=== PATIENT | female | born 1950 | race Caucasian/White ===

== ENCOUNTER → 2017-09-10 14:27 | Outpatient (CLI) | payer MEDICARE, SELFPAY ==
[2017-09-10 14:45] LABS: Basophils # 0.1 K/mm3 (0-0.2); Basophils % 0.7 % (0.1-2.0); Eosinophils # 0.2 K/mm3 (0.0-0.4); Eosinophils % 2.5 % (0.1-12.0); Hematocrit 44.3 % (37.0-47.0); Hemoglobin 14.2 g/dL (12.2-16.2); Lymphocytes # 2.2 K/mm3 (0.7-4.5); Lymphocytes % 29.9 K/mm3 (10-50); Mean Corpuscular HGB Conc 32.1 g/dL (31.8-35.4); Mean Corpuscular Hemoglobin 29.6 pg (27.0-31.2); Mean Corpuscular Volume 92.1 fl (81-99); Mean Platelet Volume 7.9 fl (7.4-10.4); Monocytes # 0.5 K/mm3 (0.1-1.0); Monocytes % 6.1 % (1.7-9.3); Neutrophils # 4.5 K/mm3 (1.8-7.8); Neutrophils % 60.8 % (37.0-80.0); Platelet Count 254 K/mm3 (142-424); Red Blood Count 4.81 M/mm3 (4.20-5.40); White Blood Count 7.4 K/mm3 (4.8-10.8)
[2017-09-10 15:11] LABS: Anion Gap 10.5 mEq/L (5-15); Blood Urea Nitrogen 14 mg/dL (7-18); CKMB Relative Index 1.2 U/L (0-4.0); Carbon Dioxide 30 mmol/L (21.0-32.0); Chloride 107 mmol/L (98-107); Creatine Kinase 73 U/L (26-192); Creatine Kinase MB 0.9 ng/ml (0.0-3.6); Creatinine,Serum 0.91 mg/dL (0.55-1.02); Estimated Glomerular Filt Rate 61 ml/min (>60); GFR (African American) 74 ML/MIN (>60); Glucose 103 mg/dL (74-106); Potassium 4.5 mmoL/L (3.5-5.1); Sodium 143 mmol/L (136-145); Troponin I < 0.02 ng/ml (0.00-0.06)
[2017-09-10 19:35] LABS: Free T4 (Free Thyroxine) 1.08 ng/dl (0.76-1.46); Thyroid Stimulating Hormone 1.56 uIU/ml (0.358-3.740); Uric Acid 5.8 mg/dL (2.6-7.2)
[2017-09-12 19:04] LABS: Vitamin B12 1914 pg/mL (232-1245)
== END ==
PROVIDERS: PCP Psychiatry & Neurology Sleep Medicine; Visit Provider Physician Assistant
DX: R07.9 Chest pain, unspecified (principal); E03.9 Hypothyroidism, unspecified; E79.0 Hyperuricemia without signs of inflammatory arthritis and tophaceous disease; R53.83 Other fatigue
CPT/HCPCS: 36415; 80048; 82550; 82553; 82607; 84439; 84443; 84484; 84550; 85025; 93005

== ENCOUNTER → 2017-09-22 07:52 | Outpatient (CLI) | payer MEDICARE, SELFPAY ==
--- NOTE | 2017-09-22 09:17 | CA_ITS ---
PROCEDURE: 2-D M-mode and color Doppler study INDICATIONS FOR THE TEST: Chest pain X COPD Heart Murmur Tobacco Smoking Palpitations Fatigue Syncope Edema HypertensionXDiabetes Mellitus Rheumatic Fever SOB EUCEDA Obesity Hyperlipidemia Family History HD Additional History DIZZINESS TDS PATIENT INFORMATION HEIGHT: 60 WEIGHT:186 GENDER: Female B/P:164/86 2-D/M-MODE INTERPRETATION: 2-D MEASUREMENTS OBSERVED VALUES IN CMS Right Ventricular Dimension (RVDd) 1.2 Interventricular Septum (Thickness)(IVsd) 1.2 Left Ventricular Internal Dimensions(LVIDd) 6.0 Left Ventricular Posterior Wall (Thickness)(LVPWd) 1.0 Aortic Root 3.1 Aortic Cusp Separation 1.9 Left Atrial Dimensions (LAD) 3.1 2D 1. Left atrium is mildly enlarged, left ventricle is normal size, mild concentric left ventricular hypertrophy, visually estimated ejection fraction 55% with no obvious regional wall motion abnormality. 2. The right atrium and right ventricle are normal size and contractility. 3. The aortic valve is minimally thickened and fibrosed. 4. The mitral and tricuspid valve are grossly normal. 5. The pulmonic valve is poorly visualized. 6. No significant pericardial effusion noted. DOPPLER INTERROGATION: Doppler interrogation of the aortic, mitral and tricuspid valvular presence of mild aortic, mild mitral and tricuspid regurgitation, tricuspid and enteric velocity insufficient for calculation of the right ventricular systolic pressure, diastolic parameters are inconclusive. CONCLUSION: 1. Mildly enlarged left atrium, normal left ventricular size, mild concentric left ventricular hypertrophy, visually estimated ejection fraction 55% with no obvious regional wall motion abnormality. 2. Mild aortic, mild mitral and tricuspid regurgitation 3. No significant pericardial effusion noted.
== END ==
PROVIDERS: Family Provider Family Medicine; PCP Family Medicine; Visit Provider Family Medicine
DX: R07.9 Chest pain, unspecified (principal)
CPT/HCPCS: 93017; 93306

== ENCOUNTER → 2018-02-24 09:09 | Outpatient (CLI) | payer MEDICARE, SELFPAY ==
--- NOTE | 2018-02-24 09:12 | MM_ITS ---
MM Dig screening mamm BI w/CAD ORDERING PHYSICIAN : Navid Mae MD PATIENT AGE: 67 years GENDER: Female COMPARISON: March INDICATION: ITS.REASON: SCREENING no hormones no new complaints Family history. Maternal grandmother in her 90s with breast cancer TECHNIQUE: Standard CC and MLO images were obtained. R2 CAD reviewed. FINDINGS: Moderately dense breast bilaterally . Stable mild asymmetry with slightly more evident fibroglandular elements in the right breast superiorly than left. This is been seen previously on studies dating back to 2006 RIGHT BREAST:No significant new findings. Stable fibroglandular pattern and overall architecture with no dominant mass nor suspicious calcification. LEFT BREAST: Area of minor asymmetry towards the 12 o'clock position deep breast is been present on studies dating back to 2006. Dense calcification at the anterior aspect of this region of again noted these features can be followed in one year.. IMPRESSION: . Stable bilateral mammogram No significant interval change Follow-up in one year BI-RADS Category: 2 Benign Finding(s) RECOMMENDED FOLLOW-UP: 1YR 1 YEAR FOLLOW-UP (A letter has been sent to the patient regarding results of the study.)
--- NOTE | 2018-02-24 09:13 | XR_ITS ---
XR DEXA axial skeleton HISTORY: ITS.REASON: POSTMENOPAUSAL ORDERING PHYSICIAN: Navid Mae MD PATIENT AGE: 67 years COMPARISON: None FINDINGS: The BMD measured at the left femoral neck is 0.860 g/cm squared with a T score of -1.3. This is considered Osteopenic according to the World Health Organization criteria. Fracture risk is Moderate. Treatment is advised. L1 L4 density has these were -0.5. IMPRESSION: Osteopenia with moderate fracture risk. Treatment is suggested. Recommend follow-up exam January 2020
== END ==
PROVIDERS: PCP Family Medicine; Visit Provider Family Medicine
DX: Z12.31 Encounter for screening mammogram for malignant neoplasm of breast (principal); Z78.0 Asymptomatic menopausal state
CPT/HCPCS: 77067; 77080

== ENCOUNTER → 2018-05-22 09:23 | Outpatient (CLI) | payer MEDICARE, SELFPAY ==
[2018-05-22 10:22] LABS: Anion Gap 14.2 mEq/L (5-15); Blood Urea Nitrogen 15 mg/dL (7-18); Calcium 9.1 mg/dL (8.5-10.1); Carbon Dioxide 28 mmol/L (21.0-32.0); Chloride 105 mmol/L (98-107); Creatinine,Serum 0.93 mg/dL (0.55-1.02); Estimated Glomerular Filt Rate 60 ml/min (>60); GFR (African American) 72 ML/MIN (>60); Glucose 96 mg/dL (74-106); Potassium 4.2 mmoL/L (3.5-5.1); Sodium 143 mmol/L (136-145)
== END ==
PROVIDERS: Visit Provider Physician Assistant
DX: I10 Essential (primary) hypertension (principal)
CPT/HCPCS: 36415; 80048

== ENCOUNTER → 2018-10-28 09:37 | Outpatient (CLI) | payer MEDICARE, SELFPAY ==
--- NOTE | 2018-10-28 09:41 | XR_ITS ---
XR finger LT min 2V CLINICAL INDICATION: Follow-up fracture ITS.REASON: FX OF LT RING FINGER ORDERING PHYSICIAN: SUKHDEV Ventura PATIENT AGE: 68 years Comparison: 09/29/2018 FINDINGS: Minimally displaced chip fracture involves the dorsal and proximal aspect of the middle phalanx of the fourth finger. The fracture appears slightly more displaced compared to the previous exam with proximal distraction. There are osteoarthritic changes at the PIP and DIP joint. IMPRESSION: Mildly displaced chip fracture dorsal and proximal aspect middle phalanx fourth digit
== END ==
PROVIDERS: PCP Family Medicine; Visit Provider Physician Assistant
DX: S62.625D Displaced fracture of middle phalanx of left ring finger, subsequent encounter for fracture with routine healing (principal)
CPT/HCPCS: 73140

== ENCOUNTER → 2019-08-08 12:32 | Outpatient (CLI) | payer MEDICARE, SELFPAY | PROVIDERS: PCP Family Medicine; Visit Provider Family Medicine | DX: R55 Syncope and collapse (principal) | CPT/HCPCS: 93225; 93226 ==

== ENCOUNTER → 2019-08-11 10:19 | Outpatient (CLI) | payer MEDICARE, SELFPAY ==
--- NOTE | 2019-08-11 10:27 | CA_ITS ---
APPROVED REPORT Anaesthetic Technician: FILIBERTO Laterality: Bilateral Study Quality: Excellent Indications: SYNCOPE,DIZZINESS,HTN Doppler Spectral Velocity Analysis dICA (R) 56.00/20.90 cm/s dICA (L) 58.20/19.60 cm/s Anne Marie (R) 42.10/18.70 cm/s Anne Marie (L) 56.20/22.30 cm/s pICA (R) 61.70/14.70 cm/s pICA (L) 54.90/16.40 cm/s dCCA (R) 75.70/26.30 cm/s dCCA (L) 84.80/25.70 cm/s pCCA (R) 75.00/21.90 cm/s pCCA (L) 70.30/18.50 cm/s Vert (R) 36.30/6.60 cm/s Vert (L) 49.80/12.50 cm/s ICA/CCA 0.80 ICA/CCA 0.70 Findings The right carotid arterial system appeared to be normal without stenosis of the bulb or internal carotid artery. The left carotid arterial system appeared to be normal without stenosis of the bulb or internal carotid artery. Antegrade flow seen bilateral vertebral arteries. Conclusion No increased velocities to suggest hemodynamically significant stenosis in either internal carotid artery. Electronically signed by : Kilo Aranda MD 08/11/2019 16:52:47
== END ==
PROVIDERS: PCP Family Medicine; Visit Provider Family Medicine
DX: R55 Syncope and collapse (principal)
CPT/HCPCS: 93880

== ENCOUNTER → 2019-08-19 16:19 | Outpatient (CLI) | payer MEDICARE, SELFPAY ==
--- NOTE | 2019-08-19 16:27 | XR_ITS ---
PROCEDURE: XR RIBS RT MIN 3V W CXR1V CLINICAL INDICATION: PLEURODYNIA, RIGHT RIB PAIN The COMPARISON: CXR CHEST(2 VIEWS-NOT PORTABLE) from 04/23/2015 CT CHEST WO CON from 08/06/2019 FINDINGS: Frontal view of the chest shows no acute finding. There is some minimal atelectatic or fibrotic changes in the left mid lower lung zone and in the left lung base. The right lung is clear. No obvious rib fracture evident. No lytic or blastic change. IMPRESSION: No acute finding. If pain persists, consider follow-up study in 7-[address] with 3D reformats Dictated by: Kilo Aranda MD 08/19/2019 17:20 Electronically signed by Kilo Aranda MD in [place] 08/19/2019 17:20
== END ==
PROVIDERS: PCP Family Medicine; Visit Provider Family Medicine
DX: R07.81 Pleurodynia (principal)
CPT/HCPCS: 71101

== ENCOUNTER → 2019-12-01 10:04 | Outpatient (CLI) | payer MEDICARE, SELFPAY ==
--- NOTE | 2019-12-01 11:00 | MM_ITS ---
PROCEDURE: MM DIG SCREENING MAMM BI W/CAD Digital Breast Tomosynthesis Included CLINICAL INDICATION: SCREENING COMPARISON: DIGMAMMS MAMMOGRAM SCREEN-MILITARY LAWYER N/C from 03/22/2007 [facility] DIGITAL MAMM-SCREEN BILATERAL from 11/12/2011 [facility] MM Dig screening mamm BI w/CAD from 02/24/2018 TECHNIQUE: Standard CC and MLO images and 3D Tomosynthesis was obtained. R2 CAD reviewed. FINDINGS: There is average fibroglandular tissue. No malignant appearing mass or malignant-appearing microcalcification is evident. There is however questionable linear calcifications in the inferior aspect of the left breast. Recommend spot compression Mag view and straight mL view on the left. Right breast has an unremarkable appearance. IMPRESSION: BI-RAD Category: 0 Need Additional Imaging Evaluation FOLLOW-UP: IMM Immediate Follow-up Recommended (A letter has been sent to the patient regarding results of the study.) Dictated by: Kilo Aranad MD 12/02/2019 14:47 Electronically signed by Kilo Aranda MD in [place] 12/02/2019 14:47
== END ==
PROVIDERS: PCP Family Medicine; Visit Provider Family Medicine
DX: Z12.31 Encounter for screening mammogram for malignant neoplasm of breast (principal)
CPT/HCPCS: 77063; 77067

== ENCOUNTER → 2019-12-09 13:36 | Outpatient (CLI) | payer MEDICARE, SELFPAY ==
--- NOTE | 2019-12-09 13:48 | MM_ITS ---
PROCEDURE: MM DIG MAMM DX UNILAT LT CAD Digital Breast Tomosynthesis Included CLINICAL INDICATION: ABN MAMM OF L BREAST Follow-up possible microcalcifications COMPARISON: MM DIG SCREENING MAMM BI W/CAD from 12/01/2019 TECHNIQUE: Mag views and left mL view obtained FINDINGS: No abnormal calcifications evident in the inferior aspect of the left breast. Previously noted abnormality probably related to a summation artifact. IMPRESSION: BI-RAD Category: 2 Benign Finding(s) FOLLOW-UP: 1YR 1 Year Follow-up (A letter has been sent to the patient regarding results of the study.) Dictated by: Kilo Aranda MD 12/16/2019 17:11 Electronically signed by Kilo Aranda MD in [place] 12/16/2019 17:11
== END ==
PROVIDERS: PCP Family Medicine; Visit Provider Family Medicine
DX: R92.8 Other abnormal and inconclusive findings on diagnostic imaging of breast (principal)
CPT/HCPCS: 77061; 77065; G0279

== ENCOUNTER → 2020-04-21 13:04 | Outpatient (CLI) | payer MEDICARE, SELFPAY | PROVIDERS: Visit Provider Family Medicine | DX: N30.00 Acute cystitis without hematuria (principal) | CPT/HCPCS: 87086; 87088; 87186 ==

== ENCOUNTER → 2020-10-16 06:56 | Outpatient (CLI) | payer MEDICARE, SELFPAY ==
--- NOTE | 2020-10-16 07:07 | NM_ITS ---
APPROVED REPORT Exam: Nuclear Stress Test Indication: Chest pain, SOB, Palpitations, Syncope, HTN, High cholesterol, Family history Patient Location: Outpatient Stress Tech: Sonia Jonas [place] Tech:Linda Griffiths, ARRT, RT (R)(N) Ht: 5 ft 1 in Wt: 200 lbs Bra Size: D HR: 49 bpm BP: 140/83 mmHg BSA: 1.89 m2 BMI: 37.7 History: Chest pain, SOB, Palpitations, Syncope, HTN, High cholesterol, Family history Procedure: Patient received a 0.4 mg of intravenous Lexiscan, resting heart rate 49 bpm, resting blood pressure 140/83 mmHg, with Lexiscan maximum heart rate achived was 63 bpm which is Less than 85 % of the maximum predicted heart rate and blood pressure was 139/74 mmHg. With Lexiscan, patient denied any complaint of chest pain. Electrocardiogram Resting electrocardiogram showed sinus rhythm, nonspecific ST-T changes, with Lexiscan there is less than 1.[address] segment depression noted from the baseline EKG. The EKG portion of the Lexiscan is nondiagnostic. Cardiac Stress and Resting SPECT Images: Cardiac Stress and Resting SPECT images were obtained using technetium 99m Myoview 30.7 mCi stress and 10.61 mCi at rest. Gated SPECT for analysis of segmental wall motion and calculation of the ejection fraction also done. Prone images were also obtained. Cardiac stress and rest SPECT images show uniform myocardial activity without segmental perfusion abnormality, computer derived ejection fraction is 57% with no regional wall motion abnormality, right ventricle is normal size and contractility. Conclusion: 1. The EKG portion of the Lexiscan is nondiagnostic. 2. No scintigraphic evidence of reversible ischemia seen, computer derived ejection fraction 57% with no regional wall motion abnormality, right ventricle is normal size and contractility. 3. Normal Lexiscan Myoview study. Electronically signed by : Mateo Hare, 10/16/2020 19:24:57
--- NOTE | 2020-10-16 07:13 | CA_ITS ---
APPROVED REPORT EXAM: Comprehensive 2D, Doppler, and color-flow Echocardiogram Master At Arms: Eleni Villanueva CRT Ht: 5 ft 0 in Wt: 184lbs BSA: 1.80 BP: 130/70 mmHg Indications: Chest Pain, Shortness of Breath, Palpitations, CAD, Hyperlipidemia, Hypertension/HDD 2D Dimensions LVOT 1.79 cm (M/F) 1.5-2.5 LA Volume 37.10 mL LA Volume Index 20.60 mL/m2 (M/F) 16-34 M-Mode Dimensions RVDd 3.14 cm (0.9-2.6) LA Diam 2.93 cm (1.9-4.0) LVDd 3.90 cm (3.5-5.7) Ao Diam 3.58 cm (2.0-3.7) LVDs 2.95 cm (3.5-5.7) IVSd 1.70 cm (0.6-1.1) PWd 0.83 cm (0.6-1.1) EF (Teich) 49.00% FS 24.40% EDV (Teich) 65.90 mL TAPSE 1.92 (<1.7) ESV (Teich) 33.60 mL LV Diastology E Decel Time 187.00 (160-240 msec) E/A Ratio 1.03 MED E' 4.70 (< 7 cm/sec) MED A' 8.90 cm/s E'/MED E' Ratio 17.26 (>14) LAT E' 7.60 (<10 cm/sec) LAT A' 7.60 cm/s E/LAT E' Ratio 10.67 (>14) Aortic Valve AI PHT 524.00 ms AO Peak GR. 4.80 mmHg Mitral Valve MV A Velocity 79.00 (40-130 cm/s) E/A Ratio 1.03 MV Decel. Time 187.00 (160-240 ms) Pulmonary Valve PV Peak Velocity 80.00 (50-150 cm/s) Tricuspid Valve TR P. Velocity 244.00 cm/s RAP Estimate 10.00 mmHg RVSP 33.80 mmHg Left Ventricle Left atrium is mildly enlarged, left ventricle is normal size, mild concentric left ventricular hypertrophy, visually estimated ejection fraction 55% with no regional wall motion abnormality, grade 1 diastolic dysfunction seen without tissue Doppler evidence of raise left atrial pressure. Right Ventricle Right atrium and right ventricle are mildly enlarged with normal contractility. Aortic Valve Aortic valve is minimally thickened and fibrosed, there is no aortic stenosis, there is trace aortic insufficiency. Mitral Valve Mitral valve leaflets are minimally thickened, there is mild mitral regurgitation. Tricuspid Valve Tricuspid grossly normal, there is mild tricuspid regurgitation, calculated right ventricular systolic pressure 33 mmHg. Pulmonic Valve Pulmonic valve is poorly visualized. Great Vessels Aortic root is normal size. Inferior vena cava is mildly dilated without significant inspiratory collapse. Pericardium No significant pericardial effusion noted. Conclusion 1. Mild biatrial enlargement, normal left ventricular size, mild concentric left ventricular hypertrophy, visually estimated ejection fraction 55% with no regional wall motion abnormality, grade 1 diastolic dysfunction seen without tissue Doppler evidence of raise left atrial pressure. 2. Mildly enlarged right ventricle with normal contractility. 3. Trace aortic, mild mitral and tricuspid regurgitation, calculated right ventricular systolic pressure 32 mmHg. 4. No significant pericardial effusion noted, inferior vena cava is mildly dilated without significant inspiratory collapse. Electronically signed by : Mateo Hare, 10/16/2020 21:47:35
--- NOTE | 2020-10-16 08:30 | CA_ITS ---
APPROVED REPORT Exam: Pharmacologic Technologist: Sonia Jonas, Ht: 5 ft 0 in Wt: 184 lbs BSA: 1.80 m2 HR: 49 bpm BP: 140/83 mmHg Rhythm: SINUS MIRNA, LOW VOLTAGE QRS, PVC Medical History Medical History: HTN Medications: Levothyroxine,,,,, Aspirin,,,,, Pravastatin,,,,, Diazepam,,,,, Allopurinol,,,,, DOxepin,,,,, DiPHENHYDRAMINE,,,,, SpirOnALACTONE,,,,, CetIRazine,,,,, Metoprol,,,,, Sertaline,,,,, SucCINATE,,,,, Allergies: ACETAMINOPHEN, FEBUXOSTAT,HYDROCODONE,SULFA Cardiac Risk Factors: HTN Stress Test Details Test: LEXISCAN HR Resting HR: 50 bpm Max Heart Rate (APMHR): 149.790941 bpm Max HR Achieved: 69 bpm Target HR (85% APMHR): 126.823604 bpm % of APMHR: 46.31 Recovery HR: 56 bpm BP Resting BP: 140/83 mmHg Max BP: 140/83 mmHg Recovery BP: 135.0/79.0 mmHg ECG Resting ECG: SINUS MIRNA, LOW VOLTAGE QRS, PVC Medications Administered Aminophylline ( mg at ) Clinical Exercise duration: 04:01 min Highest Stage Achieved: Stress ECG Conclusion PT HAD MILD MALAISE. NO CP. RARE PVC. NO SIGNIFICANT CHANGES. UNREMARKABLE LEXISCAN STRESS. MYOVIEW IMAGES REPORTED SEPARATELY. Test Summary REST 04:53 . . 50 . 140/ 83 . . Stage 1 . . . . . . . Cardiolite injected Stage 1 01:00 . . 67 . . . . Stage 2 01:00 . . 64 . 139/ 74 . . Stage 3 01:00 . . 66 . . . . Stage 4 01:00 . . 61 . 136/ 80 . . Stage 4 01:01 . . 61 . 136/ 80 . Stop exercise at 04:01 RECOVERY 01:00 . . 56 . 125/ 76 . . RECOVERY 02:00 . . 55 . 125/ 76 . . RECOVERY 03:00 . . 54 . 135/ 79 . . RECOVERY 03:17 . . 56 . 135/ 79 . . Electronically signed by : Mateo Hrae, 10/16/2020 19:11:07
--- NOTE | 2020-10-16 08:42 | HMH.ITSHM ---
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 []SPIRONOLACTONE SERTRALINE PRAVASTATIN METOPROLOL LEVOTHYROXINE DOXEPIN DIAZEPAM CETIRIZINE ASA ALLOPURINOL
== END ==
PROVIDERS: PCP Family Medicine; Visit Provider Internal Medicine Cardiovascular Disease
DX: R06.00 Dyspnea, unspecified; R00.2 Palpitations
CPT/HCPCS: 78452; 93017; 93306; A9502; J2785

== ENCOUNTER → 2021-01-17 11:06 | Outpatient (CLI) | payer MEDICARE, SELFPAY | PROVIDERS: PCP Family Medicine; Visit Provider Family Medicine | DX: Z20.822 Contact with and (suspected) exposure to COVID-19 (principal); U07.1 COVID-19 | CPT/HCPCS: U0003 ==

== ENCOUNTER 2021-03-16 11:21 | Emergency (ER) | payer MEDICARE, SELFPAY ==
[2021-03-16 11:25] VITALS: BP 129/84; PULSE 78; RESP 20; O2SAT 97; BMI 34.9
[2021-03-16 11:40] VITALS: BP 129/84; PULSE 78; RESP 20; TEMP 36.7; O2SAT 97; BMI 35.1
--- NOTE | 2021-03-16 12:07 | HMH.EDUTC ---
[facility] Clinical Impression: Sore throat, COVID-19 virus test result unknown Disposition: Home, Self-Care Condition on Discharge: Good Instructions: Sore Throat, COVID-19: Testing and Tracing Additional Instructions: covid swab was sent to lab, call later today for results. self isolate until test results are known to be negative No sign of a bacterial infection. Likely viral. Viruses can take 7-14 days to run their course. Nasal saline and bulb syringe or nose Vale to remove nasal drainage to help with nasal congestion. Hard to eat, drink, sleep with nasal congestion so important to keep this cleaned out. Monitor temp. Tylenol or Motrin as needed for pain or fever Encourage fluids, water, Gatorade, Powerade, Pedialyte if infant/toddler/child Warm salt water gargles Warm fluids Sore throat lozenges Sleep elevated Humidifier/vaporizer Follow-up immediately for new or worsening symptoms or no noticeable improvement over the next 48-72 hours. Referrals: Navid Mae MD [Primary Care Provider] - Time of Disposition: 12:17 Medical Decision Making - Yosef Inquiry Pt receiving controlled substance: No Vital Signs: 03/16/21 11:25 03/16/21 11:40 Temperature 98.0 F Temperature Source Oral Pulse Rate [Left Radial] 78 78 Respiratory Rate 20 20 Blood Pressure [Right Arm] 129/84 129/84 Blood Pressure Mean [Right Arm] 99 99 Blood Pressure Source [Right Arm] Automatic Cuff Automatic Cuff Blood Pressure Position [Right Arm] Sitting Sitting 02 Sat by Pulse Oximetry 97 97 Oxygen Delivery Method Room Air Room Air - Lab Data Lab Results 03/16/21 11:56: Strep Scn Rapid Clinic Negative Orders (Tests/Meds): ORDERS Category Date Time Status Strep Screen Confirmation Stat Micro 03/16/21 11:56 Received [facility] - General Chief complaint: Urgent [facility] Stated complaint: sore throat Time Seen by Provider: 03/16/21 12:07 Mode of Arrival: Ambulatory Source of Information: Patient Limitations: No Limitations Description of Symptoms (Recalled from Triage Doc. by RN): PATIENT C/O SORE THROAT SINCE THIS MORNING HEENT Symptoms (Recalled from RN notes): No Resp Symptoms (Recalled from RN notes): No Skin Symptoms (Recalled from RN notes): No MS Symptoms (Recalled from RN notes): No Functional Status (Recalled from RN notes): WNL - History of Present Illness Provider Complaint: 70 yr old female presents for sore throat that started last pm. pt states no other symptoms - Related Data Home Medications Medication Instructions Recorded Confirmed aspirin 81 mg tablet,delayed 81 mg PO DAILY tab 10/15/17 11/02/20 release diphenhydramine HCl 25 mg capsule 25 mg PO TID PRN cap 10/15/17 11/02/20 levothyroxine 75 mcg tablet 75 mcg PO DAILY tab 10/15/17 11/02/20 allopurinol 100 mg tablet 300 mg PO DAILY tab 09/28/20 11/02/20 diazepam 5 mg tablet 5 mg PO TID tab 09/28/20 11/02/20 doxepin 10 mg capsule 10 mg PO DAILY cap 09/28/20 11/02/20 metoprolol succinate 25 mg 12.5 mg PO DAILY tab 09/28/20 11/02/20 tablet,extended release 24 hr pravastatin 20 mg tablet 20 mg PO .MWF tab 09/28/20 11/02/20 sertraline 50 mg tablet 50 mg PO DAILY tab 09/28/20 11/02/20 Previous Rx's Medication Instructions Recorded spironolactone 25 mg tablet See Rx Instructions .ROUTE 12/04/20 .COMPLEX #30 tab Allergies Allergy/AdvReac Type Severity Reaction Status Date / Time acetaminophen [From LORTAB] Allergy Intermediate I-ITCHING Verified 11/16/20 13:23 febuxostat [From ULORIC] Allergy Intermediate joints Verified 11/16/20 13:23 hydrocodone [From LORTAB] Allergy Intermediate I-ITCHING Verified 11/16/20 13:23 Sulfa (Sulfonamide Allergy Intermediate I-HIVES Verified 11/16/20 13:23 Antibiotics) [SULFA (SULFONAMIDE ANTIBIOTICS)] - Worker's Comp Is this a Worker's Comp case?: No [facility] History - Hepatitis A Screen Drug use history?: No High risk sexual behaviors?: No His
[2021-03-16 12:12] LABS: UTC Strep Screen (Rapid) Negative (Negative)
[2021-03-16 12:20] VITALS: BP 129/84; PULSE 78; RESP 20; TEMP 36.7; O2SAT 97
== END 2021-03-16 12:24 | disposition home or self-care (01) ==
PROVIDERS: Emergency Provider Nurse Practitioner Family; PCP Family Medicine
DX: U07.1 COVID-19 (principal); J02.9 Acute pharyngitis, unspecified; I25.10 Atherosclerotic heart disease of native coronary artery without angina pectoris; I10 Essential (primary) hypertension; E78.5 Hyperlipidemia, unspecified
CPT/HCPCS: G0463; 87880; 99203; C9803; U0003; U0005

== ENCOUNTER → 2021-03-18 14:08 | Outpatient (CLI) | payer MEDICARE, SELFPAY ==
--- NOTE | 2021-03-18 14:14 | XR_ITS ---
PROCEDURE: XR CHEST PORTABLE CLINICAL HISTORY: COVID TESTING COMPARISON: CR CXR CHEST(2 VIEWS-NOT PORTABLE) from 04/23/[address] CHEST WO CON from 08/06/2019 CR XR RIBS RT MIN 3V W CXR1V from 08/19/2019 FINDINGS: The cardiomediastinal silhouette and pulmonary vascularity are within normal limits. The lungs are clear without infiltrates, suspicious nodules, or pleural effusions. No acute bony abnormalities. IMPRESSION: No acute findings. Dictated by: Kilo Aranda MD 03/18/2021 14:44 Kilo Aranda MD in [place] 03/18/2021 14:44
[2021-03-18 14:55] LABS: Basophils # 0.1 K/mm3 (0-0.2); Basophils % 0.8 % (0.1-2.0); Eosinophils # 0.2 K/mm3 (0.0-0.4); Eosinophils % 2.5 % (0.1-12.0); Hematocrit 41.8 % (37.0-47.0); Hemoglobin 13.6 g/dL (12.2-16.2); Lymphocytes # 1.8 K/mm3 (0.7-4.5); Mean Corpuscular HGB Conc 32.5 g/dL (31.8-35.4); Mean Corpuscular Hemoglobin 30.7 pg (27.0-31.2); Mean Corpuscular Volume 94.7 fl (81-99); Mean Platelet Volume 8.8 fl (7.4-10.4); Monocytes # 0.6 K/mm3 (0.1-1.0); Monocytes % 6.1 % (1.7-9.3); Neutrophils # 6.4 K/mm3 (1.8-7.8); Neutrophils % 70.7 % (37.0-80.0); Platelet Count 252 K/mm3 (142-424); Red Blood Count 4.42 M/mm3 (4.20-5.40)
== END ==
PROVIDERS: PCP Family Medicine; Visit Provider Family Medicine
DX: Z20.822 Contact with and (suspected) exposure to COVID-19 (principal)
CPT/HCPCS: 36415; 71045; 85025

== ENCOUNTER 2021-03-18 20:54 | Emergency (ER) | payer MEDICARE, SELFPAY ==
--- NOTE | 2021-03-18 20:56 | ECG_ITS ---
APPROVED REPORT Exam: Resting ECG HR:93 bpm ECG Measurements Heart Rate 93 AXES VA 168 P 47 QRSd 82 QRS -35 QT 366 T 68 QTc 455 Conclusion Normal sinus rhythm Left axis deviation Poor r wave progression Abnormal ECG Electronically signed by : Jad Handley MD 03/20/2021 17:30:20
[2021-03-18 21:05] VITALS: BP 130/80; PULSE 85; RESP 21; TEMP 36.9; O2SAT 94; BMI 34.2
--- NOTE | 2021-03-18 21:21 | XR_ITS ---
PROCEDURE INFORMATION: Exam: XR Chest Exam date and time: 03/18/2021 9:21 PM Age: 70 years old Clinical indication: Cough; Additional info: Cough, chest pain TECHNIQUE: Imaging protocol: XR of the chest. Views: 2 views. COMPARISON: CR XR CHEST PORTABLE 03/18/2021 2:24 PM FINDINGS: Lungs: No focal airspace disease. Pleural spaces: Unremarkable. No pleural effusion. No pneumothorax. Heart/Mediastinum: Cardiomediastinal silhouette is within normal limits. Bones/joints: Unremarkable. Organs: Cholecystectomy clips in the right upper quadrant. IMPRESSION: No acute cardiopulmonary abnormality.
--- NOTE | 2021-03-18 21:27 | HMH.EDCP ---
ED Disposition Clinical Impression: Bronchitis Disposition: Home, Self-Care Condition on Discharge: Good Instructions: DI for Cough -- Adult Additional Instructions: fluids and see pcp for follow up and use meds Prescriptions: predniSONE [Prednisone 20mg Tab] 20 mg PO BID #10 tab Transmission Status: Pending to [id number] Benzonatate [Tessalon Perle 100mg Cap] 100 mg PO TID #30 cap Transmission Status: Pending to [id number] Referrals: Navid Mae MD [Primary Care Provider] - - Critical Care Critical Care Time: No Attestation: On 03/18/21, the high probability of a clinically significant, sudden or life threatening deterioration of the following system(s) required my full and direct attention, intervention and personal management. The time I documented below is in addition to time spent performing reported procedures but includes the following listed in this critical care notation. Medical Decision Making - Medical Records Medical records reviewed: Yes: I reviewed the patient's medical records. - Yosef Inquiry Pt receiving controlled substance: No Vital Signs: 03/18/21 21:05 Temperature 98.5 F Temperature Source Oral Pulse Rate [Right Radial] 85 Respiratory Rate 21 Blood Pressure [Right Arm] 130/80 Blood Pressure Mean [Right Arm] 96 Blood Pressure Source [Right Arm] Automatic Cuff Blood Pressure Position [Right Arm] Sitting 02 Sat by Pulse Oximetry 94 L Oxygen Delivery Method Room Air - Lab Data Lab results reviewed: Yes: I reviewed the patient's lab results. Lab Results 03/18/21 21:07: WBC 10.3, RBC 4.54, Hgb 13.8, Hct 43.8, MCV 96.4, MCH 30.4, MCHC 31.6 L, RDW 14.4, Plt Count 249, MPV 8.3, Neut % (Auto) 70.3, Lymph % (Auto) 20.6, [place] % (Auto) 5.9, Eos % (Auto) 2.4, Baso % (Auto) 0.8, Neut # (Auto) 7.3, Lymph # (Auto) 2.1, [place] # (Auto) 0.6, Eos # (Auto) 0.3, Baso # (Auto) 0.1, ESR 41 H 03/18/21 21:07: Sodium 143, Potassium 3.8, Chloride 106, Carbon Dioxide 30, Anion Gap 10.8, BUN 11, Creatinine 0.70, Estimated Creat Clear 65, Estimated GFR 82, Est GFR ( Amer) 100, Glucose 95, Calcium 9.0, Total Bilirubin 0.6, Direct Bilirubin 0.5 H, Conjugated Bilirubin 0.0, Indirect Bilirubin 0.1, Unconjugated Bilirubin 0.0, AST 25, ALT 14, Alkaline Phosphatase 76, Troponin I < 0.01, C-Reactive Protein 61.6 H, Total Protein 7.5, Albumin 4.2, Procalcitonin 0.068 03/18/21 21:07: Lactate 0.8 03/18/21 21:42: Chlamy pneumoniae PCR Not detected, Adenovirus (PCR) Not detected, B. pertussis DNA (PCR) Not detected, Coronavirus OC43 (PCR) Not detected, Coronavirus HKU1 (PCR) Not detected, Coronavirus 229E (PCR) Not detected, SARS-CoV-2 (PCR) Not detected, Coronavirus NL63 (PCR) Not detected, Human Metapneumovir PCR Not detected, Influenza A (H1) PCR Not detected, Influ A (H1N1/09) PCR Not detected, Influenza A (H3) PCR Not detected, Influenza Type A (PCR) Not detected, Influenza Type B (PCR) Not detected, M. pneumoniae (PCR) Not detected, Parainfluenza 1 (PCR) Not detected, Parainfluenza 2 (PCR) Not detected, Parainfluenza 3 (PCR) Not detected, Parainfluenza 4 (PCR) Not detected, RSV (PCR) Not detected, Entero/Rhino (PCR) Not detected Result diagrams: 03/18/21 21:07 03/18/21 21:07 Orders (Tests/Meds): ED MEDICATIONS Generic Name Dose Route Start Last Admin Trade Name Freq PRN Reason Stop Dose Admin Sodium Chloride 1,000 mls @ 999 mls/hr 03/18/21 21:30 03/18/21 21:31 Sod Chlor 0.9% 1000ml Bag IV 03/18/21 22:30 999 mls/hr .Q1H1M MICHAEL Administration Ceftriaxone Sodium 1 gm/ 50 mls @ 100 mls/hr 03/18/21 23:30 03/18/21 23:35 Sodium Chloride IV 04/01/21 23:29 100 mls/hr Q24H MICHAEL Administration Discontinued Medications Generic Name Dose Route Start Last Admin Trade Name Freq PRN Reason Stop Dose Admin Aspirin 324 mg 03/18/21 21:21 03/18/21 21:19 Aspirin 81mg Chewable Tablet PO 03/18/21 21:22 324 mg ONCE ONE Administration Ketorolac Tromethamin
[2021-03-18 21:33] LABS: Basophils # 0.1 K/mm3 (0-0.2); Basophils % 0.8 % (0.1-2.0); Eosinophils # 0.3 K/mm3 (0.0-0.4); Eosinophils % 2.4 % (0.1-12.0); Hematocrit 43.8 % (37.0-47.0); Hemoglobin 13.8 g/dL (12.2-16.2); Lymphocytes # 2.1 K/mm3 (0.7-4.5); Lymphocytes % 20.6 % (10-50); Mean Corpuscular HGB Conc 31.6 g/dL (31.8-35.4); Mean Corpuscular Hemoglobin 30.4 pg (27.0-31.2); Mean Corpuscular Volume 96.4 fl (81-99); Mean Platelet Volume 8.3 fl (7.4-10.4); Monocytes # 0.6 K/mm3 (0.1-1.0); Monocytes % 5.9 % (1.7-9.3); Neutrophils # 7.3 K/mm3 (1.8-7.8); Neutrophils % 70.3 % (37.0-80.0); Platelet Count 249 K/mm3 (142-424); Red Blood Count 4.54 M/mm3 (4.20-5.40); Red Cell Distribution Width 14.4 % (11.5-17.5); White Blood Count 10.3 K/mm3 (4.8-10.8)
[2021-03-18 21:37] LABS: Alanine Aminotransferase 14 U/L (12-78); Albumin Level 4.2 g/dl (3.5-5.0); Alkaline Phosphatase 76 U/L (38-126); Anion Gap 10.8 mEq/L (5-15); Aspartate Amino Transferase 25 U/L (14-36); Bilirubin,Direct 0.5 mg/dl (0.0-0.4); Bilirubin,Indirect 0.1 mg/dL (0.0-0.9); Bilirubin,Total 0.6 mg/dl (0.2-1.3); Blood Urea Nitrogen 11 mg/dl (7-17); Carbon Dioxide 30 mmol/L (22.0-30.0); Chloride 106 mmol/L (98-107); Creatinine Clearance Estimated 65 mL/min (50-200); Estimated Glomerular Filt Rate 82 ml/min (>60); GFR (African American) 100 ML/MIN (>60); Glucose 95 mg/dl (74-100); Potassium 3.8 mmoL/L (3.5-5.1); Sodium 143 mmol/L (136-145); Total Protein,Serum 7.5 g/dl (6.3-8.2)
[2021-03-18 21:42] LABS: C-Reactive Protein 61.6 mg/L (0-4)
[2021-03-18 21:44] LABS: Lactic Acid 0.8 mmol/L (0.7-2.1)
[2021-03-18 21:46] LABS: Adenovirus,PCR Not Detected (NotDetected); Bordetella Pertussis Not Detected (NotDetected); Chlamydophila Pneumoniae, PCR Not Detected (NotDetected); Coronavirus 19, PCR Not Detected (NotDetected); Coronavirus 229E Not Detected (NotDetected); Coronavirus NL63 Not Detected (NotDetected); Coronavirus OC43 Not Detected (NotDetected); Coronovirus HKU1,PCR Not Detected (NotDetected); Human Metapneumovirus Not Detected (NotDetected); Influenza A, PCR Not Detected (NotDetected); Influenza AH1, 2009 Not Detected (NotDetected); Influenza AH1, PCR Not Detected (NotDetected); Influenza AH3,PCR Not Detected (NotDetected); Influenza B, PCR Not Detected (NotDetected); Mycoplasma Pneumoniae, PCR Not Detected (NotDetected); Parainfluenza 1, PCR Not Detected (NotDetected); Parainfluenza 2, PCR Not Detected (NotDetected); Parainfluenza 3, PCR Not Detected (NotDetected); Parainfluenza 4, PCR Not Detected (NotDetected); Respiratory Syncytial Virus Not Detected (NotDetected); Rhinovirus/Enterovirus Not Detected (NotDetected)
[2021-03-18 21:53] LABS: Troponin I < 0.01 ng/ml (0.00-0.034)
[2021-03-18 21:54] LABS: Procalcitonin 0.068 ng/mL (0.0-2.0)
[2021-03-18 22:16] LABS: Erythrocyte Sedimentation Rate 41 mm/hr (0-30)
[2021-03-18 23:57] VITALS: BP 113/67; PULSE 73; RESP 16; TEMP 36.6; O2SAT 94
== END 2021-03-18 23:59 | disposition home or self-care (01) ==
PROVIDERS: Emergency Provider Emergency Medicine; PCP Family Medicine
DX: J20.9 Acute bronchitis, unspecified (principal); Z20.822 Contact with and (suspected) exposure to COVID-19; I10 Essential (primary) hypertension; E78.5 Hyperlipidemia, unspecified; I25.10 Atherosclerotic heart disease of native coronary artery without angina pectoris; Z79.899 Other long term (current) drug therapy
CPT/HCPCS: 36415; 71045; 71046; 80048; 80076; 83605; 84145; 84484; 85025; 85651; 86140; 87581; 87632; 87798; 93005; 96374; 96375; 99283; C9803; U0003; U0005

== ENCOUNTER 2021-04-07 15:43 | Emergency (ER) | payer MEDICARE, SELFPAY ==
[2021-04-07 15:43] VITALS: BP 136/94; PULSE 94; RESP 18; TEMP 36.9; O2SAT 94; BMI 36.3
--- NOTE | 2021-04-07 15:43 | ECG_ITS ---
APPROVED REPORT Exam: Resting ECG HR:91 bpm ECG Measurements Heart Rate 91 AXES MA 136 P 60 QRSd 90 QRS -32 QT 370 T 65 QTc 455 Conclusion Normal sinus rhythm Left axis deviation Late r wave progression, unchanged from prior Abnormal ECG Electronically signed by : Jad Handley MD 04/14/2021 08:33:18
[2021-04-07 15:50] VITALS: BMI 36.3
--- NOTE | 2021-04-07 15:51 | XR_ITS ---
PROCEDURE INFORMATION: Exam: XR Chest Exam date and time: 04/07/2021 3:51 PM Age: 70 years old Clinical indication: Shortness of breath; Additional info: Cough, SOA, cp r/t coughing TECHNIQUE: Imaging protocol: XR of the chest. Views: 2 views. COMPARISON: CR XR CHEST 2V 03/18/2021 9:24 PM FINDINGS: Lungs: Ill-defined left basilar opacity. Pleural spaces: Unremarkable. No pleural effusion. No pneumothorax. Heart/Mediastinum: Unremarkable. No cardiomegaly. Bones/joints: Unremarkable. IMPRESSION: Question small left basilar infiltrate
--- NOTE | 2021-04-07 15:51 | PC.NURSE ---
Notified RT of López
[2021-04-07 15:58] VITALS: PULSE 87
--- NOTE | 2021-04-07 16:00 | HMH.EDGENADL ---
ED Disposition Clinical Impression: Acute bronchitis with bronchospasm Disposition: Home, Self-Care Condition on Discharge: Fair Instructions: DI for Acute Bronchitis, How to Use a Nebulizer Additional Instructions: Zithromax as prescribed, begin tomorrow. Prednisone as prescribed, begin tomorrow. Fill prescription for nebulizer at [facility]. Use DuoNeb treatments 4 times a day as needed for wheezing. Follow-up with your primary care provider this week, call tomorrow to make appointment. Return emergency department if worsening wheezing/shortness of breath. Prescriptions: Nebulizer [Altera Nebulizer] 1 each MC QIDP PRN #1 each PRN Reason: Wheezing Prescription Printed Ipratropium/Albuterol Sulfate [Duoneb 3mL neb] 3 ml IH QIDP PRN #30 ml PRN Reason: Wheezing Transmission Status: [facility] predniSONE [Prednisone 20mg Tab] 20 mg PO BID #10 tab Transmission Status: [facility] Azithromycin [Zithromax 250mg tab] 250 mg PO DAILY #4 tab Transmission Status: [facility] Referrals: Provider,Referral, [Referring] - - Critical Care Critical Care Time: No Attestation: On 04/07/21, the high probability of a clinically significant, sudden or life threatening deterioration of the following system(s) required my full and direct attention, intervention and personal management. The time I documented below is in addition to time spent performing reported procedures but includes the following listed in this critical care notation. Medical Decision Making - Medical Records Medical records reviewed: Yes: I reviewed the patient's medical records. MR Comment: Reviewed urgent treatment center visit on 03/16/2021. Had a strep test that was negative. Covid test was negative. Reviewed emergency department visit from 03/18/2021. Diagnosed with bronchitis. Started on Tessalon and steroids. Antibiotic had already been called into the pharmacy at that point. Chest x-ray negative x2. - Yosef Inquiry Pt receiving controlled substance: No Vital Signs: 04/07/21 15:43 04/07/21 15:58 Temperature 98.4 F Temperature Source Oral Pulse Rate 87 Pulse Rate [Right Radial] 94 H Respiratory Rate 18 Blood Pressure [Right Arm] 136/94 H Blood Pressure Mean [Right Arm] 108 Blood Pressure Source [Right Arm] Automatic Cuff Blood Pressure Position [Right Arm] Sitting 02 Sat by Pulse Oximetry 94 L Oxygen Delivery Method Room Air - Lab Data Lab Results 04/07/21 16:00: WBC 8.3, RBC 4.55, Hgb 13.8, Hct 43.9, MCV 96.5, MCH 30.2, MCHC 31.3 L, RDW 15.0, Plt Count 240, MPV 8.6, Neut % (Auto) 62.5, Lymph % (Auto) 23.7, [place] % (Auto) 5.4, Eos % (Auto) 7.2, Baso % (Auto) 1.1, Neut # (Auto) 5.2, Lymph # (Auto) 2.0, [place] # (Auto) 0.5, Eos # (Auto) 0.6 H, Baso # (Auto) 0.1 04/07/21 16:00: Sodium 138, Potassium 4.1, Chloride 103, Carbon Dioxide 26, Anion Gap 13.1, BUN 10, Creatinine 0.70, Estimated Creat Clear 69, Estimated GFR 82, Est GFR ( Amer) 100, Glucose 86, Calcium 9.1, Total Bilirubin 0.4, AST 34, ALT 23, Alkaline Phosphatase 92, Troponin I < 0.01, Total Protein 7.2, Albumin 4.3, Globulin 2.9, Albumin/Globulin Ratio 1.5 04/07/21 16:00: Lactate 1.4 04/07/21 16:00: SARS-CoV-2 (PCR) Not detected, Influenza A Untype (PCR) Not detected, Influenza Type B (PCR) Not detected Result diagrams: 04/07/21 16:00 04/07/21 16:00 Orders (Tests/Meds): ED MEDICATIONS Discontinued Medications Generic Name Dose Route Start Last Admin Trade Name Freq PRN Reason Stop Dose Admin Albuterol/Ipratropium 3 ml 04/07/21 15:50 04/07/21 15:58 Ipratropium/Albuterol 3 Ml [facility] 04/07/21 15:51 3 ml ONCE ONE Administration Albuterol/Ipratropium 3 ml 04/07/21 16:37 Ipratropium/Albuterol 3 Ml Neb 04/07/21 16:38 ONCE ONE Albuterol/Ipratropium 3 ml 04/07/21 16:38 Ipratropium/Albuterol 3 Ml Neb IH 04/07/21 16:39 ONCE ONE Methyl
[2021-04-07 16:20] LABS: Coronavirus 19, PCR Not Detected (NotDetected); Influenza A, PCR Not Detected (NotDetected); Influenza B, PCR Not Detected (NotDetected)
[2021-04-07 16:24] LABS: Chloride 103 mmol/L (98-107); Potassium 4.1 mmoL/L (3.5-5.1); Sodium 138 mmol/L (136-145)
[2021-04-07 16:26] LABS: Blood Urea Nitrogen 10 mg/dl (7-17); Creatinine Clearance Estimated 69 mL/min (50-200); Estimated Glomerular Filt Rate 82 ml/min (>60); GFR (African American) 100 ML/MIN (>60)
[2021-04-07 16:27] LABS: Alanine Aminotransferase 23 U/L (12-78); Albumin Level 4.3 g/dl (3.5-5.0); Albumin/Globulin Ratio 1.5 (1.1-1.8); Alkaline Phosphatase 92 U/L (38-126); Anion Gap 13.1 mEq/L (5-15); Aspartate Amino Transferase 34 U/L (14-36); Bilirubin,Total 0.4 mg/dl (0.2-1.3); Calcium 9.1 mg/dl (8.4-10.2); Carbon Dioxide 26 mmol/L (22.0-30.0); Globulin 2.9 g/dL (1.3-3.2); Glucose 86 mg/dl (74-100); Total Protein,Serum 7.2 g/dl (6.3-8.2)
[2021-04-07 16:28] LABS: Basophils # 0.1 K/mm3 (0-0.2); Basophils % 1.1 % (0.1-2.0); Eosinophils # 0.6 K/mm3 (0.0-0.4); Eosinophils % 7.2 % (0.1-12.0); Hematocrit 43.9 % (37.0-47.0); Hemoglobin 13.8 g/dL (12.2-16.2); Lactic Acid 1.4 mmol/L (0.7-2.1); Lymphocytes % 23.7 % (10-50); Mean Corpuscular HGB Conc 31.3 g/dL (31.8-35.4); Mean Corpuscular Hemoglobin 30.2 pg (27.0-31.2); Mean Corpuscular Volume 96.5 fl (81-99); Mean Platelet Volume 8.6 fl (7.4-10.4); Monocytes # 0.5 K/mm3 (0.1-1.0); Monocytes % 5.4 % (1.7-9.3); Neutrophils # 5.2 K/mm3 (1.8-7.8); Neutrophils % 62.5 % (37.0-80.0); Platelet Count 240 K/mm3 (142-424); Red Blood Count 4.55 M/mm3 (4.20-5.40); White Blood Count 8.3 K/mm3 (4.8-10.8)
[2021-04-07 16:42] LABS: Troponin I < 0.01 ng/ml (0.00-0.034)
[2021-04-07 16:47] LABS: Adenovirus,PCR Not Detected (NotDetected); Bordetella Pertussis Not Detected (NotDetected); Chlamydophila Pneumoniae, PCR Not Detected (NotDetected); Coronavirus 19, PCR Not Detected (NotDetected); Coronavirus 229E Not Detected (NotDetected); Coronavirus NL63 Not Detected (NotDetected); Coronavirus OC43 Not Detected (NotDetected); Coronovirus HKU1,PCR Not Detected (NotDetected); Human Metapneumovirus Not Detected (NotDetected); Influenza A, PCR Not Detected (NotDetected); Influenza AH1, 2009 Not Detected (NotDetected); Influenza AH1, PCR Not Detected (NotDetected); Influenza AH3,PCR Not Detected (NotDetected); Influenza B, PCR Not Detected (NotDetected); Mycoplasma Pneumoniae, PCR Not Detected (NotDetected); Parainfluenza 1, PCR Not Detected (NotDetected); Parainfluenza 2, PCR Not Detected (NotDetected); Parainfluenza 3, PCR Not Detected (NotDetected); Parainfluenza 4, PCR Not Detected (NotDetected); Respiratory Syncytial Virus Not Detected (NotDetected); Rhinovirus/Enterovirus Not Detected (NotDetected)
[2021-04-07 18:21] VITALS: BP 106/68; PULSE 88; RESP 18; TEMP 36.8; O2SAT 94
== END 2021-04-07 18:23 | disposition home or self-care (01) ==
PROVIDERS: Emergency Provider Emergency Medicine; PCP Family Medicine
DX: J20.9 Acute bronchitis, unspecified (principal); Z20.822 Contact with and (suspected) exposure to COVID-19; E78.5 Hyperlipidemia, unspecified; I10 Essential (primary) hypertension; I25.10 Atherosclerotic heart disease of native coronary artery without angina pectoris; E03.9 Hypothyroidism, unspecified; Z88.2 Allergy status to sulfonamides
CPT/HCPCS: 71046; 80053; 83605; 84484; 85025; 87040; 87581; 87632; 87798; 93005; 96374; 99283; C9803; U0003; U0005

== ENCOUNTER 2021-04-25 19:31 | Emergency (ER) | payer MEDICARE, SELFPAY ==
[2021-04-25] VITALS (7 sets, daily range): BP systolic 122–145; BP diastolic 85–91; PULSE 81–89; RESP 16–24; TEMP 37.1; O2SAT 94–98; BMI 35.3
--- NOTE | 2021-04-25 20:00 | XR_ITS ---
PROCEDURE INFORMATION: Exam: XR Chest Exam date and time: 04/25/2021 8:00 PM Age: 71 years old Clinical indication: Cough and dyspnea; Patient HX: Persistent cough and SOA; Additional info: SOB TECHNIQUE: Imaging protocol: XR of the chest. Views: 2 views. COMPARISON: CR XR CHEST 2V 04/07/2021 3:58 PM FINDINGS: Lungs: Coarse interstitial lung markings likely chronic. Granulomatous change. No consolidation. Pleural spaces: Unremarkable. No pleural effusion. No pneumothorax. Heart/Mediastinum: Unremarkable. No cardiomegaly. Bones/joints: Unremarkable. IMPRESSION: No acute findings.
--- NOTE | 2021-04-25 20:00 | CT_ITS ---
PROCEDURE INFORMATION: Exam: CTA Chest With Contrast Exam date and time: 04/25/2021 8:00 PM Age: 71 years old Clinical indication: Cough and dyspnea; Patient HX: Persistent cough and SOA; Additional info: SOB TECHNIQUE: Imaging protocol: Computed tomographic angiography of the chest with contrast. 3D rendering (Not supervised by radiologist): MIP and/or 3D reconstructed images were created by the technologist. Radiation optimization: All CT scans at this facility use at least one of these dose optimization techniques: automated exposure control; mA and/or kV adjustment per patient size (includes targeted exams where dose is matched to clinical indication); or iterative reconstruction. Contrast material: ISOVUE 370; Contrast volume: 75 ml; Contrast route: INTRAVENOUS (IV); COMPARISON: CT CHEST WO CON 08/06/2019 4:18 PM FINDINGS: Pulmonary arteries: Normal. No pulmonary emboli. Aorta: Unremarkable. No aortic aneurysm. No aortic dissection. Lungs: Lungs reveal scattered areas of atelectasis less likely pneumonia. Pleural spaces: Unremarkable. No pneumothorax. No pleural effusion. Heart: Unremarkable. No cardiomegaly. No pericardial effusion. Lymph nodes: Unremarkable. No enlarged lymph nodes. Gallbladder and bile ducts: Cholecystectomy. Spleen: Splenomegaly 13.4 cm. Bones/joints: Unremarkable. No acute fracture. Soft tissues: Unremarkable. IMPRESSION: 1. No pulmonary embolism. 2. Scattered areas of atelectasis less likely pneumonia.
--- NOTE | 2021-04-25 20:03 | ECG_ITS ---
APPROVED REPORT Exam: Resting ECG HR:75 bpm ECG Measurements Heart Rate 75 AXES MS 168 P 41 QRSd 82 QRS -24 QT 398 T 54 QTc 444 Conclusion Normal sinus rhythm Late R wave progression, unchanged from prior Abnormal ECG Electronically signed by : Jad Handley MD 04/26/2021 12:11:24
[2021-04-25 20:17] LABS: Basophils # 0.1 K/mm3 (0-0.2); Basophils % 1.1 % (0.1-2.0); Eosinophils # 0.7 K/mm3 (0.0-0.4); Eosinophils % 11.3 % (0.1-12.0); Hematocrit 38.5 % (37.0-47.0); Hemoglobin 12.7 g/dL (12.2-16.2); Lymphocytes # 1.6 K/mm3 (0.7-4.5); Lymphocytes % 26.2 % (10-50); Mean Corpuscular Hemoglobin 30.9 pg (27.0-31.2); Mean Corpuscular Volume 93.6 fl (81-99); Mean Platelet Volume 8.4 fl (7.4-10.4); Monocytes # 0.4 K/mm3 (0.1-1.0); Monocytes % 5.7 % (1.7-9.3); Neutrophils # 3.4 K/mm3 (1.8-7.8); Neutrophils % 55.6 % (37.0-80.0); Platelet Count 212 K/mm3 (142-424); Red Blood Count 4.12 M/mm3 (4.20-5.40); Red Cell Distribution Width 14.8 % (11.5-17.5); White Blood Count 6.1 K/mm3 (4.8-10.8)
[2021-04-25 20:25] LABS: Alanine Aminotransferase 16 U/L (12-78); Albumin Level 3.8 g/dl (3.5-5.0); Albumin/Globulin Ratio 1.5 (1.1-1.8); Alkaline Phosphatase 66 U/L (38-126); Anion Gap 8.8 mEq/L (5-15); Aspartate Amino Transferase 30 U/L (14-36); Bilirubin,Total 0.2 mg/dl (0.2-1.3); Blood Urea Nitrogen 15 mg/dl (7-17); Calcium 8.9 mg/dl (8.4-10.2); Carbon Dioxide 30 mmol/L (22.0-30.0); Chloride 107 mmol/L (98-107); Creatinine Clearance Estimated 66 mL/min (50-200); Estimated Glomerular Filt Rate 62 ml/min (>60); GFR (African American) 74 ML/MIN (>60); Globulin 2.6 g/dL (1.3-3.2); Glucose 107 mg/dl (74-100); Lactic Acid 0.9 mmol/L (0.7-2.1); Potassium 3.8 mmoL/L (3.5-5.1); Sodium 142 mmol/L (136-145); Total Protein,Serum 6.4 g/dl (6.3-8.2)
--- NOTE | 2021-04-25 20:28 | HMH.EDSOB ---
ED Disposition Clinical Impression: Reactive airway disease Qualifiers: Asthma severity: moderate Asthma persistence: persistent Asthma complication type: uncomplicated Qualified Code(s): J45.40 - Moderate persistent asthma, uncomplicated Disposition: Home, Self-Care Condition on Discharge: Good Instructions: DI for Shortness of Breath Additional Instructions: call pcp for follow up Referrals: Navid Mae MD [Primary Care Provider] - Rosas Rojas MD [Physician] - - Critical Care Critical Care Time: No Attestation: On 04/25/21, the high probability of a clinically significant, sudden or life threatening deterioration of the following system(s) required my full and direct attention, intervention and personal management. The time I documented below is in addition to time spent performing reported procedures but includes the following listed in this critical care notation. Medical Decision Making - Medical Records Medical records reviewed: Yes: I reviewed the patient's medical records. - Yosef Inquiry Pt receiving controlled substance: No Vital Signs: 04/25/21 19:33 04/25/21 20:00 04/25/21 20:31 Temperature 98.7 F Temperature Source Oral Pulse Rate 81 82 Pulse Rate [Left] 83 Respiratory Rate 24 Blood Pressure 122/85 Blood Pressure [Right Arm] 145/85 H Blood Pressure Mean 97 Blood Pressure Mean [Right Arm] 105 02 Sat by Pulse Oximetry 95 94 L 96 Oxygen Delivery Method Room Air Room Air Room Air 04/25/21 20:47 04/25/21 20:49 04/25/21 21:01 Temperature Temperature Source Pulse Rate 88 88 85 Pulse Rate [Left] Respiratory Rate Blood Pressure 127/91 H Blood Pressure [Right Arm] Blood Pressure Mean 103 Blood Pressure Mean [Right Arm] 02 Sat by Pulse Oximetry 95 Oxygen Delivery Method Room Air - Lab Data Lab results reviewed: Yes: I reviewed the patient's lab results. Lab Results 04/25/21 20:00: WBC 6.1, RBC 4.12 L, Hgb 12.7, Hct 38.5, MCV 93.6, MCH 30.9, MCHC 33.0, RDW 14.8, Plt Count 212, MPV 8.4, Neut % (Auto) 55.6, Lymph % (Auto) 26.2, [place] % (Auto) 5.7, Eos % (Auto) 11.3, Baso % (Auto) 1.1, Neut # (Auto) 3.4, Lymph # (Auto) 1.6, [place] # (Auto) 0.4, Eos # (Auto) 0.7 H, Baso # (Auto) 0.1, ESR 21 04/25/21 20:00: Sodium 142, Potassium 3.8, Chloride 107, Carbon Dioxide 30, Anion Gap 8.8, BUN 15, Creatinine 0.90, Estimated Creat Clear 66, Estimated GFR 62, Est GFR ( Amer) 74, Glucose 107 H, Calcium 8.9, Total Bilirubin 0.2, AST 30, ALT 16, Alkaline Phosphatase 66, Troponin I < 0.01, C-Reactive Protein 16.0 H, NT-Pro-B Natriuret Pep 114, Total Protein 6.4, Albumin 3.8, Globulin 2.6, Albumin/Globulin Ratio 1.5, Procalcitonin 0.071, TSH 2.25, Thyroxine (T4) 10.0 04/25/21 20:00: Lactate 0.9 Result diagrams: 04/25/21 20:00 04/25/21 20:00 Orders (Tests/Meds): ED MEDICATIONS Generic Name Dose Route Start Last Admin Trade Name Freq PRN Reason Stop Dose Admin Sodium Chloride 1,000 mls @ 999 mls/hr 04/25/21 21:30 04/25/21 21:30 Sod Chlor 0.9% 1000ml Bag IV 04/25/21 22:30 999 mls/hr .Q1H1M MICHAEL Administration Discontinued Medications Generic Name Dose Route Start Last Admin Trade Name Freq PRN Reason Stop Dose Admin Iopamidol 75 ml 04/25/21 20:57 04/25/21 20:58 Iopamidol-370 (76%);100ml Bottle IV 04/25/21 20:58 75 ml ONCE ONE Administration Levalbuterol HCl 1.25 mg 04/25/21 20:33 04/25/21 20:47 Levalbuterol 1.25mg/3ml Neb IH 04/25/21 20:34 1.25 mg ONCE ONE Administration Methylprednisolone Sodium Succinate 125 mg 04/25/21 21:49 04/25/21 21:54 Methylprednisolone Sod Succ 125mg Vial IV 04/25/21 21:50 125 mg ONCE ONE Administration Sodium Chloride 10 ml 04/25/21 20:57 04/25/21 20:58 Sodium Chloride 0.9% 10ml Vial IV 04/25/21 20:58 10 ml ONCE ONE Administration ORDERS Category Date Time Status Rapid PCR Covid and Flu A/B Stat Lab 04/25/21 21:46 Received Troponin I Q3H Lab
[2021-04-25 20:39] LABS: NT Pro Brain Natriuretic Pep. 114 pg/mL (0-125)
[2021-04-25 20:44] LABS: Procalcitonin 0.071 ng/mL (0.0-2.0)
[2021-04-25 20:51] LABS: Erythrocyte Sedimentation Rate 21 mm/hr (0-30)
[2021-04-25 20:57] LABS: Troponin I < 0.01 ng/ml (0.00-0.034)
[2021-04-25 21:07] LABS: Thyroid Stimulating Hormone 2.25 uIU/mL (0.465-4.68)
[2021-04-25 21:50] LABS: Coronavirus 19, PCR Not Detected (NotDetected); Influenza A, PCR Not Detected (NotDetected); Influenza B, PCR Not Detected (NotDetected)
--- NOTE | 2021-04-25 22:06 | PC.NURSE ---
Dr. Sim s/w Dr. Cavanaugh
== END 2021-04-25 22:39 | disposition home or self-care (01) ==
PROVIDERS: Emergency Provider Emergency Medicine; PCP Family Medicine
DX: J45.40 Moderate persistent asthma, uncomplicated (principal); I25.10 Atherosclerotic heart disease of native coronary artery without angina pectoris; I10 Essential (primary) hypertension; E78.5 Hyperlipidemia, unspecified; E03.9 Hypothyroidism, unspecified; Z20.822 Contact with and (suspected) exposure to COVID-19
CPT/HCPCS: 71046; 71275; 80053; 83605; 83880; 84145; 84436; 84443; 84484; 85025; 85651; 86140; 87040; 93005; 96365; 96376; 99284; C9803; Q9967; U0003; U0005

== ENCOUNTER → 2021-05-01 09:35 | Outpatient (CLI) | payer MEDICARE, SELFPAY ==
[2021-05-01 10:25] VITALS: PULSE 62; PULSE 68
== END ==
PROVIDERS: PCP Family Medicine; Visit Provider Physician Assistant
DX: R06.2 Wheezing (principal)
CPT/HCPCS: 94060; 94640; 94726; 94729

== ENCOUNTER 2021-05-26 23:20 | Emergency (ER) | payer MEDICARE, SELFPAY ==
--- NOTE | 2021-05-26 | ECG_ITS ---
APPROVED REPORT Exam: Resting ECG HR:94 bpm ECG Measurements Heart Rate 94 AXES AR 164 P 53 QRSd 88 QRS -24 QT 360 T 71 QTc 450 Conclusion Normal sinus rhythm Anterior infarct, age undetermined Abnormal ECG Electronically signed by : Jad Handley MD 05/29/2021 13:28:39
[2021-05-26 23:20] VITALS: BP 137/69; PULSE 89; RESP 18; TEMP 36.7; O2SAT 98; BMI 35.2
[2021-05-26 23:30] VITALS: BP 137/69; PULSE 90; RESP 18; O2SAT 96
--- NOTE | 2021-05-26 23:37 | XR_ITS ---
PROCEDURE INFORMATION: Exam: XR Chest Exam date and time: 05/26/2021 11:37 PM Age: 71 years old Clinical indication: Sternal or substernal pain; Additional info: Chest pain TECHNIQUE: Imaging protocol: XR of the chest. Views: 2 views. COMPARISON: CR XR CHEST 2V 04/25/2021 8:33 PM FINDINGS: Lungs: Mild chronic interstitial coarsening, similar to prior. No overt pulmonary edema. No consolidation. Scattered calcified granulomas. Pleural spaces: No pleural effusion. No pneumothorax. Heart/Mediastinum: Normal heart size. Mild aortic atherosclerosis. Bones/joints: Unremarkable. IMPRESSION: No acute findings.
--- NOTE | 2021-05-26 23:38 | HMH.EDSOB ---
ED Disposition Clinical Impression: Reactive airway disease Qualifiers: Asthma severity: moderate Asthma persistence: persistent Asthma complication type: with acute exacerbation Qualified Code(s): J45.41 - Moderate persistent asthma with (acute) exacerbation Disposition: Home, Self-Care Condition on Discharge: Good Instructions: DI for Reactive Airway Disease-Adult Additional Instructions: see pcp for follow up Prescriptions: predniSONE [Prednisone 20mg Tab] 20 mg PO BID #10 tab Transmission Status: Pending to [facility] Referrals: Navid Mae MD [Primary Care Provider] - - Critical Care Critical Care Time: No Attestation: On 05/26/21, the high probability of a clinically significant, sudden or life threatening deterioration of the following system(s) required my full and direct attention, intervention and personal management. The time I documented below is in addition to time spent performing reported procedures but includes the following listed in this critical care notation. Medical Decision Making - Medical Records Medical records reviewed: Yes: I reviewed the patient's medical records. - Yosef Inquiry Pt receiving controlled substance: No Vital Signs: 05/26/21 23:20 05/26/21 23:30 05/27/21 00:01 Temperature 98.1 F Temperature Source Oral Pulse Rate 90 88 Pulse Rate [Apical] 89 Respiratory Rate 18 18 24 Blood Pressure 137/69 110/66 Blood Pressure [Right Arm] 137/69 Blood Pressure Mean [Right Arm] 91 Blood Pressure Source [Right Arm] Automatic Cuff Blood Pressure Position [Right Arm] Sitting 02 Sat by Pulse Oximetry 98 96 94 L Oxygen Delivery Method Room Air Room Air Room Air - Lab Data Lab results reviewed: Yes: I reviewed the patient's lab results. Lab Results 05/26/21 23:24: WBC 5.8, RBC 4.10 L, Hgb 12.8, Hct 39.7, MCV 96.7, MCH 31.1, MCHC 32.2, RDW 14.9, Plt Count 238, MPV 8.3, Neut % (Auto) 52.9, Lymph % (Auto) 29.1, [place] % (Auto) 5.6, Eos % (Auto) 10.7, Baso % (Auto) 1.8, Neut # (Auto) 3.0, Lymph # (Auto) 1.7, [place] # (Auto) 0.3, Eos # (Auto) 0.6 H, Baso # (Auto) 0.1 05/26/21 23:24: Sodium 139, Potassium 3.5, Chloride 103, Carbon Dioxide 30, Anion Gap 9.5, BUN 14, Creatinine 1.00, Estimated Creat Clear 66, Estimated GFR 55 L, Est GFR ( Amer) 66, Glucose 138 H, Calcium 8.9, Total Bilirubin 0.4, AST 42 H, ALT 26, Alkaline Phosphatase 76, Troponin I < 0.01, C-Reactive Protein 13.9 H, Total Protein 6.2 L, Albumin 3.7, Globulin 2.5, Albumin/Globulin Ratio 1.5 05/26/21 23:24: SARS-CoV-2 (PCR) Not detected, Influenza A Untype (PCR) Not detected, Influenza Type B (PCR) Not detected 05/26/21 23:24: ESR 20 05/26/21 23:24: Procalcitonin 0.081 05/27/21 00:00: NT-Pro-B Natriuret Pep 108 Result diagrams: 05/26/21 23:24 05/26/21 23:24 Orders (Tests/Meds): ED MEDICATIONS Generic Name Dose Route Start Last Admin Trade Name Freq PRN Reason Stop Dose Admin Sodium Chloride 1,000 mls @ 999 mls/hr 05/26/21 23:45 05/27/21 01:08 Sod Chlor 0.9% 1000ml Bag IV 05/27/21 00:45 999 mls/hr .Q1H1M MICHAEL Administration Discontinued Medications Generic Name Dose Route Start Last Admin Trade Name Freq PRN Reason Stop Dose Admin Aspirin 324 mg 05/26/21 23:50 05/27/21 00:23 Aspirin 81mg Chewable Tablet PO 05/26/21 23:51 324 mg ONCE ONE Administration Furosemide 40 mg 05/27/21 00:20 05/27/21 00:24 Furosemide 40mg/4ml Vial IV 05/27/21 00:21 40 mg ONCE ONE Administration Levalbuterol HCl 1.25 mg 05/27/21 02:17 Levalbuterol 1.25mg/3ml Neb IH 05/27/21 02:18 ONCE ONE Methylprednisolone Sodium Succinate 125 mg 05/27/21 01:30 05/27/21 01:41 Methylprednisolone Sod Succ 125mg Vial IV 05/27/21 01:31 125 mg ONCE ONE Administration ORDERS Category Date Time Status Troponin I Q3H Lab 05/27/21 02:45 Ordered Troponin I Q3H Lab 05/27/21 05:45 Ordered 12-lead EKG Request [ECG Request by /Js] Stat Y 05/26/21
[2021-05-26 23:43] LABS: Basophils # 0.1 K/mm3 (0-0.2); Basophils % 1.8 % (0.1-2.0); Coronavirus 19, PCR Not Detected (NotDetected); Eosinophils # 0.6 K/mm3 (0.0-0.4); Eosinophils % 10.7 % (0.1-12.0); Hematocrit 39.7 % (37.0-47.0); Hemoglobin 12.8 g/dL (12.2-16.2); Influenza A, PCR Not Detected (NotDetected); Influenza B, PCR Not Detected (NotDetected); Lymphocytes # 1.7 K/mm3 (0.7-4.5); Lymphocytes % 29.1 % (10-50); Mean Corpuscular HGB Conc 32.2 g/dL (31.8-35.4); Mean Corpuscular Hemoglobin 31.1 pg (27.0-31.2); Mean Corpuscular Volume 96.7 fl (81-99); Mean Platelet Volume 8.3 fl (7.4-10.4); Monocytes # 0.3 K/mm3 (0.1-1.0); Monocytes % 5.6 % (1.7-9.3); Neutrophils % 52.9 % (37.0-80.0); Platelet Count 238 K/mm3 (142-424); Red Cell Distribution Width 14.9 % (11.5-17.5); White Blood Count 5.8 K/mm3 (4.8-10.8)
[2021-05-26 23:48] LABS: Alanine Aminotransferase 26 U/L (12-78); Albumin Level 3.7 g/dl (3.5-5.0); Albumin/Globulin Ratio 1.5 (1.1-1.8); Alkaline Phosphatase 76 U/L (38-126); Aspartate Amino Transferase 42 U/L (14-36); Bilirubin,Total 0.4 mg/dl (0.2-1.3); Blood Urea Nitrogen 14 mg/dl (7-17); Calcium 8.9 mg/dl (8.4-10.2); Carbon Dioxide 30 mmol/L (22.0-30.0); Creatinine Clearance Estimated 66 mL/min (50-200); Estimated Glomerular Filt Rate 55 ml/min (>60); GFR (African American) 66 ML/MIN (>60); Globulin 2.5 g/dL (1.3-3.2); Glucose 138 mg/dl (74-100); Potassium 3.5 mmoL/L (3.5-5.1); Sodium 139 mmol/L (136-145); Total Protein,Serum 6.2 g/dl (6.3-8.2)
[2021-05-26 23:53] LABS: C-Reactive Protein 13.9 mg/L (0-4)
[2021-05-27 00:01] VITALS: BP 110/66; PULSE 88; RESP 24; O2SAT 94
[2021-05-27 00:02] LABS: Troponin I < 0.01 ng/ml (0.00-0.034)
[2021-05-27 00:06] LABS: Erythrocyte Sedimentation Rate 20 mm/hr (0-30)
[2021-05-27 00:07] LABS: Anion Gap 9.5 mEq/L (5-15); Chloride 103 mmol/L (98-107); Procalcitonin 0.081 ng/mL (0.0-2.0)
[2021-05-27 00:36] LABS: NT Pro Brain Natriuretic Pep. 108 pg/mL (0-125)
[2021-05-27 02:53] VITALS: BP 123/73; PULSE 87; RESP 20; TEMP 37.1; O2SAT 97
[2021-05-27 02:55] VITALS: PULSE 88
[2021-05-27 02:56] VITALS: PULSE 87
== END 2021-05-27 03:11 | disposition home or self-care (01) ==
PROVIDERS: Emergency Provider Emergency Medicine; PCP Family Medicine
DX: J45.41 Moderate persistent asthma with (acute) exacerbation (principal); R07.9 Chest pain, unspecified; Z20.822 Contact with and (suspected) exposure to COVID-19; I10 Essential (primary) hypertension; I25.10 Atherosclerotic heart disease of native coronary artery without angina pectoris; E78.5 Hyperlipidemia, unspecified; Z88.2 Allergy status to sulfonamides; Z88.5 Allergy status to narcotic agent; Z79.899 Other long term (current) drug therapy; R06.02 Shortness of breath
CPT/HCPCS: 71046; 80053; 83880; 84145; 84484; 85025; 85651; 86140; 93005; 96365; 96375; 99283; C9803; U0003; U0005

== ENCOUNTER → 2021-06-05 15:33 | Outpatient (CLI) | payer MEDICARE, SELFPAY ==
[2021-06-05 17:21] LABS: Basophils # 0.1 K/mm3 (0-0.2); Basophils % 0.8 % (0.1-2.0); Eosinophils # 0.1 K/mm3 (0.0-0.4); Eosinophils % 0.6 % (0.1-12.0); Hematocrit 44.8 % (37.0-47.0); Hemoglobin 14.4 g/dL (12.2-16.2); Lymphocytes # 3.5 K/mm3 (0.7-4.5); Lymphocytes % 35.5 % (10-50); Mean Corpuscular HGB Conc 32.1 g/dL (31.8-35.4); Mean Corpuscular Hemoglobin 30.9 pg (27.0-31.2); Mean Corpuscular Volume 96.3 fl (81-99); Mean Platelet Volume 8.6 fl (7.4-10.4); Monocytes # 0.7 K/mm3 (0.1-1.0); Monocytes % 6.9 % (1.7-9.3); Neutrophils # 5.6 K/mm3 (1.8-7.8); Neutrophils % 56.1 % (37.0-80.0); Platelet Count 313 K/mm3 (142-424); Red Blood Count 4.65 M/mm3 (4.20-5.40); Red Cell Distribution Width 15.3 % (11.5-17.5)
[2021-06-05 18:00] LABS: C-Reactive Protein 5.8 mg/L (0-4)
[2021-06-11 11:25] LABS: D001-IgE D pteronyssinus <0.10 kU/L (Class 0); D002-IgE D farinae <0.10 kU/L (Class 0); E001-IgE Cat Dander <0.10 kU/L (Class 0); E005-IgE Dog Dander <0.10 kU/L (Class 0); E072-IgE Mouse Urine <0.10 kU/L (Class 0); G002-IgE Bermuda Grass <0.10 kU/L (Class 0); G006-IgE Timothy Grass <0.10 kU/L (Class 0); I006-IgE Cockroach, German <0.10 kU/L (Class 0); Immunoglobulin E, Total 325 IU/mL (6-495); M001-IgE Penicillium chrysogen <0.10 kU/L (Class 0); M002-IgE Cladosporium herbarum <0.10 kU/L (Class 0); M003-IgE Aspergillus fumigatus <0.10 kU/L (Class 0); M006-IgE Alternaria alternata <0.10 kU/L (Class 0); T001-IgE Maple/Box Elder <0.10 kU/L (Class 0); T003-IgE Common Silver Birch <0.10 kU/L (Class 0); T006-IgE Cedar, Mountain <0.10 kU/L (Class 0); T007-IgE Oak, White <0.10 kU/L (Class 0); T008-IgE Elm, American <0.10 kU/L (Class 0); T010-IgE Walnut <0.10 kU/L (Class 0); T011-IgE Maple Leaf Sycamore <0.10 kU/L (Class 0); T014-IgE Cottonwood <0.10 kU/L (Class 0); T015-IgE Ash, White <0.10 kU/L (Class 0); T022-IgE Pecan, Hickory <0.10 kU/L (Class 0); T070-IgE White Mulberry <0.10 kU/L (Class 0); W001-IgE Ragweed, Short <0.10 kU/L (Class 0); W011-IgE Thistle, Russian <0.10 kU/L (Class 0); W014-IgE Pigweed, Common <0.10 kU/L (Class 0); W018-IgE Sheep Sorrel <0.10 kU/L (Class 0)
== END ==
PROVIDERS: Visit Provider Internal Medicine Pulmonary Disease
DX: R06.00 Dyspnea, unspecified (principal); J45.909 Unspecified asthma, uncomplicated
CPT/HCPCS: 82785; 85025; 86003; 86140

== ENCOUNTER → 2021-08-12 09:30 | Outpatient (CLI) | payer MEDICARE, SELFPAY ==
[2021-08-12 10:30] VITALS: PULSE 77; PULSE 80
== END ==
PROVIDERS: PCP Family Medicine; Visit Provider Internal Medicine Pulmonary Disease
DX: J45.909 Unspecified asthma, uncomplicated (principal)
CPT/HCPCS: 94060; 94640

== ENCOUNTER → 2021-08-16 09:20 | Outpatient (CLI) | payer MEDICARE, SELFPAY ==
--- NOTE | 2021-08-16 11:09 | XR_ITS ---
FINAL REPORT CLINICAL HISTORY: SOB COMPARISON: May 26, 2021 FINDINGS: Two views of the chest were obtained. The heart size and pulmonary vascularity are within normal limits. The mediastinum is normal. No acute pulmonary abnormality is identified. There is no pneumothorax. The bony thorax is intact. IMPRESSION: No active cardiopulmonary disease. Reviewed, Interpreted and Dictated by Cristobal Carrillo III, MD Transcribed by Michael Weston Authenticated by Cristobal Carrillo III, MD on 08/16/2021 12:45:58 PM [facility]
== END ==
PROVIDERS: PCP Family Medicine; Visit Provider Internal Medicine Pulmonary Disease
DX: R06.02 Shortness of breath (principal); Z20.822 Contact with and (suspected) exposure to COVID-19
CPT/HCPCS: 71046; C9803; U0003; U0005

== ENCOUNTER 2021-09-08 21:44 | Emergency (ER) | payer MEDICARE, SELFPAY ==
[2021-09-08 21:46] VITALS: BP 144/78; PULSE 88; RESP 17; TEMP 36.7; O2SAT 95; BMI 34.2
--- NOTE | 2021-09-08 21:54 | ECG_ITS ---
APPROVED REPORT Exam: Resting ECG HR:83 bpm ECG Measurements Heart Rate 83 AXES MO 157 P 53 QRSd 90 QRS -10 QT 367 T 48 QTc 407 Conclusion SINUS RHYTHM Borderline left axis deviation Old anteroseptal changes, unchanged since 2020 ABNORMAL ECG UNCONFIRMED REPORT Electronically signed by : Jad Handley MD 09/09/2021 15:58:42
--- NOTE | 2021-09-08 21:54 | XR_ITS ---
PROCEDURE INFORMATION: Exam: XR Chest Exam date and time: 09/08/2021 10:37 PM Age: 71 years old Clinical indication: Injury or trauma; Fall; Blunt trauma (contusions or hematomas); Additional info: Chest pain TECHNIQUE: Imaging protocol: XR of the chest. Views: 1 view. COMPARISON: CR XR CHEST 2V 08/16/2021 11:33 AM FINDINGS: Lungs: Unremarkable. No consolidation. Pleural spaces: Unremarkable. No pleural effusion. No pneumothorax. Heart/Mediastinum: Upper limits of normal heart size. Vasculature: Vascular calcifications and tortuous thoracic aorta. Bones/joints: Unremarkable. IMPRESSION: No acute intrathoracic organ injury.
--- NOTE | 2021-09-08 21:56 | XR_ITS ---
PROCEDURE INFORMATION: Exam: XR Right Shoulder Exam date and time: 09/08/2021 10:41 PM Age: 71 years old Clinical indication: Injury or trauma; Fall; Blunt trauma (contusions or hematomas); Shoulder; Right TECHNIQUE: Imaging protocol: XR Right shoulder. Views: 2 or more views. COMPARISON: CR XR CHEST PORTABLE 09/08/2021 10:37 PM FINDINGS: Bones/joints: No acute fracture or dislocation. Soft tissues: Normal. IMPRESSION: No acute fracture or dislocation.
--- NOTE | 2021-09-08 21:56 | XR_ITS ---
PROCEDURE INFORMATION: Exam: XR Right Hip Exam date and time: 09/08/2021 10:39 PM Age: 71 years old Clinical indication: Injury or trauma; Fall; Blunt trauma (contusions or hematomas); Right; Hip TECHNIQUE: Imaging protocol: XR Right hip. Views: 2 or 3 views hip with pelvis when performed. COMPARISON: CT ABDOMEN PELVIS W CON 08/06/2019 4:27 PM FINDINGS: Bones/joints: No acute fracture or dislocation. Soft tissues: Unremarkable. IMPRESSION: No acute fracture or dislocation.
[2021-09-08 22:01] VITALS: BP 105/74; PULSE 79; RESP 15; O2SAT 93
[2021-09-08 22:09] LABS: Basophils # 0.2 K/mm3 (0-0.2); Basophils % 3.3 % (0.1-2.0); Eosinophils # 0.4 K/mm3 (0.0-0.4); Eosinophils % 5.8 % (0.1-12.0); Hematocrit 43.1 % (37.0-47.0); Hemoglobin 13.9 g/dL (12.2-16.2); Lymphocytes # 2.6 K/mm3 (0.7-4.5); Lymphocytes % 34.9 % (10-50); Mean Corpuscular HGB Conc 32.2 g/dL (31.8-35.4); Mean Corpuscular Hemoglobin 30.2 pg (27.0-31.2); Mean Corpuscular Volume 93.7 fl (81-99); Mean Platelet Volume 8.1 fl (7.4-10.4); Monocytes # 0.5 K/mm3 (0.1-1.0); Monocytes % 7.2 % (1.7-9.3); Neutrophils # 3.6 K/mm3 (1.8-7.8); Neutrophils % 48.8 % (37.0-80.0); Platelet Count 243 K/mm3 (142-424); Red Cell Distribution Width 14.4 % (11.5-17.5); White Blood Count 7.4 K/mm3 (4.8-10.8)
[2021-09-08 22:18] LABS: Alanine Aminotransferase 27 U/L (12-78); Albumin Level 4.3 g/dl (3.5-5.0); Alkaline Phosphatase 72 U/L (38-126); Anion Gap 10.7 mEq/L (5-15); Aspartate Amino Transferase 33 U/L (14-36); Bilirubin,Direct 0.2 mg/dl (0.0-0.4); Bilirubin,Indirect 0.2 mg/dL (0.0-0.9); Bilirubin,Total 0.4 mg/dl (0.2-1.3); Bilirubin,Unconjugated 0.2 mg/dL (0.0-1.1); Blood Urea Nitrogen 16 mg/dl (7-17); Calcium 9.5 mg/dl (8.4-10.2); Carbon Dioxide 30 mmol/L (22.0-30.0); Chloride 104 mmol/L (98-107); Creatinine Clearance Estimated 82 mL/min (50-200); Estimated Glomerular Filt Rate 55 ml/min (>60); GFR (African American) 66 ML/MIN (>60); Glucose 75 mg/dl (74-100); Potassium 3.7 mmoL/L (3.5-5.1); Sodium 141 mmol/L (136-145); Total Protein,Serum 7.3 g/dl (6.3-8.2)
[2021-09-08 22:30] VITALS: BP 98/59; PULSE 79; RESP 13; O2SAT 95
[2021-09-08 22:33] LABS: Troponin I < 0.01 ng/ml (0.00-0.034)
[2021-09-08 22:35] LABS: T4 (Thyroxine) 11.3 ug/dl (5.53-11.0)
[2021-09-08 22:49] LABS: Thyroid Stimulating Hormone 5.04 uIU/mL (0.465-4.68)
[2021-09-08 23:00] VITALS: BP 111/67; PULSE 85; RESP 17; O2SAT 95
[2021-09-08 23:30] VITALS: BP 106/67; PULSE 81; RESP 17; O2SAT 94
[2021-09-09 00:21] VITALS: PULSE 81; PULSE 82
--- NOTE | 2021-09-09 00:22 | HMH.EDGENADL ---
ED Disposition Clinical Impression: Asthma exacerbation, URI (upper respiratory infection) Disposition: Home, Self-Care Condition on Discharge: Good Additional Instructions: Follow up with your PCP tomorrow as scheduled. Return to the ED for any new or worsening symptoms, or for further concerns. Referrals: Navid Mae MD [Primary Care Provider] - - Critical Care Critical Care Time: No Attestation: On 09/08/21, the high probability of a clinically significant, sudden or life threatening deterioration of the following system(s) required my full and direct attention, intervention and personal management. The time I documented below is in addition to time spent performing reported procedures but includes the following listed in this critical care notation. Medical Decision Making - Yosef Inquiry Pt receiving controlled substance: No Vital Signs: 09/08/21 21:46 09/08/21 22:01 09/08/21 22:30 Temperature 98.0 F Temperature Source Oral Pulse Rate 79 79 Pulse Rate [Right Brachial] 88 Respiratory Rate 17 15 13 Blood Pressure 105/74 L 98/59 L Blood Pressure [Right Arm] 144/78 H Blood Pressure Mean [Right Arm] 100 Blood Pressure Source Blood Pressure Source [Right Arm] Automatic Cuff Blood Pressure Position Blood Pressure Position [Right Arm] Sitting 02 Sat by Pulse Oximetry 95 93 L 95 Oxygen Delivery Method Room Air 09/08/21 23:00 09/08/21 23:30 09/09/21 00:21 Temperature Temperature Source Pulse Rate 85 81 81 Pulse Rate [Right Brachial] Respiratory Rate 17 17 Blood Pressure 111/67 106/67 L Blood Pressure [Right Arm] Blood Pressure Mean [Right Arm] Blood Pressure Source Blood Pressure Source [Right Arm] Blood Pressure Position Blood Pressure Position [Right Arm] 02 Sat by Pulse Oximetry 95 94 L Oxygen Delivery Method 09/09/21 00:31 Temperature 98.2 F Temperature Source Oral Pulse Rate 82 Pulse Rate [Right Brachial] Respiratory Rate 16 Blood Pressure 115/66 Blood Pressure [Right Arm] Blood Pressure Mean [Right Arm] Blood Pressure Source Automatic Cuff Blood Pressure Source [Right Arm] Blood Pressure Position Sitting Blood Pressure Position [Right Arm] 02 Sat by Pulse Oximetry Oxygen Delivery Method Room Air - Lab Data Lab Results 09/08/21 21:48: Sodium 141, Potassium 3.7, Chloride 104, Carbon Dioxide 30, Anion Gap 10.7, BUN 16, Creatinine 1.00, Estimated Creat Clear 82, Estimated GFR 55 L, Est GFR ( Amer) 66, Glucose 75, Calcium 9.5, Total Bilirubin 0.4, Direct Bilirubin 0.2, Conjugated Bilirubin 0.0, Indirect Bilirubin 0.2, Unconjugated Bilirubin 0.2, AST 33, ALT 27, Alkaline Phosphatase 72, Troponin I < 0.01, Total Protein 7.3, Albumin 4.3, TSH 5.04 H, Thyroxine (T4) 11.3 H 09/08/21 21:48: WBC 7.4, RBC 4.60, Hgb 13.9, Hct 43.1, MCV 93.7, MCH 30.2, MCHC 32.2, RDW 14.4, Plt Count 243, MPV 8.1, Neut % (Auto) 48.8, Lymph % (Auto) 34.9, [place] % (Auto) 7.2, Eos % (Auto) 5.8, Baso % (Auto) 3.3 H, Neut # (Auto) 3.6, Lymph # (Auto) 2.6, [place] # (Auto) 0.5, Eos # (Auto) 0.4, Baso # (Auto) 0.2 Result diagrams: 09/08/21 21:48 09/08/21 21:48 Orders (Tests/Meds): ED MEDICATIONS Discontinued Medications Generic Name Dose Route Start Last Admin Trade Name Johannq PRN Reason Stop Dose Admin Albuterol/Ipratropium 3 ml 09/08/21 23:42 09/09/21 00:21 Ipratropium/Albuterol 3 Ml Neb IH 09/08/21 23:43 3 ml ONCE ONE Administration Dexamethasone Sodium Phosphate 10 mg 09/08/21 23:42 09/09/21 00:02 Dexamethasone 4mg/Ml 5ml Mdv IV 09/08/21 23:43 10 mg ONCE ONE Administration Medical Decision Narrative: DDx includes but not limited to asthma exacerbation, pneumonia, ACS, hip fracture, shoulder fracture, muscular contusion or strain. On room air. Given duoneb x 1 and 10 mg IV decadron. Wheezing resolved here and patient remains on room air, states she feels like she is breathing better now, NAD, GCS 15. Imagi
[2021-09-09 00:31] VITALS: BP 115/66; PULSE 82; RESP 16; TEMP 36.8; O2SAT 95
== END 2021-09-09 00:35 | disposition home or self-care (01) ==
PROVIDERS: Emergency Provider Student in an Organized Health Care Education/Training Program; PCP Family Medicine
DX: J45.901 Unspecified asthma with (acute) exacerbation (principal); J06.9 Acute upper respiratory infection, unspecified; R07.9 Chest pain, unspecified; M25.511 Pain in right shoulder; M54.50 Low back pain, unspecified; I10 Essential (primary) hypertension; I25.10 Atherosclerotic heart disease of native coronary artery without angina pectoris; E78.5 Hyperlipidemia, unspecified; F32.A Depression, unspecified; M19.90 Unspecified osteoarthritis, unspecified site; E66.9 Obesity, unspecified; Z68.34 Body mass index [BMI] 34.0-34.9, adult; Z79.51 Long term (current) use of inhaled steroids; Z79.82 Long term (current) use of aspirin; Z79.899 Other long term (current) drug therapy; Z88.2 Allergy status to sulfonamides; Z88.5 Allergy status to narcotic agent; Z88.6 Allergy status to analgesic agent; Z88.8 Allergy status to other drugs, medicaments and biological substances; Z82.49 Family history of ischemic heart disease and other diseases of the circulatory system; Z82.5 Family history of asthma and other chronic lower respiratory diseases; Z80.9 Family history of malignant neoplasm, unspecified; W01.0XXA Fall on same level from slipping, tripping and stumbling without subsequent striking against object, initial encounter; Y93.9 Activity, unspecified; Y92.009 Unspecified place in unspecified non-institutional (private) residence as the place of occurrence of the external cause
CPT/HCPCS: 71045; 73030; 73502; 80048; 80076; 84436; 84443; 84484; 85025; 93005; 96374; 99285

== ENCOUNTER → 2021-10-08 15:19 | Outpatient (CLI) | payer MEDICARE, SELFPAY ==
[2021-10-08 16:25] LABS: Basophils # 0.1 K/mm3 (0-0.2); Basophils % 1.8 % (0.1-2.0); Eosinophils # 0.5 K/mm3 (0.0-0.4); Eosinophils % 6.2 % (0.1-12.0); Hematocrit 41.9 % (37.0-47.0); Hemoglobin 14.1 g/dL (12.2-16.2); Lymphocytes % 25.5 % (10-50); Mean Corpuscular HGB Conc 33.6 g/dL (31.8-35.4); Mean Corpuscular Volume 92.3 fl (81-99); Mean Platelet Volume 8.5 fl (7.4-10.4); Monocytes # 0.5 K/mm3 (0.1-1.0); Monocytes % 6.6 % (1.7-9.3); Neutrophils # 4.6 K/mm3 (1.8-7.8); Neutrophils % 59.9 % (37.0-80.0); Platelet Count 250 K/mm3 (142-424); Red Blood Count 4.54 M/mm3 (4.20-5.40); Red Cell Distribution Width 14.9 % (11.5-17.5); White Blood Count 7.7 K/mm3 (4.8-10.8)
[2021-10-16 16:13] LABS: Immunoglobulin E, Total 272 IU/mL (6-495)
[2021-10-16 18:15] LABS: D001-IgE D pteronyssinus <0.10 kU/L (Class 0); D002-IgE D farinae <0.10 kU/L (Class 0); E001-IgE Cat Dander <0.10 kU/L (Class 0); E005-IgE Dog Dander <0.10 kU/L (Class 0); E072-IgE Mouse Urine <0.10 kU/L (Class 0); G002-IgE Bermuda Grass <0.10 kU/L (Class 0); G006-IgE Timothy Grass <0.10 kU/L (Class 0); I006-IgE Cockroach, German <0.10 kU/L (Class 0); Immunoglobulin E, Total 241 IU/mL (6-495); M001-IgE Penicillium chrysogen <0.10 kU/L (Class 0); M002-IgE Cladosporium herbarum <0.10 kU/L (Class 0); M003-IgE Aspergillus fumigatus <0.10 kU/L (Class 0); M006-IgE Alternaria alternata <0.10 kU/L (Class 0); T001-IgE Maple/Box Elder <0.10 kU/L (Class 0); T003-IgE Common Silver Birch <0.10 kU/L (Class 0); T006-IgE Cedar, Mountain <0.10 kU/L (Class 0); T007-IgE Oak, White <0.10 kU/L (Class 0); T008-IgE Elm, American <0.10 kU/L (Class 0); T010-IgE Walnut <0.10 kU/L (Class 0); T011-IgE Maple Leaf Sycamore <0.10 kU/L (Class 0); T014-IgE Cottonwood <0.10 kU/L (Class 0); T015-IgE Ash, White <0.10 kU/L (Class 0); T022-IgE Pecan, Hickory <0.10 kU/L (Class 0); T070-IgE White Mulberry <0.10 kU/L (Class 0); W001-IgE Ragweed, Short <0.10 kU/L (Class 0); W011-IgE Thistle, Russian <0.10 kU/L (Class 0); W014-IgE Pigweed, Common <0.10 kU/L (Class 0); W018-IgE Sheep Sorrel <0.10 kU/L (Class 0)
== END ==
PROVIDERS: PCP Psychiatry & Neurology Sleep Medicine; Visit Provider Nurse Practitioner
DX: J30.2 Other seasonal allergic rhinitis (principal)
CPT/HCPCS: 36415; 82785; 85025; 86003

== ENCOUNTER → 2021-12-30 13:09 | Outpatient (CLI) | payer MEDICARE, SELFPAY ==
--- NOTE | 2021-12-30 13:18 | XR_ITS ---
FINAL REPORT CLINICAL HISTORY: COUGH; UNSPECIFIED COMPARISON: 09/08/2021 FINDINGS: Two views of the chest were obtained. The heart size and pulmonary vascularity are within normal limits. The mediastinum is normal. There is mild left lung base atelectasis or scarring. There is no pneumothorax. The bony thorax is intact. IMPRESSION: Mild left lung base atelectasis or scarring. Reviewed, Interpreted and Dictated by Cristobal Carrillo III, MD Transcribed by Hoa Houston Authenticated and [facility]
== END ==
PROVIDERS: PCP Family Medicine; Visit Provider Nurse Practitioner
DX: R50.9 Fever, unspecified (principal)
CPT/HCPCS: 71046

== ENCOUNTER → 2022-02-04 07:55 | Outpatient (CLI) | payer MEDICARE, SELFPAY ==
--- NOTE | 2022-02-04 07:57 | MM_ITS ---
PROCEDURE INFORMATION: Exam: MG Bilateral Screening 3D Mammography Exam date and time: 02/04/2022 8:20 AM Age: 71 years old Clinical indication: Screening mammogram. TECHNIQUE: Imaging protocol: Bilateral Screening tomosynthesis and 2D mammography including computer-aided detection (CAD) when performed. COMPARISON: 1. MG MM DIG MAMM DX UNILAT LT CAD 12/09/2019 1:58 PM 2. MG MM DIG SCREENING MAMM BI W/CAD 12/01/2019 10:59 AM 3. MG SCBI MM Dig screening mamm BI w/CAD 02/24/2018 9:21 AM 4. MG DMSB DIGITAL MAMM-SCREEN BILATERAL 11/12/2011 2:14 PM FINDINGS: MAMMOGRAPHY: Breast composition: There are scattered areas of fibroglandular density. Mass: None. Architectural distortion: No new or suspicious architectural distortion. Calcifications: No new or suspicious calcifications are present Asymmetric density: No new or suspicious asymmetric density is present Skin thickening: None. Axillary adenopathy: None. IMPRESSION: No mammographic evidence of malignancy. Recommend annual screening mammography unless otherwise clinically indicated. ASSESSMENT: BI-RADS category 1: Negative
== END ==
PROVIDERS: PCP Family Medicine; Visit Provider Family Medicine
DX: Z12.31 Encounter for screening mammogram for malignant neoplasm of breast (principal)
CPT/HCPCS: 77063; 77067

== ENCOUNTER 2022-03-28 07:28 | Day surgery (SDC) | payer MEDICARE, SELFPAY ==
[2022-03-25 16:42] VITALS: BMI 36.3
[2022-03-28 07:52] VITALS: BP 126/69; PULSE 58; RESP 20; TEMP 36.1; O2SAT 96
--- NOTE | 2022-03-28 08:08 | EXP.ANES.CKL ---
[facility] Medical History Abnormal computerized axial tomography of chest Allergic rhinitis, unspecified Dyspnea on exertion Family history of asthma History of skin cancer Mild persistent asthma Seasonal allergies Wheezing Surgical History H/O arthroscopy of knee History of cardiac cath History of total right knee replacement Family History Other Asthma Cancer Coronary artery disease Heart attack Stroke Social History Smoking Status: Never smoker second hand exposure: No alcohol intake: never substance use type: denies use current occupational status: disabled Travel in the last 8 weeks: None household members: spouse housing: house current occupational exposures/hazards: No caffeine: Yes [facility] Anesthesia Checklist Patient Identification Patient Identification: Arm Band and Family Structural Data Admitted From: Home Planned Operative Procedure/s: COLONSCOP Consent for Planned Operative Procedure(s) Verified: Yes Verified Documents: Surgical Consent and History and Physical NPO Status Verified Time NPO: 00:00 Additional verifications Patient : No Anesthesia Reactions: No Hx Blood Transfusions: No Cephalosporin Allergy: No Previous Colonoscopy: Yes Airway Assessment C-Spine Mobility Assessed: Yes TMJ Mobility Assessed: Yes Dentition: Partials Neurological Assessment Level of Consciousness: Awake, Alert, Appropriate and Follows Commands Hx Seizures: No Numbness or tingling in extremities: No Genitourinary Assessment 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
[2022-03-28 08:18] VITALS: O2SAT 97
--- NOTE | 2022-03-28 09:19 | P.PCN_ITS ---
Procedure: Date: 03/28/22 Patient Date of :: 1950 Procedure Performed:: Total colonoscopy to terminal ileum with numerous polypectomy Indications:: Patient is a 71-year-old female referred by Dr. Mae for screening colonoscopy. I had previously performed colonoscopy on her many years ago. She states that she believes that Dr. Luque had performed her last colonoscopy about 7 or 8 years ago and due to findings of polyps it was recommended she undergo follow-up colonoscopy in 5 years. She has a family history of colon cancer in her sister. In the preoperative area patient had concerns about a hemorrhoid . Performing Provider:: Cristobal Colunga MD Referring Provider:: Kali Mae MD Sedation:: MAC sedation Procedure:: Patient history was obtained and appropriate physical examination was performed. Patient's medications and allergies were reviewed. Informed consent was obtained after explaining the benefits, alternatives, and risks of the procedure including, but not limited to, bleeding, perforation, missed lesions, and adverse reaction to anesthesia medications. Patient was transported to endoscopy procedure room. Patient was connected to monitoring devices. Throughout the procedure the patient's blood pressure, pulse, and oxygen saturations were monitored continuously. Patient identification and planned procedure were verified by the staff. Patient was positioned in lateral decubitus position. Digital anorectal exam was performed. Variable stiffness Olympus colonoscope was inserted and advanced under direct visualization to the cecum. Adequacy of the colonic preparation was noted. The colonoscope was advanced a short distance into the terminal ileum. The colonoscope was then slowly withdrawn while carefully examining the color, texture, anatomy, and integrity of the mucosoa circumferentially. Within the rectum retroflexion was performed. Colonoscope was then withdrawn. IMPRESSION: There were multiple right-sided colon polyps. She had 4 polyps in the cecum of which 3 were removed with cold snare and 1 removed in a piecemeal fashion using forceps. There was a possible periappendiceal polyp which was removed in a piecemeal fashion using cold forceps. In the ascending colon there was a small polyp removed with cold snare. At the hepatic flexure there was a small polyp removed with biopsy forceps. In the ascending colon there was a moderate polyp removed with cold snare. There were findings of pandiverticulosis with heavy diverticular burden in the sigmoid colon. In the sigmoid colon there was a moderate adenomatous somewhat pedunculated polyp removed with cold snare. In the rectum there was a small to moderate adenomatous polyp removed with cold snare. Retroflexion revealed minimal internal hemorrhoids. Colonoscope was wi thdrawn Findings:: Polyps as noted above. Total of 10 polyps removed. Pandiverticulosis with heavy diverticular burden in the left colon Minor tiny inflamed external hemorrhoid Recommendations:: Likely repeat colonoscopy in 2 or 3 years pending pathology Complications:: None immediately apparent Estimated blood obtained (mL): 3
[2022-03-28 09:22] VITALS: BP 128/76; PULSE 62; RESP 18; TEMP 36.5; O2SAT 96
[2022-03-28 09:32] VITALS: BP 119/72; PULSE 59; RESP 18; O2SAT 95
[2022-03-28 09:42] VITALS: BP 138/81; PULSE 47; RESP 18; O2SAT 97
[2022-03-28 09:52] VITALS: BP 128/93; PULSE 47; RESP 18; O2SAT 98
== END 2022-03-28 10:01 | disposition home or self-care (01) ==
PROVIDERS: PCP Family Medicine; Visit Provider Surgery
PROC: 0DJD8ZZ Inspection of Lower Intestinal Tract, Via Natural or Artificial Opening Endoscopic (ICD-10-PCS; principal; 2022-03-28 08:30)
DX: Z12.11 Encounter for screening for malignant neoplasm of colon (principal); K63.5 Polyp of colon; Z79.899 Other long term (current) drug therapy
CPT/HCPCS: 45380; 45385; 88305; J2704

== ENCOUNTER → 2022-07-03 10:37 | Outpatient (CLI) | payer MEDICARE, SELFPAY ==
--- NOTE | 2022-07-03 10:53 | XR_ITS ---
FINAL REPORT CLINICAL HISTORY: FALL AT HOME, PAIN IN L RIBS COMPARISON: 12/30/2021 two-view chest FINDINGS: A PA view of the chest and oblique views of the left ribs were obtained. The cardiac and mediastinal silhouettes are within normal limits. The lungs are clear. There is no pneumothorax. Oblique views of the left ribs reveal left 6th distal rib fracture which is mildly displaced. No other fractures identified. IMPRESSION: Mildly displaced left 6th distal rib fracture. Reviewed, Interpreted and Dictated by Cristobal Carrillo III, MD Transcribed by Gail Ayers Authenticated and [facility]
== END ==
PROVIDERS: PCP Physician Assistant; Visit Provider Physician Assistant
DX: R07.81 Pleurodynia (principal)
CPT/HCPCS: 71101

== ENCOUNTER → 2022-07-31 11:01 | Outpatient (CLI) | payer MEDICARE, SELFPAY ==
--- NOTE | 2022-07-31 11:07 | XR_ITS ---
FINAL REPORT CLINICAL HISTORY: RIB PAIN COMPARISON: 07/03/2022 FINDINGS: LEFT RIBS A PA view of the chest and oblique views of the left ribs were obtained. The cardiac and mediastinal silhouettes are within normal limits. The lungs are clear. There is no pneumothorax. Oblique views of the left ribs reveal no displaced rib fracture. IMPRESSION: No acute left rib fracture and no pneumothorax. Reviewed, Interpreted and Dictated by Lanie Bolden MD Transcribed by Hoa Houston Authenticated and [facility]
== END ==
PROVIDERS: PCP Physician Assistant; Visit Provider Physician Assistant
DX: R07.81 Pleurodynia (principal)
CPT/HCPCS: 71101

== ENCOUNTER 2022-08-05 14:22 | Emergency (ER) | payer MEDICARE, SELFPAY ==
[2022-08-05 14:45] VITALS: BP 127/83; PULSE 86; RESP 20; TEMP 36.6; O2SAT 94; BMI 33.7
--- NOTE | 2022-08-05 14:52 | EXP.UTC ---
Discharge Plan Disposition Patient Disposition: Home, Self-Care Condition: Good Prescriptions Prescriptions: No Action sertraline 50 mg tablet 50 mg PO DAILY diazepam 5 mg tablet 5 mg PO TID doxepin 10 mg capsule 10 mg PO DAILY vitamin B complex [B Complex-Vitamin B12] Tablet 1 tab PO DAILY aspirin [Adult Low Dose Aspirin] 81 mg tablet,delayed release (DR/EC) 81 mg PO DAILY levothyroxine [Synthroid] 75 mcg tablet 75 mcg PO DAILY allopurinol 100 mg tablet 300 mg PO DAILY ipratropium-albuterol 0.5 mg-3 mg(2.5 mg base)/3 mL solution for nebulization 3 ml INHALATION Q6H PRN (Reason: shortness of breath or wheezing) Qty: 90 6RF albuterol sulfate 90 mcg/actuation HFA aerosol inhaler 2 inh INHALATION Q6H PRN (Reason: shortness of breath or wheezing) 90 Days Qty: 8.5 3RF pravastatin 20 mg tablet 20 mg PO DIRECTED Rx Instructions: Mon, Wed, Fri levocetirizine 5 mg tablet 5 mg PO DAILY Trelegy Ellipta 200-62.5-25 mcg blister with device 1 inh inhalation DAILY rosuvastatin [Crestor] 20 mg tablet 20 mg PO DAILY albuterol sulfate 90 MCG aero powdr breath act w/sensor 90 mcg inhalation QID PRN (Reason: asthma) Referrals Follow up/Referrals: Navid Mae MD [Primary Care Provider] - See instructions Activity Restrictions/Add. Instructions Additional Instructions/Restrictions: *Monitor Temp, Over the counter Motrin or Tylenol as directed/as needed Tylenol every 4 hours and Motrin every 6 hours (as long as your family doctor has told you that you can take it) for fever or pain. and straight to ER if unable to lower temp less than 101.0 after medication given *Sleep elevated *Humidifier/Vaporizer Follow up IMMEDIATELY for new or worsening symptoms or no Noticeable improvement over the next 48-72 hours. 911 for difficulty breathing or swallowing You were tested for today for COVID19 your test result should be back in the next 24-48 hours, you may Check your Results on the [facility] Clinical Impressions Clinical Impression: Exposure to COVID-19 virus Instructions Patient Instructions: DI for COVID-19 (Suspected or Confirmed ), Preventing the Spread of Coronavirus Discharge Instructions [place] ED [place] [facility] [facility] [place] General Stated complaint: Covid exposure, covid test Time Seen by Provider: 08/05/22 14:52 History of Present Illness Provider Complaint: Patient states that the brandi she is seeing just tested positive for COVID States that she isnt having any symptoms but due to close exposure she wanted to get tested Related Data Home Medications Medication Instructions Recorded Confirmed aspirin 81 mg tablet,delayed 81 mg PO DAILY thinner 10/15/17 07/14/22 release (Adult Low Dose Aspirin) levothyroxine 75 mcg tablet 75 mcg PO DAILY thyroid 10/15/17 07/14/22 (Synthroid) allopurinol 100 mg tablet 300 mg PO DAILY gout 09/28/20 07/14/22 diazepam 5 mg tablet 5 mg PO TID Anxiety 09/28/20 07/14/22 doxepin 10 mg capsule 10 mg PO DAILY Depression 09/28/20 07/14/22 sertraline 50 mg tablet 50 mg PO DAILY Depression 09/28/20 07/14/22 albuterol sulfate 90 mcg/actuation 90 mcg inhalation QID PRN asthma 05/26/21 07/14/22 breath activated powder inhaler,sensor vitamin B complex (B 1 tab PO DAILY Supplement 07/19/21 07/14/22 Complex-Vitamin B12 tablet) rosuvastatin 20 mg tablet (Crestor) 20 mg PO DAILY HLD 03/25/22 07/14/22 fluticasone fur. 200 mcg-umeclid 1 inh inhalation DAILY 07/14/22 07/14/22 62.5 mcg-vilant 25 mcg inhalat.powder (Trelegy Ellipta) levocetirizine 5 mg tablet 5 mg PO DAILY 07/14/22 07/14/22 pravastatin 20 mg tablet 20 mg PO DIRECTED 07/14/22 07/14/22 Previous Rx's Medication Instructions Recorded albuterol sulfate 90 mcg/actuation 2 inh inhalation Q6H PRN shortness 08/16/21 aerosol inhaler of breath or wheezing 90 days #8.5 grams ipratropium 0.5 mg-a
[2022-08-05 15:11] VITALS: BP 127/83; PULSE 86; RESP 20; TEMP 36.7; O2SAT 96
== END 2022-08-05 15:11 | disposition home or self-care (01) ==
PROVIDERS: Emergency Provider Nurse Practitioner; PCP Family Medicine
DX: I10 Essential (primary) hypertension (principal); I25.10 Atherosclerotic heart disease of native coronary artery without angina pectoris; J45.30 Mild persistent asthma, uncomplicated; Z20.822 Contact with and (suspected) exposure to COVID-19
CPT/HCPCS: 99212; C9803; G0463; U0003; U0005

== ENCOUNTER → 2023-01-12 10:18 | Outpatient (CLI) | payer MEDICARE, SELFPAY ==
[2023-01-12 10:50] LABS: Basophils % 0.3 % (0.1-2.0); Eosinophils # 0.2 K/mm3 (0.0-0.4); Eosinophils % 2.6 % (0.1-12.0); Hematocrit 42.9 % (37.0-47.0); Hemoglobin 13.6 g/dL (12.2-16.2); Lymphocytes # 1.7 K/mm3 (0.7-4.5); Lymphocytes % 28.5 % (10-50); Mean Corpuscular HGB Conc 31.7 g/dL (31.8-35.4); Mean Corpuscular Hemoglobin 30.2 pg (27.0-31.2); Mean Corpuscular Volume 95.4 fl (81-99); Mean Platelet Volume 8.5 fl (7.4-10.4); Monocytes # 0.4 K/mm3 (0.1-1.0); Monocytes % 6.6 % (1.7-9.3); Neutrophils # 3.7 K/mm3 (1.8-7.8); Neutrophils % 61.9 % (37.0-80.0); Platelet Count 247 K/mm3 (142-424); Red Cell Distribution Width 14.5 % (11.5-17.5)
[2023-01-12 11:46] LABS: Alanine Aminotransferase 23 U/L (12-78); Alkaline Phosphatase 79 U/L (38-126); Aspartate Amino Transferase 29 U/L (14-36); Bilirubin,Indirect 0.4 mg/dL (0.0-0.9); Bilirubin,Total 0.4 mg/dl (0.2-1.3); Bilirubin,Unconjugated 0.5 mg/dL (0.0-1.1); Blood Urea Nitrogen 15 mg/dl (7-17); Calcium 9.1 mg/dl (8.4-10.2); Carbon Dioxide 29 mmol/L (22.0-30.0); Chloride 108 mmol/L (98-107); Chol/HDL Ratio 3.1 (1-3.5); Cholesterol 170 mg/dl (140-200); Estimated Glomerular Filt Rate 70 ml/min (>60); GFR (African American) 85 ML/MIN (>60); Glucose 84 mg/dl (74-100); HDL Cholesterol 55 mg/dl (40-60); Magnesium 1.7 mg/dl (1.6-2.3); Sodium 143 mmol/L (136-145); Total Protein,Serum 6.8 g/dl (6.3-8.2); Triglycerides 141 mg/dl (30-150); VLDL Cholesterol 28 mg/dL (0-40)
[2023-01-12 11:57] LABS: Direct LDL Cholesterol 84.54 mg/dL (100-129)
[2023-01-12 12:04] LABS: Free T4 (Free Thyroxine) 0.69 ng/dl (0.78-2.19)
[2023-01-12 12:17] LABS: Thyroid Stimulating Hormone 8.66 uIU/mL (0.465-4.68)
== END ==
PROVIDERS: PCP Family Medicine; Visit Provider Nurse Practitioner
DX: I10 Essential (primary) hypertension (principal); R00.2 Palpitations; R06.00 Dyspnea, unspecified; I25.118 Atherosclerotic heart disease of native coronary artery with other forms of angina pectoris
CPT/HCPCS: 36415; 80048; 80061; 80076; 83735; 84439; 84443; 85025

== ENCOUNTER → 2023-02-04 10:28 | Outpatient (CLI) | payer MEDICARE, SELFPAY ==
--- NOTE | 2023-02-04 10:33 | CA_ITS ---
APPROVED REPORT EXAM: Comprehensive 2D, Doppler, and color-flow Echocardiogram Legal Analyst: Nanci Summers RT(R) Ht: 5 ft 5 in Wt: 162lbs BSA: 1.81 BP: 142/83 mmHg Indications: SOA, palpitations, HTN, ASCVD 2D Dimensions LVOT 1.93 cm (M/F) 1.5-2.5 LVEF (Pardo's) 50.80 % F: 54 - 74 LV Volume 75.80 mL F: 46 - 106 LV Volume Index 41.88 mL/m2 F: 29 - 61 LA Volume 15.40 mL LA Volume Index 8.51 mL/m2 (M/F) 16-34 M-Mode Dimensions RVDd 2.72 cm (0.9-2.6) LA Diam 2.65 cm (1.9-4.0) LVDd 4.43 cm (3.5-5.7) Ao Diam 2.73 cm (2.0-3.7) LVDs 3.29 cm (3.5-5.7) IVSd 1.04 cm (0.6-1.1) PWd 0.86 cm (0.6-1.1) EF (Teich) 50.80% FS 25.70% EDV (Teich) 89.10 mL ESV (Teich) 43.80 mL LV Diastology E Decel Time 210.00 (160-240 msec) E/A Ratio 0.7 MED E' 5.50 (< 7 cm/sec) E'/MED E' Ratio 11.22 (>14) LAT E' 8.10 (<10 cm/sec) E/LAT E' Ratio 7.62 (>14) Mitral Valve MV E Max Manuel. 62.00 (40-130 cm/s) MV A Velocity 83.00 (40-130 cm/s) E/A Ratio 0.74 MV Decel. Time 210.00 (160-240 ms) MV PHT 62.00 ms Left Ventricle The left ventricle is normal size. The left ventricular systolic function is normal. The left ventricular ejection fraction is within the normal range. There is increased LV wall thickness. There is normal LV segmental wall motion. The left ventricular diastolic function is normal. LVEF is 60% Right Ventricle The right ventricle is normal size. The right ventricular systolic function is normal. Atria The left atrium size is normal. The right atrium size is normal. There is no Doppler evidence of interatrial shunt. Aortic Valve The aortic valve is mildly thickened. There is no aortic valvular stenosis. Mild aortic regurgitation. Mitral Valve The mitral valve is normal in structure. No evidence of mitral valve stenosis. Trace mitral regurgitation. Tricuspid Valve The tricuspid valve leaflets are thin and pliable. Trace tricuspid regurgitation. There is insufficient TR jet to estimate RVSP. Pulmonic Valve The pulmonary valve is normal in structure. Trace pulmonic regurgitation. Great Vessels The aortic root is normal in size. The ascending aorta is normal in size. IVC is normal in size and collapses >50% with inspiration. Pericardium There is no pericardial effusion. Other Information Study Quality: Fair Conclusion Normal biventricular systolic function. Mild AI Electronically signed by : Jnen Correa, 02/09/2023 17:41:10
== END ==
PROVIDERS: PCP Family Medicine; Visit Provider Nurse Practitioner
DX: I10 Essential (primary) hypertension (principal); I25.118 Atherosclerotic heart disease of native coronary artery with other forms of angina pectoris; R00.2 Palpitations; R06.00 Dyspnea, unspecified
CPT/HCPCS: 93306

== ENCOUNTER → 2023-02-20 11:40 | Outpatient (CLI) | payer MEDICARE, SELFPAY ==
--- NOTE | 2023-02-20 11:41 | NM_ITS ---
APPROVED REPORT Exam: Nuclear Stress Test Indication: soa..palpitations..fatigue..high BP..High cholesterol Patient Location: Outpatient Stress Tech: Paula Hermosillo [place] Tech:HONORIO Reilly RT(R)(N) Ht: 5 ft 0 in Wt: 162 lbs Bra Size: 40c HR: 74 bpm BP: 121/82 mmHg BSA: 1.71 m2 Rhythm: NSR TID: 1.07 History: soa..palpitations..fatigue..high BP..High cholesterol Procedure: Patient received 0.4 mg of intravenous Lexiscan, resting heart rate 74 bpm, resting blood pressure 121/82 mmHg, with Lexiscan maximum heart rate achieved was 88 bpm which is 85 % of the maximum predicted heart rate and blood pressure was 137/79 mmHg. With Lexiscan, patient denied any complaint of chest pain. Cardiac Stress and Resting SPECT Images: Cardiac Stress and Resting SPECT images were obtained using technetium 99m Myoview 32.9 mCi stress and 10.71 mCi at rest. Resting and stress imaging in both supine and prone positions demonstrate no evidence of fixed or reversible perfusion defects. Gated imaging demonstrates normal global and regional LV systolic function. LVEF is calculated at 52%. Conclusion: No evidence of fixed or reversible perfusion defects. Gated imaging demonstrates normal global and regional LV systolic function. LVEF is calculated at 52%. Electronically signed by : Jenn Correa MD 02/28/2023 01:21:40
--- NOTE | 2023-02-20 15:05 | CA_ITS ---
APPROVED REPORT Exam: Pharmacologic Technologist: Paula Omer, Ht: 5 ft 5 in Wt: 162 lbs BSA: 1.81 m2 HR: 63 bpm BP: 121/82 mmHg Rhythm: NSR Medical History Medications: Levothyroxine,,,,, Aspirin,,,,, Pravastatin,,,,, Diazepam,,,,, Losartan,,,,, Allopurinol,,,,, HCTZ,,,,, Albuterol,,,,, DOxepin,,,,, Vitamin B Complex,,,,, Trelegy-Ellipta,,,,, Stress Test Details Test: LEXISCAN Reason for pharmacologic stress test: physical limitation. HR Resting HR: 74 bpm Max Heart Rate (APMHR): 147 bpm Max HR Achieved: 88 bpm Target HR (85% APMHR): 125 bpm % of APMHR: 60 Recovery HR: 76 bpm BP Resting BP: 121/82 mmHg Max BP: 137/79 mmHg Recovery BP: 126.0/76.0 mmHg ECG Resting ECG: NSR, PVC, low voltage QRS, cannot R/O old karol-septal NE Stress ECG: No significant ST changes Arrhythmia: None Clinical Exercise duration: 04:00 min Highest Stage Achieved: Exercise capacity: 1.0 METs Stress ECG Conclusion Symptoms: SOA, head discomfort, mild stomach discomfort. Arrhythmias/Ectopy: None. ST-T Changes: No significant ST changes. Conclusion: Unremarkable Lexiscan stress. Myoview images reported separately. Test Summary REST . . . . . . . Resting REST 04:37 . . 74 . 121/ 82 . . Stage 1 01:00 . . 80 . . . . Stage 2 01:00 . . 81 . 125/ 76 . . Stage 3 01:00 . . 79 . 124/ 76 . . Stage 4 01:00 . . 77 . 137/ 79 . Stop exercise at 04:00 RECOVERY 01:00 . . 82 . . . . RECOVERY 02:00 . . 70 . . . . RECOVERY 03:00 . . 75 . 120/ 78 . . RECOVERY 03:19 . . 76 . 126/ 76 . . Electronically signed by : Jenn Correa MD 02/28/2023 01:19:17
== END ==
PROVIDERS: PCP Family Medicine; Visit Provider Nurse Practitioner
DX: I10 Essential (primary) hypertension (principal); I25.10 Atherosclerotic heart disease of native coronary artery without angina pectoris; R00.2 Palpitations; R06.00 Dyspnea, unspecified; R07.89 Other chest pain
CPT/HCPCS: 78452; 93017; A9502; J2785

== ENCOUNTER → 2023-04-09 07:53 | Outpatient (CLI) | payer MEDICARE, SELFPAY ==
--- NOTE | 2023-04-09 07:55 | MM_ITS ---
PROCEDURE INFORMATION: Exam: MG Bilateral Screening 3D Mammography Exam date and time: 04/09/2023 7:51 AM Age: 72 years old Clinical indication: Screening examination TECHNIQUE: Imaging protocol: Bilateral Screening tomosynthesis and 2D mammography including computer-aided detection (CAD) when performed. COMPARISON: 1. MG MM DIG SCREENING MAMM BI W/CAD 02/04/2022 8:20 AM 2. MG MM DIG MAMM DX UNILAT LT CAD 12/09/2019 1:58 PM FINDINGS: MAMMOGRAPHY: Breast composition: There are scattered areas of fibroglandular density. Mass: None. Architectural distortion: None. Calcifications: No suspicious calcifications. Asymmetric density: None. Skin thickening: None. Axillary adenopathy: None. IMPRESSION: No mammographic evidence of malignancy. Annual screening is recommended unless otherwise clinically indicated. ASSESSMENT: BI-RADS Category 1: Negative
== END ==
PROVIDERS: PCP Family Medicine; Visit Provider Family Medicine
DX: Z12.31 Encounter for screening mammogram for malignant neoplasm of breast (principal)
CPT/HCPCS: 77063; 77067

== ENCOUNTER → 2023-04-13 15:09 | Outpatient (CLI) | payer MEDICARE, SELFPAY ==
--- NOTE | 2023-04-13 15:18 | XR_ITS ---
FINAL REPORT CLINICAL HISTORY: RT HIP PAIN FINDINGS: Right hip Three views were obtained. There is no acute fracture or dislocation. The joint spaces appear normal. No soft tissue abnormality is identified. IMPRESSION: No acute process. Reviewed, Interpreted and Dictated by eJred Mckeon MD Transcribed by Aliyah Chand Authenticated and [facility]
== END ==
PROVIDERS: PCP Family Medicine; Visit Provider Family Medicine
DX: M25.551 Pain in right hip (principal)
CPT/HCPCS: 73502

== ENCOUNTER → 2023-05-04 11:36 | Outpatient (CLI) | payer MEDICARE, SELFPAY ==
--- NOTE | 2023-05-04 11:46 | XR_ITS ---
FINAL REPORT CLINICAL HISTORY: RT SIDED SCIATICA FINDINGS: 5 views of the lumbar spine were obtained. There is no evidence of fracture or dislocation. The vertebral alignment is normal. There are mild and moderate degenerative changes. Vascular calcifications are noted. No paraspinous soft tissue abnormalities identified. IMPRESSION: No acute bony abnormality. Reviewed, Interpreted and Dictated by Cristobal Carrillo III, MD Transcribed by Angeles Minaya Authenticated and [facility]
== END ==
PROVIDERS: PCP Family Medicine; Visit Provider Family Medicine
DX: M54.31 Sciatica, right side (principal)
CPT/HCPCS: 72110

== ENCOUNTER → 2023-05-06 13:02 | Outpatient (CLI) | payer MEDICARE, SELFPAY | PROVIDERS: PCP Family Medicine; Visit Provider Internal Medicine Pulmonary Disease | DX: R06.09 Other forms of dyspnea | CPT/HCPCS: 94060; 94618 ==

== ENCOUNTER 2023-07-27 21:19 | Emergency (ER) | payer MEDICARE, SELFPAY ==
[2023-07-27 21:20] VITALS: BP 136/94; PULSE 86; RESP 18; TEMP 36.8; O2SAT 97; BMI 33.5
--- NOTE | 2023-07-27 21:28 | ECG_ITS ---
APPROVED REPORT Exam: Resting ECG HR:84 bpm ECG Measurements Heart Rate 84 AXES RI 166 P 50 QRSd 95 QRS 265 QT 379 T 23 QTc 420 Conclusion SINUS RHYTHM INDETERMINATE AXIS LOW QRS VOLTAGE IN PRECORDIAL LEADS [QRS DEFLECTION < 1.0 mV IN CHEST LEADS] ANTEROSEPTAL MYOCARDIAL INFARCTION , PROBABLY OLD [40+ ms Q WAVE IN V1-V4] ABNORMAL ECG UNCONFIRMED REPORT Electronically signed by : Jad Handley MD 07/28/2023 19:03:25
[2023-07-27 21:50] LABS: Basophils % 0.2 % (0.1-2.0); Eosinophils # 0.2 K/mm3 (0.0-0.4); Hematocrit 44.4 % (37.0-47.0); Hemoglobin 14.1 g/dL (12.2-16.2); Lymphocytes % 28.1 % (10-50); Mean Corpuscular HGB Conc 31.7 g/dL (31.8-35.4); Mean Corpuscular Hemoglobin 31.3 pg (27.0-31.2); Mean Corpuscular Volume 98.8 fl (81-99); Mean Platelet Volume 8.7 fl (7.4-10.4); Monocytes # 0.7 K/mm3 (0.1-1.0); Monocytes % 9.3 % (1.7-9.3); Neutrophils # 4.3 K/mm3 (1.8-7.8); Neutrophils % 59.4 % (37.0-80.0); Platelet Count 231 K/mm3 (142-424); Red Cell Distribution Width 14.3 % (11.5-17.5); White Blood Count 7.3 K/mm3 (4.8-10.8)
[2023-07-27 21:51] LABS: Chloride 110 mmol/L (98-107)
[2023-07-27 21:52] LABS: Potassium 3.8 mmoL/L (3.5-5.1); Sodium 139 mmol/L (136-145)
[2023-07-27 21:54] LABS: Alanine Aminotransferase 27 U/L (12-78); Aspartate Amino Transferase 36 U/L (14-36); Blood Urea Nitrogen 28 mg/dl (7-17); Coronavirus 19, PCR Not Detected (NotDetected); Creatinine Clearance Estimated 61 mL/min (50-200); Estimated Glomerular Filt Rate 54 ml/min (>60); GFR (African American) 66 ML/MIN (>60); Influenza A, PCR Not Detected (NotDetected); Influenza B, PCR Not Detected (NotDetected)
[2023-07-27 21:55] LABS: Albumin Level 4.1 g/dl (3.5-5.0); Albumin/Globulin Ratio 1.4 (1.1-1.8); Alkaline Phosphatase 87 U/L (38-126); Anion Gap 4.8 mEq/L (5-15); Bilirubin,Total 0.3 mg/dl (0.2-1.3); Calcium 8.5 mg/dl (8.4-10.2); Carbon Dioxide 28 mmol/L (22.0-30.0); Glucose 102 mg/dl (74-100); Total Protein,Serum 7.1 g/dl (6.3-8.2)
--- NOTE | 2023-07-27 21:59 | CT_ITS ---
PROCEDURE INFORMATION: Exam: CT Abdomen And Pelvis With Contrast Exam date and time: 07/27/2023 10:09 PM Age: 73 years old Clinical indication: Abdominal pain; Additional info: Diffuse abd pain TECHNIQUE: Imaging protocol: Computed tomography of the abdomen and pelvis with contrast. Radiation optimization: All CT scans at this facility use at least one of these dose optimization techniques: automated exposure control; mA and/or kV adjustment per patient size (includes targeted exams where dose is matched to clinical indication); or iterative reconstruction. Contrast material: ISOVUE; Contrast volume: 75 ml; Contrast route: IV; COMPARISON: CT ABDOMEN PELVIS W CON 08/06/2019 4:27 PM FINDINGS: Lungs: Calcified granulomata noted at each lung base. Pleural spaces: No pleural fluid. Heart: Heart size is normal. Diaphragm: Small sliding hiatal hernia. Liver: Homogeneous low attenuation throughout the liver is compatible with fatty infiltration. Gallbladder and bile ducts: Prior cholecystectomy. No biliary tree dilation or high-density retained stones appreciated. Pancreas: Normal. No ductal dilation. Spleen: Normal. No splenomegaly. Adrenal glands: Normal configuration. Kidneys and ureters: Multifocal bilateral renal cortical scar. No evidence of acute renal obstruction or inflammation. Stomach and bowel: Postprandial stomach. Normal caliber small bowel. Distal colonic diverticulosis without evidence of acute diverticulitis. Bowel enhances normally. No bowel wall pneumatosis. Appendix: Appendix is not visualized as a discrete structure but there is no inflammation at the cecal base. Intraperitoneal space: No free air. No significant fluid collection. Vasculature: Moderate aortoiliac calcific atherosclerosis without aneurysm. No portal venous gas. Lymph nodes: Calcified hilar lymph nodes. Urinary bladder: Unremarkable as visualized. Reproductive: Prior hysterectomy. No evidence of vaginal cuff or adnexal mass. Bones/joints: Mild spinal degenerative change noted with spinal stenosis at L4-L5 on the basis of prominent facet arthropathy and thickening of the ligamentum flavum. Bilateral sacroiliac osteoarthritis. No significant hip arthropathy. Soft tissues: No perineal/perianal abscess or inflammation. IMPRESSION: 1. No acute abnormality identified to explain patient's pain. In particular, there is no evidence of bowel or renal obstruction. There has been prior cholecystectomy. Appendix is not visualized but there is no inflammation at the base of the cecum. 2. Mild spinal canal stenosis at L4-L5. Correlate with any symptoms of neurogenic claudication.
[2023-07-27 22:00] VITALS: BP 112/77; PULSE 69; O2SAT 93
--- NOTE | 2023-07-27 22:03 | ED_ITS ---
Discharge Plan Disposition Patient Disposition: Still a Patient Prescriptions Prescriptions: No Action doxepin 10 mg capsule 10 mg PO DAILY vitamin B complex [B Complex-Vitamin B12] Tablet 1 tab PO DAILY losartan 25 mg tablet 25 mg PO DAILY pravastatin 20 mg tablet 20 mg PO DIRECTED Patient Comments: TAKE 1 TABLET BY MOUTH ON THURSDAY, THURSDAY AND THURSDAY Rx Instructions: 1 tab thu, thu & thu hydrochlorothiazide 12.5 mg tablet 12.5 mg PO DAILY Patient Comments: TAKE 1 TABLET BY MOUTH ONCE DAILY IN THE MORNING budesonide 0.5 mg/2 mL suspension for nebulization 0.5 mg inhalation Q12H Qty: 180 3RF formoterol fumarate [Perforomist] 20 mcg/2 mL solution for nebulization 2 ml inhalation BID 90 Days Qty: 180 3RF aspirin [Adult Low Dose Aspirin] 81 mg tablet,delayed release (DR/EC) 81 mg PO DAILY allopurinol 100 mg tablet 300 mg PO DAILY levothyroxine [Synthroid] 75 mcg tablet 75 mcg PO DAILY ipratropium-albuterol 0.5 mg-3 mg(2.5 mg base)/3 mL solution for nebulization 3 ml INHALATION Q6H PRN (Reason: shortness of breath or wheezing) Qty: 90 6RF meloxicam 15 mg tablet 15 mg PO DAILY sertraline 25 mg tablet 25 mg PO DAILY montelukast 10 mg tablet 10 mg PO DAILY Referrals Follow up/Referrals: Navid Mae MD [Primary Care Provider] - See instructions Clinical Impressions Clinical Impression: Abdominal pain, diffuse, Diarrhea, Paresthesia of right upper extremity, Cervical radiculopathy Instructions Patient Instructions: DI for Acute Abdominal Pain Discharge ED Provider: Anabell Larry General Adult HPI General Chief complaint: Abdominal Pain Stated complaint: abd pain, SOA, right arm numbness Time Seen by Provider: 07/27/23 21:48 Mode of Arrival: Ambulatory Source of Information: Patient and Spouse Limitations: No Limitations Description of Symptoms (Recalled from ER Triage Doc. by RN): Patient reports sharp epigastric pains 7/10 that have beem ongoing since yesterday morning. Patient states that she has had diarrhea since yesterday that she originally thought was food poisoning. Has had nausea without vomiting. Patient also reports right arm pain that radiates into her neck that started this evening. Patient has tried to take immodium and phenergan to relieve symptoms without relief at this time. History of Present Illness HPI narrative: Patient is a 73-year-old female here with multiple complaints today. States she was eating yesterday and all of a sudden while she was eating started feeling severely nauseated and had profuse diarrhea since that time with significant constant abdominal pain it has been nonlocalized. No recent antibiotic use bloo d in her stool etc. however she did have a low-grade temperature of 100.2. No respiratory symptoms. Additionally she states she has some right upper extremity tingling and burning going from her neck down to her hand which she is also concerned about. Related Data Home Medications Medication Instructions Recorded Confirmed aspirin 81 mg tablet,delayed 81 mg PO DAILY thinner 10/15/17 05/06/23 release (Adult Low Dose Aspirin) allopurinol 100 mg tablet 300 mg PO DAILY gout 09/28/20 05/06/23 doxepin 10 mg capsule 10 mg PO DAILY Depression 09/28/20 05/06/23 vitamin B complex (B 1 tab PO DAILY Supplement 07/19/21 05/06/23 Complex-Vitamin B12 tablet) hydrochlorothiazide 12.5 mg tablet 12.5 mg PO DAILY 02/17/23 05/06/23 levothyroxine 75 mcg tablet 75 mcg PO DAILY thyroid 02/17/23 05/06/23 (Synthroid) losartan 25 mg tablet 25 mg PO DAILY 02/17/23 05/06/23 pravastatin 20 mg tablet 20 mg PO DIRECTED 02/17/23 05/06/23 meloxicam 15 mg tablet 15 mg PO DAILY 03/10/23 05/06/23 montelukast 10 mg tablet 10 mg PO DAILY 03/10/23 05/06/23 sertraline 25 mg tablet 25 mg PO DAILY 03/10/23 05/06/23 Previous Rx's Medication Instructions Recorded ipratropium 0.5 mg-albuterol 3 mg 3 ml inhalation Q6H PRN shortness 08/16/21 (2.5 mg base)/3 mL nebulization of breath or wheezing #90 mL soln budesonide 0.5 mg/2 mL suspension 0.5 mg (2 mL) inhalation Q12H #180 05/06/23 for nebulization mL formoterol fumarate 20 mcg/2 mL 2 ml inhalation BID 90 days #180 mL 05/06/23 solution for nebulization (Perforomist) Allergies Allergy/AdvReac Type Severity Reaction Status Date / Time acetaminophen [From LORTAB] Allergy Intermediate I-ITCHING Verified 05/06/23 14:10 febuxostat [From ULORIC] Allergy Intermediate joints Verified 05/06/23 14:10 hydrocodone [From LORTAB] Allergy Intermediate I-ITCHING Verified 05/06/23 14:10 Sulfa (Sulfonamide Allergy Intermediate I-HIVES Verified 05/06/23 14:10 Antibiotics) [SULFA (SULFONAMIDE ANTIBIOTICS)] [facility] Disclaimer: The information contained in this section may have been updated after the patient was seen, as this information can be updated by other users. Medical History Abnormal computerized axial tomography of chest Allergic rhinitis, unspecified Asthma Dyspnea on exertion Family history of asthma History of skin cancer Mild persistent asthma Palpitations Seasonal allergies Wheezing Surgical History H/O arthroscopy of knee History of cardiac cath History of colonoscopy History of total right knee replacement Family History Other Asthma Cancer Coronary artery disease Heart attack Stroke Social History Smoking Status: Never smoker second hand exposure: No alcohol intake: never substance use type: denies use current occupational status: disabled Travel in the last 8 weeks: None household members: spouse housing: house current occupational exposures/hazards: No caffeine: Yes ROS Obtained: Yes All systems reviewed & no additional complaints except as documented Physical Exam General General appearance: alert Respiratory Respiratory exam: Present normal lung sounds bilaterally Cardiovascular Cardiovascular exam: Present regular rate Abdominal Exam Abdominal exam: Present soft and tenderness (Diffusely tender particular the right upper quadrant epigastric and left upper quadrant regions with some slight rebound and guarding no tenderness in the lower abdomen) Neurological Exam Neurological exam: Present alert, oriented X3, CN II-XII intact, normal gait and other (Right upper extremity there is normal median ulnar radial and axillary sensory and motor function specifically there is normal position sense temp erature sense and light touch); Absent motor sensory deficit Medical Decision Making Yosef Inquiry Pt receiving controlled substance: No Vital Signs: 07/27/23 21:20 07/27/23 22:00 Temperature 98.3 F Temperature Source Oral Pulse Rate 69 Pulse Rate [Left Radial] 86 Respiratory Rate 18 Blood Pressure 112/77 Blood Pressure [Right Arm] 136/94 H Blood Pressure Mean 88 Blood Pressure Mean [Right Arm] 108 Blood Pressure Source [Right Arm] Automatic Cuff Blood Pressure Position [Right Arm] Sitting 02 Sat by Pulse Oximetry 97 93 L Oxygen Delivery Method Room Air Room Air Lab Data Lab results reviewed: Yes I reviewed the patient's lab results. Lab Results 07/27/23 21:33: WBC 7.3, RBC 4.50, Hgb 14.1, Hct 44.4, MCV 98.8, MCH 31.3 H, MCHC 31.7 L, RDW 14.3, Plt Count 231, MPV 8.7, Neut % (Auto) 59.4, Lymph % (Auto) 28.1, [place] % (Auto) 9.3, Eos % (Auto) 3.0, Baso % (Auto) 0.2, Neut # (Auto) 4.3, Lymph # (Auto) 2.0, [place] # (Auto) 0.7, Eos # (Auto) 0.2, Baso # (Auto) 0.0, Sodium 139, Potassium 3.8, Chloride 110 H, Carbon Dioxide 28, Anion Gap 4.8 L, BUN 28 H, Creatinine 1.00, Estimated Creat Clear 61, Estimated GFR 54 L, Est GFR ( Amer) 66, Glucose 102 H, Calcium 8.5, Total Bilirubin 0.3, AST 36, ALT 27, Alkaline Phosphatase 87, Troponin I < 0.01, Total Protein 7.1, Albumin 4.1, Globulin 3.0, Albumin/Globulin Ratio 1.4, Lipase 110, SARS-CoV-2 (PCR) Not detected, Influenza A Untype (PCR) Not detected, Influenza Type B (PCR) Not detected 07/27/23 22:17: Lactate 0.9 07/27/23 21:33 07/27/23 21:33 Orders (Tests/Meds): ED MEDICATIONS Generic Name Dose Route Start Last Admin Trade Name Freq PRN Reason Stop Dose Admin Lactated Ringer's 1,000 mls @ 999 mls/hr 07/27/23 22:00 07/27/23 22:17 Lactated Ringer's 1000 Ml Bag IV 07/27/23 23:00 999 mls/hr .Q1H1M MICHAEL Administration Sodium Chloride 10 ml 07/27/23 22:12 07/27/23 22:12 Sodium Chloride 0.9% 10ml Syr (Rad Only) IV 08/26/23 22:11 10 ml NEEDED PRN Administration Maintain IV Site Discontinued Medications Generic Name Dose Route Start Last Admin Trade Name Issa PRN Reason Stop Dose Admin Iopamidol 75 ml 07/27/23 22:12 07/27/23 22:12 Iopamidol-370 (76%);100ml Bottle IV 07/27/23 22:13 75 ml ONCE ONE Administration Morphine Sulfate 2 mg 07/27/23 21:59 07/27/23 22:17 Morphine 4mg/Ml Syringe IV 07/27/23 22:00 2 mg ONCE ONE Administration Ondansetron HCl 4 mg 07/27/23 21:59 07/27/23 22:17 Ondansetron 4mg/2ml Vial IV 07/27/23 22:00 4 mg ONCE ONE Administration ORDERS Category Date Time Status CT abdomen pelvis w con Stat Cat Scan 07/27/23 21:59 Taken CBC w/Auto Diff [Complete Blood Count Auto Diff] Stat Lab 07/27/23 21:59 Ordered Complete Blood Count Auto Diff Stat Lab 07/27/23 21:33 Completed Comprehensive Metabolic Panel Stat Lab 07/27/23 21:33 Completed Lactic Acid Stat Lab 07/27/23 22:17 Completed Lipase Stat Lab 07/27/23 21:33 Completed Rapid PCR Covid and Flu A/B Stat Lab 07/27/23 21:33 Completed Troponin I Q3H Lab 07/28/23 00:45 Ordered Troponin I Q3H Lab 07/28/23 03:45 Ordered Troponin I Stat Lab 07/27/23 21:33 Completed ECG Data Tracing #1: I reviewed this ECG and interpreted as documented below: Ventricular rate of [address] elevations or depressions or acute ischemic changes noted there is an indeterminate axis there is low voltage QRS and Q waves in the anterior precordial leads concerning for possible old myocardial infarction Medical Decision Narrative: Patient is a 73-year-old female presented with multiple complaints which seem to be unrelated. Right upper extremity neurologic exam is normal from a vascular standpoint and a neurologic standpoint. However she describes paresthesias in the right upper extremity this is most likely in the distribution that she is describing cervical radiculopathy and is likely unrelated to her abdominal pain and nausea and diarrhea that she is describing. She is diffusely tender particular in the upper region of her abdomen will get a CT scan to further evaluate pathology which could include colitis which could be inflammatory infectious or ischemic, bowel obstruction, gastroenteritis, etc. Will get basic labs give IV fluids and symptomatic medications and reassess. CT scan pending at the time of transition of care at [address] Bárbara Gleason for final evaluation after CT read returns. Critical Care Critical Care Time Critical Care Time: No
[2023-07-27 22:12] LABS: Troponin I < 0.01 ng/ml (0.00-0.034)
[2023-07-27] MEDS: IOPAMIDOL-370 (76%);100ML BOTTLE 75 ML IV (22:12)
[2023-07-27] MEDS: SODIUM CHLORIDE 0.9% 10ML SYR (RAD ONLY) 10 ML IV (22:12)
[2023-07-27] MEDS: ONDANSETRON 4MG/2ML VIAL 4 MG IV (22:17)
[2023-07-27] MEDS: LACTATED RINGERS 1000ML 1,000 ML 999 ML IV (22:17)
[2023-07-27] MEDS: MORPHINE 4MG/ML SYRINGE 2 MG IV (22:17)
[2023-07-27 22:24] LABS: Lipase 110 U/L (23-300)
[2023-07-27 22:38] LABS: Lactic Acid 0.9 mmol/L (0.7-2.1)
[2023-07-27 23:10] VITALS: BP 135/83; PULSE 75; RESP 18; TEMP 37.1; O2SAT 97
== END 2023-07-27 23:11 | disposition home or self-care (01) ==
PROVIDERS: Emergency Provider Student in an Organized Health Care Education/Training Program; PCP Family Medicine
DX: R10.13 Epigastric pain (principal); R19.7 Diarrhea, unspecified; R20.2 Paresthesia of skin; M54.12 Radiculopathy, cervical region; M79.601 Pain in right arm; M54.2 Cervicalgia; J45.30 Mild persistent asthma, uncomplicated
CPT/HCPCS: 74177; 80053; 83605; 83690; 84484; 85025; 87636; 93005; 96361; 96374; 96375; 99285; J2405; Q9967

== ENCOUNTER 2023-11-10 09:20 | Outpatient (CLI) | payer MEDICARE, SELFPAY ==
[2023-11-10 09:56] LABS: Basophils # 0.1 K/mm3 (0-0.2); Basophils % 1.1 % (0.1-2.0); Eosinophils # 0.4 K/mm3 (0.0-0.4); Hematocrit 41.1 % (37.0-47.0); Hemoglobin 13.3 g/dL (12.2-16.2); Lymphocytes # 1.8 K/mm3 (0.7-4.5); Mean Corpuscular HGB Conc 32.4 g/dL (31.8-35.4); Mean Corpuscular Hemoglobin 31.2 pg (27.0-31.2); Mean Corpuscular Volume 96.3 fl (81-99); Mean Platelet Volume 8.6 fl (7.4-10.4); Monocytes # 0.5 K/mm3 (0.1-1.0); Neutrophils # 3.9 K/mm3 (1.8-7.8); Neutrophils % 58.9 % (37.0-80.0); Platelet Count 233 K/mm3 (142-424); Red Blood Count 4.27 M/mm3 (4.20-5.40); Red Cell Distribution Width 14.8 % (11.5-17.5); White Blood Count 6.6 K/mm3 (4.8-10.8)
[2023-11-10 10:56] LABS: Alanine Aminotransferase 24 U/L (12-78); Albumin Level 4.2 g/dl (3.5-5.0); Albumin/Globulin Ratio 1.6 (1.1-1.8); Alkaline Phosphatase 72 U/L (38-126); Aspartate Amino Transferase 34 U/L (14-36); Bilirubin,Total 0.6 mg/dl (0.2-1.3); Blood Urea Nitrogen 26 mg/dl (7-17); Calcium 9.7 mg/dl (8.4-10.2); Carbon Dioxide 29 mmol/L (22.0-30.0); Chloride 104 mmol/L (98-107); Estimated Glomerular Filt Rate 49 ml/min (>60); GFR (African American) 59 ML/MIN (>60); Globulin 2.6 g/dL (1.3-3.2); Glucose 95 mg/dl (74-100); Sodium 142 mmol/L (136-145); Total Protein,Serum 6.8 g/dl (6.3-8.2)
== END 2023-11-10 23:59 | disposition home or self-care (01) ==
PROVIDERS: PCP Family Medicine; Visit Provider Nurse Practitioner Obstetrics & Gynecology
DX: N39.3 Stress incontinence (female) (male) (principal)
CPT/HCPCS: 36415; 80053; 85025

== ENCOUNTER 2023-11-16 08:26 | Day surgery (SDC) | payer MEDICARE, SELFPAY ==
[2023-11-12 13:50] VITALS: BMI 34.2
[2023-11-16] VITALS (9 sets, daily range): BP systolic 111–154; BP diastolic 68–79; PULSE 70–99; RESP 14–18; TEMP 36.4–37.1; O2SAT 93–98
[2023-11-16] MEDS: LACTATED RINGERS 1000ML 1,000 ML 25 ML IV (08:57)
[2023-11-16] MEDS: CEFAZOLIN SODIUM 2 GM in 0.9 % SODIUM CHLORIDE 100 ML IV (10:18)
[2023-11-16] MEDS: LIDOCAINE 1% W/EPI 1:100,000 20ML VIAL 20 ML (10:35)
[2023-11-16] MEDS: ROPIVACAINE 0.5% 30ML VIAL 150 MG ×2 (10:35)
--- NOTE | 2023-11-16 10:41 | EXP.ANES.CKL ---
[facility] Disclaimer: The information contained in this section may have been updated after the patient was seen, as this information can be updated by other users. Medical History Gallbladder disease Skin cancer Asthma Palpitations History of skin cancer Abnormal computerized axial tomography of chest Allergic rhinitis, unspecified Seasonal allergies Family history of asthma Mild persistent asthma Wheezing Dyspnea on exertion Surgical History History of colonoscopy History of total right knee replacement H/O arthroscopy of knee History of cardiac cath Family History Other Asthma Cancer Coronary artery disease Heart attack Stroke Social History Smoking Status: Never smoker second hand exposure: No alcohol intake: never substance use type: denies use current occupational status: retired Travel in the last 8 weeks: None household members: spouse housing: house current occupational exposures/hazards: No caffeine: Yes [facility] Anesthesia Checklist Patient Identification Patient Identification: Verbal (Name & ) Structural Data Admitted From: Home Planned Operative Procedure/s: tvt,cysto Consent for Planned Operative Procedure(s) Verified: Yes NPO Status Verified Time NPO: 00:00 Additional verifications Anesthesia Reactions: No Hx Blood Transfusions: No Airway Assessment Mallampati Score:: Class II C-Spine Mobility Assessed: Yes TMJ Mobility Assessed: Yes Dentition: Dentures-good fit Neurological Assessment Level of Consciousness: Awake, Alert and Appropriate Anesthesia Plan Anesthesia Risk discussed: Yes Anesthesia Plan: Verified ASA Class: II Anesthesia Type: General
--- NOTE | 2023-11-16 11:10 | EXP.ANES.I ---
[facility] Anesthesia Record Part I Anesthesia Record I Intake, IV Amount: 1,000 Hydration: Adequate Estimated blood loss (mL): 100 Urine output (mL): 50 Blood Pressure: 118/69 SaO2: 96 Pulse Rate: 88 Airway Patency: Patent Respiratory Rate: 14 Temperature: 98.8 F Patient is:: Awake and Stable Stable to PACU at:: 11:05
--- NOTE | 2023-11-16 11:43 | P.OP_ITS ---
Date of procedure: 11/16/23 Pre-op Diagnosis:: Genuine stress urinary incontinence Post-op Diagnosis:: Genuine stress urinary incontinence Procedure performed:: Tension-free vaginal tape with cystoscopy Surgeon:: Manohar Gonzalez MD JACK MACHINE OPERATOR:: Thee Guido Anesthesia: LMA Estimated blood loss (mL): 100 Clinical Note:: She is a 73-year-old lady who complains of stress incontinence. She loses urine with laughing coughing sneezing. This was confirmed with urodynamic testing in my office. She has been using estrogen cream daily for the last couple of weeks. Operative findings:: She had a normal-appearing anterior vaginal wall. The bladder appeared normal. Both ureters were seen and appeared normal. Operative note:: She was taken to the operating room where LMA anesthesia was found be adequate. She was prepped and draped in normal sterile fashion in the lithotomy position. The bladder was drained. Weighted speculum was placed in the vagina and I injected 20 cc of 1% Xylocaine with epinephrine along the urethra and under the pubic rami bilaterally. I then injected 60 cc of 0.5% ropivacaine along the trocar paths in the space of Retzius with a spinal needle from above. I then grasped the vaginal mucosa with an Allis clamp just below the urethra and then again approximately 3 cm along. Made an incision with knife. I then grasped the edges of the vaginal mucosa using Metzenbaum scissors dissected out laterally to each pubic rami. I then inserted a catheter in the bladder with an obturator. I pulled it to its ipsilateral side and placed the left side of the tape. I went under the pubic rami, through the urogenital diaphragm and through the space of Retzius. I then passed the catheter out through the skin. Then inspected the bladder with a 70 degree cystoscope. There is no evidence of tape within the bladder. I then pulled the tape through to the midline. The bladder was then drained and once again the obturator was placed within the urethra and pulled to its ipsilateral side. I then placed the right side of the tape in the same fashion as the left side. Once again the bladder was inspected with a 70 degree cystoscope. There was no evidence of tape within the bladder. I then placed a packing forcep under the tape and removed his outer sheath. Once again I tested for incontinence by pushing on the bladder from above. There was no evidence of leakage. The tape was loose. I then cut the tape off at the level of the skin and pulled out the skin. The vaginal mucosa was then closed using interrupted 2-0 Vicryl suture in a mattress fashion. The suprapubic incisions were closed with Dermabond. Sterile dressings were applied. The bladder was then drained. She tolerated procedure well and was taken to the recovery room in excellent condition. All sponge, instrument and needle counts were correct. The estimated blood loss was 100 cc. Condition: stable Disposition: PACU Specimens:: None Complications:: None
--- NOTE | 2023-11-16 11:52 | SUR.PHASEII ---
Straight cath performed by myself and Aris Salinas RN in sterile fashion after pt went to urinate in bathroom. 0mL residual noted.
--- NOTE | 2023-11-16 12:00 | SUR.PHASEII ---
1145: Pt returned from bathroom. In and out cath performed. No residual urine noted.
--- NOTE | 2023-11-17 09:25 | P.PNANES_ITS ---
[facility] Anesthesia Record Part II Anesthesia Record Part II Discharge Time: 11:35 Destination: Surgical Day Care (OP Surgery) PACU nurse assessment reviewed?: Yes Patient Condition:: Good Anesthesia Complications:: None Swallowing reflex intact?: Yes Airway Patency: Patent Cyanosis?: No Blood Pressure: 116/68 SaO2: 96 Respiratory Rate: 18 Pulse Rate: 86 Temperature: 97.6 F Mental Status: Alert & Oriented Pain level:: 0 Nausea and/or vomitting:: None Intake, IV Amount: 0 Hydration: Adequate
[2023-11-17 09:26] VITALS: BP 116/68; PULSE 86; RESP 18; TEMP 36.4; O2SAT 96
== END 2023-11-16 12:07 | disposition home or self-care (01) ==
PROVIDERS: PCP Family Medicine; Visit Provider Nurse Practitioner Obstetrics & Gynecology
PROC: (CPT 57288; principal; 2023-11-16 10:15)
DX: N39.3 Stress incontinence (female) (male) (principal)
CPT/HCPCS: 57288; 96374; C1771; J0690; J1885; J2250; J2405; J3010; J7120

== ENCOUNTER 2024-02-26 06:20 | Day surgery (SDC) | payer MEDICARE, SELFPAY ==
[2024-02-24 11:52] VITALS: BMI 35.7
[2024-02-26 06:42] VITALS: BP 111/74; PULSE 92; RESP 18; TEMP 36.1; O2SAT 94
--- NOTE | 2024-02-26 06:50 | HMH.SCOPE ---
Procedure: Date: 02/26/24 Patient Date of :: 1950 Procedure Performed:: Total colonoscopy to terminal ileum with polypectomy using snare and biopsy. . Indications:: Patient presents for follow-up colonoscopy. She has a family history of colon cancer in her sister. I had performed colonoscopy on her many years ago in 2004. Dr. Luque did a colonoscopy on her in 2011 which was negative for any adenomatous polyps. Dr. Isbell performed colonoscopy in 2018 and she had 8 tubular adenomas. I performed colonoscopy on 03/28/2022. She had pandiverticulosis with heavy diverticular burden in the left colon. She had a total of 10 polyps removed. She had 8 tubular adenomas and 2 sessile serrated adenomas. There was some subtle polyp in the periappendiceal location and this was removed in a piecemeal fashion using cold biopsy and returned as sessile serrated adenoma. The other sessile serrated adenoma was at the hepatic flexure and removed with biopsy forceps as well. Given the family history in a first-degree relative with interval development of 10 precancerous polyps including 2 sessile serrated adenomas I recommended a follow-up colonoscopy in approximately 18 months after a colonoscopy on 03/28/2022. . Performing Provider:: Cristobal Colunga MD . Referring Provider:: Kali Mae MD . Sedation:: MAC sedation . Procedure:: Patient history was obtained and appropriate physical examination was performed. Patient's medications and allergies were reviewed. Informed consent was obtained after explaining the benefits, alternatives, and risks of the procedure including, but not limited to, bleeding, perforation, missed lesions, and adverse reaction to anesthesia medications. Patient was transported to endoscopy procedure room. Patient was connected to monitoring devices. Throughout the procedure the patient's blood pressure, pulse, and oxygen saturations were monitored continuously. Patient identification and planned procedure were verified by the staff. Patient was positioned in lateral decubitus position. Digital anorectal exam was performed. Variable stiffness Olympus colonoscope was inserted and advanced under direct visualization to the cecum. Adequacy of the colonic preparation was noted. The colonoscope was advanced a short distance into the terminal ileum. The colonoscope was then slowly withdrawn while carefully examining the color, texture, anatomy, and integrity of the mucosoa circumferentially. Within the rectum retroflexion was performed. Colonoscope was then withdrawn. Impression: Colonoscope was advanced to the cecum with some minor difficulty due to floppiness and redundancy of the sigmoid colon. There was some liquid opaque stool in the cecum and in the rectum corresponding to Redfield bowel preparation score of 2 at these locations. She had pandiverticulosis. There was significant diverticuli burden of the left colon. There was a small adenomatous appearing polyp in the periappendiceal location removed with cold snare with residual tissue removed with biopsy forceps. Within the rectum she had some prolapsing internal hemorrhoids. . Findings:: Pandiverticulosis Adenomatous appearing cecal polyp Internal hemorrhoids . Recommendations:: Given her propensity for development of polyps along with a family history with this polyp noted on this colonoscopy likely repeat colonoscopy 3 years . Complications:: None immediate Estimated blood obtained (mL): 1 Colonoscopy Component Colonoscopy Component Was a colonoscopy performed during today's procedure?: Yes Recommended follow up colonoscopy of at least 10 years?: No If no, follow up colonoscopy recommended in ___ years?: 3 Reason for not recommending >/= 10 yr follow-up interval?: Polyps, family history
[2024-02-26] MEDS: LACTATED RINGERS 1000ML 1,000 ML 100 ML IV (06:53)
--- NOTE | 2024-02-26 07:21 | EXP.ANES.CKL ---
[facility] Disclaimer: The information contained in this section may have been updated after the patient was seen, as this information can be updated by other users. Medical History Acquired hypothyroidism URI, acute Gallbladder disease Skin cancer Asthma Palpitations History of skin cancer Abnormal computerized axial tomography of chest Allergic rhinitis, unspecified Seasonal allergies Family history of asthma Mild persistent asthma Wheezing Dyspnea on exertion Surgical History History of stress incontinence procedure using tension free vaginal tape History of bladder suspension procedure History of colonoscopy History of total right knee replacement H/O arthroscopy of knee History of cardiac cath Family History Other Asthma Cancer Coronary artery disease Heart attack Stroke Social History (Updated 02/26/24 @ 06:52 by Olga Lacey RN) Smoking Status: Never smoker second hand exposure: No alcohol intake: never substance use type: denies use current occupational status: retired Travel in the last 8 weeks: None household members: spouse housing: house current occupational exposures/hazards: No caffeine: Yes [facility] Anesthesia Checklist Patient Identification Patient Identification: Arm Band Structural Data Admitted From: Home Planned Operative Procedure/s: colonoscopy Consent for Planned Operative Procedure(s) Verified: Yes Verified Documents: Surgical Consent and History and Physical NPO Status Verified Time NPO: 00:00 Additional verifications Anesthesia Reactions: No Hx Blood Transfusions: No Airway Assessment Mallampati Score:: Class II C-Spine Mobility Assessed: Yes TMJ Mobility Assessed: Yes Dentition: Edentulous Neurological Assessment Level of Consciousness: Awake, Alert and Appropriate Anesthesia Plan Anesthesia Risk discussed: Yes Anesthesia Plan: Verified ASA Class: III Anesthesia Type: MAC
[2024-02-26 07:31] VITALS: O2SAT 94
[2024-02-26 08:03] VITALS: BP 80/50; PULSE 62; RESP 16; O2SAT 92
[2024-02-26 08:13] VITALS: BP 109/60; PULSE 68; RESP 16; O2SAT 93
[2024-02-26 08:23] VITALS: BP 112/73; PULSE 67; RESP 16; O2SAT 95
[2024-02-26 08:32] VITALS: BP 116/69; PULSE 65; RESP 16; O2SAT 96
== END 2024-02-26 08:33 | disposition home or self-care (01) ==
PROVIDERS: PCP Family Medicine; Visit Provider Surgery
PROC: 0DJD8ZZ Inspection of Lower Intestinal Tract, Via Natural or Artificial Opening Endoscopic (ICD-10-PCS; CPT 45385; principal; 2024-02-26 07:30)
DX: Z86.010 Personal history of colon polyps (principal); Z80.0 Family history of malignant neoplasm of digestive organs; K57.30 Diverticulosis of large intestine without perforation or abscess without bleeding; D12.0 Benign neoplasm of cecum; K64.8 Other hemorrhoids
CPT/HCPCS: 45385; 88305; J7120

== ENCOUNTER 2024-03-03 15:53 | Emergency (ER) | payer MEDICARE, SELFPAY ==
[2024-03-03 16:15] VITALS: BP 139/74; PULSE 75; RESP 20; TEMP 36.6; O2SAT 98; BMI 35.7
--- NOTE | 2024-03-03 16:16 | ED_ITS ---
Discharge Plan Disposition Patient Disposition: Home, Self-Care Condition: Good Prescriptions Prescriptions: New triamcinolone acetonide 0.1 % cream 1 applic topical BID PRN (Reason: itching) Qty: 30 0RF diphenhydramine HCl 25 mg capsule 25 mg PO Q6HP PRN (Reason: Itching) Qty: 30 0RF methylprednisolone 4 mg Tablets,Dose Pack 4 mg PO DIRECTED 6 Days Qty: 21 0RF Rx Instructions: Take 1 pack as directed for 6 days No Action pravastatin 20 mg tablet 20 mg PO DIRECTED Patient Comments: TAKE 1 TABLET BY MOUTH ON THURSDAY, THURSDAY AND THURSDAY Rx Instructions: 1 tab thu, thu & thu hydrochlorothiazide 12.5 mg tablet 12.5 mg PO DAILY Patient Comments: TAKE 1 TABLET BY MOUTH ONCE DAILY IN THE MORNING losartan 25 mg tablet 25 mg PO DAILY Rx Instructions: 25mg in morning and 12.5 at bedtime Trelegy Ellipta 200-62.5-25 mcg blister with device 1 inh inhalation DAILY Patient Comments: INHALE 1 PUFF ONCE DAILY aspirin [Adult Low Dose Aspirin] 81 mg tablet,delayed release (DR/EC) 81 mg PO DAILY ipratropium-albuterol 0.5 mg-3 mg(2.5 mg base)/3 mL solution for nebulization 3 ml INHALATION Q6H PRN (Reason: shortness of breath or wheezing) Qty: 90 6RF meloxicam 15 mg tablet 15 mg PO DAILY montelukast 10 mg tablet 10 mg PO DAILY albuterol sulfate [Ventolin HFA] 90 mcg/actuation HFA aerosol inhaler 2 inh inhalation Q6H PRN (Reason: shortness of breath or wheezing) 90 Days Qty: 18 3RF cetirizine 10 mg tablet 10 mg PO DAILY Patient Comments: TAKE 1 TABLET BY MOUTH ONCE DAILY gabapentin 300 mg capsule 300 mg PO TID Patient Comments: TAKE 1 CAPSULE BY MOUTH THREE TIMES DAILY sertraline 50 mg tablet 25 mg PO DAILY Patient Comments: TAKE 1/2 (ONE-HALF) TABLET BY MOUTH ONCE DAILY estradiol [Vagifem] 10 mcg tablet 10 mcg vaginal .COMPLEX Qty: 8 11RF Rx Instructions: 10 mcg vaginally Biweekly; twice a week levothyroxine [Synthroid] 75 mcg tablet 75 mcg PO DAILY Qty: 90 0RF allopurinol 100 mg tablet 300 mg PO DAILY Qty: 90 0RF ondansetron 4 mg tablet,disintegrating 4 mg PO Q6H PRN (Reason: nausea and vomiting) 5 Days Qty: 20 0RF doxepin 10 mg capsule 10 mg PO DAILY Patient Comments: TAKE 1 CAPSULE BY MOUTH ONCE DAILY AT BEDTIME Referrals Follow up/Referrals: Navid Mae MD [Primary Care Provider] - See instructions Activity Restrictions/Add. Instructions Additional Instructions/Restrictions: Try to identify and avoid contact with the offending substance. Don't start the oral steroids until tomorrow. The diphenhydramine (benedryl) will make you drowsy, so don't drive or operate heavy machinery after taking it. Don't put the topical steroids (triamcinolone) on your face or your groin. Follow up with your regular doctor. GO TO THE ER FOR ANY WORSENING SYMPTOMS OR CONCERNS Clinical Impressions Clinical Impression: Contact dermatitis Instructions Patient Instructions: DI for Contact Dermatitis, Triamcinolone Topical, Diphenhydramine, Dexamethasone Injection Print Language Print Language: Maori Discharge ED Provider: Nikita Barlow [facility] General Stated complaint: rash Time Seen by Provider: 03/03/24 16:16 Related Data Home Medications ?Medication ?Instructions ?Recorded ?Confirmed aspirin 81 mg tablet,delayed 81 mg PO DAILY thinner 10/15/17 02/26/24 release (Adult Low Dose Aspirin) hydrochlorothiazide 12.5 mg tablet 12.5 mg PO DAILY 02/17/23 02/26/24 pravastatin 20 mg tablet 20 mg PO DIRECTED 02/17/23 02/26/24 meloxicam 15 mg tablet 15 mg PO DAILY 03/10/23 02/26/24 montelukast 10 mg tablet 10 mg PO DAILY 03/10/23 02/26/24 losartan 25 mg tablet 25 mg PO DAILY 08/05/23 02/26/24 cetirizine 10 mg tablet 10 mg PO DAILY 09/03/23 02/26/24 gabapentin 300 mg capsule 300 mg PO TID 09/03/23 02/26/24 sertraline 50 mg tablet 25 mg PO DAILY 09/03/23 02/26/24 doxepin 10 mg capsule 10 mg PO DAILY 11/16/23 02/26/24 fluticasone fur. 200 mcg-umeclid 1 inh inhalation DAILY 11/30/23 02/26/24 62.5 mcg-vilant 25 mcg inhalat.powder (Trelegy Ellipta) Previous Rx's ?Medication ?Instructions ?Recorded ipratropium 0.5 mg-albuterol 3 mg 3 ml inhalation Q6H PRN shortness 08/16/21 (2.5 mg base)/3 mL nebulization of breath or wheezing #90 mL soln ondansetron 4 mg disintegrating 4 mg PO Q6H PRN nausea and 07/27/23 tablet vomiting 5 days #20 tabs albuterol sulfate 90 mcg/actuation 2 inh inhalation Q6H PRN shortness 08/05/23 aerosol inhaler (Ventolin HFA) of breath or wheezing 90 days #18 grams levothyroxine 75 mcg tablet 75 mcg PO DAILY thyroid #90 tabs 12/10/23 (Synthroid) estradiol 10 mcg vaginal tablet 10 mcg vaginal .COMPLEX #8 tabs 12/28/23 (Vagifem) allopurinol 100 mg tablet 300 mg (3 x 100 mg) PO DAILY gout 12/30/23 #90 tabs diphenhydramine HCl 25 mg capsule 25 mg PO Q6HP PRN Itching #30 caps 03/03/24 methylprednisolone 4 mg tablets in 4 mg PO DIRECTED 6 days #21 tabs 03/03/24 a dose pack triamcinolone acetonide 0.1 % 1 applic topical BID PRN itching 03/03/24 topical cream #30 grams Allergies Allergy/AdvReac Type Severity Reaction Status Date / Time acetaminophen [From LORTAB] Allergy Intermediate I-ITCHING Verified 02/26/24 06:37 febuxostat [From ULORIC] Allergy Intermediate joints Verified 02/26/24 06:37 hydrocodone [From LORTAB] Allergy Intermediate I-ITCHING Verified 02/26/24 06:37 Sulfa (Sulfonamide Allergy Intermediate I-HIVES Verified 02/26/24 06:37 Antibiotics) [SULFA (SULFONAMIDE ANTIBIOTICS)] [facility] Disclaimer: The information contained in this section may have been updated after the patient was seen, as this information can be updated by other users. Medical History (Updated 03/03/24 @ 16:25 by Nikita Barlow APRN) Acquired hypothyroidism URI, acute Gallbladder disease Skin cancer Asthma Palpitations History of skin cancer Abnormal computerized axial tomography of chest Allergic rhinitis, unspecified Seasonal allergies Family history of asthma Mild persistent asthma Wheezing Dyspnea on exertion Surgical History History of stress incontinence procedure using tension free vaginal tape History of bladder suspension procedure History of colonoscopy History of total right knee replacement H/O arthroscopy of knee History of cardiac cath Family History Other Asthma Cancer Coronary artery disease Heart attack Stroke Social History (Updated 02/26/24 @ 06:52 by Olga Lacey, FAVIAN) Smoking Status: Never smoker second hand exposure: No alcohol intake: never substance use type: denies use current occupational status: retired Travel in the last 8 weeks: None household members: spouse housing: house current occupational exposures/hazards: No caffeine: Yes ROS Obtained: Yes All systems reviewed & no additional complaints except as documented Constitutional Constitutional: Denies chills and Denies fever(s) Eyes Eyes: Denies eye discharge ENT Ears, Nose, Mouth, and Throat: Denies dizziness, Denies otalgia and Denies sore throat Cardiovascular Cardiovascular: Denies chest pain Respiratory Respiratory: Denies shortness of breath, Denies chest congestion, Denies cough, Denies stridor and Denies wheezing Gastrointestinal Gastrointestingal: Denies nausea or vomiting Musculoskeletal Musculoskeletal: Reports system reviewed and no additional complaints, except as documented and Denies arthralgias Integumentary/Breasts Skin/Breast: Reports as per HPI and Reports rash Neurologic Neurologic: Denies dizziness and Denies paresthesias Allergic/Immunologic Allergic/Immunologic: Denies wheezing Physical Exam General General appearance: alert and in no apparent distress Head Head exam: atraumatic, normocephalic and normal inspection Eye Eye exam: Present normal appearance, PERRL and EOMI ENT ENT exam: Present normal exam, normal oropharynx, mucous membranes moist, TM's normal bilaterally and normal external ear exam Neck Neck exam: Present normal inspection, full ROM and trachea midline; Absent meningismus or lymphadenopathy Chest Chest inspection: Present normal inspection and symmetric chest wall rise; Absent tenderness Respiratory Respiratory exam: Present normal lung sounds bilaterally; Absent respiratory distress Cardiovascular Cardiovascular exam: Present regular rate and normal rhythm; Absent JVD Abdominal Exam Abdominal exam: Present soft and normal bowel sounds; Absent distention, tenderness or guarding Extremities Exam Extremities exam: Present normal inspection, full ROM and normal capillary refill; Absent calf tenderness Back Exam Back exam: Present normal inspection; Absent tenderness Neurological Exam Neurological exam: Present alert and oriented X3 Psychiatric Psychiatric exam: Present normal affect and normal mood Skin Skin exam: Present rash Lymphatic Lymphatic Findings: no adenopathy Medical Decision Making Medical Records Medical records reviewed: No I reviewed the patient's medical records. Screening: Per USPSTF and CDC recommendations, given the prevalence of disease in our region, it is our hospital?s policy to screen for HIV and viral Hepatitis for all patients aged 18 and over and those with ongoing risk factors. Yosef Inquiry Pt receiving controlled substance: No
[2024-03-03 16:23] LABS: Microscopic, Urine URINE MICROSCOPIC (MICROSCOPIC)
[2024-03-03 16:32] LABS: Appearance,Urine CLEAR (Clear); Bilirubin,Urine Negative (Negative); Blood, Urine Negative (Negative); Color,Urine YELLOW (Yellow); Glucose,Urine (UA) Negative (Negative); Ketones,Urine Negative (Negative); Leukocyte Esterase,Urine TRACE (Negative); Nitrate,Urine Negative (Negative); Protein,Urine Negative (Negative); Specific Gravity, Urine <= 1.005 (1.005-1.030); Urobilinogen,Urine 0.2 EU/dl (0.2)
[2024-03-03] MEDS: DEXAMETHASONE 4MG/ML 1ML VIAL 8 MG IM (16:38)
[2024-03-03 16:47] VITALS: BP 138/74; PULSE 75; RESP 20; TEMP 36.6
[2024-03-03 18:36] LABS: RBC,Urine Occasional #/hpf (0-3); WBC,Urine Occasional #/hpf (0-3)
[2024-03-03 18:37] LABS: Bacteria,Urine 4+ /lpf
== END 2024-03-03 16:51 | disposition home or self-care (01) ==
PROVIDERS: Emergency Provider Nurse Practitioner Family; PCP Family Medicine
DX: L25.9 Unspecified contact dermatitis, unspecified cause (principal)
CPT/HCPCS: 81001; 87086; 87088; 87186; 99213; G0381; J1100

== ENCOUNTER 2024-04-16 08:24 | Emergency (ER) | payer MEDICARE, SELFPAY ==
[2024-04-16] VITALS (12 sets, daily range): BP systolic 81–114; BP diastolic 53–71; PULSE 66–96; RESP 14–20; TEMP 36.6–36.8; O2SAT 90–100; BMI 33.7
--- NOTE | 2024-04-16 08:24 | ECG_ITS ---
APPROVED REPORT Exam: Resting ECG HR:93 bpm ECG Measurements Heart Rate 93 AXES MO 166 P 41 QRSd 96 QRS -36 QT 285 T 71 QTc 335 Conclusion SINUS RHYTHM LEFT AXIS DEVIATION [QRS AXIS < -30] LOW QRS VOLTAGE IN PRECORDIAL LEADS [QRS DEFLECTION < 1.0 mV IN CHEST LEADS] POSSIBLE ANTERIOR MYOCARDIAL INFARCTION , PROBABLY OLD [30 ms Q WAVE IN V3/V4, OR R < 0.2 mV IN V4] ABNORMAL ECG UNCONFIRMED REPORT Electronically signed by : JENNY CHIRINOS, 04/18/2024 06:58:13
--- NOTE | 2024-04-16 08:39 | CT_ITS ---
PROCEDURE INFORMATION: Exam: CT Abdomen And Pelvis With Contrast Exam date and time: 04/16/2024 9:47 AM Age: 73 years old Clinical indication: Abdominal pain; Flank; Left; Additional info: L flank pain TECHNIQUE: Imaging protocol: Computed tomography of the abdomen and pelvis with contrast. Radiation optimization: All CT scans at this facility use at least one of these dose optimization techniques: automated exposure control; mA and/or kV adjustment per patient size (includes targeted exams where dose is matched to clinical indication); or iterative reconstruction. Contrast material: ISOVUE; Contrast volume: 75 ml; Contrast route: IV; COMPARISON: CT ABDOMEN PELVIS W CON 07/27/2023 10:09 PM FINDINGS: Diaphragm: Small hiatal hernia. Liver: Normal. No mass. Gallbladder and biliary ducts: Previous cholecystectomy. Pancreas: Normal. No ductal dilation. Spleen: Normal. No splenomegaly. Adrenal glands: Normal. No mass. Kidneys and ureters: Cortical renal scarring bilaterally. No hydronephrosis. Stable simple cortical renal cysts bilaterally. Largest along the left inferior pole measures 2.4 cm. No additional follow-up necessary. Stomach and bowel: Unremarkable. No obstruction. No mucosal thickening. Appendix: No evidence of appendicitis. Intraperitoneal space: Unremarkable. No free air. No significant fluid collection. Vasculature: Moderate vascular atherosclerotic calcification. No abdominal aortic aneurysm. Lymph nodes: Unremarkable. No enlarged lymph nodes. Urinary bladder: Unremarkable as visualized. Reproductive: Unremarkable as visualized. Bones/joints: Mild compression T8 superior endplate, new since previous, although age uncertain. Soft tissues: Unremarkable. IMPRESSION: 1. Cortical renal scarring bilaterally. No hydronephrosis. 2. Small hiatal hernia. 3. Mild compression T8 superior endplate, new since previous, although age uncertain. Clinical correlation recommended.
--- NOTE | 2024-04-16 08:39 | XR_ITS ---
PROCEDURE INFORMATION: Exam: XR Left Knee Exam date and time: 04/16/2024 8:43 AM Age: 73 years old Clinical indication: Pain; Left; Prior surgery; Surgery date: 6+ months; Surgery type: Knee rep. ; Additional info: Knee pain TECHNIQUE: Imaging protocol: Radiologic exam of the left knee. Views: 3 views. COMPARISON: No relevant prior studies available. FINDINGS: Bones/joints: Total knee prosthesis. No acute fracture or evidence of hardware malfunction. Moderate suprapatellar joint effusion. Heterotopic bone within the joint space, best seen on lateral view. Comparison with previous necessary to assess for interval change. Soft tissues: Normal. IMPRESSION: 1. Moderate suprapatellar joint effusion. 2. Heterotopic bone within the joint space, best seen on lateral view. Comparison with previous necessary to assess for interval change.
[2024-04-16 08:48] LABS: Basophils # 0.1 K/mm3 (0-0.2); Basophils % 0.6 % (0.1-2.0); Eosinophils # 0.1 K/mm3 (0.0-0.4); Eosinophils % 0.8 % (0.1-12.0); Hematocrit 41.1 % (37.0-47.0); Lymphocytes # 1.2 K/mm3 (0.7-4.5); Lymphocytes % 9.1 % (10-50); Mean Corpuscular HGB Conc 34.1 g/dL (31.8-35.4); Mean Corpuscular Hemoglobin 31.2 pg (27.0-31.2); Mean Corpuscular Volume 91.3 fl (81-99); Mean Platelet Volume 8.5 fl (7.4-10.4); Microscopic, Urine URINE MICROSCOPIC (MICROSCOPIC); Monocytes # 0.7 K/mm3 (0.1-1.0); Monocytes % 4.9 % (1.7-9.3); Neutrophils # 11.4 K/mm3 (1.8-7.8); Neutrophils % 84.6 % (37.0-80.0); Platelet Count 237 K/mm3 (142-424); Red Cell Distribution Width 14.8 % (11.5-17.5); White Blood Count 13.5 K/mm3 (4.8-10.8)
[2024-04-16 08:49] LABS: Appearance,Urine CLEAR (Clear); Bilirubin,Urine Negative (Negative); Blood, Urine Negative (Negative); Color,Urine YELLOW (Yellow); Glucose,Urine (UA) Negative (Negative); Ketones,Urine Negative (Negative); Leukocyte Esterase,Urine Negative (Negative); Nitrate,Urine Negative (Negative); PH,Urine 6.5 (5.0-8.5); Protein,Urine Negative (Negative); Specific Gravity, Urine 1.015 (1.005-1.030); Urobilinogen,Urine 0.2 EU/dl (0.2)
[2024-04-16 08:50] LABS: Alanine Aminotransferase 29 U/L (12-78); Albumin Level 4.6 g/dl (3.5-5.0); Albumin/Globulin Ratio 1.4 (1.1-1.8); Alkaline Phosphatase 80 U/L (38-126); Anion Gap 14.3 mEq/L (5-15); Aspartate Amino Transferase 32 U/L (14-36); Blood Urea Nitrogen 21 mg/dl (7-17); Calcium 9.9 mg/dl (8.4-10.2); Carbon Dioxide 25 mmol/L (22.0-30.0); Chloride 103 mmol/L (98-107); Creatinine Clearance Estimated 56 mL/min (50-200); Estimated Glomerular Filt Rate 49 ml/min (>60); GFR (African American) 59 ML/MIN (>60); Globulin 3.2 g/dL (1.3-3.2); Glucose 113 mg/dl (74-100); Lipase 91 U/L (23-300); Potassium 4.3 mmoL/L (3.5-5.1); Sodium 138 mmol/L (136-145); Total Protein,Serum 7.8 g/dl (6.3-8.2)
[2024-04-16] MEDS: ONDANSETRON 4MG ODT 4 MG SL (08:52)
[2024-04-16] MEDS: ACETAMINOPHEN 500MG TAB 1000 MG PO (08:52)
[2024-04-16] MEDS: IBUPROFEN 400 MG TABLET PO (08:52)
--- NOTE | 2024-04-16 08:54 | PC.NURSE ---
xr at bedside
[2024-04-16 08:56] LABS: C-Reactive Protein 38.1 mg/L (0-4)
[2024-04-16 08:59] LABS: Bacteria,Urine Trace /lpf; Squamous Epithelial Cell,Urine Occasional #/hpf (0-5)
--- NOTE | 2024-04-16 09:15 | ED_ITS ---
Discharge Plan Disposition Patient Disposition: Home, Self-Care Prescriptions Prescriptions: No Action pravastatin 20 mg tablet 20 mg PO DIRECTED Patient Comments: TAKE 1 TABLET BY MOUTH ON THURSDAY, THURSDAY AND THURSDAY Rx Instructions: 1 tab thu, thu & thu hydrochlorothiazide 12.5 mg tablet 12.5 mg PO DAILY Patient Comments: TAKE 1 TABLET BY MOUTH ONCE DAILY IN THE MORNING losartan 25 mg tablet 25 mg PO DAILY Rx Instructions: 25mg in morning and 12.5 at bedtime Trelegy Ellipta 200-62.5-25 mcg blister with device 1 inh inhalation DAILY Patient Comments: INHALE 1 PUFF ONCE DAILY aspirin [Adult Low Dose Aspirin] 81 mg tablet,delayed release (DR/EC) 81 mg PO DAILY ipratropium-albuterol 0.5 mg-3 mg(2.5 mg base)/3 mL solution for nebulization 3 ml INHALATION Q6H PRN (Reason: shortness of breath or wheezing) Qty: 90 6RF meloxicam 15 mg tablet 15 mg PO DAILY montelukast 10 mg tablet 10 mg PO DAILY albuterol sulfate [Ventolin HFA] 90 mcg/actuation HFA aerosol inhaler 2 inh inhalation Q6H PRN (Reason: shortness of breath or wheezing) 90 Days Qty: 18 3RF cetirizine 10 mg tablet 10 mg PO DAILY Patient Comments: TAKE 1 TABLET BY MOUTH ONCE DAILY gabapentin 300 mg capsule 300 mg PO TID Patient Comments: TAKE 1 CAPSULE BY MOUTH THREE TIMES DAILY sertraline 50 mg tablet 25 mg PO DAILY Patient Comments: TAKE 1/2 (ONE-HALF) TABLET BY MOUTH ONCE DAILY estradiol [Vagifem] 10 mcg tablet 10 mcg vaginal .COMPLEX Qty: 8 11RF Rx Instructions: 10 mcg vaginally Biweekly; twice a week allopurinol 100 mg tablet 300 mg PO DAILY Qty: 90 0RF levothyroxine [Synthroid] 75 mcg tablet 75 mcg PO DAILY Qty: 90 0RF triamcinolone acetonide 0.1 % cream 1 applic topical BID PRN (Reason: itching) Qty: 30 0RF diphenhydramine HCl 25 mg capsule 25 mg PO Q6HP PRN (Reason: Itching) Qty: 30 0RF ondansetron 4 mg tablet,disintegrating 4 mg PO Q6H PRN (Reason: nausea and vomiting) 5 Days Qty: 20 0RF doxepin 10 mg capsule 10 mg PO DAILY Patient Comments: TAKE 1 CAPSULE BY MOUTH ONCE DAILY AT BEDTIME Referrals Follow up/Referrals: Navid Mae MD [Primary Care Provider] - See instructions Activity Restrictions/Add. Instructions Additional Instructions/Restrictions: Continue pain medication at home as prescribed. Follow-up with primary care doctor. Please return the emerged part with any new, concerning, worsening symptoms Clinical Impressions Clinical Impression: Dysuria Acute knee pain Qualifiers: Laterality: left Qualified Code(s): M25.562 - Pain in left knee Instructions Patient Instructions: DI for Urinary Tract Infection (UTI), DI for Urinary Tract Infection in Children Print Language Print Language: Slovenian Discharge ED Provider: David Lopez General Adult HPI General Chief complaint: Urogenital-Female Stated complaint: Chest Pain Time Seen by Provider: 04/16/24 08:28 Mode of Arrival: Wheelchair Source of Information: Patient Limitations: No Limitations Description of Symptoms (Recalled from ER Triage Doc. by RN): kidney and back pain,shortness of breath, body aches History of Present Illness HPI narrative: This is a 73-year-old female with a past medical history of hypothyroidism, recurrent UTIs, left knee replacement, CAD, hyperlipidemia, hypertension who presents with left knee pain and dysuria. States that she has had worsening left knee pain over the last several days as she has been moving houses. Has been lifting heavy boxes and overusing left knee. States that she has barely been able to put any weight on her left knee. Has been taking Tylenol and ibuprofen and a half dose of oxycodone with some improvement. Also reports dysuria and left flank pain. Denies fever. Denies any other symptoms. Related Data Home Medications ?Medication ?Instructions ?Recorded ?Confirmed aspirin 81 mg tablet,delayed 81 mg PO DAILY thinner 10/15/17 03/23/24 release (Adult Low Dose Aspirin) hydrochlorothiazide 12.5 mg tablet 12.5 mg PO DAILY 02/17/23 03/23/24 pravastatin 20 mg tablet 20 mg PO DIRECTED 02/17/23 03/23/24 meloxicam 15 mg tablet 15 mg PO DAILY 03/10/23 03/23/24 montelukast 10 mg tablet 10 mg PO DAILY 03/10/23 03/23/24 losartan 25 mg tablet 25 mg PO DAILY 08/05/23 03/23/24 cetirizine 10 mg tablet 10 mg PO DAILY 09/03/23 03/23/24 gabapentin 300 mg capsule 300 mg PO TID 09/03/23 03/23/24 sertraline 50 mg tablet 25 mg PO DAILY 09/03/23 03/23/24 doxepin 10 mg capsule 10 mg PO DAILY 11/16/23 03/23/24 fluticasone fur. 200 mcg-umeclid 1 inh inhalation DAILY 11/30/23 03/23/24 62.5 mcg-vilant 25 mcg inhalat.powder (Trelegy Ellipta) Previous Rx's ?Medication ?Instructions ?Recorded ipratropium 0.5 mg-albuterol 3 mg 3 ml inhalation Q6H PRN shortness 08/16/21 (2.5 mg base)/3 mL nebulization of breath or wheezing #90 mL soln ondansetron 4 mg disintegrating 4 mg PO Q6H PRN nausea and 07/27/23 tablet vomiting 5 days #20 tabs albuterol sulfate 90 mcg/actuation 2 inh inhalation Q6H PRN shortness 08/05/23 aerosol inhaler (Ventolin HFA) of breath or wheezing 90 days #18 grams estradiol 10 mcg vaginal tablet 10 mcg vaginal .COMPLEX #8 tabs 12/28/23 (Vagifem) allopurinol 100 mg tablet 300 mg (3 x 100 mg) PO DAILY gout 12/30/23 #90 tabs diphenhydramine HCl 25 mg capsule 25 mg PO Q6HP PRN Itching #30 caps 03/03/24 triamcinolone acetonide 0.1 % 1 applic topical BID PRN itching 03/03/24 topical cream #30 grams levothyroxine 75 mcg tablet 75 mcg PO DAILY thyroid #90 tabs 03/15/24 (Synthroid) Allergies Allergy/AdvReac Type Severity Reaction Status Date / Time febuxostat (From ULORIC) Allergy Intermediate joints Verified 03/23/24 08:22 hydrocodone (From LORTAB) Allergy Intermediate I-ITCHING Verified 03/23/24 08:22 Sulfa (Sulfonamide Allergy Intermediate I-HIVES Verified 03/23/24 08:22 Antibiotics) (SULFA (SULFONAMIDE ANTIBIOTICS)) [facility] Disclaimer: The information contained in this section may have been updated after the patient was seen, as this information can be updated by other users. Medical History (Updated 04/16/24 @ 13:59 by David Lopez MD) Skin cancer of nose Acquired hypothyroidism URI, acute Gallbladder disease Skin cancer Asthma Palpitations History of skin cancer Abnormal computerized axial tomography of chest Allergic rhinitis, unspecified Seasonal allergies Family history of asthma Mild persistent asthma Wheezing Dyspnea on exertion Surgical History History of stress incontinence procedure using tension free vaginal tape History of bladder suspension procedure History of colonoscopy History of total right knee replacement H/O arthroscopy of knee History of cardiac cath Family History Other Asthma Cancer Coronary artery disease Heart attack Stroke Social History Smoking Status: Never smoker second hand exposure: No alcohol intake: never substance use type: denies use current occupational status: retired Travel in the last 8 weeks: None household members: spouse housing: house current occupational exposures/hazards: No caffeine: Yes Other Medical History Have you received the Flu Vaccine for this season: Yes Have you received the Pneumonia Vaccine: Yes ROS Obtained: Yes All systems reviewed & no additional complaints except as documented Physical Exam General General appearance: alert and in no apparent distress Eye Eye exam: Present normal appearance, PERRL and EOMI Respiratory Respiratory exam: Present normal lung sounds bilaterally; Absent respiratory distress Cardiovascular Cardiovascular exam: Present regular rate and normal rhythm Abdominal Exam Abdominal exam: Present soft and distention; Absent tenderness, guarding or rebound Extremities Exam Extremities exam: Present normal inspection Expanded Lower Extremity Exam Left: Comment: Tenderness to left knee, active and passive range of motion slightly limited, can flex to 45 degrees and extend completely. Neurovascular intact distally. Back Exam Comment: Left flank/paraspinal tenderness Neurological Exam Neurological exam: Present alert and oriented X3 Skin Skin exam: Present warm and dry Medical Decision Making Medical Records Medical records reviewed: Yes I reviewed the patient's medical records. Screening: Per USPSTF and CDC recommendations, given the prevalence of disease in our region, it is our hospital?s policy to screen for HIV and viral Hepatitis for all patients aged 18 and over and those with ongoing risk factors. Yosef Inquiry Pt receiving controlled substance: No Vital Signs: 04/16/24 08:27 04/16/24 09:00 04/16/24 09:31 Temperature 98.2 F Temperature Source Oral Pulse Rate 75 96 H Pulse Rate [Right] 90 Respiratory Rate 20 19 19 Blood Pressure 99/63 L 98/59 L Blood Pressure [Right Arm] 114/71 Blood Pressure Mean 75 67 Blood Pressure Mean [Right Arm] 85 Blood Pressure Source Blood Pressure Position 02 Sat by Pulse Oximetry 95 100 92 L Oxygen Delivery Method Room Air Room Air Room Air 04/16/24 09:31 04/16/24 10:00 04/16/24 10:49 Temperature Temperature Source Pulse Rate 93 H 89 74 Pulse Rate [Right] Respiratory Rate 14 15 Blood Pressure 89/62 L 85/54 L 81/53 L Blood Pressure [Right Arm] Blood Pressure Mean 67 63 Blood Pressure Mean [Right Arm] Blood Pressure Source Blood Pressure Position 02 Sat by Pulse Oximetry 93 L 90 L 91 L Oxygen Delivery Method Room Air Room Air 04/16/24 11:30 04/16/24 12:00 04/16/24 12:20 Temperature Temperature Source Pulse Rate 72 75 66 Pulse Rate [Right] Respiratory Rate 16 18 18 Blood Pressure 105/61 L 87/62 L 93/67 L Blood Pressure [Right Arm] Blood Pressure Mean 68 69 72 Blood Pressure Mean [Right Arm] Blood Pressure Source Blood Pressure Position 02 Sat by Pulse Oximetry 98 98 95 Oxygen Delivery Method 04/16/24 12:30 04/16/24 13:00 04/16/24 13:15 Temperature Temperature Source Pulse Rate 70 70 66 Pulse Rate [Right] Respiratory Rate 18 18 15 Blood Pressure 94/66 L 89/56 L 89/56 L Blood Pressure [Right Arm] Blood Pressure Mean 74 67 Blood Pressure Mean [Right Arm] Blood Pressure Source Blood Pressure Position 02 Sat by Pulse Oximetry 94 L 94 L 91 L Oxygen Delivery Method Room Air 04/16/24 13:58 Temperature 97.9 F Temperature Source Oral Pulse Rate 70 Pulse Rate [Right] Respiratory Rate 18 Blood Pressure 100/63 L Blood Pressure [Right Arm] Blood Pressure Mean Blood Pressure Mean [Right Arm] Blood Pressure Source Automatic Cuff Blood Pressure Position Sitting 02 Sat by Pulse Oximetry Oxygen Delivery Method Room Air Lab Data Lab Results 04/16/24 08:30: WBC 13.5 H, RBC 4.50, Hgb 14.0, Hct 41.1, MCV 91.3, MCH 31.2, MCHC 34.1, RDW 14.8, Plt Count 237, MPV 8.5, Neut % (Auto) 84.6 H, Lymph % (Auto) 9.1 L, [place] % (Auto) 4.9, Eos % (Auto) 0.8, Baso % (Auto) 0.6, Neut # (Auto) 11.4 H, Lymph # (Auto) 1.2, [place] # (Auto) 0.7, Eos # (Auto) 0.1, Baso # (Auto) 0.1, Sodium 138, Potassium 4.3, Chloride 103, Carbon Dioxide 25, Anion Gap 14.3, BUN 21 H, Creatinine 1.10 H, Estimated Creat Clear 56, Estimated GFR 49 L, Est GFR ( Amer) 59, Glucose 113 H, Calcium 9.9, Total Bilirubin 1.0, AST 32, ALT 29, Alkaline Phosphatase 80, C-Reactive Protein 38.1 H, Total Protein 7.8, Albumin 4.6, Globulin 3.2, Albumin/Globulin Ratio 1.4, Lipase 91, Urine Color Yellow, Urine Appearance Clear, Urine pH 6.5, Ur Specific [place] 1.015, Urine Protein Negative, Urine Glucose (UA) Negative, Urine Ketones Negative, Urine Blood Negative, Urine Nitrate Negative, Urine Bilirubin Negative, Urine Urobilinogen 0.2, Ur Leukocyte Esterase Negative, Urine RBC None, Urine WBC None, Ur Squamous Epith Cells Occasional, Urine Bacteria Trace 04/16/24 08:30 04/16/24 08:30 Orders (Tests/Meds): ED MEDICATIONS Discontinued Medications Generic Name Dose Route Start Last Admin Trade Name Issa PRN Reason Stop Dose Admin Acetaminophen 1,000 mg 04/16/24 08:39 04/16/24 08:52 Acetaminophen 500mg Tab PO 04/16/24 08:40 1,000 mg ONCE ONE Administration Lactated Ringer's 1,000 mls @ 999 mls/hr 04/16/24 10:23 04/16/24 10:31 Lactated Ringer's 1000 Ml Bag IV 04/16/24 11:23 999 mls/hr .Q1H1M ONE Administration Ibuprofen 400 mg 04/16/24 08:39 04/16/24 08:52 Ibuprofen 400 Mg Tablet PO 04/16/24 08:40 400 mg ONCE ONE Administration Iopamidol 75 ml 04/16/24 09:56 04/16/24 09:57 Iopamidol-370 (76%);100ml Bottle IV 04/16/24 09:57 75 ml ONCE ONE Administration Ondansetron HCl 4 mg 04/16/24 08:39 04/16/24 08:52 Ondansetron 4mg Odt SL 04/16/24 08:40 4 mg ONCE ONE Administration Oxycodone HCl 2.5 mg 04/16/24 09:20 04/16/24 09:27 Oxycodone 5mg Immediate Release Tablet PO 04/16/24 09:21 2.5 mg ONCE ONE Administration Sodium Chloride 10 ml 04/16/24 09:56 04/16/24 09:57 Sodium Chloride 0.9% 10ml Syr (Rad Only) IV 04/16/24 09:57 10 ml ONCE ONE Administration ORDERS Category Date Time Status CT abdomen pelvis w con Stat Cat Scan 04/16/24 08:39 Taken Knee XR left 3 views [XR knee LT 3V] Stat Exams 04/16/24 08:39 Completed CBC w/Auto Diff [Complete Blood Count Auto Diff] Stat Lab 04/16/24 08:30 Completed CMP [Comprehensive Metabolic Panel] Stat Lab 04/16/24 08:30 Completed CRP [C-Reactive Protein] Stat Lab 04/16/24 08:30 Completed Lipase Stat Lab 04/16/24 08:30 Completed Urinalysis and Microscopic Stat Lab 04/16/24 08:30 Completed Urine Culture Stat Micro 04/16/24 08:30 Received ECG Data Tracing #1: I reviewed this ECG and interpreted as documented below: Normal sinus rhythm at a rate of 93, left axis deviation, QTc 335, no STEMI Medical Decision Narrative: In summary, this 73-year-old female with a past medical history of hypertension, hyperlipidemia, CAD, recurrent UTIs, and left knee replacement in 2017 presents to the emergency department today with left knee pain and dysuria. On initial evaluation patient is afebrile, normotensive, no acute distress. Differential diagnosis includes but is not limited to osteoarthritis flare, septic arthritis, fracture, overuse injury, UTI, pyelonephritis, musculoskeletal back pain. Based on these concerns, I ordered CBC, CMP, lipase, urinalysis, urine culture, x-ray of the left knee, EKG. ECG personally interpreted as noted above. Patient received Tylenol, ibuprofen, Zofran, and oxycodone for treatment. Labs personally reviewed demonstrate white blood cell count of 13.5, baseline renal function with a creatinine of 1.1, no significant electrolyte abnormalities, mildly elevated CRP at 38, no evidence of UTI. XR personally interpreted demonstrates no acute osseous pathology. CT imaging personally interpreted demonstrates no acute intra-abdominal pathology. Radiology report notes an age-indeterminate compression fracture of T8, however patient had no midline spinal tenderness. Tenderness was to the left flank off midline. Most likely etiology for her pain is a muscle strain and overuse injury of her left knee which was replaced back in 2017. She was an elderly woman with chronic osteoarthritis who has been moving boxes and heavy lifting over the last several days. Of note, during her stay, while lying down blood pressure remained with SBP to the 80s and 90s. Was given 1 L of lactated Ringer's. When ambulatory her blood pressure would improve and was ultimately 100/60. Patient stated that this was her baseline. Considered septic arthritis as the etiology of her symptoms, however she was afebrile with all the very mildly elevated CRP and a white blood cell count of 13.5 which could also be in the setting of inflammation from her osteoarthritis. She had moderate range of motion of the left knee and was ambulatory, all reassuring signs against an infectious etiology of her knee replacement which was also several years ago. She was ultimately discharged in stable condition with instructions to continue her pain regiment that was previously prescribed to her and follow-up with her PCP. Critical Care Critical Care Time Critical Care Time: No
[2024-04-16] MEDS: OXYCODONE 5MG IMMEDIATE RELEASE TABLET 2.5 MG PO (09:27)
--- NOTE | 2024-04-16 09:42 | PC.NURSE ---
Pt to CT @ this time
[2024-04-16] MEDS: IOPAMIDOL-370 (76%);100ML BOTTLE 75 ML IV (09:57)
[2024-04-16] MEDS: SODIUM CHLORIDE 0.9% 10ML SYR (RAD ONLY) 10 ML IV (09:57)
[2024-04-16] MEDS: LACTATED RINGERS 1000ML 1,000 ML 999 ML IV (10:31)
== END 2024-04-16 14:20 | disposition home or self-care (01) ==
PROVIDERS: Emergency Provider Student in an Organized Health Care Education/Training Program; PCP Family Medicine
DX: M25.562 Pain in left knee (principal); R30.0 Dysuria; M79.10 Myalgia, unspecified site; R06.02 Shortness of breath; M54.9 Dorsalgia, unspecified; R10.9 Unspecified abdominal pain
CPT/HCPCS: 73562; 74177; 80053; 81001; 83690; 85025; 86140; 87086; 93005; 96360; 99285; J7120; Q0162; Q9967

== ENCOUNTER 2024-09-08 11:30 | Outpatient (CLI) | payer MEDICARE, SELFPAY ==
--- NOTE | 2024-09-08 11:35 | XR_ITS ---
FINAL REPORT CLINICAL HISTORY: LEFT HIP PAIN fell 09-05-2024 FINDINGS: Four views of the left hip demonstrate no acute fracture or dislocation. There are mild degenerative changes. No soft tissue abnormality is seen. IMPRESSION: Degenerative changes. Should symptoms persist, recommend CT follow-up. Reviewed, Interpreted and Dictated by Navid Mar MD Transcribed by Aliyah Chand Authenticated and [facility]
--- OUTSIDE RECORDS SUMMARY | 2024-09-08 23:18 | XMS_ITS | Data Portability ---
Author Organization [place] [facility] [place] KARLOS Gomez [facility] Address [address] [place] [address] Assessment No assessment recorded. Plan of Treatment Reminders Order Date Submit Date Provider Last Modified By Organization Details Last Modified Time Details Appointments None recorded. Lab surgical pathology study 2023 024 [facility], [address] [place] [address], [phone], 10:23:38 Referral None recorded. Procedures None recorded. Surgeries None recorded. Imaging None recorded. Medication Orders None recorded. Patient TargetsNo targets recorded. Patient Instructions Encounter Date Encounter Id Patient Instructions Last Modified By Organization Details Last Modified Time 04/29/2017 [id number] Trigger Finger-LC [id number] Not available 12/05/2021 03:47:08 11/25/2023 [id number] After viewing th e location of the lesion, the size of the lesion, the pathology report, and the distance between the BCC and a scar from a previous surgery, Dr. Norwood decided that it was best to have ENT Plastics perform the closure. Patient understood the MOHS procedure and the closure. Linda will schedule as a MOHS with outside closure. [email or web address] Not available 11/25/2023 16:05:34 Reason for Referral None Reported. Results Created Date Observation Date Name Description Value Unit Range Abnormal Flag Note LastModifiedBy Organization Detail LastModifiedTime 10/30/19 24 10/30/2023 SURGI ARNALDO surgical SEE BELOW abnormal Depar tment of Patho logy Surgi arnaldo Patho logy Repor t NAME: GUSTABO WALTER PATH. :[id number] Copy to: Diagn osis: Right nasal sidew all: Basal cell carci noma, nodul ar type; incom plete ly excis ed. SOURC E OF SPECI MEN: SKIN BIOPS Y, RIGHT NASAL SIDEW ALL CLINI ARNALDO INFOR MATIO N: SPECI MEN COLLE CTION NOTES : R/O RECUR RENT BCC D48.5 NEOPL ASM OF UNCER TAIN BEHAV IOR OF SKIN Gross Descr iptio n: Recei oral in forma brenton label ed with the patie nt's name and desig nated righ t nasal sidew all is a shave biops y of skin (0.5 x 0.3 x 0.1 cm). The epide rmal surfa ce is hilton-w omaira. The angela n is inked blue. The speci men is bisec angie and entir amberly submi tted in one casse tte label ed A1. LP 10/30 09:18 PM Micro scopi c Descr iptio n: A micro scopi c exami natio n has been perfo rmed and the resul t(s) are as noted above . JACKY HOLGUIN M.D. Scarlett d Out Date: 11/01 10:23 Page 1 of 1 Not Available [facility] [address] [place] [address], [phone], 11/02/2023 10:23:38 Result Notes None recorded. Procedures Surgical History Date Name Laterality Status Provider Name and Address Organization Details Recorded Time 10/30/19 24 Biopsy Skin Lesion; Tangential completed JEREMIAH WARD PA-C [address] [place] [address], [phone], [facility] 10/30/2023 12:08:30 10/30/19 24 Destruction Premalignant Lesion(s) completed [facility] 10/30/2023 10:38:26 10/30/19 24 Destruction BN Lesions completed [facility] 10/30/2023 10:38:45 04/29/20 17 Injection Trigger Finger Ortho completed MALLORIE TRAMMELL MD [address] [place] [address], [phone], [facility] 04/29/2017 11:17:18 Imaging Results None recorded. Procedure Notes None recorded. Medical Equipment None Reported. Allergies Allergen ID Allergen Name Allergen Category Reaction Reaction Severity Criticality Documentation Date Start Date Code Code System Note Provider Name and Address Organization Details Recorded Time 772621 Substance with sulfonami de structure and antibacte rial mechanism of action (substanc e) medicatio n Not available Not available Not available 04/29/2017 05778 8003 SNOMED Olga Branham [facility] 7 10:54:20 756301 acetamino phen / hydrocodo ne medicatio n Not available Not available Not available 04/29/2017 16608 2 RxNorm Olga Branham [facility] 7 10:54:25 Medications Name Sig Start Date Stop Date Status Note LastModified by Organization Details LastModified Time ipratropium 0.5 mg-albutero l 3 mg (2.5 mg base)/3 mL nebulizatio n soln Inhale 3 mL 4 times a day by nebulizat ion route. active Not Available Not Available No t Available ranitidine 150 mg capsule Take 1 capsule twice a day by oral route. 10/29 completed Not Available Not Available Not Available sertraline active Not Available Not Av ailable Not Available meloxicam active Not Available Not Shanika ilable Not Available albuterol active Not Available Not Shanika ilable Not Available levothyroxi ne active Not Available Not Available Not Available amoxicillin 10/29 completed Not Available Not Available Not Available vitamin B complex active Not Available Not Available Not Available triamterene -hydrochlor othiazid active Not Available Not Available Not Available Aspir-81 active Not Available Not Avai lable Not Available montelukast active Not Available Not A vailable Not Available pravastatin active Not Available Not A vailable Not Available doxepin active Not Available Not Avail able Not Available allopurinol active Not Available Not A vailable Not Available metoprolol succinate 10/29 completed Not Available Not Available Not Available Zyrtec 10/29 completed Not Available Not Available Not Available Vitamin B12 active Not Available Not A vailable Not Available Xyzal active Not Available Not Availa ble Not Available Trelegy Ellipta active Not Available Not Available Not Available Vitals Date Recorded Body height Body mass index (BMI) Body weight Provider Name and Address Organization Details Last Updated DateTime 04/29/2017 152.4 cm 35.5 kg/m2 11549.81 g Olga Branham [facility] 04/29/2017 10:53:10 Social History Question Answer Notes LastModified by Organizat ion Details LastModified Time What Is Your Level Of Alcohol Consumption? None Information not available 04/29/2017 What Is Your Level Of Caffeine Consumption? Moderate Information not available 04/29/2017 Are You Currently Employed? No Information not available 04/29/2017 What Is Your Occupation? Retired Information not available 04/29/2017 Which Of Your Hands Is Dominant? Right Information n ot available 04/29/2017 Which Hand Is Involved? Left Information not available 04/29/2017 How Long Have You Had These Symptoms? 3 Months Information not available 04/29/2017 Marital Status Informatio n not available 04/29/2017 Do You Use Any Illicit Or Recreational Drugs? No Information not available 04/29/2017 Sex: Unknown Functional Status None recorded. Mental Status None recorded. Family History Relationship Description Onset Age of this Age Resolved Age Notes LastModified by Organization Details LastModified Time Father No current problems or disability Not available 04/29 10:57:31 Mother No current problems or disability Not available 04/29 10:57:31 Medical History Condition Response Allergies/Hayfever N Other N Anxiety/Depression N Gout Y Thyroid Disease N Kidney Stones Y Heart Conditions N Hernia N Migraines N COPD N Glaucoma N Pneumonia N Skin Problems N Immune System Disorder N Anesthesia Complications N Heart Attack ([place]) N Mental Illness N Neurological Problems N Diabetes N Rheumatic Fever N Bleeding Disorder N Seizures/Epilepsy N Arthritis Y Blood Clot N Tuberculosis N Genetic Disorder N AIDS/HIV N Cancer N Stroke N Asthma N Blood Thinners N Sleep Apnea N Alcohol Overuse/Alcohol Abuse N High Cholesterol Y Liver Disease N Included as Review of Systems N Hypertension Y Osteoporosis N Kidney Disease N Gynecological HistoryNo gynecological history recorded. Obstetrics History GPAL:G 0 P 0 0 0 0 Past Encounters Encounter ID Performer Location Encounter Start Date Encounter Closed Date Diagnosis/Indication Diagnosis SNOMED-CT Code Diagnosis ICD10 Code Diagnosis Note [id number] ORTHOPEDI CS [facility] [address] [place] [address] 04/29/2017 10:43:24 04/29/2017 14:04:22 Trigger finger 0699333369 45725 M65.30 Left long finger, injection. Also has a Dupuytren' s nodule. She may call to schedule release A1 wendy left long finger through a chevron-sh aped incision at which time we will excise the palmar nodule as well. Can be done under local anesthetic or local Mac [id number] JEREMIAH WARD PA-C [facility] [address] [place] [address] 10/30/2023 10:05:25 10/30/2023 11:05:27 History of malignant basal cell neoplasm of skin 586884165 Z85.828 RIGHT NASAL SIDEWALL - PT REPORTED BCC TREATED BY MOHS BY DR. BETANCOURT, WILL OBTAIN HISTORICAL RECORDS AND CONFIRM - SEE NOTE BELOWLIKEL Y RECURRENCE - BX TODAY THEN SEND TO DR. JOHNSON OR TYLER ONCE CONFIRMED Neoplasm o f uncertain behavior of skin 08172230 D48.5 RIGHT NASAL SIDEWALLR/ O RECURRENT BCCSHAVE BIOPSYCONS ENT AND PHOTO OBTAINEDSE E PROCEDURE NOTEWOUND CARE INSTRUCTIO NS PROVIDEDF/ U PER PATH Actinic keratosis 007 L57.0 CRYO X 6PT ADVISED WHAT TO EXPECT FROM FREEZINGRE COMMENDED SUN PROTECTIVE CLOTHING/H ATS AND OTC SPF 30+ EQUATE SPORT OR BLUE LIZARD SUNSCREEN DAILYF/U IF DO NOT RESOLVE Raised sania orrheic keratosis 9254338192 93038 L82.1 BENIGN APPEARANCE ; PT REASSURED Inflamed s eborrheic keratosis 883105492 L82.0 CRYO X 2PT ADVISED WHAT TO EXPECT FROM FREEZINGF/ U IF DO NOT RESOLVE Hemangioma 571893779 D18 .00 BENIGN APPEARANCE ; PT REASSURED Solar lentiginosis 96521 2006 L81.4 BENIGN APPEARANCE ; PT REASSUREDR ECOMMENDED SUN PROTECTIVE CLOTHING/H ATS AND OTC SPF 30+ EQUATE SPORT OR BLUE LIZARD SUNSCREEN DAILY [id number] MD TYLER ATWOOD [address] [address] 11/25/2023 13:08:07 11/26/2023 05:20:51 Basal cell carcinoma of nose 589716885 C44.311 Mohs surgery was discussed and jeremias d. Over a period of 20 minutes, we discussed the risks and benefits of Mohs surgery and reconstruc tion, including the practical issues associated with closures (e.g. addressing tissue redundanci es, the need to minimize the risk of ectropion of adjacent free margins, the possible need for further surgical or non-surgic al revision). The patient understand s that the repair is typically 3 times the size of the defect. The patient understand s the potential for scar, recurrence , permanent numbness, need for additional future surgeries. We also emphasized that alternativ e therapies exist, such as curettage, standard non-Mohs excision, topical therapy, and radiation therapy; however, we do not recommend these approaches for this specific cancer(s) due to a lower cure rate, possibly increased risk of scarring, and/or risk of additional tissue damage. [id number] [address] [address] 02/12/2024 07:34:18 02/18/2024 14:32:25 Health Concerns Section Related Observation LastModified by Organization Detai ls LastModified Time None Recorded Concern Status LastModified by Organization Details LastModified Time None Recorded Advance Directives Directive None Recorded Payers Encounter Date Sequence Insurance Name Policy Number Policy Payton Covered Member ID Payton Member ID Guarantor Name 04/29/2017 1 [employer] (MEDICARE REPLACEMENT/AD VANTAGE - PPO) Magui Joy [id number] Magui [place] Joy 10/30/2023 1 [place] [id number] Magui Garcian [id number] Magui Chela Joy 11/25/2023 1 [place] [id number] Magui Garcian [id number] Magui Calvoanan 02/12/2024 1 [place] [id number] Magui Joy [id number] Magui Joy Notes Date Note Type Note Provider Name and Address Organization Details Recorded Time 04/29/2017 text/html Hand SurgeryRepo rted bypatient.Hand Dominance:right Location:left Severity:pain level 8/10 Previous Surgery:none Work Related:no Working:retired from work Three-month history mass in the palm over the left long finger, also clicking catching left long finger with locking, painful. 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 MALLORIE TRAMMELL MD [address] [place] [address], [phone], [facility] 04/29/2017 11:18:24 10/30/2023 text/html NEW PATIENT HX OF ?BCC- RIGHT NASAL SIDEWALL S/P MOHS BY DR. BETANCOURT 2021 - PREVIOUSLY SEEING SACK CLEANER IN [place] 1) FSE- PT DESIRES TO HAVE SPOTS ON ENTIRE BODY EXAMINED TODAY. 2) PT C/O LESION ON MOHS SITE ON RIGHT NOSE X 1 YEAR (+)OCCASIONAL BLEEDING (-)ITCH/PAIN. SOME TOPICAL CREAM- UNCERTAIN NAME, NOT EFUDEX/IMIQUIMOD 3) PT C/O LESION ON RIGHT CHEEK X SEVERAL MONTHS (+)ROUGH (-)ITCH/BLEED/PAIN. NO TX PT IS TAKING ASAno issues with scarring or healing *COLBY PURDY'S GIRLFRIEND Denies any other new, changing, or bleeding lesions, or other rashes. Patient feels well today and in a good mood. No family history of melanoma. JEREMIAH WARD PA-C [address] [place] [address], [phone], [facility] 10/30/2023 12:12:52 11/25/2023 text/html Patient presents for a consult to treat a BCC on the Right Nasal Sidewall. LASHELL NORWOOD MD [address] [place] [address], [phone], [facility] 11/25/2023 18:03:47 OBGyn Episode No OBEpisode recorded.
--- OUTSIDE RECORDS SUMMARY | 2024-09-08 23:18 | XMS_ITS ---
Author Organization Unknown Medications Date Medication Dosage DosageUnit StartDate StopDate StopReason Active DoseQuantity DoseUnit Dispense DispenseUnit Refills NdcCode DrugCode PharmacyId IsPrescription MappedMedication Srcstatus 07/26 00:00 :00 Albuterol Sulfate HFA 108 (90 Base) MCG/ACT Aerosol Solution 03/29/2021 00:00:00 1 1 2 1850299 4 287 P Taking 07/04 00:00 :00 Albuterol Sulfate HFA 108 (90 Base) MCG/ACT Aerosol Solution 03/29/2021 00:00:00 1 1 2 8228780 4 287 P Taking 06/09 00:00 :00 Albuterol Sulfate HFA 108 (90 Base) MCG/ACT Aerosol Solution 03/29/2021 00:00:00 1 1 2 1018033 4 287 P Taking 06/09 00:00 :00 Aleve 220 MG Tablet 0 04983322 99 Stop 06/09 00:00 :00 Aleve 220 MG Tablet 1 77742331 99 Taking 07/26 00:00 :00 Allopurinol 300 MG Tablet 1 90 Tablet 1 92827848 101 Taking 07/04 00:00 :00 Allopurinol 300 MG Tablet 1 90 Tablet 1 05842474 101 Taking 06/21 00:00 :00 Allopurinol 300 MG Tablet 1 90 Tablet 1 30046153 101 Start 06/21 00:00 :00 Allopurinol 300 MG Tablet 0 90 Tablet 0 56430624 101 Stop 06/09 00:00 :00 Allopurinol 300 MG Tablet 1 90 Tablet 0 13022462 101 Taking 03/25 00:00 :00 Allopurinol 300 MG Tablet 1 90 Tablet 0 67664629 101 Start 03/25 00:00 :00 Allopurinol 300 MG Tablet 0 90 Tablet 0 37925620 101 Stop 12/29 00:00 :00 Allopurinol 300 MG Tablet 1 90 Tablet 0 57191192 101 Start 12/29 00:00 :00 Allopurinol 300 MG Tablet 0 30 Tablet 2 84348586 101 Stop 09/06 00:00 :00 Allopurinol 300 MG Tablet 1 30 Tablet 2 81011147 101 Start 09/06 00:00 :00 Allopurinol 300 MG Tablet 0 30 Tablet 1 14212371 101 Stop 07/26 00:00 :00 Aspirin Adult Low Dose 81 MG Tablet Delayed Release 1 30 01533236 310 Taking 07/04 00:00 :00 Aspirin Adult Low Dose 81 MG Tablet Delayed Release 1 30 00411635 310 Taking 06/09 00:00 :00 Aspirin Adult Low Dose 81 MG Tablet Delayed Release 1 30 89633953 310 Taking 07/26 00:00 :00 Ciprofloxac in HCl 500 MG Tablet 07/26/2024 00:00:00 1 20 5260835 2 801 P Start 07/26 00:00 :00 Diclofenac Sodium 75 MG Tablet Delayed Release 06/09/2024 00:00:00 1 60 2 2689941 5 106 P Taking 07/04 00:00 :00 Diclofenac Sodium 75 MG Tablet Delayed Release 06/09/2024 00:00:00 1 60 2 8953659 5 106 P Taking 06/09 00:00 :00 Diclofenac Sodium 75 MG Tablet Delayed Release 06/09/2024 00:00:00 1 60 2 0420877 5 106 P Start 07/28 00:00 :00 Doxepin HCl 10 MG Capsule 1 90 Capsule 0 60235455 401 Start 07/28 00:00 :00 Doxepin HCl 10 MG Capsule 0 90 Capsule 1 65803429 201 Stop 07/26 00:00 :00 Doxepin HCl 10 MG Capsule 1 90 Capsule 1 74607616 201 Taking 07/04 00:00 :00 Doxepin HCl 10 MG Capsule 1 90 Capsule 1 47285602 201 Taking 06/09 00:00 :00 Doxepin HCl 10 MG Capsule 1 90 Capsule 1 12875320 201 Taking 01/10 00:00 :00 Doxepin HCl 10 MG Capsule 1 90 Capsule 1 05867904 201 Start 01/10 00:00 :00 Doxepin HCl 10 MG Capsule 0 90 Capsule 1 32957787 201 Stop 07/26 00:00 :00 Estradiol 0.1 MG/GM Cream 1 Taking 07/04 00:00 :00 Estradiol 0.1 MG/GM Cream 1 Taking 06/09 00:00 :00 Estradiol 0.1 MG/GM Cream 1 Taking 07/26 00:00 :00 Gabapentin 300 MG Capsule 03/29/2024 00:00:00 1 90 Capsule 2 45159913 661 P Taking 07/04 00:00 :00 Gabapentin 300 MG Capsule 03/29/2024 00:00:00 1 90 Capsule 2 51014808 661 P Taking 06/09 00:00 :00 Gabapentin 300 MG Capsule 03/29/2024 00:00:00 1 90 Capsule 2 07402228 661 P Taking 03/29 00:00 :00 Gabapentin 300 MG Capsule 03/29/2024 00:00:00 1 90 Capsule 2 78486982 661 P Unknown Status 11/11 00:00 :00 Gabapentin 300 MG Capsule 11/13/2023 00:00:00 1 90 Capsule 2 35070856 661 P Unknown Status 07/26 00:00 :00 hydroCHLORO thiazide 12.5 MG Tablet 1 90 Tablet 1 04050219 011 Taking 07/04 00:00 :00 hydroCHLORO thiazide 12.5 MG Tablet 1 90 Tablet 1 15424532 011 Taking 06/20 00:00 :00 hydroCHLORO thiazide 12.5 MG Tablet 1 90 Tablet 1 08038326 011 Start 06/20 00:00 :00 hydroCHLORO thiazide 12.5 MG Tablet 0 90 Tablet 1 15523994 011 Stop 06/09 00:00 :00 hydroCHLORO thiazide 12.5 MG Tablet 1 90 Tablet 1 12340919 011 Taking 11/29 00:00 :00 hydroCHLORO thiazide 12.5 MG Tablet 1 90 Tablet 1 69184711 011 Start 11/29 00:00 :00 hydroCHLORO thiazide 12.5 MG Tablet 0 30 Tablet 2 14327180 011 Stop 09/06 00:00 :00 hydroCHLORO thiazide 12.5 MG Tablet 1 30 Tablet 2 75771900 011 Start 09/06 00:00 :00 hydroCHLORO thiazide 12.5 MG Tablet 0 30 Tablet 1 78406827 011 Stop 07/26 00:00 :00 Levothyroxi ne Sodium 75 MCG Tablet 1 30 Tablet 2 06055158 690 P Taking 07/04 00:00 :00 Levothyroxi ne Sodium 75 MCG Tablet 1 30 Tablet 2 30621286 690 P Taking 06/14 00:00 :00 Levothyroxi ne Sodium 75 MCG Tablet 1 30 Tablet 2 05231030 690 P Unknown Status 06/09 00:00 :00 Levothyroxi ne Sodium 75 MCG Tablet 1 30 Tablet 2 91459517 690 Taking 09/06 00:00 :00 Levothyroxi ne Sodium 75 MCG Tablet 1 30 Tablet 2 28002043 690 Start 07/26 00:00 :00 Losartan Potassium 25 MG Tablet 1 135 1 000 13687 322 Taking 07/04 00:00 :00 Losartan Potassium 25 MG Tablet 1 135 1 000 90173 322 Taking 06/09 00:00 :00 Losartan Potassium 25 MG Tablet 1 135 1 000 03862 322 Taking 05/02 00:00 :00 Losartan Potassium 25 MG Tablet 1 135 1 000 81939 322 Start 05/02 00:00 :00 Losartan Potassium 25 MG Tablet 0 135 1 000 22677 322 Stop 11/04 00:00 :00 Losartan Potassium 25 MG Tablet 1 135 1 000 60617 322 Start 11/04 00:00 :00 Losartan Potassium 25 MG Tablet 0 135 0 000 66386 322 Stop 07/04 00:00 :00 Macrobid 100 MG Capsule 07/04/2024 00:00:00 1 10 2428678 8 501 P Start 03/04 00:00 :00 Meloxicam 15 MG Tablet 1 90 Tablet 0 68 626689 105 Start 03/04 00:00 :00 Meloxicam 15 MG Tablet 0 90 Tablet 0 16 575310 701 Stop 12/06 00:00 :00 Meloxicam 15 MG Tablet 1 90 Tablet 0 16 018166 701 Start 12/06 00:00 :00 Meloxicam 15 MG Tablet 0 90 Tablet 0 16 612785 701 Stop 09/09 00:00 :00 Meloxicam 15 MG Tablet 1 90 Tablet 0 16 645447 701 P Unknown Status 08/08 00:00 :00 Montelukast Sodium 10 MG Tablet 1 90 Tablet 0 29 812822 019 Start 08/08 00:00 :00 Montelukast Sodium 10 MG Tablet 0 90 Tablet 1 692223 806 Stop 07/26 00:00 :00 Montelukast Sodium 10 MG Tablet 1 90 Tablet 1 339473 806 Taking 07/04 00:00 :00 Montelukast Sodium 10 MG Tablet 1 90 Tablet 1 799303 806 Taking 06/09 00:00 :00 Montelukast Sodium 10 MG Tablet 1 90 Tablet 1 00 938233 806 Taking 02/10 00:00 :00 Montelukast Sodium 10 MG Tablet 1 90 Tablet 1 026860 806 Start 02/10 00:00 :00 Montelukast Sodium 10 MG Tablet 0 90 Tablet 1 00 385629 806 Stop 07/26 00:00 :00 Pravastatin Sodium 20 MG Tablet 1 30 Tablet 0 358829 110 Taking 07/04 00:00 :00 Pravastatin Sodium 20 MG Tablet 1 30 Tablet 0 952077 110 Taking 06/09 00:00 :00 Pravastatin Sodium 20 MG Tablet 1 30 Tablet 0 911080 110 Taking 05/10 00:00 :00 Pravastatin Sodium 20 MG Tablet 1 30 Tablet 0 002185 110 Start 05/10 00:00 :00 Pravastatin Sodium 20 MG Tablet 0 30 Tablet 0 310419 110 Stop 03/04 00:00 :00 Pravastatin Sodium 20 MG Tablet 1 30 Tablet 0 223821 110 Start 03/04 00:00 :00 Pravastatin Sodium 20 MG Tablet 0 093364 20 110 Stop 07/26 00:00 :00 Sertraline HCl 50 MG Tablet 1 45 Tablet 1 004 96345 630 Taking 07/04 00:00 :00 Sertraline HCl 50 MG Tablet 1 45 Tablet 1 004 29279 630 Taking 06/09 00:00 :00 Sertraline HCl 50 MG Tablet 1 45 Tablet 1 004 79119 630 Taking 04/25 00:00 :00 Sertraline HCl 50 MG Tablet 1 45 Tablet 1 004 82863 630 Start 04/25 00:00 :00 Sertraline HCl 50 MG Tablet 0 90 1 6909904 1 630 Stop 09/06 00:00 :00 Synthroid 75 MCG Tablet 0 30 Tablet 1 0 0651666 211 Stop 07/26 00:00 :00 Trelegy Ellipta 200-62. 5-25 MCG/ACT Aerosol Powder Breath Activated 08/18/2023 00:00:00 1 0889324 9 310 P Taking 07/04 00:00 :00 Trelegy Ellipta 200-62. 5-25 MCG/ACT Aerosol Powder Breath Activated 08/18/2023 00:00:00 1 [id number] 9 310 P Taking 06/09 00:00 :00 Trelegy Ellipta 200-62. 5-25 MCG/ACT Aerosol Powder Breath Activated 08/18/2023 00:00:00 1 6865265 9 310 P Taking
== END 2024-09-08 23:59 | disposition home or self-care (01) ==
LOC: RAD 11:32
PROVIDERS: PCP Family Medicine; Visit Provider Family Medicine
DX: M25.552 Pain in left hip (principal)
CPT/HCPCS: 73502

== ENCOUNTER 2024-11-13 19:40 | Emergency (ER) | payer MEDICARE, SELFPAY ==
--- OUTSIDE RECORDS SUMMARY | 2024-10-17 10:45 | XMS_ITS ---
Author Organization [facility] Address [address] [facility] 36 [facility] [address] [place] [id number] Care Team Providers Care Back Roller Name Role Phone Anabell Mae Primary Care Provider [phone] Regan Britton Unavailable [phone] Allergies Allergen (clinical drug ingredient) Drug/Non Drug Allergy documented on EMR Reaction Allergy Type Onset Date Status acetaminophen / hydrocodone HYDROcodone-Acetam inophen itching Drug Allergy Active Substance with sulfonamide structure and antibacterial mechanism of action (substance) Sulfa Antibiotics swell up& itch Drug Allergy Active Results Component Value Reference Range Notes Urinalysis - Inhouse Reviewed date:10/18/2024 12:34:24 PM Interpretation: Performing Lab: Notes/Report: Color/Clarity yellow Leuk trace Nitrite neg Urobili 3.2 Protein neg pH 5.5 Blood neg Sp. Gr. 1.015 Ketone neg Bili neg Gluc neg P-Culture, Urine Reviewed date:10/19/2024 01:19:08 PM Interpretation:suggest contamination, needs recollected Performing Lab: Notes/Report: Test performed by [facility] [address] [place] [address] , [address], [place] [address] Derek King MD, Vacuum Bottle Assembler CLIA: [id number] Specimen Source Urine - Void Culture, Urine See Below Final Report : 10,000-15,000 CFU/ml Mixed Gram Positive Organisms Three or more organisms present likely representing contamination during collection by patient's urogenital, skin, and/or fecal lucille. Organism identification and sensitivity assessment are not recommended. Specimen recollection is recommended. REASON FOR VISIT back pain Medications Medication SIG (Take, Route, Frequency, Duration) Notes Start Date End Date Status Montelukast Sodium 10 MG 1 tablet Orally Once a day for 90 days Active Doxepin HCl 10 MG Take 1 capsule by mouth at bedtime for 90 Active Pravastatin Sodium 20 MG Take 1 tablet b y mouth once daily Orally Once a day for 90 days Active Allopurinol 300 MG 1 tab(s) orally once a day for 90 days Active hydroCHLOROthiazide 12.5 MG 1 tablet in the morning Orally Once a day for 90 days Active Albuterol Sulfate HFA 108 (9 0 Base) MCG/ACT 2 puff(s) inhaled qid prn for 30 day(s) 03/29/2021 Active Aspirin Adult Low Dose 81 MG 1 tab(s) or ally once a day for 30 day(s) Active Sertraline HCl 50 MG 1/2 tab(s) orally once a day for 90 days Active Levothyroxine Sodium 75 MCG 1 tab(s) Ora lly Once a day for 30 days Active Losartan Potassium 25 MG Take 1 tablet b y mouth twice daily 1 tab in the morning, 1/2 tab at night for 90 days Active diazePAM 5 MG 1 tablet as needed Orally Once a day Active Vital Signs Blood pressure systolic 126 mm Hg 10/18/19 25 Blood pressure diastolic 78 mm Hg 025 Heart Rate 92 /min 10/17/2024 Height 60 in 10/17/2024 Weight 179.8 lbs 10/17/2024 BMI 35.11 kg/m2 10/17/2024 Encounters Encounter Location Date Provider Diagnosis [facility] [address] [id number] 10/17/2024 Regan Scribner Pyuria R82.81 and Acute left-sided low back pain without sciatica M54.50 Assessments Encounter Date Diagnosis (ICD Code) Assessment Notes Treatment Notes Treatment Clinical Notes Section Notes 10/17/2024 Pyuria (ICD-10 - R82.81) 10/17/2024 Acute left-sided low back pain without sciatica (ICD-10 - M54.50) Home exercise program provided to patient heating pad to affected areas 2 to 3 times a day TENS unit OTC recommended Plan Of Treatment Treatment Notes Assessment Notes Acute left-sided low back pa in without sciatica Home exercise program provided to patien t heating pad to affected areas 2 to 3 times a day TENS unit OTC recommended Next Appt Details Follow Up: via phone to repo rt progress, Reason: Progress Notes * SAM VELASCOTEDOB:[birth year] (74 yo F)Acc No.[id number]:10/17/2024 Progress Notes Patient: HANY ESPINO Provider: Quiana Britton M.D. :1950 A ge:74 Y S ex:Female Date:10/17/2024 Address:[address] [place] [address] , [facility] [id number] Pcp:Anabell Mae Subjective: * Chief Complaints: * 1 . Back pain. * HPI: L ower back: 74 year old female presents with c/o Low Back Pain P t sts she is here today with lower back pain. Pt sts she was seen here once before for back pain, but sts it since gotten worse. * ROS: D ERMATOLOGY: no R renate. n o H robi. G ASTROENTEROLOGY: no N ausea. n o V omiting. n o D iarrhea.? U ROLOGY: no D ifficulty urinating. n o B lood in urine. * Medical History: H ypertension, Hyperthyroidism, Hyperlipidemia, Neg cardiolyte GXT 2008, Gout, Vitamin B 12 deficiency, COVID 19 Vaccine, Moderna, 11/2020, Sciatica, Flu vaccine 05/2024, RSV Vaccine 05/2024. * Surgical History: A rthroscopic knee surgery 2003, Hysterectomy abdominal , Partical Knee Replacement 2004, LT Total Knee Replacement 03/2006, Bilateral Cataract 12/2010, Colonoscopy 12/11/2011, Cholecystectomy- [facility] 03/30/2012, Morgagni Hernia , Heart Cath 2018, Transvaginal surgery. Dr. Gonzalez. October 2023, BCC of nose with excision and reconstruction, Dr. Montenegro [facility] 2023, Colonoscopy, Dr. Colunga. One polyp 2023. * Hospitalization/Major Diagno stic Procedure: L abyrinthitis Bilateral Ears- [facility] ER 08/06/2019. * Family History: F ather: 72 yrs, pancreatitis, asthma. M other: 86 yrs, stroke, cancer(Kidney), CHF. P aternal Grand Father: . P aternal Grand Mother: . M aternal Grand Father: . M ateramos Grand Mother: . Paloma jennings: leukemia, son, . 1 brother(s) , 3 sister(s) . 1 son(s) , 1 daughter(s) . . * Social History: C URRENT TOBACCO USE S moking Status: Patient does NOT smoke. C affeine: yes, frequency:daily. Exercise: no. Home smoke detector use: yes. Marital Status: . New since last visit: none. Occupation: yes. Past smoking status: no, Smoking status: Does not smoke. Occup. exposure: none. Recreational drug use: no. Alcohol: socially, Type: , Frequency: ,Years: , Determination:. Sexually active: yes. Travel ouside [place]: yes, some. * Medications: T aking diazePAM 5 MG Tablet 1 tablet as needed Orally Once a day , Taking Aspirin Adult Low Dose 81 MG Tablet Delayed Release 1 tab(s) orally once a day , Taking Albuterol Sulfate HFA 108 (90 Base) MCG/ACT Aerosol Solution 2 puff(s) inhaled qid prn , Taking Sertraline HCl 50 MG Tablet 1/2 tab(s) orally once a day , Taking Losartan Potassium 25 MG Tablet Take 1 tablet by mouth twice daily 1 tab in the morning, 1/2 tab at night , Taking Levothyroxine Sodium 75 MCG Tablet 1 tab(s) Orally Once a day , Taking hydroCHLOROthiazide 12.5 MG Tablet 1 tablet in the morning Orally Once a day , Taking Allopurinol 300 MG Tablet 1 tab(s) orally once a day , Taking Doxepin HCl 10 MG Capsule Take 1 capsule by mouth at bedtime , Taking Montelukast Sodium 10 MG Tablet 1 tablet Orally Once a day , Taking Pravastatin Sodium 20 MG Tablet Take 1 tablet by mouth once daily Orally Once a day , Medication List reviewed and reconciled with the patient * Allergies: S ulfa Antibiotics: swell up& itch, HYDROcodone-Acetaminophen: itching. Objective: * Vitals: W t: 179.8, Temp: 98.0, BP: 126/78, HR: 92, Nurse: yen, Ht: 60, BMI:35.11. * Examination: G eneral Examination: General Appearance: N AD. L ower back: Palpation: n o vertebral spine tenderness , left lower lumbar p araspinal spasms. Straight leg raising test: p ositive at 45 degrees on left.? Gait: s tands and moves slowly due to pain. ? Assessment: * Assessment: 1. P yuria - R82.81 (Primary) 2 . A cute left-sided low back pain without sciatica - M54.50 Plan: * Treatment: Value Reference Range C ulture, Urine See Below - * S pecimen Source Urine - Void - * Deidra Swenson 10/19/2024 01 :18:09 PM > Pt notified and will stop by for recollection ?LAB: Urinalysis - Inhouse (Collection Date & Time - 10/17/2024)* Value Reference Range C olor/Clarity yellow * L euk trace * N itrite neg * U robili 3.2 * P rotein neg * p H 5.5 * B lood neg * S p. Gr. 1.015 * K etone neg * B alejandro neg * G radha neg * Blossom Guallpa 10/17/2024 02:5 2:00 PM > Provider reviewed results while patient in office. 2.?Acute left-sided low back pain without sciatica? Notes: Home exercise program provided to patient heating pad to affected areas 2 to 3 times a day TENS unit OTC recommended?? * Procedure Codes: G 2211 Complex e/[place], [address] Urinalysis, no micro * Follow Up: v ia phone to report progress * Billing Information: * Visit Code: 28985 Office Visit, Est Pt., Level 3. * Procedure Codes: G2211 Complex e/[place]. [address] Urinalysis, no micro. * Electronic signature of Shirley Britton MD on 11/13/2024 at 08:10 PM EDT Sign off status: Pending * Provider: Quiana Britton M.D. Date: 0 10/17/2024 Generated for Nicole jordan/Marybel/Jagdeep on: 0 11/13/2024 08:10 PM EDT History and Physical Notes * HPI (History of Present Illness) Category Sub-Category Detail Notes Category Not es Lower back Low Back Pain Pt sts she is he re today with lower back pain. Pt sts she was seen here once before for back pain, but sts it since gotten worse Examination Category Sub-Category Detail Notes Category Not es General Examination General Appearance: NAD Lower back Straight leg raising test: positive at 45 degrees on left Gait: stands and moves slo wly due to pain Palpation: no vertebral spine t enderness , left lower lumbar paraspinal spasms
--- OUTSIDE RECORDS SUMMARY | 2024-10-21 07:00 | XMS_ITS ---
Author Organization [facility] Address [facility] [address] [place] [phone] Care Team Providers Care Head Turning Machine Operator Name Role Phone Anabell Mae Primary Care Provider Regan Britton [phone] Results Component Value Reference Range Notes Urinalysis - Inhouse Reviewed date:10/25/2024 04:36:58 PM Interpretation:Negative Performing Lab: Notes/Report: Negative Color/Clarity yellow/clear Leuk neg Nitrite neg Urobili 3.2 Protein neg pH 6.5 Blood neg Sp. Gr. 1.015 Ketone neg Bili neg Gluc neg REASON FOR VISIT urine sample Encounters Encounter Location Date Provider Diagnosis [facility] [address] [place] [phone] 10/21/2024 Regan Britton Pyuria R82.81 Assessments Encounter Date Diagnosis (ICD Code) Assessment Notes Treatment Notes Treatment Clinical Notes Section Notes 10/21/2024 Pyuria (ICD-10 - R82.81) Plan Of Treatment No Information Progress Notes * SAM VELASCOCASSYOB:[birth year] (74 yo F)Acc No.[id number]:10/21/2024 Patient: HANY ESPINO Provider: Quiana Britton M.D. :1950 A ge:74 Y S ex:Female Date:10/21/2024 Address: [address] [place] Pcp:Anabell Mae Subjective: * Chief Complaints: * [...] Information: * Visit Code: * Procedure Codes: 07719 Urinalysis, no micro. * Electronic signature of Shirley Britton MD on 11/13/2024 at 08:10 PM EDT Sign off status: Pending * Provider: Quiana Britton M.D. Date: 0 10/21/2024 Generated for Nicole jordan/Marybel/eTransmitting on: 0 11/13/2024 08:10 PM EDT
--- OUTSIDE RECORDS SUMMARY | 2024-11-09 11:30 | XMS_ITS ---
Author Organization [facility]-[place] Address 1210 [facility] [address] [place] [id number] Care Team Providers Care Procedural Nurse Name Role Phone Anabell Mae Primary Care Provider [phone] Regan Britton Unavailable [phone] Allergies Allergen (clinical drug ingredient) Drug/Non Drug Allergy documented on EMR Reaction Allergy Type Onset Date Status acetaminophen / hydrocodone HYDROcodone-Acetam inophen itching Drug Allergy Active Substance with sulfonamide structure and antibacterial mechanism of action (substance) Sulfa Antibiotics swell up& itch Drug Allergy Active Results Component Value Reference Range Notes P-Culture, Urine (Not yet re viewed by provider) Interpretation: Performing Lab: Notes/Report: Test performed by [employer] [facility] , [address], [place] [address] Derek King MD, Pcu Rn CLIA: [id number] Specimen Source Urine - Void Culture, Urine [...] 11/09/2024 Encounters Encounter Location Date Provider Diagnosis [facility] [address] [phone] 11/09/2024 Regan Britton Acute UTI N39.0 ; [...] Notes * KAREL VELASCOOB:[birth year] (74 yo F)Acc No.[id number]:11/09/2024 Progress Notes Patient: HANY ESPINO Provider: Quiana Britton M.D. :1950 A ge:74 Y S ex:Female Date:11/09/2024 Address:[address] [place] [address] , [place], [id number] Pcp:Anabell Mae Subjective: * Chief Complaints: * [...] 03/2006, Bilateral Cataract 12/2010, Colonoscopy 12/11/2011, Cholecystectomy- [facility] 03/30/2012, Morgagni Hernia , Heart Cath 2018, Transvaginal surgery. Dr. Gonzalez. October 2023, BCC of nose with excision and reconstruction, Dr. Montenegro [facility] 2023, Colonoscopy, Dr. Colunga. One polyp 2023. * Hospitalization/Major Diagno stic Procedure: L abyrinthitis Bilateral Ears- [facility] ER 08/06/2019. * Family History: F ather: 72 yrs, pancreatitis, asthma. M other: 86 yrs, stroke, cancer(Kidney), CHF. P aternal Grand Father: . P aternal Grand Mother: . M aternal Grand Father: . M aternal Grand Mother: . C hildren: leukemia, son, . 1 brother(s) , 3 [...] scherichia coli >100,000 CFU/ml Escherichia coli - ?LAB: Urinalysis - Inhouse (Collection Date & Time - 11/09/2024)* Value Reference Range C olor/Clarity yellow/cloudy * L euk 1+ * N itrite Pos * U robili 3.2 * P rotein Neg * p H 5.5 * B lood Neg * S p. Gr. 1.010 * K etone Neg * B alejandro Neg * G radha Neg * TimurBlueMarisa 11/09/2024 03:32: 43 PM EDT > Provider reviewed results while patient in office. 2.?Dysuria?LAB: P-Culture, Urine (Collection Date & Time - 11/09/2024 02:49 PM)* Value Reference Range C ulture, Urine See Below - * S pecimen Source Urine - Void - * S ensitivity Panel See Below - * E scherichia coli >100,000 CFU/ml Escherichia coli - 3.?Acute URI?LAB: CBC Fingerstick (in house) (Collection [...] 04:0 1:54 PM EDT > faxed to [facility] Heather Barrett 11/10/2024 08:36:56 AM EDT >Appt 11/14/24 @ 4:30 5.?Others? Decrease Pravastatin Sodium Tablet, 20 MG, Take 1 tablet by mouth once daily, Orally, 3 times a week (MWF).?? * Procedure Codes: G 2211 Complex e/[place], [address] CAPILLARY BLOOD DRAW, 11803 CBC WITH AUTO DIFF, 39966 Urinalysis, no micro * Follow Up: v ia phone to report test results * Billing Information: * Visit Code: 33412 Office Visit, Est Pt., Level 4. * Procedure Codes: G2211 Complex e/[place]. [address] CAPILLARY BLOOD DRAW. 76156 CBC WITH AUTO DIFF. 44463 Urinalysis, no micro. * Electronic signature of Shirley Britton MD on 11/13/2024 at 08:10 PM EDT Sign off status: Pending * Provider: Quiana Britton M.D. Date: 0 11/09/2024 Generated for Arlethi nikki/Luis Fernandog/eTransmitting on: 11/13/2024 08:10 PM EDT History and Physical Notes * HPI (History of Present Illness) Category Sub-Category Detail Notes Category Not es ENT/respiratory cough Pt complains gre enish yellow sputum production cough for about 4 days. Associated with nasal congestion and dizziness Fever body aches Urology burning sensation Pt complains burning wi urination since Thursday Examination Category Sub-Category Detail [...]
--- OUTSIDE RECORDS SUMMARY | 2024-11-13 20:10 | XMS_ITS | Encounter Summary ---
Author Organization Healthcare Address [address] [place] [address] Care Team Providers Care Design Drafter Name Role Phone Sina Mae MD Primary Care Provider [phone] Encounter Details Date Type Department Care Team (Late st Contact Info) Description 09/16/2022 Community [facility] [address] [place] [address] Jose Tovar MD [address] [place] [id number] Social History Tobacco Use Types Packs/Day Years Used Date Smoking Tobacco: Never Assessed Comments Unknown Sex and Gender Information Value Date Recorded Sex Assigned at Not on file Legal Sex Female 7:26 PM EDT Gender Identity Not on file Sexual Orientation Not on file documented as of this encounter Plan of Treatment Not on file documented as of this encounter Visit Diagnoses Not on filedocumented in this encounter Care Teams Design Drafter Relationship Specialty Start Date End Date Sina Mae MD [address] [place] [address] PCP - General 02/09/24 documented as of this encounter
--- OUTSIDE RECORDS SUMMARY | 2024-11-13 20:10 | XMS_ITS | Clinical Summary ---
Author Organization [facility] Address [address] [place] [address] Care Team Providers Care Escort Car Driver Name Role Phone Sina Mae MD Primary Care Provider [phone] Allergies Active Allergy Reactions Criticality Noted Date Comments Febuxostat Other - please docum ent in the comment field High 11/30/2023 Hydrocodone Itching High 11/30/2023 Sulfa Drugs Hives High 11/30/2023 Medications albuterol 108 (90 Base) MCG/ACT inhaler Inhale 1 puff if needed. Active Trelegy Ellipta 200-62.5-25 MCG/ACT aerosol powder 1 (one) time each day. 01/08/20 24 Active allopurinol (Zyloprim) 300 MG tablet Take 1 tablet (300 mg) by mouth Daily. Active aspirin 81 MG EC tablet Take 1 tablet (81 mg) by mouth Daily. Active cetirizine (ZyrTEC) 10 MG tablet Take 1 tablet (10 mg) by mouth every night. 09/03/19 24 Active diazePAM (Valium) 5 MG tablet Take 1 tablet (5 mg) by mouth 2 (two) times a day if needed. 02/17/20 23 Active cyclobenzaprine (Flexeril) 5 MG tablet Take 1-2 tablets (5-10 mg) by mouth every 8 (eight) hours if needed. 04/21/20 23 Active doxepin (SINEquan) 10 MG capsule Take 1 capsule (10 mg) by mouth every night. 11/16/19 24 Active estradiol (Estrace) 0.1 MG/GM vaginal cream 2 (two) times a day. night 09/03/19 24 Active Yuvafem 10 MCG tablet vaginal tablet if needed. Active formoterol (Perforomist) 20 MCG/2ML nebulizer solution 2 mL (20 mcg) if needed. 05/06/20 23 Active gabapentin (Neurontin) 300 MG capsule Take 1 capsule (300 mg) by mouth 3 (three) times a day. 09/03/19 24 Active hydroCHLOROthiazid e (HYDRODiuril) 12.5 MG tablet Take 1 tablet (12.5 mg) by mouth 1 (one) time each day in the morning. 02/18/20 23 Active ipratropium-albute rol (Duo-Neb) 0.5-2.5 mg/3 mL nebulizer solution if needed. Active levothyroxine (Synthroid, Levoxyl) 75 MCG tablet Take 1 tablet (75 mcg) by mouth 1 (one) time each day before breakfast. 02/18/20 23 Active losartan (Cozaar) 25 MG tablet Take 1 tablet (25 mg) by mouth. One in the am and 1/2 at pm 08/05/19 24 Active meloxicam (Mobic) 15 MG tablet Take 1 tablet (15 mg) by mouth Daily. 03/10/20 23 Active montelukast (Singulair) 10 MG tablet Take 1 tablet (10 mg) by mouth every night. 03/10/20 23 Active ondansetron ODT (Zofran-ODT) 4 MG disintegrating tablet Take 1 tablet (4 mg) by mouth every 8 (eight) hours if needed. 07/27/19 24 Active pravastatin (Pravachol) 20 MG tablet Take 1 tablet (20 mg) by mouth 3 times a week. 02/18/20 23 Active sertraline (Zoloft) 50 MG tablet Take 0.5 tablets (25 mg) by mouth every night. 09/03/19 24 Active promethazine (Phenergan) 25 MG suppository Insert 1 suppository (25 mg) into the rectum every 6 (six) hours if needed for nausea or vomiting. Active ondansetron ODT (Zofran-ODT) 4 MG disintegrating tablet Take 1 tablet (4 mg) by mouth every 8 (eight) hours if needed for nausea or vomiting. 20 tablet 02/15/20 24 Active acetaminophen-code ine (Tylenol w/ Codeine #3) 300-30 MG tablet Take 1 tablet by mouth every 6 (six) hours if needed for severe pain. 12 tablet 02/15/20 24 Active aritificial tears (Bion Tears) 0.1-0.3 % ophthalmic solution Administer 2 drops into the right eye 4 (four) times a day if needed for dry eyes. 15 mL 02/15/20 24 Active ocular lubricant ointment (GenTeal Tears Night-Time) ointment ophthalmic ointment Apply 1 drop to right eye if needed for dry eyes. 3.5 g 02/15/20 24 Active mupirocin (Bactroban) 2 % ointment Apply to incision as directed 1 g 03/14/20 Active Active Problems Problem Noted Date Diagnosed Date Obesity (BMI 35.0-39.9 without comorbidity) 01/31 Family History Medical History Relation Name Comments Anesthesia problems Neg Hx Malig Hyperthermia Neg Hx Social History Tobacco Use Types Packs/Day Years Used Date Smoking Tobacco: Never Smokeless Tobacco: Never Alcohol Use Standard Drinks/Week Comments Yes 0 (1 standard drink = 0.6 oz pur e alcohol) occasionally Comments No Sex and Gender Information Value Date Recorded Sex Assigned at Not on file Legal Sex Female 7:26 PM EDT Gender Identity Not on file Sexual Orientation Not on file Last Filed Vital Signs Vital Sign Reading Time Taken Comments Blood Pressure 118/67 02/15/2024 3:02 PM EDT Pulse 70 02/15/2024 3:02 PM EDT Temperature 36.4 C (97.6 F) 02/15/2024 2:41 PM EDT Respiratory Rate 19 02/15/2024 3:02 PM EDT Oxygen Saturation 91% 02/15/2024 3:02 PM EDT Inhaled Oxygen Concentration - - Weight 83.6 kg (184 lb 4.9 oz) 02/09/2024 8:53 A M EDT Height 152.4 cm (5') 02/09/2024 8:53 AM EDT Body Mass Index 35.99 02/09/2024 8:53 AM EDT Plan of Treatment Health Maintenance Due Date Last Done Comments Dental Oral Exam 1949 Dental Prophylaxis 1949 [facility]-Bone Density Scan 1949 [facility]-Depression Screening 1949 [facility]-Hepatitis C Screening 1949 [facility]-Medicare Annual Wellness (AWV) 1949 [facility]-/Child/Adol SDOH Screenings 1949 [facility]- SDOH Screenings 1967 [facility]-Adult SDOH Screenings 1967 [facility]-Zoster Vaccines (1 of 2) 1968 CT Colonography 1994 Colonoscopy 1994 FIT-DNA 1994 FIT 1994 FOBT 1994 Sigmoidoscopy 1994 [facility]-Colorectal Cancer Screening 1994 Dental X-Ray: Bitewings 04/07/1999 04/06/1998 Dental X-Ray: Full Mouth 04/07/2001 04/06/1998 [id number] Vaccine ( season) 2024 06/19/2021, 11/30/2020, 10/30/2020 [facility]-RSV Vaccine: 60+ Years or (1 - 1-dose 75+ series) 2024 [facility]-Influenza Vaccine (Season Ended) 2025 06/05/2021, 02/20/2020 [facility]-DTaP,Tdap,and Td Vaccines (2 - Td or Tdap) 02/18/2028 02/17/2018, 01/30/1999 [facility]-Pneumococcal Vaccine: 50+ Years Completed 04/13/2023, 06/05/2021, 02/20/2020, Additional history exists [facility]-Obesity Intervention Completed 024, 03/14/2024, 03/07/2024, Additional history exists HPV Vaccines Aged Out No longer eligi ble based on patient's age to complete this topic [facility]-HIB Vaccines Aged Out No longer e ligible based on patient's age to complete this topic [facility]-Hepatitis A Vaccines Aged Out No longer eligible based on patient's age to complete this topic [facility]-IPV Vaccines Aged Out No longer e ligible based on patient's age to complete this topic [facility]-Rotavirus Vaccines Aged Out No lo nger eligible based on patient's age to complete this topic Procedures Procedure Name Priority Date/Time Associated Diagnosis Comments INTRAORAL - COMPLETE SERIES OF RADIOGRAPHIC IMAGES Routine 04/06/1998 12:00 AM EST from Last 3 Months or Most Recently Relevant to Health Maintenance Insurance ANTHEM MEDICARE Advance Directives Documents on File Type Date Recorded 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
--- OUTSIDE RECORDS SUMMARY | 2024-11-13 20:10 | XMS_ITS | Patient Health Record ---
[facility] Address [address] [place] [id number] Care Team Providers Care Medical Esthetician Name Role Phone Anabell Mae Primary Care Provider Chela Cavanaugh Unavailable [phone] Regan Britton Unavailable [phone] Georgette Austin Unavailable [phone] Allergies Allergen (clinical drug ingredient) Drug/Non Drug [...] Interpretation: Performing Lab: Notes/Report: Test performed by [facility] [address] [place] [address] , [address], [place] [address] Derek King MD, Oracle Programmer Analyst CLIA: [id number] Specimen Source Urine - Void Culture, Urine [...] - 38 plat 235 100 - 400 P-Comprehensive Metabolic Pa venecia (CMP) Reviewed date:06/10/2024 01:35:27 PM Interpretation:Normal Performing Lab: Notes/Report: Test performed by [facility] [address] [place] [address] , [address], [place] [address] Derek King MD, Oracle Programmer Analyst CLIA: [id number] Sodium 142 135-145 mmol/L Potassium 4.2 3.5-5.3 mmol/L Chloride 104 97-108 mmol/L CO2 27 22-32 mmol/L Glucose 90 65-99 mg/dL BUN 22 8-23 mg/dL Creatinine 0.95 0.50-1.00 mg/dL Calcium 9.3 8.6-10.4 mg/dL eGFR by Creatinine 62 >59 mL/min/1.73m2 Protein 7.3 6.0-8.3 g/dL Albumin 4.7 3.5-5.3 g/dL Alkaline Phosphatase 86 35-121 IU/L ALT (SGPT) 17 <5-47 IU/L AST (SGOT) 20 <5-40 IU/L Bilirubin, Total 0.3 <0.2-1.2 mg/dL A/G Ratio 1.8 1.1-2.5 Antinuclear Antibodies (KELL) Screen Reviewed date:06/10/2024 01:35:27 PM Interpretation:Normal Performing Lab: Notes/Report: Test performed by [facility] [address] [place] [address] , [address], [place] [address] Derek King MD, Oracle Programmer Analyst CLIA: [id number] Antinuclear Antibodies (KELL) Screen Negative Negative This test is perform ed by Multiplex Bead Immunoassay methodology. CBC Venipuncture (in house) Reviewed date:06/10/2024 08:44:20 AM Interpretation: Performing Lab: Notes/Report: wbc 6.6 3.5 - 10 lymph 33.5% 15 - 50 mid 7.4% 2 - 15 gran 59.1% 35 - 80 rbc 4.31 3.5 - 5.5 hgb 13.3 11.5 - 16.5 hct 39.5 35 - 55 mcv 91.6 75 - 100 mch 31.0 25 - 35 mchc 33.8 31 - 38 platlet 272 100 - 400 Urinalysis - Inhouse Reviewed date:07/04/2024 01:18:37 PM Interpretation: Performing Lab: Notes/Report: Color/Clarity yellow clear Leuk trace Nitrite pos Urobili 3.2 Protein neg pH 6.5 Blood neg Sp. Gr. 1.010 Ketone neg Bili neg Gluc neg P-Culture, Urine Reviewed date:07/13/2024 12:45:35 PM Interpretation: Performing Lab: Notes/Report: Test performed by [facility] [address] [place] [address] , [address], [place] [address] Derek King MD, Oracle Programmer Analyst CLIA: [id number] Specimen Source Urine - Void Culture, Urine See Below See Microbiol ogy Report Klebsiella variicola >100,000 CFU/ml Klebsiella variicola Sensitivity Panel See Below ____ Organism K.variicola Antibiotic INTERP ____ Amikacin S Ampicillin R Aztreonam S Cefepime S Cefoxitin S Ceftazidime S Ceftriaxone S Cefuroxime S Ciprofloxacin S Ertapenem S Gentamicin S Imipenem S Levofloxacin S Meropenem S Nitrofurantoin S Piperacillin/Tazo S Tetracycline S Tobramycin S Trimeth/Sulfa S ___ S=SUSCEPTIBLE I=INTERMEDIATE R=RESISTANT Urinalysis - Inhouse Reviewed date:07/26/2024 12:08:06 PM Interpretation: Performing Lab: Notes/Report: Color/Clarity yellow Leuk 1+ Nitrite neg Urobili 3.2 Protein neg pH 6.0 Blood neg Sp. Gr. 1.015 Ketone neg Bili neg Gluc neg P-Culture, Urine Reviewed date:08/02/2024 08:19:21 AM Interpretation:sensitive Performing Lab: Notes/Report: Test performed by [facility], [address] , [address], [place] [address] Derek King MD, Oracle Programmer Analyst CLIA: [id number] Specimen Source Urine - Void Culture, Urine See Below See Microbiol ogy Report Klebsiella variicola 50,000-100,000 CFU/ ml Klebsiella variicola Sensitivity Panel See Below ____ Organism K.variicola Antibiotic INTERP ____ Amikacin S Ampicillin R Aztreonam S Cefepime S Cefoxitin S Ceftazidime S Ceftriaxone S Cefuroxime S Ciprofloxacin S Ertapenem S Gentamicin S Imipenem S Levofloxacin S Meropenem S Nitrofurantoin S Piperacillin/Tazo S Tetracycline S Tobramycin S Trimeth/Sulfa S ___ S=SUSCEPTIBLE I=INTERMEDIATE R=RESISTANT P-Comprehensive Metabolic Pa venecia (CMP) Reviewed date:10/10/2024 12:27:45 PM Interpretation:Normal Performing Lab: Notes/Report: Test performed by [facility], [address] , [address], [place] [address] Derek King MD, Oracle Programmer Analyst CLIA: [id number] Sodium 138 135-145 mmol/L Potassium 3.8 3.5-5.3 mmol/L Chloride 102 97-108 mmol/L CO2 24 22-32 mmol/L Glucose 80 65-99 mg/dL BUN 16 8-23 mg/dL Creatinine 0.91 0.50-1.00 mg/dL Calcium 9.7 8.6-10.4 mg/dL eGFR by Creatinine 66 >59 mL/min/1.73m2 Protein 6.6 6.0-8.3 g/dL Albumin 4.1 3.5-5.3 g/dL Alkaline Phosphatase 85 35-121 IU/L ALT (SGPT) 22 <5-47 IU/L AST (SGOT) 23 <5-40 IU/L Bilirubin, Total 0.4 <0.2-1.2 mg/dL A/G Ratio 1.6 1.1-2.5 Urinalysis - Inhouse Reviewed date:10/18/2024 12:34:24 PM Interpretation: Performing Lab: Notes/Report: Color/Clarity yellow Leuk trace Nitrite neg Urobili 3.2 Protein neg pH 5.5 Blood neg Sp. Gr. 1.015 Ketone neg Bili neg Gluc neg P-Culture, Urine Reviewed date:10/19/2024 01:19:08 PM Interpretation:suggest contamination, needs recollected Performing Lab: Notes/Report: Test performed by [facility] [address] [place], [place] [address] [place] , [address], [place] [address] Derek King MD, Oracle Programmer Analyst CLIA: [id number] Specimen Source Urine - Void Culture, Urine See Below Final Report : 10,000-15,000 CFU/ml Mixed Gram Positive Organisms Three or more organisms present likely representing contamination during collection by patient's urogenital, skin, and/or fecal lucille. Organism identification and sensitivity assessment are not recommended. Specimen recollection is recommended. Urinalysis - Inhouse Reviewed date:10/25/2024 04:36:58 PM Interpretation:Negative Performing Lab: Notes/Report: Negative Color/Clarity yellow/clear Leuk neg Nitrite neg Urobili 3.2 Protein neg pH 6.5 Blood neg Sp. Gr. 1.015 Ketone neg Bili neg Gluc neg P-Culture, Urine Reviewed date:09/12/2024 03:07:38 PM Interpretation:No Growth Performing Lab: Notes/Report: Test performed by [facility] [address] [place] [address] , [address], [place] [id number] Derek King MD, [employer] Programmer Analyst CLIA: [id number] Specimen Source Urine - Void Culture, Urine See Below Final Report : No growth X ray : Hip, left Reviewed date:09/22/2024 12:41:21 PM Interpretation:degenerative changes, if symptoms persist, consider CT Performing Lab: Notes/Report: degenerative changes, if symptoms persist, consider CT P-KELL Reviewed date:06/10/2024 12:56:59 PM Interpretation: Performing Lab: Notes/Report: P-TSH Reviewed date:06/10/2024 01:35:27 PM Interpretation:Normal Performing Lab: Notes/Report: Test performed by [facility] [address] , [facility], [place] [address] Derek King MD, [employer] Programmer Analyst CLIA: [id number] TSH 1.10 0.43-5.25 mU/L P-Rheumatoid Factor Reviewed date:06/10/2024 01:35:27 PM Interpretation:Normal Performing Lab: Notes/Report: [facility] [address] [facility], [place] [address] Derek King MD, Oracle Programmer Analyst CLIA: [id number] Rheumatoid Factor 10.0 <14.1 IU/mL P-Sed Rate (ESR) Reviewed date:06/10/2024 01:35:27 PM Interpretation:Normal Performing Lab: Notes/Report: Test performed by [facility] [address], [place] [address] Derek King MD, [employer] Programmer Analyst CLIA: [id number] Erythrocyte Sedimentation Rate (ESR), Automated 18 <31 mm/hr Urinalysis - Inhouse Reviewed date:09/13/2024 04:25:53 PM Interpretation: Performing Lab: Notes/Report: Color/Clarity yellow/clear Leuk Trace Nitrite Neg Urobili 3.2 Protein Neg pH 6.5 Blood Neg Sp. Gr. 1.015 Ketone Neg Bili Neg Gluc Neg colonoscopy Reviewed date:02/29/2024 07:58:53 AM Interpretation:DR COLUNGA Performing Lab: Notes/Report: DR COLUNGA Medications Medication SIG (Take, Route, Frequency, Duration) Notes Start Date End Date Status Losartan Potassium 25 MG Take 1 tablet b y mouth twice daily 1 tab in the morning, 1/2 tab at night for 90 days Active Doxepin HCl 10 MG 1 capsule at bedtime Orally Once a day for 90 days Active diazePAM 5 MG 1 tablet as needed Orally Once a day Active Aspirin Adult Low Dose 81 MG 1 tab(s) or ally once a day for 30 day(s) Active Cefuroxime Axetil 500 MG 1 tablet Orally every 12 hrs for 5 days 11/09/2024 Active Albuterol Sulfate HFA 108 (9 0 Base) MCG/ACT 2 puff(s) inhaled qid prn for 30 day(s) 03/29/2021 Active Sertraline HCl 50 MG 1/2 tab(s) orally once a day for 90 days Active Levothyroxine Sodium 75 MCG 1 tab(s) Ora lly Once a day for 30 days Active hydroCHLOROthiazide 12.5 MG 1 tablet in the morning Orally Once a day for 90 days Active Allopurinol 300 MG 1 tab(s) orally once a day for 90 days Active Montelukast Sodium 10 MG 1 tablet Orally Once a day for 90 days Active Pravastatin Sodium 20 MG Take 1 tablet b y mouth once daily Orally 3 times a week (MWF) Active Immunizations Vaccine Route Administration Date Status Comme nts COVID 19 Moderna Unknown 10/30/2020 Administered COVID 19 Moderna Unknown 11/30/2020 Administered COVID 19 Moderna Unknown 06/19/2021 Administered DT, 7 YEARS OR OLDER Unknown 01/30/1999 Administered Fluzone High Dose (65yr and older) IM Intramuscular 2014 Administered Fluzone High Dose (65yr and older) IM Intramuscular 05/02/2015 Administered Fluzone High Dose (65yr and older) IM Intramuscular 02/20/2020 Administered Fluzone High Dose (65yr and older) IM Intramuscular 06/05/2021 Administered Fluzone High Dose (65yr and older) IM Intramuscular 04/13/2023 Administered Fluzone Quad (6months&older) IM Intramuscular 04/29/2016 Administered H1N1 flu vaccine IM Intramuscular 03/27/2009 Administered MMR Unknown 01/30/1999 Administered PNEUMOVAX 23 VACCINE IM Intramuscular 06/05/2021 Administe red ppd ID Intradermal 09/19/2008 Administered ppd ID Intradermal 09/25/2009 Administered Prevnar (PCV13) IM Intramuscular 2014 Administered Prevnar (PCV13) IM Intramuscular 02/17/2018 Administered Prevnar (PCV13) IM Intramuscular 02/20/2020 Administered Prevnar (PCV20) IM Intramuscular 04/13/2023 Administered Shingrix Unknown 08/01/2024 Administered Tetanus Tdap-Adacel (over 7yrs) IM Intramuscular 02/17/2018 Administered tuberculin (ppd) ID Intradermal 09/07/2007 Administered xFlu shot-36 months and older IM Intramuscular 04/02/2005 Administered xFlu shot-36 months and older IM Intramuscular 04/04/2006 Administered xFlu shot-36 months and older IM Intramuscular 03/18/2007 Administered xFlu shot-36 months and older IM Intramuscular 04/20/2008 Administered xFlu shot-36 months and older IM Intramuscular 02/21/2009 Administered xFluzone (6mos and older)-trivalent IM Intramuscular 03/15/2010 Administered xFluzone (6mos and older)-trivalent IM Intramuscular 04/08/2011 Administered xFluzone (6mos and older)-trivalent IM Intramuscular 03/28/2013 Administered xFluzone Intradermal (18-64yrs)-trivalent ID Intradermal 03/04/2012 Administered Problems Problem Type SNOMED Code ICD Code Onset Dates Problem Status W/U Status Risk Notes Problem Hyperlipidemia (272.4) Active confirmed Problem 206925877 Hypothyroidism (acquired) (E03.9) Active confirmed Problem 525555370 Vitamin B12 deficiency (E53.8) Active confirmed Problem 93581297 Gout (M10.9) Active confirmed Problem 35830500 Essential hypertension (I10) Active confirmed Problem 57314065 Anxiety (F41.9) Active confirmed Problem 98175026 Hyperuricemia (E79.0) Active confirmed Problem 804424062 Depression with anxiety (F41.8) Active confirmed Problem 86678161 Restless legs (G25.81) Active confirmed Problem 723516761 Mixed hyperlipidemia (E78.2) Active confirmed Problem 15464981 Urge incontinenc e (N39.41) Active confirmed Problem 760123948 BMI 35.0-35.9,ad ult (Z68.35) Active confirmed Problem 74964613 Sciatica of righ t side (M54.31) Active confirmed Problem 596472543 Moderate persist ent asthma without complication (J45.40) Active confirmed Problem 954278968 Gastroesophageal reflux disease without esophagitis (K21.9) Active confirmed Problem 157305222 Acquired hypothyroidism (E03.9) Active confirmed Problem 727981399 Abnormal mammogr am of left breast (R92.8) Active confirmed Problem 350370064 Syncope, unspecified syncope type (R55) Active confirmed Problem 10496747 Right sided sciatica (M54.31) Active confirmed Problem 32218970 Reactive depress ion (situational) (F32.9) Active confirmed Problem 36853497456969077 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) Active confirmed Problem 542768790 Arthropathy of h and (M19.049) Active confirmed Problem 724628464 Moderate persist ent asthmatic bronchitis without complication (J45.40) Active confirmed Problem 617755647 Moderate persist ent asthma with exacerbation (J45.41) Active confirmed Problem 446926037 Seasonal allergi c rhinitis, unspecified trigger (J30.2) Active confirmed Problem 102087232 Basal cell carcinoma (BCC) of ala nasi (C44.311) Active confirmed Problem 53138725 Benign neoplasm of skin of right forearm (D23.61) Active confirmed Vital Signs Heart Rate 105 /min 11/09/2024 Blood pressure diastolic 68 mm Hg 11/09/2024 Height 60 in 11/09/2024 Blood pressure systolic 110 mm Hg 11/09/2024 Weight 179 lbs 11/09/2024 BMI 34.95 kg/m2 11/09/2024 Encounters Encounter Location Date Provider Diagnosis [facility] [address] [facility] [address] [place], [place] [id number] 06/09/2024 Anabell Mae Essential hypertensi on I10 ; Hypothyroidism (acquired) E03.9 ; Depression with anxiety F41.8 ; Basal cell carcinoma (BCC) of ala nasi C44.311 ; Moderate persistent asthmatic bronchitis without complication J45.40 and Arthropathy of hand M19.049 [facility] [address] [facility] [address] [place], [place] [id number] 07/04/2024 Georgette Austin UTI (lower urinary tract infection) N39.0 [facility] [address] [facility] [address] [place], [place] [id number] 07/26/2024 Chela Cavanaugh UTI (lower urinary tract infection) N39.0 [facility] [address] [facility] [address] [place], [place] [id number] 09/08/2024 Regan Petersburg Left hip pain M25.55 2 ; Pyuria R82.81 and Acute left-sided low back pain without sciatica M54.50 [facility] [address] [place], [place] [id number] 10/06/2024 Anabell Mae Essential hypertensi on I10 ; Acquired hypothyroidism E03.9 ; Moderate persistent asthma without complication J45.40 ; Restless legs G25.81 ; Mixed hyperlipidemia E78.2 and BMI 35.0-35.9,adult Z68.35 [facility] [address] [place], [place] [id number] 10/17/2024 Regan Petersburg Pyuria R82.81 and Ac katty left-sided low back pain without sciatica M54.50 [facility] [address] [place], [place] [id number] 10/21/2024 Regan Petersburg Pyuria R82.81 [facility] [address] [place], [place] [id number] 11/09/2024 Regan Petersburg Acute UTI N39.0 ; Dysuria R30.0 ; Acute URI J06.9 and Breast cancer screening by mammogram Z12.31 [facility] [address] [place], [place] [id number] 03/29/2024 Regan Petersburg Right sided sciatica M54.31 [facility] [address] [place] [id number] 06/14/2024 Anabell Mae [facility] [address] [place] [id number] 09/12/2024 Regan Petersburg [facility] [address] [place] [id number] 09/13/2024 Regan Petersburg [facility] [address] [place] [id number] 09/22/2024 Regan Petersburg [facility] [address] [place] [id number] 10/25/2024 Regan Petersburg [facility] [address] [place] [id number] 11/02/2024 Anabell Mae [facility] [address] [facility] [address] [place] [id number] 11/07/2024 Anabell Epifanio Tu Assessments Encounter Date Diagnosis (ICD Code) Assessment Notes Treatment Notes Treatment Clinical Notes Section Notes 03/29/2024 Right sided sciatica (ICD-10 - M54.31) 06/09/2024 Hypothyroidism (acquired) (ICD-10 - E03.9) 06/09/2024 Essential hypertension (ICD-10 - I10) 07/04/2024 UTI (lower urinary tract infection) (ICD-10 - N39.0) good water intake 07/26/2024 UTI (lower urinary tract infection) (ICD-10 - N39.0) Previous culture was sensitive to Macrobid but she remains symptomatic. Plan to repeat culture and treat with Cipro. If no improvement in 1 week if, plan to proceed with CT scan 09/08/2024 Left hip pain (ICD-10 - M25.552) 09/08/2024 Pyuria (ICD-10 - R82.81) 10/06/2024 Essential hypertension (ICD-10 - I10) 10/06/2024 Acquired hypothyroidism (ICD-10 - E03.9) 10/17/2024 Pyuria (ICD-10 - R82.81) 10/17/2024 Acute left-sided low back pain without sciatica (ICD-10 - M54.50) Home exercise program provided to patient heating pad to affected areas 2 to 3 times a day TENS unit OTC recommended 10/21/2024 Pyuria (ICD-10 - R82.81) 11/09/2024 Dysuria (ICD-10 - R30.0) 11/09/2024 Acute UTI (ICD-10 - N39.0) 11/09/2024 Acute URI (ICD-10 - J06.9) 10/06/2024 Moderate persistent asthma without complication (ICD-10 - J45.40) 09/08/2024 Acute left-sided low back pain without sciatica (ICD-10 - M54.50) 06/09/2024 Depression with anxiety (ICD-10 - F41.8) 10/06/2024 Restless legs (ICD-10 - G25.81) INSTRUCTED TO TAKE HER SERTRALINE IN AM, NOT PM 06/09/2024 Basal cell carcinoma (BCC) of ala nasi (ICD-10 - C44.311) 11/09/2024 Breast cancer screening by mammogram (ICD-10 - Z12.31) 06/09/2024 Moderate persistent asthmatic bronchitis without complication (ICD-10 - J45.40) 10/06/2024 Mixed hyperlipidemia (ICD-10 - E78.2) 06/09/2024 Arthropathy of hand (ICD-10 - M19.049) 10/06/2024 BMI 35.0-35.9,adult (ICD-10 - Z68.35) Plan Of Treatment Pending Test Test Name Order Date Mammogram 11/09/2024 P-Culture, Urine 11/09/2024 Insurance Providers Payer Name Payer Address Payer Phone Subscriber Number Group Number Insured Name Patient Relationship to Insured Coverage Start Date Coverage End Date [employer] (MEDICAR E) [address] [address] [place] [address] [phone] [id number] HANY VELASCO Self - patient is the insured Medications Administered Medication Instructions Date of Administration Dosage Notes B-12 11/22/2011 1 mL B-12 12/15/2011 1 mL B-12 06/21/2012 Depo- Medrol 40 mg/ml 08/03/2015 1 mL Depo- Medrol 40 mg/ml 08/19/2019 1.5 mL Dexamethasone 08/28/2010 1 mL Dexamethasone 07/30/2012 1 mL Dexamethasone 08/02/2012 Dexamethasone 06/09/2014 1 mL Dexamethasone 11/04/2021 1 mL Dexamethasone 12/30/2021 1 mL Dexamethasone 07/29/2022 1 mL Dexamethasone 02/27/2023 1 mL Dexamethasone 03/16/2023 1 mL Medical (General) History Medical History History ICD Code Hypertension Hyperthyroidism Hyperlipidemia Neg cardiolyte GXT 2009 Gout Vitamin B 12 deficiency COVID 19 Vaccine, Moderna, 11/2020 Sciatica Flu vaccine 05/2024 RSV Vaccine 05/2024 Surgical History Surgery Date(Month/Year) Arthroscopic knee surgery 2003 Hysterectomy abdominal Partical Knee Replacement 2004 LT Total Knee Replacement 03/2006 Bilateral Cataract 12/2010 Colonoscopy 12/11/2011 Cholecystectomy- [facility] 03/30/2012 [place] Hernia Heart Cath [address] Gonzalez. 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 Montenegro [facility] 2023 Colonoscopy, Dr. Colunga. One polyp 2023 Hospitalization History Reason Date(Month/Year) Labyrinthitis Bilateral Ears- [facility] ER 11/2019
[2024-11-13 20:11] VITALS: BP 124/82; PULSE 88; RESP 16; TEMP 36.9; O2SAT 99; BMI 33.7
--- OUTSIDE RECORDS SUMMARY | 2024-11-13 20:11 | XMS_ITS | Data Portability ---
Author Organization [place] [facility] [place] KARLOS [place] [facility] Address [address] [facility] [address] [place] [address] Assessment No assessment recorded. Plan of Treatment Reminders Order Date Submit Date Provider Last Modified By Organization Details Last Modified Time Details Appointments None recorded. Lab surgical pathology study 2023 024 [facility], [address] [place] [address], [phone], 10:23:38 Referral None recorded. Procedures None recorded. Surgeries None recorded. Imaging None recorded. Medication Orders None recorded. Patient TargetsNo targets recorded. Patient Instructions Encounter Date Encounter Id Patient Instructions Last Modified By Organization Details Last Modified Time 04/29/2017 [id number] Trigger Finger-LC [id number] [id number] Not available 12/05/2021 03:47:08 11/25/2023 [id number] After viewing th e location of the [...] Repor t NAME: GUSTABO WALTER PATH. :SC-2 [id number] Copy to: Diagn osis: Right nasal sidew [...] Not Available [facility] [address] [place] [address], [phone], 11/02/2023 10:23:38 Result Notes None recorded. Procedures Surgical History Date Name Laterality Status Provider Name and Address Organization Details Recorded Time 10/30/19 24 Biopsy Skin Lesion; Tangential completed JEREMIAH WARD PA-C [address] [place] [address], [phone], [facility] 10/30/2023 12:08:30 10/30/19 24 Destruction Premalignant Lesion(s) completed [facility] 10/30/2023 10:38:26 10/30/19 24 Destruction BN Lesions completed [facility] 10/30/2023 10:38:45 04/29/20 17 Injection Trigger Finger Ortho completed MALLORIE TRAMMELL MD [address] [place] [address], [phone], [facility] 04/29/2017 11:17:18 Imaging Results None recorded. Procedure Notes None recorded. Medical Equipment None Reported. Allergies Allergen ID Allergen Name Allergen Category Reaction Reaction Severity Criticality Documentation Date Start Date Code Code System Note Provider Name and Address Organization Details Recorded Time 806296 Substance with sulfonami de structure and antibacte rial mechanism of action (substanc e) medicatio n Not available Not available Not available 04/29/2017 43037 8003 SNOMED Olga Branham [facility] 7 10:54:20 231574 acetamino phen / hydrocodo ne medicatio n Not available Not available Not available 04/29/2017 70756 2 RxNorm Olga Branham [facility] 7 10:54:25 Medications Name Sig Start [...] Updated DateTime 04/29/2017 152.4 cm 35.5 kg/m2 22920.81 g Olga Branham [facility] 04/29/2017 10:53:10 Social History Question Answer Notes LastModified by Organization D etails LastModified Time What Is Your Level Of Caffeine Consumption? Moderate Information not available 04/29/2017 Which Of Your Hands Is Dominant? Right Information not available 04/29/2017 Which Hand Is Involved? Left Information not available 04/29/2017 How Long Have You Had These Symptoms? 3 Months Information not available 04/29/2017 Marital Status Informatio n not available 04/29/2017 Sex: Unknown Functional Status Question Answer Note LastModified by Organizat ion Details LastModified Time Do you use any illicit or recreational drugs? No Information not available 04/29/2017 What is your level of alcohol consumption? None Information not available 04/29/2017 Are you currently employed? No Information not available 04/29/2017 What is your occupation? retired Information not available 04/29/2017 Mental Status None recorded. Family History Relationship Description Onset Age of this Age Resolved Age Notes LastModified by Organization Details LastModified Time Father No current problems or disability Not available 04/29 10:57:31 Mother No current problems or disability Not available 04/29 10:57:31 Medical History Condition Response Allergies/Hayfever N Anxiety/Depression N Gout Y Other N Thyroid Disease N Kidney Stones Y Heart Conditions N Hernia N Migraines N COPD N Glaucoma N Pneumonia N Skin Problems N Immune System Disorder N Anesthesia Complications N Heart Attack ([place]) N Mental Illness N Neurological Problems N Diabetes N Rheumatic Fever N Bleeding Disorder N Arthritis Y Seizures/Epilepsy N Blood Clot N Tuberculosis N Genetic Disorder N AIDS/HIV N Cancer N Stroke N Asthma N Blood Thinners N Alcohol Overuse/Alcohol Abuse N Sleep Apnea N High Cholesterol Y Liver Disease N Included as Review of Systems N Hypertension Y Osteoporosis N Kidney Disease N Gynecological HistoryNo gynecological history recorded. Obstetrics History GPAL:G 0 P 0 0 0 0 Past Encounters Encounter ID Performer Location Encounter Start Date Encounter Closed Date Diagnosis/Indication Diagnosis SNOMED-CT Code Diagnosis ICD10 Code Diagnosis Note [id number] MALLORIE TRAMMELL MD [facility] [address] [place] [address] 04/29/2017 10:43:24 04/29/2017 14:04:22 Trigger finger [id number] 40069 M65.30 Left long finger, injection. Also has a Dupuytren' s nodule. She may call to schedule release A1 wendy left long finger through a chevron-sh aped incision at which time we will excise the palmar nodule as well. Can be done under local anesthetic or local Mac [id number] JEREMIAH WARD PA-C [facility] [address] [place] [address] 10/30/2023 10:05:25 10/30/2023 11:05:27 History of malignant basal cell neoplasm of skin 118103716 Z85.828 RIGHT NASAL SIDEWALL - PT REPORTED BCC TREATED BY MOHS BY DR. BETANCOURT, WILL OBTAIN HISTORICAL RECORDS AND CONFIRM - SEE NOTE BELOWLIKEL Y RECURRENCE - BX TODAY THEN SEND TO DR. JOHNSON OR [facility]YLER ONCE CONFIRMED Neoplasm o f uncertain behavior of skin 56038967 D48.5 RIGHT NASAL SIDEWALLR/ O RECURRENT BCCSHAVE BIOPSYCONS ENT AND PHOTO OBTAINEDSE E PROCEDURE NOTEWOUND CARE INSTRUCTIO NS PROVIDEDF/ U PER PATH Actinic keratosis 491872 007 L57.0 CRYO X 6PT ADVISED WHAT TO EXPECT FROM FREEZINGRE COMMENDED SUN PROTECTIVE CLOTHING/H ATS AND OTC SPF 30+ EQUATE SPORT OR BLUE LIZARD SUNSCREEN DAILYF/U IF DO NOT RESOLVE Raised sania orrheic keratosis [id number] 12644 L82.1 BENIGN APPEARANCE ; PT REASSURED Inflamed s eborrheic keratosis 874741381 L82.0 CRYO X 2PT ADVISED WHAT TO EXPECT FROM FREEZINGF/ U IF DO NOT RESOLVE Hemangioma 132160470 D18 .00 BENIGN APPEARANCE ; PT REASSURED Solar lentiginosis 01004 2006 L81.4 BENIGN APPEARANCE ; PT REASSUREDR ECOMMENDED SUN PROTECTIVE CLOTHING/H ATS AND OTC SPF 30+ EQUATE SPORT OR BLUE LIZARD SUNSCREEN DAILY [id number] LASHELL A MARZOLF, MD [facility] [address] [place] [address] 11/25/2023 13:08:07 11/26/2023 05:20:51 Basal cell carcinoma of nose 730075474 C44.311 Mohs surgery was discussed and jeremias [...] scarring, and/or risk of additional tissue damage. [id number] LASHELL NORWOOD MD [facility] [address] [place] [address] 02/12/2024 07:34:18 02/18/2024 14:32:25 Health Concerns Section Related Observation LastModified by Organization Detai ls LastModified Time None Recorded Concern Status LastModified by Organization Details LastModified Time None Recorded Advance Directives Directive None Recorded Payers Insurance Date Sequence Insurance Name Policy Number Policy Payton Covered Member ID Payton Member ID Guarantor Name 07/21/2017 2 [employer] PLAN (PPO) [id number] Juan J Joy [id number] Magui Joy 10/30/2023 1 [employer] (MEDICARE REPLACEMENT/AD VANTAGE - HMO) [id number] Magui Joy [id number] Magui Calvoanan 02/22/2024 1 [place]MEDICARE REPLACEMENT HMO) [id number] Magui Joy [id number] Magui Calvoanan 10/30/2023 1 [employer] (MEDICARE REPLACEMENT/AD VANTAGE - PPO) Magui York Rufino [id number] Magui Chela Rufino Notes Date Note Type Note Provider Name and Address Organization Details Recorded Time 04/29/2017 text/html Hand SurgeryRepo rted bypatient.Hand Dominance:right Location:left Severity:pain level 8/10 Previous Surgery:none Work Related:no Working:retired from work Three-month history mass in the palm over the left long finger, also clicking catching left long finger with locking, painful. 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 MALLORIE TRAMMELL MD [address] [place] [address], [phone], [facility] 04/29/2017 11:18:24 10/30/2023 text/html NEW PATIENT HX OF ?BCC- RIGHT NASAL SIDEWALL S/P MOHS BY DR. 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 JEREMIAH WARD PA-C [address] [place] [address], [phone], [facility] 10/30/2023 12:12:52 11/25/2023 text/html Patient presents for a consult to treat a BCC on the Right Nasal Sidewall. LASHELL NORWOOD MD [address] [place] [address], [phone], [facility] 11/25/2023 18:03:47 OBGyn Episode No OBEpisode recorded.
--- NOTE | 2024-11-13 20:24 | XR_ITS ---
PROCEDURE INFORMATION: Exam: XR Chest Exam date and time: 11/13/2024 8:25 PM Age: 74 years old Clinical indication: Cough and shortness of breath; Additional info: Productive cough, SOA TECHNIQUE: Imaging protocol: Radiologic exam of the chest. Views: 2 views. Total images: 2 COMPARISON: CR XR RIBS LT MIN 3V W CXR1V 07/31/2022 11:18 AM FINDINGS: Lungs: Fine linear scarring in the lingula. No consolidation. No pulmonary vascular congestion or edema. Pleural spaces: Unremarkable. No pleural effusion. No pneumothorax. Heart/Mediastinum: Unremarkable. No cardiomegaly. No mediastinal widening or hilar enlargement. Vasculature: Atherosclerotic and mildly tortuous thoracic aorta. Bones/joints: Osteopenia. Mild degenerative changes of the thoracic spine. Remote mild anterior wedging of a midthoracic vertebral body, unchanged from December 2021. IMPRESSION: 1. No radiographically acute cardiopulmonary process. 2. Chronic findings.
[2024-11-13 20:31] VITALS: BP 107/60; PULSE 81; O2SAT 93
--- NOTE | 2024-11-13 20:31 | HMH.EDGENADL ---
Discharge Plan Disposition Patient Disposition: Home, Self-Care Prescriptions Prescriptions: New prednisone 20 mg tablet 40 mg PO DAILY 5 Days Qty: 10 0RF No Action pravastatin 20 mg tablet 20 mg PO DIRECTED Patient Comments: TAKE 1 TABLET BY MOUTH ON THURSDAY, THURSDAY AND THURSDAY Rx Instructions: 1 tab thu, thu & thu hydrochlorothiazide 12.5 mg tablet 12.5 mg PO DAILY Patient Comments: TAKE 1 TABLET BY MOUTH ONCE DAILY IN THE MORNING losartan 25 mg tablet 25 mg PO DAILY Rx Instructions: 25mg in morning and 12.5 at bedtime aspirin [Adult Low Dose Aspirin] 81 mg tablet,delayed release (DR/EC) 81 mg PO DAILY ipratropium-albuterol 0.5 mg-3 mg(2.5 mg base)/3 mL solution for nebulization 3 ml INHALATION Q6H PRN (Reason: shortness of breath or wheezing) Qty: 90 6RF montelukast 10 mg tablet 10 mg PO DAILY albuterol sulfate [Ventolin HFA] 90 mcg/actuation HFA aerosol inhaler 2 inh inhalation Q6H PRN (Reason: shortness of breath or wheezing) 90 Days Qty: 18 3RF sertraline 50 mg tablet 25 mg PO DAILY Patient Comments: TAKE 1/2 (ONE-HALF) TABLET BY MOUTH ONCE DAILY allopurinol 100 mg tablet 300 mg PO DAILY Qty: 90 0RF levothyroxine [Synthroid] 75 mcg tablet 75 mcg PO DAILY Qty: 90 0RF diphenhydramine HCl 25 mg capsule 25 mg PO Q6HP PRN (Reason: Itching) Qty: 30 0RF ondansetron 4 mg tablet,disintegrating 4 mg PO Q6H PRN (Reason: nausea and vomiting) 5 Days Qty: 20 0RF doxepin 10 mg capsule 10 mg PO DAILY Patient Comments: TAKE 1 CAPSULE BY MOUTH ONCE DAILY AT BEDTIME Referrals Follow up/Referrals: Regan Britton MD [Primary Care Provider, Medical] - See instructions Activity Restrictions/Add. Instructions Additional Instructions/Restrictions: Call your family doctor to establish care for this visit to the emergency department and schedule follow-up within 48 hours to ensure improvement. If you have any worsening of your condition or any other concerning signs or symptoms, return to the emergency department or your primary care doctor for further evaluation. Prednisone each morning for the next 5 days. Clinical Impressions Clinical Impression: Bronchitis Print Language Print Language: Amharic Discharge ED Provider: Fidel Barnes General Adult [facility] General Chief complaint: Upper Respiratory Infection Stated complaint: cough,chest congestion,Heart Rate up Time Seen by Provider: 11/13/24 19:45 Mode of Arrival: Ambulatory Source of Information: Patient and Significant Other Description of Symptoms (Recalled from ER Triage Doc. by RN): Pt presents to ED for cough/congestion X 5 days. Pt states she has a UTI and [place] put her on Cefuroxime on (11/10). Pt states she's feeling worse now than she was. Pt is A&O*4 and rates pain 11/08. History of Present Illness HPI narrative: Please note that above description of symptoms, in this electronic medical record under categorization of recalled from ER triage doctor by RN are reflective of an initial nursing assessment, however, is not reflective of my full history and physical exam that was personally taken and clarified. Consequentially, this preceding description of symptoms, which may include the patient's categorized chief complaint in the EMR, do not reflect my personal clinical impression, and the ultimate description of history of present illness and patient stated complaints should be deferred to this section of the note. Unless stated otherwise or congruent with this section of the note, additional signs, symptoms, or incongruence should be interpreted as inaccurate with my clinical impression. Related Data Home Medications ?Medication ?Instructions ?Recorded ?Confirmed aspirin 81 mg tablet,delayed 81 mg PO DAILY thinner 10/15/17 09/27/24 release (Adult Low Dose Aspirin) hydrochlorothiazide 12.5 mg tablet 12.5 mg PO DAILY 02/17/23 09/27/24 pravastatin 20 mg tablet 20 mg PO DIRECTED 02/17/23 09/27/24 montelukast 10 mg tablet 10 mg PO DAILY 03/10/23 09/27/24 losartan 25 mg tablet 25 mg PO DAILY 08/05/23 09/27/24 sertraline 50 mg tablet 25 mg PO DAILY 09/03/23 09/27/24 doxepin 10 mg capsule 10 mg PO DAILY 11/16/23 09/27/24 Previous Rx's ?Medication ?Instructions ?Recorded ipratropium 0.5 mg-albuterol 3 mg 3 ml inhalation Q6H PRN shortness 08/16/21 (2.5 mg base)/3 mL nebulization of breath or wheezing #90 mL soln ondansetron 4 mg disintegrating 4 mg PO Q6H PRN nausea and 07/27/23 tablet vomiting 5 days #20 tabs albuterol sulfate 90 mcg/actuation 2 inh inhalation Q6H PRN shortness 08/05/23 aerosol inhaler (Ventolin HFA) of breath or wheezing 90 days #18 grams allopurinol 100 mg tablet 300 mg (3 x 100 mg) PO DAILY gout 12/30/23 #90 tabs diphenhydramine HCl 25 mg capsule 25 mg PO Q6HP PRN Itching #30 caps 03/03/24 levothyroxine 75 mcg tablet 75 mcg PO DAILY thyroid #90 tabs 03/15/24 (Synthroid) prednisone 20 mg tablet 40 mg (2 x 20 mg) PO DAILY 5 days 11/13/24 #10 tabs Allergies Allergy/AdvReac Type Severity Reaction Status Date / Time febuxostat (From ULORIC) Allergy Intermediate joints Verified 09/27/24 08:50 hydrocodone (From LORTAB) Allergy Intermediate I-ITCHING Verified 09/27/24 08:50 Sulfa (Sulfonamide Allergy Intermediate I-HIVES Verified 09/27/24 08:50 Antibiotics) (SULFA (SULFONAMIDE ANTIBIOTICS)) [facility] Disclaimer: The information contained in this section may have been updated after the patient was seen, as this information can be updated by other users. Medical History Skin cancer of nose Acquired hypothyroidism URI, acute Gallbladder disease Skin cancer Asthma Palpitations History of skin cancer Abnormal computerized axial tomography of chest Allergic rhinitis, unspecified Seasonal allergies Family history of asthma Mild persistent asthma Wheezing Dyspnea on exertion Surgical History History of stress incontinence procedure using tension free vaginal tape History of bladder suspension procedure History of colonoscopy History of total right knee replacement H/O arthroscopy of knee History of cardiac cath Family History Other Asthma Cancer Coronary artery disease Heart attack Stroke Social History Smoking Status: Unknown if ever smoked second hand exposure: No alcohol intake: never substance use type: denies use current occupational status: retired Travel in the last 8 weeks?: None household members: spouse housing: house current occupational exposures/hazards: No caffeine: Yes Have you lived/traveled outside US in past 30 days?: No Contact w/someone who lives/traveled outside US past 30 days?: No Exposure to someone with infectious disease in past 14 days?: No Do you have a fever (greater than 100.4 F or 38 C)?: No Have you tested positive for COVID-19?: No Exposed to someone with COVID-19 in past 14 days?: No Do you have a sore throat?: No Do you have a cough?: No Do you have any weakness?: No Do you have any diarrhea?: No Are you experiencing any unusual bleeding?: No Do you have any muscle aches/pain?: No Do you have any abdominal pain?: No Are you experiencing loss of taste or smell?: No Other Medical History Have you received the Flu Vaccine for this season: Yes Have you received the Pneumonia Vaccine: Yes ROS Obtained: Yes All systems reviewed & no additional complaints except as documented Physical Exam General General appearance: alert Head Head exam: atraumatic and normocephalic Eye Eye exam: Present normal appearance, PERRL and EOMI Neck Neck exam: Present normal inspection, full ROM and trachea midline Respiratory Respiratory exam: Absent respiratory distress, wheezes, stridor, accessory muscle use or prolonged expiratory phase Cardiovascular Cardiovascular exam: Present other (Pulses equal symmetric in upper and lower extremities) Abdominal Exam Abdominal exam: Present soft; Absent distention, tenderness or pulsatile mass Extremities Exam Extremities exam: Absent edema Neurological Exam Neurological exam: Present alert, oriented X3 and CN II-XII intact; Absent motor sensory deficit Skin Skin exam: Present warm and dry; Absent diaphoresis or erythema Medical Decision Making Medical Records Medical records reviewed: Yes I reviewed the patient's medical records. Screening: Per USPSTF and CDC recommendations, given the prevalence of disease in our region, it is our hospital?s policy to screen for HIV and viral Hepatitis for all patients aged 18 and over and those with ongoing risk factors. Yosef Inquiry Pt receiving controlled substance: No Yosef was queried for this patient: No Vital Signs: 11/13/24 20:11 11/13/24 20:31 Temperature 98.4 F Temperature Source Oral Pulse Rate 81 Pulse Rate [Left] 88 Respiratory Rate 16 Blood Pressure 107/60 L Blood Pressure [Right Arm] 124/82 Blood Pressure Mean [Right Arm] 96 02 Sat by Pulse Oximetry 99 93 L Oxygen Delivery Method Room Air Orders (Tests/Meds): ED MEDICATIONS Discontinued Medications Generic Name Dose Route Start Last Admin Trade Name Issa PRN Reason Stop Dose Admin Dexamethasone 10 mg 11/13/24 20:24 11/13/24 21:13 Dexamethasone 4mg Tablet PO 11/13/24 20:25 10 mg ONCE ONE Administration ORDERS Category Date Time Status CXR 2 view (NOT portable) [XR chest 2V] Stat Exams 11/13/24 20:24 Taken Medical Decision Narrative: 74-year-old female history of asthma presenting with shortness of breath and cough. Been having cough for about a week. Went to her family doctor 3 days prior to this, started on cefuroxime for UTI and bronchial pneumonia. Continuing to cough. No fevers or chills, but exertionally short of breath secondary to persistent cough. Not able to sleep, etc. Came in for further evaluation. Denies chest pain, but is having flank pains and muscle aches secondary to all the coughing. History was obtained via conversation with patient and . On arrival, patient hemodynamically stable, alert, oriented x4, appropriate, GCS 15, moving all extremities spontaneously, pupils equal and reactive to light. Full physical exam performed and significant for well-appearing female no acute distress. Lungs are clear anterior and posterior bilaterally. She is coughing every 5 to 10 seconds. Producing minimal amounts of sputum. Cardiac exam with no murmurs gallops or rubs. No lower extremity edema. Pulses equal and symmetric. Speaking in full sentences and no prolonged expiratory phase. Differential includes asthma exacerbation, bronchitis, pneumonia, among others. Patient placed on continuous cardiac monitoring and continuous pulse ox with initial blood pressure 124/82, heart rate 88, saturation 99% on room air. Patient was given Decadron for symptomatic management and correction of underlying abnormalities. Workup independently interpreted and significant for Bronchial inflammation, no evidence of overt consolidation. Given patient presentation, workup, history, this most likely represents acute bronchitis. Because patient at baseline without signs or symptoms of clinical decompensation, deemed appropriate for discharge. Results were relayed to patient who voiced understanding and were agreeable to outpatient management and follow up. I discussed my clinical impression with patient and answered all questions. At this time, the evidence for any other entities in the differential is insufficient to warrant any further testing or ED observation. This was explained as well. Advisory was given that persistent or worsening symptoms require further evaluation. I confirmed the understanding of this discussion. Pharmacy Informatics Specialist disclaimer Much of this encounter note is an electronic blood bank custodian spoken language to printed text. Electronic blood bank custodian of the spoken language may permit errors. Although I have reviewed the note, some errors may still exist. Critical Care Critical Care Time Critical Care Time: No
[2024-11-13 21:00] VITALS: BP 104/77; PULSE 76; O2SAT 96
[2024-11-13] MEDS: DEXAMETHASONE 4MG TABLET 10 MG PO (21:13)
[2024-11-13 21:25] VITALS: BP 104/77; PULSE 84; RESP 16; TEMP 36.8; O2SAT 97
[2024-11-13 21:30] VITALS: BP 109/70; PULSE 77; O2SAT 96
== END 2024-11-13 21:46 | disposition home or self-care (01) ==
PROVIDERS: Emergency Provider Emergency Medicine; PCP Family Medicine
DX: J20.9 Acute bronchitis, unspecified (principal)
CPT/HCPCS: 71046; 99283; J8540

== ENCOUNTER 2024-11-14 16:12 | Outpatient (CLI) | payer MEDICARE, SELFPAY ==
--- OUTSIDE RECORDS SUMMARY | 2024-10-17 10:45 | XMS_ITS ---
Author Organization [facility] Address 1210 [facility] 36 [facility] [address] [place] [phone] Care Team Providers Care Naval Gunfire Liaison Officer Name Role Phone Anabell Mae Primary Care Provider Regan Britton Unavailable [phone] Allergies Allergen (clinical drug ingredient) Drug/Non Drug [...] recollected Performing Lab: Notes/Report: Test performed by [facility] [address] [place] [address] , [address], [place] [address] Derek King MD, Assistant Teacher CLIA: [id number] Specimen Source Urine - Void Culture, Urine [...] Encounter Location Date Provider Diagnosis [facility] [address] [id number] 10/17/2024 Regan Cameron Pyuria R82.81 and Acute left-sided low back [...] Notes * SAM VELASCOTEDOB:[birth year] (74 yo F)Acc No.[id number]:10/17/2024 Progress Notes Patient: HANY ESPINO Provider: Quiana Britton M.D. :1950 A ge:74 Y S ex:Female Date:10/17/2024 Address:[address] [place] [address] , [facility] [id number] Pcp:Anabell Mae Subjective: * Chief Complaints: * [...] 03/2006, Bilateral Cataract 12/2010, Colonoscopy 12/11/2011, Cholecystectomy- [facility] 03/30/2012, Morgagni Hernia , Heart Cath 2018, Transvaginal surgery. Dr. Gonzalez. October 2023, BCC of nose with excision and reconstruction, Dr. Montenegro [facility] 2023, Colonoscopy, Dr. Colunga. One polyp 2023. * Hospitalization/Major Diagno stic Procedure: L abyrinthitis Bilateral Ears- [facility] ER 08/06/2019. * Family History: F ather: [...] G 2211 Complex e/[place], [address] Urinalysis, no micro * Follow Up: v ia phone to report progress * Billing Information: * Visit Code: 24939 Office Visit, Est Pt., Level 3. * Procedure Codes: G2211 Complex e/[place]. [address] Urinalysis, no micro. * Electronic signature of Shirley Britton MD on 11/14/2024 at 04:15 PM EDT Sign off status: Pending * Provider: Quiana Britton M.D. Date: 0 10/17/2024 Generated for Nicole jordan/Marybel/Jagdeep on: 0 11/14/2024 04:15 PM EDT History and Physical Notes * [...]
--- OUTSIDE RECORDS SUMMARY | 2024-10-21 07:00 | XMS_ITS ---
Author Organization [facility] Address [facility] [address] [place] [phone] Care Team Providers Care Rock Climbing Team Member Name Role Phone Anabell Mae Primary Care Provider [phone] Regan Britton [phone] Results Component Value Reference Range Notes Urinalysis - Inhouse Reviewed date:10/25/2024 04:36:58 PM Interpretation:Negative Performing Lab: Notes/Report: Negative Color/Clarity yellow/clear Leuk neg Nitrite neg Urobili 3.2 Protein neg pH 6.5 Blood neg Sp. Gr. 1.015 Ketone neg Bili neg Gluc neg REASON FOR VISIT urine sample Encounters Encounter Location Date Provider Diagnosis [facility] [address] [place] [phone] 10/21/2024 Regan Britton Pyuria R82.81 Assessments Encounter Date Diagnosis (ICD Code) Assessment Notes Treatment Notes Treatment Clinical Notes Section Notes 10/21/2024 Pyuria (ICD-10 - R82.81) Plan Of Treatment No Information Progress Notes * SAM VELASCOCASSYOB:[birth year] (74 yo F)Acc No.[id number]:10/21/2024 Patient: HANY ESPINO Provider: Quiana Britton M.D. :1950 A ge:74 Y S ex:Female Date:10/21/2024 Address: [address] [place] Pcp:Anabell Mae Subjective: * Chief Complaints: * 1 . Urine sample. * Medical History: Objective: * Vitals: Assessment: * Assessment: 1. P yuria - R82.81 (Primary) Plan: * Treatment: * Labs: * L ab: Urinalysis - Inhouse (Collection Date & Time - 10/21/2024) N egative Value Reference Range C olor/Clarity yellow/clear * L euk neg * N itrite neg * U robili 3.2 * P rotein neg * p H 6.5 * B lood neg * S p. Gr. 1.015 * K etone neg * B alejandro neg * G radha neg * Blossom Guallpa 10/21/2024 11:2 4:53 AM >Marisa Ding 10/25/2024 04:36:34 PM > Pt informed * Procedure Codes: 8 1002 Urinalysis, no micro * Billing Information: * Visit Code: * Procedure Codes: 39966 Urinalysis, no micro. * Electronic signature of Shirely Britton MD on 11/14/2024 at 04:16 PM EDT Sign off status: Pending * Provider: Quiana Britton M.D. Date: 0 10/21/2024 Generated for Nicole jordan/Marybel/eTransmitting on: 0 11/14/2024 04:16 PM EDT
--- OUTSIDE RECORDS SUMMARY | 2024-11-09 11:30 | XMS_ITS ---
Author Organization [facility] Address 1210 [facility] [address] [place] [phone] Care Team Providers Care Telecom Coordinator Name Role Phone Anabell Mae Primary Care Provider [phone] Regan Britton Unavailable [phone] Allergies Allergen (clinical drug ingredient) Drug/Non Drug Allergy documented on EMR Reaction Allergy Type Onset Date Status acetaminophen / hydrocodone HYDROcodone-Acetam inophen itching Drug Allergy Active Substance with sulfonamide structure and antibacterial mechanism of action (substance) Sulfa Antibiotics swell up& itch Drug Allergy Active Results Component Value Reference Range Notes P-Culture, Urine (Not yet re viewed by provider) Interpretation:sensitive Performing Lab: Notes/Report: Test performed by [employer] [facility] [place] , [address], [place] [address] Derek King MD, Resource Development Manager CLIA: [id number] Specimen Source Urine - Void Culture, Urine See Below See Microbiol ogy Report Escherichia coli >100,000 CFU/ml Escherichia coli Sensitivity Panel See Below ____ Organism E. coli Antibiotic INTERP ____ Amikacin S Ampicillin S Aztreonam S Cefepime S Cefoxitin S Ceftazidime S Ceftriaxone S Cefuroxime S Ciprofloxacin S Ertapenem S Gentamicin S Imipenem S Levofloxacin S Meropenem S Nitrofurantoin S Piperacillin/Tazo S Tetracycline S Tobramycin S Trimeth/Sulfa S ___ S=SUSCEPTIBLE I=INTERMEDIATE R=RESISTANT Urinalysis - Inhouse Reviewed date:11/10/2024 11:15:53 AM Interpretation: Performing Lab: Notes/Report: Color/Clarity yellow/cloudy Leuk 1+ Nitrite Pos Urobili 3.2 Protein Neg pH 5.5 Blood Neg Sp. Gr. 1.010 Ketone Neg Bili Neg Gluc Neg CBC Fingerstick (in house) Reviewed date:11/10/2024 11:15:43 AM Interpretation: Performing Lab: Notes/Report: wbc 8.3 3.5 - 10 lym 30.2% 15 - 50 mid 8.4% 2 - 15 gran 61.4% 35 - 80 rbc 4.31 3.5 - 5.5 hgb 13.2 11.5 - 16.5 hct 40.3 35 - 55 mcv 93.4 75 - 100 mch 30.7 25 - 35 mchc 32.8 31 - 38 plat 235 100 - 400 REASON FOR VISIT coughing and congestion poss kidney infection Medications Medication SIG (Take, Route, Frequency, Duration) Notes Start Date End Date Status Cefuroxime Axetil 500 MG 1 tablet Orally every 12 hrs for 5 days 11/09/2024 Active Sertraline HCl 50 MG 1/2 tab(s) orally once a day for 90 days Active Levothyroxine Sodium 75 MCG 1 tab(s) Ora lly Once a day for 30 days Active hydroCHLOROthiazide 12.5 MG 1 tablet in the morning Orally Once a day for 90 days Active Allopurinol 300 MG 1 tab(s) orally once a day for 90 days Active Doxepin HCl 10 MG 1 capsule at bedtime Orally Once a day for 90 days Active diazePAM 5 MG 1 tablet as needed Orally Once a day Active Aspirin Adult Low Dose 81 MG 1 tab(s) or ally once a day for 30 day(s) Active Albuterol Sulfate HFA 108 (9 0 Base) MCG/ACT 2 puff(s) inhaled qid prn for 30 day(s) 03/29/2021 Active Pravastatin Sodium 20 MG Take 1 tablet b y mouth once daily Orally 3 times a week (MWF) Active Losartan Potassium 25 MG Take 1 tablet b y mouth twice daily 1 tab in the morning, 1/2 tab at night for 90 days Active Montelukast Sodium 10 MG 1 tablet Orally Once a day for 90 days Active Vital Signs Blood pressure systolic 110 mm Hg 11/10/19 25 Blood pressure diastolic 68 mm Hg 025 Heart Rate 105 /min 11/09/2024 Height 60 in 11/09/2024 Weight 179 lbs 11/09/2024 BMI 34.95 kg/m2 11/09/2024 Encounters Encounter Location Date Provider Diagnosis [facility] [facility] [address] [phone] 11/09/2024 Regan Britton Acute UTI N39.0 ; Dysuria R30.0 ; Acute URI J06.9 and Breast cancer screening by mammogram Z12.31 Assessments Encounter Date Diagnosis (ICD Code) Assessment Notes Treatment Notes Treatment Clinical Notes Section Notes 11/09/2024 Acute UTI (ICD-10 - N39.0) 11/09/2024 Dysuria (ICD-10 - R30.0) 11/09/2024 Acute URI (ICD-10 - J06.9) 11/09/2024 Breast cancer screening by mammogram (ICD-10 - Z12.31) Plan Of Treatment Medication Medication Name Sig Start Date Stop Date Notes Cefuroxime Axetil 500 MG 1 tablet Orally every 12 hrs for 5 days 11/09/2024 Pravastatin Sodium 20 MG Take 1 tablet b y mouth once daily Orally 3 times a week (MWF) Pending Test Test Name Order Date Mammogram 11/09/2024 P-Culture, Urine 11/09/2024 Next Appt Details Follow Up: via phone to repo rt test results, Reason: Progress Notes * KAREL VELASCOOB:[birth year] (74 yo F)Acc No.[id number]:11/09/2024 Progress Notes Patient: HANY ESPINO Provider: Quiana Britton M.D. :1950 A ge:74 Y S ex:Female Date:11/09/2024 Address:[address] [place] [address] , [id number] Pcp:Anabell Mae Subjective: * Chief Complaints: * 1 . Coughing and congestion poss kidney infection. * HPI: E NT/respiratory: 74 year old female presents with c/o cough P t complains greenish yellow sputum production cough for about 4 days. Associated with nasal congestion and dizziness. Denies : Fever. D enies : body aches. U rology: c/o burning sensation P t complains burning with urination since Thursday. * ROS: C ARDIOLOGY: no D izziness. n o C hest pain. D ERMATOLOGY: no R renate. n o H robi. G ASTROENTEROLOGY: no N ausea. n o V omiting. * Medical History: H ypertension, Hyperthyroidism, Hyperlipidemia, Neg cardiolyte GXT 2008, Gout, Vitamin B 12 deficiency, COVID 19 Vaccine, Moderna, 11/2020, Sciatica, Flu vaccine 05/2024, RSV Vaccine 05/2024. * Surgical History: A rthroscopic knee surgery 2003, Hysterectomy abdominal , Partical Knee Replacement 2004, LT Total Knee Replacement 03/2006, Bilateral Cataract 12/2010, Colonoscopy 12/11/2011, Cholecyst[facility]- [facility] 03/30/2012, Morgagni Hernia , Heart Cath 2018, Transvaginal surgery. Dr. Gonzalez. October 2023, BCC of nose with excision and reconstruction, Dr. Montenegro [facility] 2023, Colonoscopy, Dr. Colunga. One polyp 2023. * Hospitalization/Major Diagno stic Procedure: L abyrinthitis Bilateral Ears- [facility] ER 08/06/2019. * Family History: F ather: 72 yrs, pancreatitis, asthma. M other: 86 yrs, stroke, cancer(Kidney), CHF. P aternal Grand Father: . P aternal Grand Mother: . M aternal Grand Father: . M aternal Grand Mother: . Paloma jennings: leukemia, son, [...] tab(s) orally once a day , Taking Levothyroxine Sodium 75 MCG Tablet 1 tab(s) Orally Once a day , Taking hydroCHLOROthiazide 12.5 MG Tablet 1 tablet in the morning Orally Once a day , Taking Allopurinol 300 MG Tablet 1 tab(s) orally once a day , Taking Montelukast Sodium 10 MG Tablet 1 tablet Orally Once a day , Taking Pravastatin Sodium 20 MG Tablet Take 1 tablet by mouth once daily Orally Once a day , Taking Losartan Potassium 25 MG Tablet Take 1 tablet by mouth twice daily 1 tab in the morning, 1/2 tab at night , Taking Doxepin HCl 10 MG Capsule 1 capsule at bedtime Orally Once a day , Medication List reviewed and reconciled with the patient * Allergies: S ulfa Antibiotics: swell up& itch, HYDROcodone-Acetaminophen: itching. Objective: * Vitals: W t: 179, Temp: 98.0, BP: 110/68, HR: 105, Nurse: michelle, Ht: 60, BMI:34.95. * Examination: E NT/Respiratory: General Appearance: N AD. Eyes: P ERRLA, sclera clear. Ears: a uditory canals normal bilaterally, TM's WNL. Oral cavity : e rythema without exudate on pharynx. Neck : n o cervical lymphadenopathy. Heart : R RR, normal S1 S2. Lungs: c lear to auscultation bilaterally. G eneral Examination: Peripheral pulses: n ormal (2+) bilaterally. Back: n o CVA tenderness. Extremities: n o leg edema. Assessment: * Assessment: 1. A cute UTI - N39.0 (Primary) 2 . D ysuria - R30.0 3 .?Acute URI - J06.9 4 . B reast cancer screening by mammogram - Z12.31 ? Plan: * Treatment: Value Reference Range C ulture, Urine See Below - * S pecimen Source Urine - Void - * S ensitivity Panel See Below - * E scherichia coli >100,000 CFU/ml Escherichia coli - * Maegan Wang 11/14/2024 10:0 5:46 AM EDT >pt started on cefuroxime ?LAB: Urinalysis - Inhouse (Collection Date & Time - 11/09/2024)* Value Reference Range C olor/Clarity yellow/cloudy * L euk 1+ * N itrite Pos * U robili 3.2 * P rotein Neg * p H 5.5 * B lood Neg * S p. Gr. 1.010 * K etone Neg * B alejandro Neg * G radha Neg * Marisa Ding 11/09/2024 03:32: 43 PM EDT > Provider reviewed results while patient in office. 2.?Dysuria?LAB: P-Culture, Urine (Collection Date & Time - 11/09/2024 02:49 PM)? sensitive* Value Reference Range C ulture, Urine See Below - * S pecimen Source Urine - Void - * S ensitivity Panel See Below - * E scherichia coli >100,000 CFU/ml Escherichia coli - * Maegan Wang 11/14/2024 10:0 5:46 AM EDT >pt started on cefuroxime 3.?Acute URI?LAB: CBC Fingerstick (in house) (Collection Date & Time - 11/09/2024)* Value Reference Range w bc 8.3 3.5 - 10 * l ym 30.2% 15 - 50 * m id 8.4% 2 - 15 * g ran 61.4% 35 - 80 * r bc 4.31 3.5 - 5.5 * h gb 13.2 11.5 - 16.5 * h ct 40.3 35 - 55 * m cv 93.4 75 - 100 * m ch 30.7 25 - 35 * m chc 32.8 31 - 38 * p lat 235 100 - 400 * Marisa Ding 11/09/2024 03:34: 11 PM EDT > Provider reviewed results while patient in office. 4.?Breast cancer screening by mammogram?Imaging: Mammogram* Leena Guido 11/09/2024 04:0 1:54 PM EDT > faxed to [facility] Heather Barrett 11/10/2024 08:36:56 AM EDT >Appt 11/14/24 @ 4:30 5.?Others? Decrease Pravastatin Sodium Tablet, 20 MG, Take 1 tablet by mouth once daily, Orally, 3 times a week (MWF).?? * Procedure Codes: G 2211 Complex e/[place], [address] CAPILLARY BLOOD DRAW, 71554 CBC WITH AUTO DIFF, 23035 Urinalysis, no micro * Follow Up: v ia phone to report test results * Billing Information: * Visit Code: 63602 Office Visit, Est Pt., Level 4. * Procedure Codes: G2211 Complex e/[place]. [address] CAPILLARY BLOOD DRAW. 52004 CBC WITH AUTO DIFF. 82677 Urinalysis, no micro. * Electronic signature of Shirley Britton MD on 11/14/2024 at 04:15 PM EDT Sign off status: Pending * Provider: Quiana Britton M.D. Date: 11/09/2024 Generated for Nicole jordan/Luis Fernandog/eTransmitting on: 11/14/2024 04:15 PM EDT History and Physical Notes * HPI (History of Present Illness) Category Sub-Category Detail Notes Category Not es ENT/respiratory cough Pt complains gre enish yellow sputum production cough for about 4 days. Associated with nasal congestion and dizziness Fever body aches Urology burning sensation Pt complains burning wi th urination since Thursday Examination Category Sub-Category Detail Notes Category Not es ENT/Respiratory Oral cavity : erythema without exudate on pharynx Ears: auditory canals norm al bilaterally, TM's WNL Neck : no cervical lymphade nopathy Heart : RRR, normal S1 S2 Lungs: clear to auscultatio n bilaterally General Appearance: NAD Eyes: PERRLA, sclera clear General Examination Extremities: no leg edema Peripheral pulses: normal (2+) bilatera lly Back: no CVA tenderness
--- OUTSIDE RECORDS SUMMARY | 2024-11-14 16:16 | XMS_ITS | Patient Health Record ---
[facility] Address [address] [place] [id number] Care Team Providers Care Centerless Grinder Tender Name Role Phone Anabell Mae Primary Care Provider [phone] Chela Cavanaugh Unavailable [phone] Regan Britton Unavailable [phone] Georgette Austin Unavailable [phone] Allergies Allergen (clinical drug ingredient) Drug/Non Drug [...] Interpretation:sensitive Performing Lab: Notes/Report: Test performed by [facility], Actions [address] [place] [address] , [address], [place] [address] Derek King MD, Shot Peening Operator CLIA: [id number] Specimen Source Urine - Void Culture, Urine [...] - 38 plat 235 100 - 400 Urinalysis - Inhouse Reviewed date:10/18/2024 12:34:24 PM Interpretation: Performing Lab: Notes/Report: Color/Clarity yellow Leuk trace Nitrite neg Urobili 3.2 Protein neg pH 5.5 Blood neg Sp. Gr. 1.015 Ketone neg Bili neg Gluc neg P-Culture, Urine Reviewed date:10/19/2024 01:19:08 PM Interpretation:suggest contamination, needs recollected Performing Lab: Notes/Report: Test performed by [facility], [address] [place] [address] , [address], [place] [address] Derek King MD, Shot Peening Operator CLIA: [id number] Specimen Source Urine - Void Culture, Urine [...] 1.015 Ketone neg Bili neg Gluc neg Urinalysis - Inhouse Reviewed date:09/13/2024 04:25:53 PM Interpretation: Performing Lab: Notes/Report: Color/Clarity yellow/clear Leuk Trace Nitrite Neg Urobili 3.2 Protein Neg pH 6.5 Blood Neg Sp. Gr. 1.015 Ketone Neg Bili Neg Gluc Neg P-Culture, Urine Reviewed date:09/12/2024 03:07:38 PM Interpretation:No Growth Performing Lab: Notes/Report: Test performed by [facility] [address] [place] [address] , [address], [place] [address] Derek King MD, Shot Peening Operator CLIA: [id number] Specimen Source Urine - Void Culture, Urine See Below Final Report : No growth X ray : Hip, left Reviewed date:09/22/2024 12:41:21 PM Interpretation:degenerative changes, if symptoms persist, consider CT Performing Lab: Notes/Report: degenerative changes, if symptoms persist, consider CT colonoscopy Reviewed date:02/29/2024 07:58:53 AM Interpretation:DR COLUNGA Performing Lab: Notes/Report: DR COLUNGA CBC Venipuncture (in house) Reviewed date:06/10/2024 08:44:20 [...] - 38 platlet 272 100 - 400 Antinuclear Antibodies (KELL) Screen Reviewed date:06/10/2024 01:35:27 PM Interpretation:Normal Performing Lab: Notes/Report: Test performed by [facility] [address] , [address], [place] [address] Derek King MD, Shot Peening Operator CLIA: [id number] Antinuclear Antibodies (KELL) Screen Negative Negative This test is perform ed by Multiplex Bead Immunoassay methodology. P-Comprehensive Metabolic Pa venecia (CMP) Reviewed date:06/10/2024 01:35:27 PM Interpretation:Normal Performing Lab: Notes/Report: Test performed by [facility] [address] , [address], [place] [address] Derek King MD, Shot Peening Operator CLIA: [id number] Sodium 142 135-145 mmol/L Potassium 4.2 3.5-5.3 [...] 0.3 <0.2-1.2 mg/dL A/G Ratio 1.8 1.1-2.5 P-Sed Rate (ESR) Reviewed date:06/10/2024 01:35:27 PM Interpretation:Normal Performing Lab: Notes/Report: Test performed by [facility] [address] , [address], [place] [address] Derek King MD, Shot Peening Operator CLIA: [id number] Erythrocyte Sedimentation Rate (ESR), Automated 18 <31 mm/hr P-Rheumatoid Factor Reviewed date:06/10/2024 01:35:27 PM Interpretation:Normal Performing Lab: Notes/Report: Test performed by [facility] [address] [place] [address] , [address], [place] [address] Derek King MD, Shot Peening Operator CLIA: [id number] Rheumatoid Factor 10.0 <14.1 IU/mL P-TSH Reviewed date:06/10/2024 01:35:27 PM Interpretation:Normal Performing Lab: Notes/Report: Test performed by [facility] [address] [place] [address] , [address], [place] [address] Derek King MD, Shot Peening Operator CLIA: [id number] TSH 1.10 0.43-5.25 mU/L P-KELL Reviewed date:06/10/2024 12:56:59 PM Interpretation: Performing Lab: Notes/Report: Urinalysis - Inhouse Reviewed date:07/04/2024 01:18:37 PM Interpretation: Performing Lab: Notes/Report: Color/Clarity yellow clear Leuk trace Nitrite pos Urobili 3.2 Protein neg pH 6.5 Blood neg Sp. Gr. 1.010 Ketone neg Bili neg Gluc neg P-Culture, Urine Reviewed date:07/13/2024 12:45:35 PM Interpretation: Performing Lab: Notes/Report: Test performed by [facility] [address] [place] [address] , [address], [place] [address] Derek King MD, Shot Peening Operator CLIA: [id number] Specimen Source Urine - Void Culture, Urine [...] Interpretation:sensitive Performing Lab: Notes/Report: Test performed by [facility], [address] , [place] [address] Derek King MD, Shot Peening Operator CLIA: [id number] Specimen Source Urine - Void Culture, Urine [...] Interpretation:Normal Performing Lab: Notes/Report: Test performed by [facility], [address] , [address], [place] [address] Derek King MD, Shot Peening Operator CLIA: [id number] Sodium 138 135-145 mmol/L Potassium 3.8 3.5-5.3 [...] 0.4 <0.2-1.2 mg/dL A/G Ratio 1.6 1.1-2.5 Medications Medication SIG (Take, Route, Frequency, Duration) [...] Vaccine Route Administration Date Status Comme nts xFluzone Intradermal (18-64yrs)-trivalent ID Intradermal 03/04/2012 Administered xFluzone (6mos and older)-trivalent IM Intramuscular 03/15/2010 Administered xFluzone (6mos and older)-trivalent IM Intramuscular 04/08/2011 Administered xFluzone (6mos and older)-trivalent IM Intramuscular 03/28/2013 Administered xFlu shot-36 months and older IM Intramuscular 04/02/2005 Administered xFlu shot-36 months and older IM Intramuscular 04/04/2006 Administered xFlu shot-36 months and older IM Intramuscular 03/18/2007 Administered xFlu shot-36 months and older IM Intramuscular 04/20/2008 Administered xFlu shot-36 months and older IM Intramuscular 02/21/2009 Administered tuberculin (ppd) ID Intradermal 09/07/2007 Administered Tetanus Tdap-Adacel (over 7yrs) IM Intramuscular 02/17/2018 Administered Shingrix Unknown 08/01/2024 Administered Prevnar (PCV20) IM Intramuscular 04/13/2023 Administered Prevnar (PCV13) IM Intramuscular 2014 Administered Prevnar (PCV13) IM Intramuscular 02/17/2018 Administered Prevnar (PCV13) IM Intramuscular 02/20/2020 Administered ppd ID Intradermal 09/19/2008 Administered ppd ID Intradermal 09/25/2009 Administered PNEUMOVAX 23 VACCINE IM Intramuscular 06/05/2021 Administe red MMR Unknown 01/30/1999 Administered H1N1 flu vaccine IM Intramuscular 03/27/2009 Administered Fluzone Quad (6months&older) IM Intramuscular 04/29/2016 Administered Fluzone High Dose (65yr and older) IM Intramuscular 2014 Administered Fluzone High Dose (65yr and older) IM Intramuscular 05/02/2015 Administered Fluzone High Dose (65yr and older) IM Intramuscular 02/20/2020 Administered Fluzone High Dose (65yr and older) IM Intramuscular 06/05/2021 Administered Fluzone High Dose (65yr and older) IM Intramuscular 04/13/2023 Administered DT, 7 YEARS OR OLDER Unknown 01/30/1999 Administered COVID 19 Moderna Unknown 10/30/2020 Administered COVID 19 Moderna Unknown 11/30/2020 Administered COVID 19 Moderna Unknown 06/19/2021 Administered Problems Problem Type SNOMED Code ICD Code Onset Dates Problem Status W/U Status Risk Notes Problem Hyperlipidemia (272.4) Active confirmed Problem 627497492 Hypothyroidism (acquired) (E03.9) Active confirmed Problem 819559219 Vitamin B12 deficiency (E53.8) Active confirmed Problem 83592898 Gout (M10.9) Active confirmed Problem 49031631 Essential hypertension (I10) Active confirmed Problem 33501290 Anxiety (F41.9) Active confirmed Problem 78002222 Hyperuricemia (E79.0) Active confirmed Problem 276483919 Depression with anxiety (F41.8) Active confirmed Problem 94280630 Restless legs (G25.81) Active confirmed Problem 023307758 Mixed hyperlipidemia (E78.2) Active confirmed Problem 83084931 Urge incontinenc e (N39.41) Active confirmed Problem 712749635 BMI 35.0-35.9,ad ult (Z68.35) Active confirmed Problem 44317750 Sciatica of righ t side (M54.31) Active confirmed Problem 857063762 Moderate persist ent asthma without complication (J45.40) Active confirmed Problem 418305508 Gastroesophageal reflux disease without esophagitis (K21.9) Active confirmed Problem 390470504 Acquired hypothyroidism (E03.9) Active confirmed Problem 271951156 Abnormal mammogr am of left breast (R92.8) Active confirmed Problem 999137966 Syncope, unspecified syncope type (R55) Active confirmed Problem 82505917 Right sided sciatica (M54.31) Active confirmed Problem 48698411 Reactive depress ion (situational) (F32.9) Active confirmed Problem 55975423085481243 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) Active confirmed Problem 813178503 Arthropathy of h and (M19.049) Active confirmed Problem 551361932 Moderate persist ent asthmatic bronchitis without complication (J45.40) Active confirmed Problem 872452451 Moderate persist ent asthma with exacerbation (J45.41) Active confirmed Problem 912065716 Seasonal allergi c rhinitis, unspecified trigger (J30.2) Active confirmed Problem 918755985 Basal cell carcinoma (BCC) of ala nasi (C44.311) Active confirmed Problem 07911987 Benign neoplasm of skin of right forearm (D23.61) Active confirmed Vital Signs Heart Rate 105 /min 11/09/2024 Blood pressure diastolic 68 mm Hg 11/09/2024 Height 60 in 11/09/2024 Blood pressure systolic 110 mm Hg 11/09/2024 Weight 179 lbs 11/09/2024 BMI 34.95 kg/m2 11/09/2024 Encounters Encounter Location Date Provider Diagnosis [facility] [address] [facility] [address] [place], [place] [id number] 06/09/2024 Anabell Mae Essential hypertensi on I10 ; Hypothyroidism (acquired) E03.9 ; Depression with anxiety F41.8 ; Basal cell carcinoma (BCC) of ala nasi C44.311 ; Moderate persistent asthmatic bronchitis without complication J45.40 and Arthropathy of hand M19.049 [facility] [address] [facility] [address] [place], [place] [id number] 07/04/2024 Georgette Austin UTI (lower urinary tract infection) N39.0 [facility] [address] [facility] [address] [place], [place] [id number] 07/26/2024 Chela Cavanaugh UTI (lower urinary tract infection) N39.0 [facility] [address] [place], [place] [id number] 09/08/2024 Regan Penfield Left hip pain M25.55 2 ; Pyuria R82.81 and Acute left-sided low back pain without sciatica M54.50 [facility] [address] [place], [place] [id number] 10/06/2024 Anabell Mae Essential hypertensi on I10 ; Acquired hypothyroidism E03.9 ; Moderate persistent asthma without complication J45.40 ; Restless legs G25.81 ; Mixed hyperlipidemia E78.2 and BMI 35.0-35.9,adult Z68.35 [facility] [address] [place], [place] [id number] 10/17/2024 Regan Penfield Pyuria R82.81 and Ac katty left-sided low back pain without sciatica M54.50 [facility] [address] [place], [place] [id number] 10/21/2024 Regan Penfield Pyuria R82.81 [facility] [address] [place], [place] [id number] 11/09/2024 Regan Penfield Acute UTI N39.0 ; Dysuria R30.0 ; Acute URI J06.9 and Breast cancer screening by mammogram Z12.31 [facility] [address] [place], [place] [id number] 03/29/2024 Regan Penfield Right sided sciatica M54.31 [facility] [address] [place], [place] [id number] 06/14/2024 Anabell Mae [facility] [address] [place] [id number] 09/12/2024 Regan Penfield [facility] [address] [place], [place] [id number] 09/13/2024 Regan Penfield [facility] [address] [place] [id number] 09/22/2024 Regan Penfield [facility] [address] [place] [id number] 10/25/2024 Regan Penfield [facility] [address] [place] [id number] 11/02/2024 Anabell Mae [facility] [address] [facility] [address] [place] [id number] 11/07/2024 Anabell Mae Assessments Encounter Date Diagnosis (ICD Code) Assessment [...] 06/09/2024 Depression with anxiety (ICD-10 - F41.8) 06/09/2024 Basal cell carcinoma (BCC) of ala nasi (ICD-10 - C44.311) 10/06/2024 Restless legs (ICD-10 - G25.81) INSTRUCTED TO TAKE HER SERTRALINE IN AM, NOT PM 11/09/2024 Breast cancer screening by mammogram (ICD-10 - Z12.31) 10/06/2024 Mixed hyperlipidemia (ICD-10 - E78.2) 06/09/2024 Moderate persistent asthmatic bronchitis without complication (ICD-10 - J45.40) 06/09/2024 Arthropathy of hand (ICD-10 - M19.049) 10/06/2024 BMI 35.0-35.9,adult (ICD-10 - Z68.35) Plan Of Treatment Pending Test Test Name Order Date Mammogram 11/09/2024 P-Culture, Urine 11/09/2024 Insurance Providers Payer Name Payer Address Payer Phone Subscriber Number Group Number Insured Name Patient Relationship to Insured Coverage Start Date Coverage End Date [employer] (MEDICAR E) [address] [address] [place] [address] [id number] HANY VELASCO Self - patient is the [...] Surgical History Surgery Date(Month/Year) Arthroscopic knee surgery 2004 Hysterectomy abdominal Partical Knee Replacement 2004 LT Total Knee Replacement 03/2006 Bilateral Cataract 12/2010 Colonoscopy 12/11/2011 Cholecystectomy- [facility] 03/30/2012 Morgagni Hernia Heart Cath [address] Gonzalez. 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 Montenegro [facility] 2023 Colonoscopy, Dr. Colunga. One polyp 2023 Hospitalization History Reason Date(Month/Year) Labyrinthitis Bilateral Ears- [facility] ER 11/2019
--- OUTSIDE RECORDS SUMMARY | 2024-11-14 16:16 | XMS_ITS | Encounter Summary ---
Author Organization [facility] Address [address] [place] [address] Care Team Providers Care Crew Boss Name Role Phone Sina Mae MD Primary Care Provider [phone] Encounter Details Date Type Department Care Team (Late st Contact Info) Description 09/16/2022 [facility] [address] [place] [address] Jose Tovar MD [address] [place] [id number] Social History Tobacco Use Types Packs/Day [...] on filedocumented in this encounter Care Teams Crew Boss Relationship Specialty Start Date End Date Sina Mae MD [address] [place] [address] PCP - General 02/09/24 documented as of this encounter
--- OUTSIDE RECORDS SUMMARY | 2024-11-14 16:16 | XMS_ITS | Clinical Summary ---
Author Organization [facility] Address [address] [place] [address] Care Team Providers Care Digital Ad Trafficker Name Role Phone Sina Mae MD Primary Care Provider [phone] Allergies Active Allergy Reactions Criticality Noted [...] 04/06/1998 Dental X-Ray: Full Mouth 04/07/2001 04/06/1998 [id number] Vaccine ( season) 2024 06/19/2021, 11/30/2020, 10/30/2020 [...] Documents on File Type Date Recorded Patient Building Admin Expl anation Advance Directives and Living Will 01/13/2024 Care Teams Digital Ad Trafficker Relationship Specialty Start Date End Date Sina Mae MD [address] [place] [address] PCP - General 02/09/24
--- NOTE | 2024-11-14 16:19 | MM_ITS ---
PROCEDURE INFORMATION: Exam: MG Bilateral Screening 3D Mammography Exam date and time: 11/14/2024 4:25 PM Age: 74 years old Clinical indication: Screening examination TECHNIQUE: Imaging protocol: Bilateral Screening tomosynthesis and 2D mammography including computer-aided detection (CAD) when performed. COMPARISON: 1. MG MM DIG SCREENING MAMM BI W/CAD 04/09/2023 7:51 AM 2. MG MM DIG SCREENING MAMM BI W/CAD 02/04/2022 8:20 AM FINDINGS: MAMMOGRAPHY: Breast composition: There are scattered areas of fibroglandular density. Mass: None. Architectural distortion: None. Calcifications: No suspicious calcifications. Asymmetric density: None. Skin thickening: None. Axillary adenopathy: None. IMPRESSION: No mammographic evidence of malignancy. Annual screening is recommended unless otherwise clinically indicated. ASSESSMENT: BI-RADS Category 1: Negative.
== END 2024-11-14 23:59 | disposition home or self-care (01) ==
LOC: RAD 16:13
PROVIDERS: PCP Family Medicine; Visit Provider Family Medicine
DX: Z12.31 Encounter for screening mammogram for malignant neoplasm of breast (principal); R92.323 Mammographic fibroglandular density, bilateral breasts
CPT/HCPCS: 77063; 77067

== ENCOUNTER 2024-11-30 03:29 | Emergency (ER) | payer MEDICARE, SELFPAY ==
--- OUTSIDE RECORDS SUMMARY | 2024-10-21 07:00 | XMS_ITS ---
Author Organization [facility] Address [facility] [facility] [address] [place] [phone] Care Team Providers Care Public Health Officer Name Role Phone Anabell Mae Primary Care Provider Regan Britton [phone] Results Component Value Reference Range Notes Urinalysis - Inhouse Reviewed date:10/25/2024 04:36:58 PM Interpretation:Negative Performing Lab: Notes/Report: Negative Color/Clarity yellow/clear Leuk neg Nitrite neg Urobili 3.2 Protein neg pH 6.5 Blood neg Sp. Gr. 1.015 Ketone neg Bili neg Gluc neg REASON FOR VISIT urine sample Encounters Encounter Location Date Provider Diagnosis [facility] [address] [place] [phone] 10/21/2024 Regan Britton Pyuria R82.81 Assessments Encounter Date Diagnosis (ICD Code) Assessment Notes Treatment Notes Treatment Clinical Notes Section Notes 10/21/2024 Pyuria (ICD-10 - R82.81) Plan Of Treatment No Information Progress Notes * SAM VELASCOCASSYOB:[birth year] (74 yo F)Acc No.[id number]:10/21/2024 Patient: HANY ESPINO Provider: Quiana Britton M.D. :1950 A ge:74 Y S ex:Female Date:10/21/2024 Address: [address] [id number] Pcp:Anabell Mae Subjective: * Chief Complaints: * [...] Codes: 8 1002 Urinalysis, no micro * Images: Billing Information: * Visit Code: * Procedure Codes: 69983 Urinalysis, no micro. * Electronic signature of Shirley Britton MD on 11/30/2024 at 03:43 AM EDT Sign off status: Pending * Provider: Quiana Britton M.D. Date: 0 10/21/2024 Generated for Nicole jordan/Marybel/eTransmitting on: 0 11/30/2024 03:43 AM EDT
--- OUTSIDE RECORDS SUMMARY | 2024-11-09 11:30 | XMS_ITS ---
Author Organization [facility] [address] [place] [phone] Care Team Providers Care Oracle Database Analyst Name Role Phone Anabell Mae Primary Care Provider [phone] Regan Britton Unavailable [phone] Allergies Allergen (clinical drug ingredient) Drug/Non Drug Allergy documented on EMR Reaction Allergy Type Onset Date Status acetaminophen / hydrocodone HYDROcodone-Acetam inophen itching Drug Allergy Active Substance with sulfonamide structure and antibacterial mechanism of action (substance) Sulfa Antibiotics swell up& itch Drug Allergy Active Results Component Value Reference Range Notes Urinalysis - Inhouse Reviewed date:11/10/2024 11:15:53 AM [...] - 38 plat 235 100 - 400 P-Culture, Urine Reviewed date:11/14/2024 05:59:00 PM Interpretation:sensitive Performing Lab: Notes/Report: Test performed by [employer] [facility] , [address], [place] [address] Derek King MD, Retail Warehouse Supervisor MARI: [id number] Specimen Source Urine - Void Culture, Urine [...] S Trimeth/Sulfa S ___ S=SUSCEPTIBLE I=INTERMEDIATE R=RESISTANT Mammogram Reviewed date:11/21/2024 04:26:35 PM Interpretation:Negative, F/U Annually Performing Lab: Notes/Report: Negative, F/U Annually REASON FOR VISIT coughing and congestion poss kidney infection Medications Medication SIG (Take, Route, Frequency, Duration) Notes Start Date End Date Status Cefuroxime Axetil 500 MG 1 tablet Orally every 12 hrs; Duration: 5 days 11/09/2024 Active Sertraline HCl 50 MG 1/2 tab(s) orally once a day; Duration: 90 days Active Levothyroxine Sodium 75 MCG 1 tab(s) Ora lly Once a day; Duration: 30 days Active hydroCHLOROthiazide 12.5 MG 1 tablet in the morning Orally Once a day; Duration: 90 days Active Allopurinol 300 MG 1 tab(s) orally once a day; Duration: 90 days Active Doxepin HCl 10 MG 1 capsule at bedtime Orally Once a day; Duration: 90 days Active diazePAM 5 MG 1 tablet as needed Orally Once a day Active Aspirin Adult Low Dose 81 MG 1 tab(s) or ally once a day; Duration: 30 day(s) Active Albuterol Sulfate HFA 108 (9 0 Base) MCG/ACT 2 puff(s) inhaled qid prn; Duration: 30 day(s) 03/29/2021 Active Pravastatin Sodium 20 MG Take 1 tablet b y mouth once daily Orally 3 times a week (MWF) Active Losartan Potassium 25 MG Take 1 tablet b y mouth twice daily 1 tab in the morning, 1/2 tab at night; Duration: 90 days Active Montelukast Sodium 10 MG 1 tablet Orally Once a day; Duration: 90 days Active Vital Signs Weight 179 lbs 11/09/2024 Blood pressure systolic 110 mm Hg 11/10/19 25 Blood pressure diastolic 68 mm Hg 025 Heart Rate 105 /min 11/09/2024 Height 60 in 11/09/2024 BMI 34.95 kg/m2 11/09/2024 Encounters Encounter Location Date [facility] [address] [phone] 11/09/2024 Regan Britton Acute UTI N39.0 ; [...] 500 MG 1 tablet Orally every 12 hrs; Duration: 5 days 11/09/2024 Pravastatin Sodium 20 MG Take 1 tablet b y mouth once daily Orally 3 times a week (MWF) Next Appt Details Follow Up: via phone to repo rt test results, Reason: Progress Notes * SAM VELASCOTEDOB:[birth year] (74 yo F)Acc No.[id number]:11/09/2024 Progress Notes Patient: HANY ESPINO Provider: Quiana Britton M.D. :1950 A ge:74 Y S ex:Female Date:11/09/2024 Address:[address] [place] [address] , [place], [id number] Pcp:Anabell Mae Subjective: * Chief Complaints: * [...] 03/2006, Bilateral Cataract 12/2010, Colonoscopy 12/11/2011, Cholecystectomy- [facility] 03/30/2012, Morgagni Hernia , Heart Cath 2018, Transvaginal surgery. Dr. Gonzalez. October 2023, BCC of nose with excision and reconstruction, Dr. Montenegro [facility] 2023, Colonoscopy, Dr. Colunga. One polyp 2023. * Hospitalization/Major Diagno stic Procedure: L abyrinthitis Bilateral Ears- [facility] ER 08/06/2019. * Family History: F [...] Examination: E NT/Respiratory: General Appearance: N AD. E yes: P ERRLA, sclera clear. E ars: a uditory canals normal bilaterally, TM's WNL. O ral cavity : e rythema without exudate on pharynx. N mundo : n o cervical lymphadenopathy. H eart : R RR, normal S1 S2. L ungs: c lear to auscultation bilaterally. G eneral Examination: Peripheral pulses: n ormal (2+) bilaterally. B ack:?no CVA tenderness. E xtremities: n o leg edema. Assessment: * Assessment: [...] 5:46 AM EDT >pt started on cefuroxime Marisa 11/14/2024 05:55:53 PM EDT > Pt informed ?LAB: Urinalysis - Inhouse (Collection Date & [...] 10:0 5:46 AM EDT >pt started on cefuroximeMarisa Ding 11/14/2024 05:55:53 PM EDT > Pt informed 3.?Acute URI?LAB: CBC Fingerstick (in house) (Collection [...] in office. 4.?Breast cancer screening by mammogram?Imaging: Mammogram (Performed Date - 11/14/2024)?Negative, F/U Annually* Leena Guido 11/09/2024 04:0 1:54 PM EDT > faxed to [facility] Heather Barrett 11/10/2024 08:36:56 AM EDT >Appt 11/14/24 @ 4:30Marisa Ding 11/21/2024 04:26:29 PM EDT >Pt informed 5.?Others? Decrease Pravastatin Sodium Tablet, 20 MG, Take 1 tablet by mouth once daily, Orally, 3 times a week (MWF).?? * Procedure Codes: G 2211 Complex e/[place], [address] CAPILLARY BLOOD DRAW, 46483 CBC WITH AUTO DIFF, 42855 Urinalysis, no micro, 1036F TOBACCO NON-USER, G8752 MOST RECENT SYSTOLIC BP < 140MM HG, G8754 MOST RECENT DIASTOLIC BP < 90MM HG, G8783 BP SCR PRFRM RCMDD DEFIND SCR INTVL * Follow Up: v ia phone to report test results * Images: Billing Information: * Visit Code: 22763 Office Visit, Est Pt., Level 4. * Procedure Codes: G2211 Complex e/[place]. [address] CAPILLARY BLOOD DRAW. 03363 CBC WITH AUTO DIFF. 25820 Urinalysis, no micro. 1036F TOBACCO NON-USER. G8752 MOST RECENT SYSTOLIC BP < 140MM HG. G8754 MOST RECENT DIASTOLIC BP < 90MM HG. G8783 BP SCR PRFRM RCMDD DEFIND SCR INTVL. * Electronic signature of Shirley Britton MD on 11/30/2024 at 03:42 AM EDT Sign off status: Pending * Provider: Quiana Britton M.D. Date: 0 11/09/2024 Generated for Nicole jordan/Marybel/eTransmitting on: 0 11/30/2024 03:42 AM EDT History and Physical Notes * HPI [...]
--- OUTSIDE RECORDS SUMMARY | 2024-11-28 10:00 | XMS_ITS ---
[facility] [facility] [address] [place] [id number] Care Team Providers Care Generator Assembler Name Role Phone Anabell Mae Primary Care Provider Regan Britton Unavailable [phone] Allergies Allergen (clinical drug ingredient) Drug/Non Drug [...] 11/28/2024 Encounters Encounter Location Date Provider Diagnosis [facility] [address] [place], [place] [id number] 11/28/2024 Regan Britton Viral bronchitis J20 .8 [...] Notes * KAREL VELASCOOB:[birth year] (74 yo F)Acc No.[id number]:11/28/2024 Progress Notes Patient: Quiana HANY MADDEN Provider: Quiana Britton M.D. :1950 A ge:74 Y S ex:Female Date:11/28/2024 Address:[address] [place] [address] , [place], [id number] Pcp:Anabell Mae Subjective: * Chief Complaints: * [...] 03/2006, Bilateral Cataract 12/2010, Colonoscopy 12/11/2011, Cholecystectomy- [facility] 03/30/2012, Morgagni Hernia , Heart Cath 2018, Transvaginal surgery. Dr. Gonzalez. October 2023, BCC of nose with excision and reconstruction, Dr. Montenegro [facility] 2023, Colonoscopy, Dr. Colunga. One polyp 2023. * Hospitalization/Major Diagno stic Procedure: L abyrinthitis Bilateral Ears- [facility] ER 08/06/2019. * Family History: F ather: [...] 99, O2 Sat: 97% on RA, Nurse: michelel, Ht: 60, BMI:34.95. * Examination: E NT/Respiratory: [...] p lat 167 100 - 400 * Marisa Ding 11/28/2024 02:23: 05 PM EDT > Provider reviewed results while patient in office. * Procedure Codes: G 2211 Complex e/m visit add on * Follow Up: v ia phone to report progress * Images: Billing Information: * Visit Code: 52893 Office Visit, Est Pt., Level 3. * Procedure Codes: G2211 Complex e/m visit add on. * Electronic signature of Shirley Britton MD on 11/30/2024 at 03:42 AM EDT Sign off status: Pending * Provider: Quiana Britton M.D. Date: 11/28/2024 Generated for Nicole jordan/Marybel/eTransmitting on: 11/30/2024 03:42 AM EDT History and Physical [...]
--- NOTE | 2024-11-30 03:30 | ECG_ITS ---
APPROVED REPORT Exam: Resting ECG HR:78 bpm ECG Measurements Heart Rate 78 AXES FL 174 P 53 QRSd 87 QRS -3 QT 359 T 27 QTc 392 Conclusion SINUS RHYTHM WITH OCCASIONAL SUPRAVENTRICULAR PREMATURE COMPLEXES LOW QRS VOLTAGE IN PRECORDIAL LEADS [QRS DEFLECTION < 1.0 mV IN CHEST LEADS] BORDERLINE ECG No STEMI Electronically signed by : DEJUAN ADRIAN, 11/30/2024 06:53:22
[2024-11-30 03:33] VITALS: BP 143/90; PULSE 77; RESP 14; TEMP 36.7; O2SAT 97; BMI 34.9
--- NOTE | 2024-11-30 03:35 | XR_ITS ---
PROCEDURE INFORMATION: Exam: XR Chest Exam date and time: 11/30/2024 3:37 AM Age: 74 years old Clinical indication: Cough and shortness of breath; Additional info: SOA cough TECHNIQUE: Imaging protocol: Radiologic exam of the chest. Views: 2 views. COMPARISON: CR XR CHEST 2V 11/13/2024 8:25 PM FINDINGS: Lungs: Unremarkable. No consolidation. Pleural spaces: Unremarkable. No pleural effusion. No pneumothorax. Heart/Mediastinum: Unremarkable. No cardiomegaly. Bones/joints: Unremarkable. IMPRESSION: No acute findings.
--- OUTSIDE RECORDS SUMMARY | 2024-11-30 03:43 | XMS_ITS | Clinical Summary ---
Author Organization [facility] Address [address] [place] [address] Care Team Providers Care Director Industrial Nursing Name Role Phone Sina aMe MD Primary Care Provider [phone] Allergies Active Allergy Reactions Criticality Noted [...] to incision as directed 1 g 03/14/20 24 Active Active Problems Problem Noted Date Diagnosed [...] Health Maintenance Due Date Last Done Comments [facility]-Bone Density Scan 1950 [facility]-Depression Screening 1950 [facility]-Hepatitis C Screening 1950 [facility]-Medicare Annual Wellness (AWV) 1950 [facility]-/Child/Adol SDOH Screenings 1950 [facility]- SDOH Screenings 1967 [facility]-Adult SDOH Screenings 1967 [facility]-Zoster Vaccines (1 of 2) 1968 CT Colonography 1994 Colonoscopy 1994 FIT-DNA 1994 FIT 1994 FOBT 1994 Sigmoidoscopy 1994 [facility]-Colorectal Cancer Screening 1994 [id number] Vaccine ( season) 2024 06/19/2021, 11/30/2020, 10/30/2020 [...] on patient's age to complete this topic Insurance Advance Directives Documents on File Type Date Recorded Patient Diagnostic Technician Expl anation Advance Directives and Living Will 01/13/2024 Care Teams Director Industrial Nursing Relationship Specialty Start Date End Date Sina Mae MD [address] [place] [address] [place] [address] PCP - General 02/09/24
--- OUTSIDE RECORDS SUMMARY | 2024-11-30 03:43 | XMS_ITS | Encounter Summary ---
Author Organization [facility] Address [address] [place] [address] Care Team Providers Care Assembler Name Role Phone Sina Mae MD Primary Care Provider [phone] Encounter Details Date Type Department Care Team (Late st Contact Info) Description 09/16/2022 [facility] [address] [place] [address] Jose Tovar MD [address] [place] [address] Social History Tobacco Use Types Packs/Day [...] on filedocumented in this encounter Care Teams Assembler Relationship Specialty Start Date End Date Sina Mae MD [address] [place] [address] PCP - General 02/09/24 documented as of this encounter
--- OUTSIDE RECORDS SUMMARY | 2024-11-30 03:43 | XMS_ITS | Patient Health Record ---
Author Organization [facility] Address [facility] [address] [place] [phone] Care Team Providers Care Merchandise Team Manager Name Role Phone Anabell Mae Primary Care Provider Chela Cavanaugh Unavailable [phone] Regan Britton Unavailable [phone] Georgette Austin Unavailable [phone] Allergies Allergen (clinical drug ingredient) Drug/Non Drug [...] Interpretation:sensitive Performing Lab: Notes/Report: Test performed by [facility], [facility] [address] [place] [address] , [address], [place] [address] Derek King MD, [employer] MARI: [id number] Specimen Source Urine - Void Culture, Urine [...] Annually Performing Lab: Notes/Report: Negative, F/U Annually CBC Fingerstick (in house) Reviewed date:11/28/2024 05:12:33 [...] - 38 plat 167 100 - 400 Urinalysis - Inhouse Reviewed date:10/25/2024 04:36:58 PM Interpretation:Negative Performing Lab: Notes/Report: Negative Color/Clarity yellow/clear Leuk neg Nitrite neg Urobili 3.2 Protein neg pH 6.5 Blood neg Sp. Gr. 1.015 Ketone neg Bili neg Gluc neg Antinuclear Antibodies (KELL) Screen Reviewed date:06/10/2024 01:35:27 PM Interpretation:Normal Performing Lab: Notes/Report: Test performed by [facility] [address] [place] [address] , [address], [place] [address] Derek King MD, Rural [employer] CLIA: [id number] Antinuclear Antibodies (KELL) Screen Negative Negative This [...] - 38 platlet 272 100 - 400 P-Comprehensive Metabolic Pa [place] (CMP) Reviewed date:06/10/2024 01:35:27 PM Interpretation:Normal Performing Lab: Notes/Report: Test performed by [facility] [address] [place] [address] , [address], [place] [address] Derek King MD, [employer] CLIA: [id number] Sodium 142 135-145 mmol/L Potassium 4.2 3.5-5.3 [...] Interpretation:Normal Performing Lab: Notes/Report: Test performed by [facility] [address] , [address], [place] [address] Derek King MD, Rural [employer] CLIA: [id number] Erythrocyte Sedimentation Rate (ESR), Automated 18 <31 mm/hr P-Rheumatoid Factor Reviewed date:06/10/2024 01:35:27 PM Interpretation:Normal Performing Lab: Notes/Report: Test performed by [facility] , [address], [place] [address] Derek King MD, [employer] CLIA: [id number] Rheumatoid Factor 10.0 <14.1 IU/mL P-TSH Reviewed date:06/10/2024 01:35:27 PM Interpretation:Normal Performing Lab: Notes/Report: Test performed by [facility] [address] , [address], [place] [address] Derek King MD, [employer] CLIA: [id number] TSH 1.10 0.43-5.25 mU/L P-KELL Reviewed date:06/10/2024 12:56:59 PM Interpretation: Performing Lab: Notes/Report: Urinalysis - Inhouse Reviewed date:07/04/2024 01:18:37 PM Interpretation: Performing Lab: Notes/Report: Color/Clarity yellow clear Leuk trace Nitrite pos Urobili 3.2 Protein neg pH 6.5 Blood neg Sp. Gr. 1.010 Ketone neg Bili neg Gluc neg P-Culture, Urine Reviewed date:07/13/2024 12:45:35 PM Interpretation: Performing Lab: Notes/Report: Test performed by [facility] [address] , [address], [place] [id number] Derek King MD, [employer] CLIA: [id number] Specimen Source Urine - Void Culture, Urine [...] Interpretation:sensitive Performing Lab: Notes/Report: Test performed by [facility], [address] , [address], [place] [address] Derek King MD, [employer] CLIA: [id number] Specimen Source Urine - Void Culture, Urine [...] S=SUSCEPTIBLE I=INTERMEDIATE R=RESISTANT Urinalysis - Inhouse Reviewed date:09/13/2024 04:25:53 PM Interpretation: Performing Lab: Notes/Report: Color/Clarity yellow/clear Leuk Trace Nitrite Neg Urobili 3.2 Protein Neg pH 6.5 Blood Neg Sp. Gr. 1.015 Ketone Neg Bili Neg Gluc Neg P-Culture, Urine Reviewed date:09/12/2024 03:07:38 PM Interpretation:No Growth Performing Lab: Notes/Report: Test performed by [facility] [address] [place] [address] , [address], [place] [address] Derek King MD, [employer] CLIA: [id number] Specimen Source Urine - Void Culture, Urine See Below Final Report : No growth X ray : Hip, left Reviewed date:09/22/2024 12:41:21 PM Interpretation:degenerative changes, if symptoms persist, consider CT Performing Lab: Notes/Report: degenerative changes, if symptoms persist, consider CT P-Comprehensive Metabolic Pa [place] (CMP) Reviewed date:10/10/2024 12:27:45 PM Interpretation:Normal Performing Lab: Notes/Report: Test performed by [facility] [address] [place] [address] , [address], [place] [address] Derek King MD, [employer] CLIA: [id number] Sodium 138 135-145 mmol/L Potassium 3.8 3.5-5.3 [...] recollected Performing Lab: Notes/Report: Test performed by [facility] [address] [place] [address] , [address], [place] [address] Derek King MD, [employer] CLIA: [id number] Specimen Source Urine - Void Culture, Urine See Below Final Report : 10,000-15,000 CFU/ml Mixed Gram Positive Organisms Three or more organisms present likely representing contamination during collection by patient's urogenital, skin, and/or fecal lucille. Organism identification and sensitivity assessment are not recommended. Specimen recollection is recommended. colonoscopy Reviewed date:02/29/2024 07:58:53 AM Interpretation:DR COLUNGA Performing Lab: Notes/Report: DR COLUNGA Medications Medication SIG (Take, Route, Frequency, Duration) Notes Start Date End Date Status Pravastatin Sodium 20 MG Take 1 tablet [...] once a day; Duration: 90 days Active Aspirin Adult Low Dose 81 MG 1 tab(s) or ally once a day; Duration: 30 day(s) Active Zithromax Z-Alfie 250 MG as directed Orall y daily; Duration: 5 days 11/22/2024 Active diazePAM 5 MG 1 tablet as needed Orally Once a day Active dexAMETHasone 4 MG 1 tablet Orally twic e a day; Duration: 5 days 11/28/2024 Active hydroCHLOROthiazide 12.5 MG 1 tablet in the morning Orally Once a day; Duration: 90 days Active Albuterol Sulfate HFA 108 (9 0 Base) MCG/ACT 2 puff(s) inhaled qid prn; Duration: 30 day(s) 03/29/2021 Active Losartan Potassium 25 MG Take 1 tablet b y mouth twice daily 1 tab in the morning, 1/2 tab at night; Duration: 90 days Active Montelukast Sodium 10 MG 1 tablet Orally Once a day; Duration: 90 days Active Allopurinol 300 MG 1 tab(s) orally once a day; Duration: 90 days Active Immunizations Vaccine Route Administration Date Status [...] Status W/U Status Risk Notes Problem Hyperlipidemia (14078050) Hyperlipidemia (272.4) Active confirmed Problem Hypothyroidism (82371318) Hypothyroidism (acquired) (E03.9) Active confirmed Problem Vitamin B12 deficiency (974133820) Vitamin B12 deficiency (E53.8) Active confirmed Problem Gout (81226669) Gout (M10.9) Active confirmed Problem Essential hypertension (74403019) Essential hypertension (I10) Active confirmed Problem Anxiety (39494688) Anxiety (F41.9) Active confi rmed Problem Hyperuricemia (03931922) Hyperuricemia (E79.0) Active confirmed Problem Mixed anxiety and depressive disorder (438291942) Depression with anxiety (F41.8) Active confirmed Problem Restless legs (37231184) Restless legs (G25.81) Active confirmed Problem Mixed hyperlipidemia (354797928) Mixed hyperlipidemia (E78.2) Active confirmed Problem Urge incontinence of urine (37917994) Urge incontinence (N39.41) Active confirmed Problem Obese class II (673373525708950) BMI 35.0-35.9,adult (Z68.35) Active confirmed Problem Sciatica (64804981) Sciatica of right side (M54.31) Active confirmed Problem Uncomplicated moderate persistent asthma (872455204) Moderate persistent asthma without complication (J45.40) Active confirmed Problem Gastroesophageal reflux disease without esophagitis (123035366) Gastroesophageal reflux disease without esophagitis (K21.9) Active confirmed Problem Acquired hypothyroidism (641712205) Acquired hypothyroidism (E03.9) Active confirmed Problem Mammography abnormal (073402424) Abnormal mammogram of left breast (R92.8) Active confirmed Problem Syncope and collapse (989395250) Syncope, unspecified syncope type (R55) Active confirmed Problem Sciatica (36338059) Right sided sciatica (M54.31) Active confirmed Problem Reactive depression (situational) (88776238) Reactive depression (situational) (F32.9) Active confirmed Problem Osteoarthritis of knee (872900650) 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) Active confirmed Problem Localized, primary osteoarthritis of the hand (958715708) 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) Active confirmed Problem Uncomplicated moderate persistent asthma (643321462) Moderate persistent asthmatic bronchitis without complication (J45.40) Active confirmed Problem Exacerbation of moderate persistent asthma (disorder) (460101202) Moderate persistent asthma with exacerbation (J45.41) Active confirmed Problem Seasonal allergic rhinitis (872822856) Seasonal allergic rhinitis, unspecified trigger (J30.2) Active confirmed Problem Basal cell carcinoma of ala nasi (disorder) (929576701) Basal cell carcinoma (BCC) of ala nasi (C44.311) Active confirmed Problem Benign neoplasm of skin of right forearm (D23.61) Active confirmed Vital Signs Heart Rate 99 /min 11/28/2024 Blood pressure diastolic 70 mm Hg 11/28/2024 Height 60 in 11/28/2024 Blood pressure systolic 110 mm Hg 11/28/2024 Weight 179 lbs 11/28/2024 BMI 34.95 kg/m2 11/28/2024 Encounters Encounter Location Date Provider Diagnosis [facility] [facility] [facility] [address] [place], [place] [id number] 06/09/2024 Anabell Mae Essential hypertensi on I10 ; Hypothyroidism (acquired) E03.9 ; Depression with anxiety F41.8 ; Basal cell carcinoma (BCC) of ala nasi C44.311 ; Moderate persistent asthmatic bronchitis without complication J45.40 and Arthropathy of hand M19.049 [facility] [facility] [facility] [address] [place], [place] [id number] 07/04/2024 Georgette Austin UTI (lower urinary tract infection) N39.0 [facility] [address] [facility] [address] [place], [place] [id number] 07/26/2024 R Geoff Cavanaugh UTI (lower urinary tract infection) N39.0 [facility] [address] [facility] [address] [place], [place] [id number] 09/08/2024 Regan Olmitz Left hip pain M25.55 2 ; Pyuria R82.81 and Acute left-sided low back pain without sciatica M54.50 [facility] [address] [facility] [address] [place], [place] [id number] 10/06/2024 Anabell Mae Essential hypertensi on I10 ; Acquired hypothyroidism E03.9 ; Moderate persistent asthma without complication J45.40 ; Restless legs G25.81 ; Mixed hyperlipidemia E78.2 and BMI 35.0-35.9,adult Z68.35 [facility] [address] [facility] [address] [place], [place] [id number] 10/17/2024 Regan Olmitz Pyuria R82.81 and Ac ramona left-sided low back pain without sciatica M54.50 [facility] [address] [place], [place] [id number] 10/21/2024 Regan Olmitz Pyuria R82.81 [facility] [address] [place], [place] [id number] 11/09/2024 Regan Olmitz Acute UTI N39.0 ; Dysuria R30.0 ; Acute URI J06.9 and Breast cancer screening by mammogram Z12.31 [facility] [address] [place], [place] [id number] 11/28/2024 Regan Olmitz Viral bronchitis J20 .8 [facility] [address] [place] [id number] 03/29/2024 Regan Olmitz Right sided sciatica M54.31 [facility] [address] [place] [id number] 06/14/2024 Anabell Mae [facility] [address] [place] [id number] 09/12/2024 Regan Olmitz [facility] [address] [place] [id number] 09/13/2024 Regan Olmitz [facility] [address] [place], [place] [id number] 09/22/2024 Regan Olmitz [facility] [address] [place] [id number] 10/25/2024 Regan Olmitz [facility] [address] [place] [id number] 11/02/2024 Anabell Mae [facility] [address] [place] [id number] 11/07/2024 Anabell Mae [facility] [address] [place] [id number] 11/21/2024 Anabell Mae [facility] [address] [place], [place] [id number] 11/22/2024 Regan Olmitz Assessments Encounter Date Diagnosis (ICD Code) Assessment Notes Treatment Notes Treatment Clinical Notes Section Notes 11/28/2024 Viral bronchitis (ICD-10 - J20.8) 11/09/2024 Dysuria (ICD-10 - R30.0) 11/09/2024 Acute UTI (ICD-10 - N39.0) 10/21/2024 Pyuria (ICD-10 - R82.81) 10/17/2024 Pyuria (ICD-10 - R82.81) 10/17/2024 Acute left-sided low back pain without sciatica (ICD-10 - M54.50) Home exercise program provided to patient heating pad to affected areas 2 to 3 times a day TENS unit OTC recommended 10/06/2024 Essential hypertension (ICD-10 - I10) 10/06/2024 Acquired hypothyroidism (ICD-10 - E03.9) 07/04/2024 UTI (lower urinary tract infection) (ICD-10 - N39.0) good water intake 09/08/2024 Left hip pain (ICD-10 - M25.552) 09/08/2024 Pyuria (ICD-10 - R82.81) 07/26/2024 UTI (lower urinary tract infection) (ICD-10 - N39.0) Previous culture was sensitive to Macrobid but she remains symptomatic. Plan to repeat culture and treat with Cipro. If no improvement in 1 week if, plan to proceed with CT scan 06/09/2024 Hypothyroidism (acquired) (ICD-10 - E03.9) 06/09/2024 Essential hypertension (ICD-10 - I10) 03/29/2024 Right sided sciatica (ICD-10 - M54.31) 06/09/2024 Depression with anxiety (ICD-10 - F41.8) 09/08/2024 Acute left-sided low back pain without sciatica (ICD-10 - M54.50) 10/06/2024 Moderate persistent asthma without complication (ICD-10 - J45.40) 11/09/2024 Acute URI (ICD-10 - J06.9) 11/09/2024 Breast cancer screening by mammogram (ICD-10 - Z12.31) 10/06/2024 Restless legs (ICD-10 - G25.81) INSTRUCTED TO TAKE HER SERTRALINE IN AM, NOT PM 06/09/2024 Basal cell carcinoma (BCC) of ala nasi (ICD-10 - C44.311) 06/09/2024 Moderate persistent asthmatic bronchitis without complication (ICD-10 - J45.40) 10/06/2024 Mixed hyperlipidemia (ICD-10 - E78.2) 10/06/2024 BMI 35.0-35.9,adult (ICD-10 - Z68.35) 06/09/2024 Arthropathy of hand (ICD-10 - M19.049) Plan Of Treatment No Information Insurance Providers Payer Name Payer Address Payer Phone Subscriber Number Group Number Insured Name Patient Relationship to Insured Coverage Start Date Coverage End Date [employer] (MEDICAR E) [address] [address] [place] [address] [phone] [id number] HANY VELASCO Self - patient is the [...] 03/2006 Bilateral Cataract 12/2010 Colonoscopy 12/11/2011 Cholecystectomy- [facility] 03/30/2012 Morgagni Hernia Heart Cath [address] Gonzalez. 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 Montenegro [facility] 2023 Colonoscopy, Dr. Colunga. One polyp 2023 Hospitalization History Reason Date(Month/Year) Labyrinthitis Bilateral Ears- [facility] ER 11/2019
[2024-11-30 03:45] LABS: Hematocrit 37.3 % (37.0-47.0); Hemoglobin 12.6 g/dL (12.2-16.2); Immature Granulocytes % 0.5 %; Mean Corpuscular HGB Conc 33.8 g/dL (31.8-35.4); Mean Corpuscular Hemoglobin 30.7 pg (27.0-31.2); Mean Corpuscular Volume 90.8 fl (81-99); Nucleated Red Blood Cells % 0 %; Platelet Count 243 K/mm3 (142-424); Red Blood Count 4.11 M/mm3 (4.20-5.40); Red Cell Distribution Width-SD 43.9 fL; White Blood Count 9.7 K/mm3 (4.8-10.8)
[2024-11-30 03:46] LABS: Lactate Venous 2.0 mmol/L (0.4-2.0); VBG HCO3 24.5 mmol/L (23-30); VBG PCO2 40.3 mmol/L (35-51); VBG PH 7.40 mmol/L (7.31-7.41); VBG PO2 100.6 mmol/L (28-40)
[2024-11-30 03:47] LABS: Albumin Level 4.5 g/dl (3.5-5.0); Chloride 100 mmol/L (98-107); Potassium 4.2 mmoL/L (3.5-5.1); Sodium 139 mmol/L (136-145)
[2024-11-30 03:50] LABS: Alanine Aminotransferase 27 U/L (12-78); Albumin/Globulin Ratio 1.4 (1.1-1.8); Alkaline Phosphatase 71 U/L (38-126); Anion Gap 16.2 mEq/L (5-15); Aspartate Amino Transferase 34 U/L (14-36); Bilirubin,Total 0.3 mg/dl (0.2-1.3); Blood Urea Nitrogen 25 mg/dl (7-17); Carbon Dioxide 27 mmol/L (22.0-30.0); Creatinine Clearance Estimated 62 mL/min (50-200); Creatinine,Serum 1.00 mg/dl (0.52-1.04); Estimated Glomerular Filt Rate 54 ml/min (>60); GFR (African American) 65 ML/MIN (>60); Globulin 3.3 g/dL (1.3-3.2); Total Protein,Serum 7.8 g/dl (6.3-8.2)
[2024-11-30 03:51] LABS: Calcium 9.2 mg/dl (8.4-10.2); Glucose 125 mg/dl (74-100)
[2024-11-30 03:53] VITALS: PULSE 54; RESP 20; O2SAT 95
[2024-11-30 03:55] LABS: Adenovirus,PCR Not Detected (NotDetected); Chlamydophila Pneumoniae, PCR Not Detected (NotDetected); Coronavirus 19, PCR Not Detected (NotDetected); Coronovirus HKU1,PCR Not Detected (NotDetected); Influenza A, PCR Not Detected (NotDetected); Influenza AH1, 2009 Not Detected (NotDetected); Influenza AH1, PCR Not Detected (NotDetected); Influenza AH3,PCR Not Detected (NotDetected); Influenza B, PCR Not Detected (NotDetected); Mycoplasma Pneumoniae, PCR Not Detected (NotDetected); Parainfluenza 1, PCR Not Detected (NotDetected); Parainfluenza 2, PCR Not Detected (NotDetected); Parainfluenza 3, PCR Not Detected (NotDetected); Parainfluenza 4, PCR Not Detected (NotDetected)
[2024-11-30] MEDS: IPRATROPIUM/ALBUTEROL 3 ML NEB IH (03:55)
[2024-11-30 03:59] LABS: INR 0.97 (0.9-1.1); Prothrombin Time 10.8 seconds (10.1-12.5)
[2024-11-30 04:05] LABS: Troponin I < 0.01 ng/ml (0.00-0.034)
[2024-11-30 04:08] LABS: D-Dimer 0.72 ug/mL (0.0-0.5)
--- NOTE | 2024-11-30 04:11 | [facility].EDCP ---
Discharge Plan Disposition Patient Disposition: Home, Self-Care Condition: Good Prescriptions Prescriptions: No Action pravastatin 20 mg tablet 20 mg PO DIRECTED Patient Comments: TAKE 1 TABLET BY MOUTH ON THURSDAY, THURSDAY AND THURSDAY Rx Instructions: 1 tab thu, thu & thu hydrochlorothiazide 12.5 mg tablet 12.5 mg PO DAILY Patient Comments: TAKE 1 TABLET BY MOUTH ONCE DAILY IN THE MORNING losartan 25 mg tablet 25 mg PO DAILY Rx Instructions: 25mg in morning and 12.5 at bedtime aspirin [Adult Low Dose Aspirin] 81 mg tablet,delayed release (DR/EC) 81 mg PO DAILY ipratropium-albuterol 0.5 mg-3 mg(2.5 mg base)/3 mL solution for nebulization 3 ml INHALATION Q6H PRN (Reason: shortness of breath or wheezing) Qty: 90 6RF montelukast 10 mg tablet 10 mg PO DAILY albuterol sulfate [Ventolin HFA] 90 mcg/actuation HFA aerosol inhaler 2 inh inhalation Q6H PRN (Reason: shortness of breath or wheezing) 90 Days Qty: 18 3RF sertraline 50 mg tablet 25 mg PO DAILY Patient Comments: TAKE 1/2 (ONE-HALF) TABLET BY MOUTH ONCE DAILY allopurinol 100 mg tablet 300 mg PO DAILY Qty: 90 0RF levothyroxine [Synthroid] 75 mcg tablet 75 mcg PO DAILY Qty: 90 0RF diphenhydramine HCl 25 mg capsule 25 mg PO Q6HP PRN (Reason: Itching) Qty: 30 0RF ondansetron 4 mg tablet,disintegrating 4 mg PO Q6H PRN (Reason: nausea and vomiting) 5 Days Qty: 20 0RF doxepin 10 mg capsule 10 mg PO DAILY Patient Comments: TAKE 1 CAPSULE BY MOUTH ONCE DAILY AT BEDTIME prednisone 20 mg tablet 40 mg PO DAILY 5 Days Qty: 10 0RF Referrals Follow up/Referrals: Provider,Referral, [Primary Care Provider, Medical] - See instructions Rosas Rojas MD [Physician, Pulmonology] - See instructions Referral Note: History of asthma, persistent postviral cough Activity Restrictions/Add. Instructions Additional Instructions/Restrictions: You were evaluated in the ER and are believed to be appropriate for discharge at this time. Continue using your home medications as previously prescribed. You can take 2 puffs of your albuterol up to 4 times daily if needed for wheezing. Take Tylenol and ibuprofen if needed for musculoskeletal pain caused by coughing. Do not exceed the recommended dose on the bottle. Drink water and eat a small snack each time you take these medications to avoid side effects. Call the pulmonology office and make an appointment for close outpatient follow-up for further evaluation. Also call your primary care doctor and make an appointment for reevaluation in 2 to 3 days. Return to the ER with any new, worsening, or otherwise concerning symptoms. Clinical Impressions Clinical Impression: Cough, Costochondritis Print Language Print Language: Ethiopian Discharge ED Provider: Bárbara Gleason General Chief Complaint: Shortness of Breath/Dyspnea Stated Complaint: chest pain Time Seen by Provider: 11/30/24 03:34 Mode of Arrival: Family Vehicle Source of Information: Patient Description of Symptoms (Recalled from ER Triage Doc. by RN): SOA Pt presents to the ED with c/o worsening SOA X 1 week accompanied by a cough. Pt reports that her chest became tight this morning from coughing . History of Present Illness HPI narrative: 74-year-old female who reports a history of asthma only using her rescue inhaler as well as seasonal allergies on Singulair and Xyzal, hypothyroid, hypertension, hyperlipidemia presents to the ER with shortness of breath and cough for the last week but in the last 24 hours it was even worse. Patient reports a few weeks ago she was diagnosed with bronchitis and has had chronic cough since that time. It is minimally productive, when she does cough something up it is white/yellow/green. She states in the last 24 hours she has had more chest tightness and discomfort with coughing than she had been having previously. She believes it is due to coughing but is not sure. She has not had fevers or chills, temperature at home she reports was 98.1. She states she has been intermittently taking her asthma rescue inhaler without significant relief of symptoms. She states she will sometimes cough so hard that she gets lightheaded. She has not been having syncope. No vomiting or diarrhea, no cardiac history, no other complaints or concerns. Related Data Home Medications ?Medication ?Instructions ?Recorded ?Confirmed aspirin 81 mg tablet,delayed 81 mg PO DAILY thinner 10/15/17 09/27/24 release (Adult Low Dose Aspirin) hydrochlorothiazide 12.5 mg tablet 12.5 mg PO DAILY 02/17/23 09/27/24 pravastatin 20 mg tablet 20 mg PO DIRECTED 02/17/23 09/27/24 montelukast 10 mg tablet 10 mg PO DAILY 03/10/23 09/27/24 losartan 25 mg tablet 25 mg PO DAILY 08/05/23 09/27/24 sertraline 50 mg tablet 25 mg PO DAILY 09/03/23 09/27/24 doxepin 10 mg capsule 10 mg PO DAILY 11/16/23 09/27/24 Previous Rx's ?Medication ?Instructions ?Recorded ipratropium 0.5 mg-albuterol 3 mg 3 ml inhalation Q6H PRN shortness 08/16/21 (2.5 mg base)/3 mL nebulization of breath or wheezing #90 mL soln ondansetron 4 mg disintegrating 4 mg PO Q6H PRN nausea and 07/27/23 tablet vomiting 5 days #20 tabs albuterol sulfate 90 mcg/actuation 2 inh inhalation Q6H PRN shortness 08/05/23 aerosol inhaler (Ventolin HFA) of breath or wheezing 90 days #18 grams allopurinol 100 mg tablet 300 mg (3 x 100 mg) PO DAILY gout 12/30/23 #90 tabs diphenhydramine HCl 25 mg capsule 25 mg PO Q6HP PRN Itching #30 caps 03/03/24 levothyroxine 75 mcg tablet 75 mcg PO DAILY thyroid #90 tabs 03/15/24 (Synthroid) prednisone 20 mg tablet 40 mg (2 x 20 mg) PO DAILY 5 days 11/13/24 #10 tabs Allergies Allergy/AdvReac Type Severity Reaction Status Date / Time febuxostat (From ULORIC) Allergy Intermediate joints Verified 09/27/24 08:50 hydrocodone (From LORTAB) Allergy Intermediate I-ITCHING Verified 09/27/24 08:50 Sulfa (Sulfonamide Allergy Intermediate I-HIVES Verified 09/27/24 08:50 Antibiotics) (SULFA (SULFONAMIDE ANTIBIOTICS)) [facility] Disclaimer: The information contained in this section may have been updated after the patient was seen, as this information can be updated by other users. Medical History Skin cancer of nose Acquired hypothyroidism URI, acute Gallbladder disease Skin cancer Asthma Palpitations History of skin cancer Abnormal computerized axial tomography of chest Allergic rhinitis, unspecified Seasonal allergies Family history of asthma Mild persistent asthma Wheezing Dyspnea on exertion Surgical History History of stress incontinence procedure using tension free vaginal tape History of bladder suspension procedure History of colonoscopy History of total right knee replacement H/O arthroscopy of knee History of cardiac cath Family History Other Asthma Cancer Coronary artery disease Heart attack Stroke Social History Smoking Status: Never smoker second hand exposure: No alcohol intake: never substance use type: denies use current occupational status: retired Travel in the last 8 weeks?: None household members: spouse housing: house current occupational exposures/hazards: No caffeine: Yes Other Medical History Have you received the Flu Vaccine for this season: Yes Have you received the Pneumonia Vaccine: Yes ROS Obtained: Yes Systems reviewed as appropriate & no additional complaints except as documented Per HPI Physical Exam General General appearance: alert and in no apparent distress Head Head exam: atraumatic and normocephalic Eye Eye exam: Present PERRL and EOMI ENT ENT exam: Present mucous membranes moist Neck Neck exam: Present normal inspection and full ROM Chest Chest inspection: Present symmetric chest wall rise and tenderness (Moderate mid costochondral junctions bilaterally with no evidence of trauma) Respiratory Respiratory exam: Present normal lung sounds bilaterally and other (Saturating mid 90s on room air); Absent respiratory distress, wheezes or stridor Cardiovascular Cardiovascular exam: Present regular rate and normal rhythm Abdominal Exam Abdominal exam: Present soft; Absent distention or tenderness Extremities Exam Extremities exam: Present full ROM; Absent edema Neurological Exam Neurological exam: Present alert and oriented X3; Absent motor sensory deficit Psychiatric Psychiatric exam: Present normal affect and normal mood Skin Skin exam: Present warm and dry HEART Score HEART Score HEART Score assessment performed?: Yes History (anamnesis): Slightly suspicious ECG: Normal Age: >65 years Risk factors: 3 or more risk factors Troponin: </= normal limit HEART Score: 4 Critical Care Critical Care Time Critical Care Time: No Medical Decision Making Medical Records Medical records reviewed: Yes I reviewed the patient's medical records. Yosef Inquiry Pt receiving controlled substance: No Vital Signs Vital Signs: 11/30/24 03:33 11/30/24 03:53 Temperature 98.1 F Temperature Source Oral Pulse Rate 54 L Pulse Rate [Right] 77 Respiratory Rate 14 20 Blood Pressure [Right Arm] 143/90 H Blood Pressure Mean [Right Arm] 107 Blood Pressure Source [Right Arm] Automatic Cuff Blood Pressure Position [Right Arm] Sitting 02 Sat by Pulse Oximetry 97 95 Oxygen Delivery Method Room Air Lab Data Labs: Lab Results 11/30/24 03:31: WBC 9.7, RBC 4.11 L, Hgb 12.6, Hct 37.3, MCV 90.8, MCH 30.7, MCHC 33.8, RDW 13.3, Plt Count 243, MPV 10.5 H, Neut % (Auto) 81.2 H, Lymph % (Auto) 12.4, [place] % (Auto) 5.7, Eos % (Auto) 0.0 L, Baso % (Auto) 0.2, Neut # (Auto) 7.9 H, Lymph # (Auto) 1.2, [place] # (Auto) 0.6, Eos # (Auto) 0.0, Baso # (Auto) 0.0, PT 10.8, INR 0.97, D-Dimer 0.72 H, Sodium 139, Potassium 4.2, Chloride 100, Carbon Dioxide 27, Anion Gap 16.2 H, BUN 25 H, Creatinine 1.00, Estimated Creat Clear 62, Estimated GFR 54 L, Est GFR ( Amer) 65, Glucose 125 H, Calcium 9.2, Total Bilirubin 0.3, AST 34, ALT 27, Alkaline Phosphatase 71, Troponin I < 0.01, NT-Pro-B Natriuret Pep 87.1, Total Protein 7.8, Albumin 4.5, Globulin 3.3 H, Albumin/Globulin Ratio 1.4 11/30/24 03:39: VBG pH 7.40, VBG pCO2 40.3, VBG pO2 100.6 H, VBG HCO3 24.5, VBG Total CO2 25.7, VBG O2 Saturation 97.6 H, VBG Base Excess -0.3, VBG Lactic Acid 2.0 11/30/24 03:31 11/30/24 03:31 Response Orders (Tests/Meds): ED MEDICATIONS Discontinued Medications Generic Name Dose Route Start Last Admin Trade Name Freq PRN Reason Stop Dose Admin Albuterol/Ipratropium 3 ml 11/30/24 03:47 11/30/24 03:55 Ipratropium/Albuterol 3 Ml Neb IH 11/30/24 03:48 3 ml ONCE ONE Administration ORDERS Category Date Time Status XR chest 2V Stat Exams 11/30/24 03:35 Taken Complete Blood Count Auto Diff Stat Lab 11/30/24 03:31 Completed Comprehensive Metabolic Panel Stat Lab 11/30/24 03:31 Completed D-Dimer Stat Lab 11/30/24 03:31 Completed Full Resp Panel w/COVID ([facility]) Routine Lab 11/30/24 03:50 Received NT Pro Brain Natriuretic Pep. Stat Lab 11/30/24 03:31 Completed Prothrombin Time INR Stat Lab 11/30/24 03:31 Completed Troponin I Q3H Lab 11/30/24 06:45 Ordered Troponin I Q3H Lab 11/30/24 09:45 Ordered Troponin I Stat Lab 11/30/24 03:31 Completed Venous Blood Gas Stat RT 11/30/24 03:39 Completed MDM Narrative Medical Decision Narrative: In summary, this 74-year-old female with comorbidities described in the HPI which may not be at goal therapy presents to the emergency department today with persistent cough, chest tightness. On initial evaluation patient is hemodynamically stable, afebrile, lungs clear bilaterally, cardiopulmonary exam is benign, saturating well on room air, patient does have costochondral junction tenderness bilaterally in the mid anterior chest wall with no evidence of trauma. Differential diagnosis includes but is not limited to ACS, PE, I believe it is much more likely that patient has postviral cough, postnasal drip with her history of allergies, asthma, and recent upper respiratory infection. I did also consider the possibility of pneumonia or other infectious etiology including viral syndrome. Based on these concerns, I ordered serum labs, cardiac workup, D-dimer. ECG personally interpreted demonstrates sinus rhythm with occasional PAC, rate 78, normal axis, normal MT and QTc, no STEMI. Patient received DuoNeb for treatment though she does not have significant wheezing, I was hoping this may relieve her sensation of chest tightness given her history of asthma. Labs personally reviewed demonstrate no leukocytosis or anemia, platelets normal, PT/INR normal, D-dimer 0.72, by years criteria PE is excluded, pH 7.4 with no hypercarbia, VBG lactic 2.0, normal. CMP with mild prerenal azotemia but patient is tolerating oral intake so I am not going to treat this with IV fluids at this time. Initial troponin undetectably low less than 0.01 which is significantly reassuring given patient's long duration of symptoms, chest tightness starting more than half a day ago, and reassuring ECG. I do not believe repeat troponin is indicated. Chest x-ray first interpreted does not demonstrate lobar infiltrate, see radiology read for final interpretation. Patient has not had any additional coughing fits in the ER. She is resting comfortably and saturating well. I believe she is appropriate for discharge at this time. I considered steroid prescription however given her age and recent use of steroids I do not believe this would be a good choice for the patient and would likely cause more problems than it would fix. Viral swab pending at this time but it will not likely change management specialist so patient is discharged without these results. Albuterol MDI was provided to the patient since she reports she is nearly out of hers at home. No new prescriptions were provided to the patient but I did give her a referral to pulmonology for outpatient follow-up and reevaluation. I also gave her instructions for close follow-up with her PCP, instructions for symptomatic monitoring and management, and strict return precautions for the ER. She indicated understanding and the patient was discharged in stable condition.
[2024-11-30 04:23] LABS: NT Pro Brain Natriuretic Pep. 87.1 pg/mL (0-450)
[2024-11-30 04:47] VITALS: BP 115/73; PULSE 91; RESP 18; TEMP 36.7; O2SAT 96
[2024-11-30] MEDS: ALBUTEROL-HFA 90MCG/PUFF INHALER 8GM 2 PUFF IH (04:47)
[2024-11-30 04:51] VITALS: BP 115/73; PULSE 89; RESP 18; TEMP 36.7; O2SAT 93
== END 2024-11-30 04:51 | disposition home or self-care (01) ==
PROVIDERS: Emergency Provider Emergency Medicine
DX: R07.89 Other chest pain (principal); M94.0 Chondrocostal junction syndrome [Tietze]; R05.9 Cough, unspecified; I10 Essential (primary) hypertension; E78.5 Hyperlipidemia, unspecified; J45.909 Unspecified asthma, uncomplicated
CPT/HCPCS: 0223U; 71046; 80053; 82803; 83880; 84484; 85025; 85378; 85610; 87633; 93005; 99284

== ENCOUNTER 2025-01-13 08:45 | Outpatient (CLI) | payer MEDICARE, SELFPAY ==
--- OUTSIDE RECORDS SUMMARY | 2024-11-28 10:00 | XMS_ITS ---
[facility] [address] [facility] [address] [place] [id number] Care Team Providers Care Publications Manager Name Role Phone Anabell Mae Primary Care Provider [phone] Regan Britton Unavailable [phone] Allergies Allergen (clinical drug ingredient) Drug/Non Drug Allergy documented on EMR Reaction Allergy Type Onset Date Status acetaminophen / hydrocodone HYDROcodone-Acetam inophen itching Drug Allergy Active Substance with sulfonamide structure and antibacterial mechanism of action (substance) Sulfa Antibiotics swell up& itch Drug Allergy Active Results Component Value Reference Range Notes CBC Fingerstick (in house) Reviewed date:11/28/2024 05:12:33 PM Interpretation: Performing Lab: Notes/Report: wbc 7.1 3.5 - 10 lym 28.8% 15 - 50 mid 7.2% 2 - 15 gran 64.0% 35 - 80 rbc 4.23 3.5 - 5.5 hgb 13.0 11.5 - 16.5 hct 39.4 35 - 55 mcv 93.0 75 - 100 mch 30.8 25 - 35 mchc 33.1 31 - 38 plat 167 100 - 400 REASON FOR VISIT coughing ,congestion Medications Medication SIG (Take, Route, Frequency, Duration) Notes Start Date End Date Status hydroCHLOROthiazide 12.5 MG 1 tablet in the morning Orally Once a day; Duration: 90 days Active Albuterol Sulfate HFA 108 (9 0 Base) MCG/ACT 2 puff(s) inhaled qid prn; Duration: 30 day(s) 03/29/2021 Active Montelukast Sodium 10 MG 1 tablet Orally Once a day; Duration: 90 days Active Allopurinol 300 MG 1 tab(s) orally once a day; Duration: 90 days Active Losartan Potassium 25 MG Take 1 tablet b y mouth twice daily 1 tab in the morning, 1/2 tab at night; Duration: 90 days Active Aspirin Adult Low Dose 81 MG 1 tab(s) or ally once a day; Duration: 30 day(s) Active Zithromax Z-Alfie 250 MG as directed Orall y daily; Duration: 5 days 11/22/2024 Active diazePAM 5 MG 1 tablet as needed Orally Once a day Active dexAMETHasone 4 MG 1 tablet Orally twic e a day; Duration: 5 days 11/28/2024 Active Pravastatin Sodium 20 MG Take 1 tablet b y mouth once daily Orally 3 times a week (MWF) Active Doxepin HCl 10 MG 1 capsule at bedtime Orally Once a day; Duration: 90 days Active Levothyroxine Sodium 75 MCG 1 tab(s) Ora lly Once a day; Duration: 90 days Active Sertraline HCl 50 MG 1/2 tab(s) orally once a day; Duration: 90 days Active Vital Signs Weight 179 lbs 11/28/2024 Blood pressure systolic 110 mm Hg 11/29/19 25 Blood pressure diastolic 70 mm Hg 025 Heart Rate 99 /min 11/28/2024 Height 60 in 11/28/2024 BMI 34.95 kg/m2 11/28/2024 Encounters Encounter Location Date Provider Diagnosis [facility] [address] [facility] [address] [place], [place] [id number] 11/28/2024 Regan Britton Viral bronchitis J20 .8 Assessments Encounter Date Diagnosis (ICD Code) Assessment Notes Treatment Notes Treatment Clinical Notes Section Notes 11/28/2024 Viral bronchitis (ICD-10 - J20.8) Plan Of Treatment Medication Medication Name Sig Start Date Stop Date Notes dexAMETHasone 4 MG 1 tablet Orally twic e a day; Duration: 5 days 11/28/2024 Next Appt Details Follow Up: via phone to repo rt progress, Reason: Progress Notes * KAREL VELASCOOB:[birth year] (74 yo F)Acc No.[id number]:11/28/2024 Progress Notes Patient: Quiana HANY MADDEN Provider: Quiana Britton M.D. :1950 A ge:74 Y S ex:Female Date:11/28/2024 Address:[address] [place] [address] , [place], [id number] Pcp:Anabell Mae Subjective: * Chief Complaints: * 1 . Coughing ,congestion. * HPI: E NT/respiratory: 74 year old female presents with c/o cough P t complains of dry without any sputum production c ough. Pt states if she coughs deep she is able to get some stuff up but not a lot. Pt states she has been doing breathing treatments and taking abx but has not had any improvement. * ROS: D ERMATOLOGY: no R renate. n o H robi. G ASTROENTEROLOGY: no N ausea. n o V omiting. U ROLOGY: no D ifficulty urinating. n [...] 03/2006, Bilateral Cataract 12/2010, Colonoscopy 12/11/2011, Cholecystectomy- [facility] 03/30/2012, Morgagni Hernia , Heart Cath 2018, Transvaginal surgery. Dr. Gonzalez. October 2023, BCC of nose with excision and reconstruction, Dr. Montenegro [facility] 2023, Colonoscopy, Dr. Colunga. One polyp 2023. * Hospitalization/Major Diagno stic Procedure: L abyrinthitis Bilateral Ears- [facility] ER 08/06/2019. * Family History: F ather: 72 yrs, pancreatitis, asthma. M other: 86 yrs, stroke, cancer(Kidney), CHF. P aternal Grand Father: . P aternal Grand Mother: . M aternal Grand Father: . M aternal Grand Mother: . C hilen: leukemia, son, . 1 brother(s) , 3 sister(s) . 1 son(s) , 1 daughter(s) . . * Social History: C URRENT TOBACCO USE: No . C affeine: yes, frequency:daily. Exercise: no. Home smoke detector use: yes. Marital Status: . New since last visit: none. Occupation: yes. Past smoking status: never smoked. Occup. exposure: none. Recreational drug use: no. [...] 2 puff(s) inhaled qid prn , Taking hydroCHLOROthiazide 12.5 MG Tablet 1 tablet in the morning Orally Once a day , Taking Allopurinol 300 MG Tablet 1 tab(s) orally once a day , Taking Montelukast Sodium 10 MG Tablet 1 tablet Orally Once a day , Taking Losartan Potassium 25 MG Tablet Take 1 tablet by mouth twice daily 1 tab in the morning, 1/2 tab at night , Taking Doxepin HCl 10 MG Capsule 1 capsule at bedtime Orally Once a day , Taking Pravastatin Sodium 20 MG Tablet Take 1 tablet by mouth once daily Orally 3 times a week (MWF) , Taking Sertraline HCl 50 MG Tablet 1/2 tab(s) orally once a day , Taking Levothyroxine Sodium 75 MCG Tablet 1 tab(s) Orally Once a day , Taking Zithromax Z-Alfie 250 MG Tablet as directed Orally daily , Discontinued Cefuroxime Axetil 500 MG Tablet 1 tablet Orally every 12 hrs , Medication List reviewed and reconciled with the patient * Allergies: S ulfa Antibiotics: swell up& itch, HYDROcodone-Acetaminophen: itching. Objective: * Vitals: W t: 179, Temp: 97.8, BP: 110/70, HR: 99, O2 Sat: 97% on RA, Nurse: michelle, Ht: 60, BMI:34.95. * Examination: E NT/Respiratory: General Appearance: N AD. O ral cavity : e rythema without exudate on pharynx. H eart : R RR. L ungs: g ood air movement, coarse breath sounds due to upper airway congestion. Assessment: * Assessment: 1. V iral bronchitis - J20.8 (Primary) Plan: * Treatment: Value Reference Range w bc 7.1 3.5 - 10 * l ym 28.8% 15 - 50 * m id 7.2% 2 - 15 * g ran 64.0% 35 - 80 * r bc 4.23 3.5 - 5.5 * h gb 13.0 11.5 - 16.5 * h ct 39.4 35 - 55 * m cv 93.0 75 - 100 * m ch 30.8 25 - 35 * m chc 33.1 31 - 38 * p lat 167 100 - 400 * TimurBlueMarisa 11/28/2024 02:23: 05 PM EDT > Provider reviewed results while patient in office. * Procedure Codes: G 2211 Complex e/m visit add on, 1036F TOBACCO NON-USER, G8783 BP SCR PRFRM RCMDD DEFIND SCR INTVL, G8752 MOST RECENT SYSTOLIC BP < 140MM HG, G8754 MOST RECENT DIASTOLIC BP < 90MM HG * Follow Up: v ia phone to report progress * Images: Billing Information: * Visit Code: 57331 Office Visit, Est Pt., Level 3. * Procedure Codes: G2211 Complex e/m visit add on. 1036F TOBACCO NON-USER. G8783 BP SCR PRFRM RCMDD DEFIND SCR INTVL. G8752 MOST RECENT SYSTOLIC BP < 140MM HG. G8754 MOST RECENT DIASTOLIC BP < 90MM HG. * Electronic signature of Shirley Britton MD on 01/13/2025 at 08:47 AM EDT Sign off status: Pending * Provider: Quiana Britton M.D. Date: 0 11/28/2024 Generated for Nicole jordan/Marybel/Traceysmitting on: 0 01/13/2025 08:47 AM EDT History and Physical Notes * HPI (History of Present Illness) Category Sub-Category Detail Notes Category Not es ENT/respiratory cough Pt complains of dry without any sputum production cough. Pt states if she coughs deep she is able to get some stuff up but not a lot. Pt states she has been doing breathing treatments and taking abx but has not had any improvement Examination Category Sub-Category Detail Notes Category Not es ENT/Respiratory Oral cavity : erythema without exudate on pharynx Heart : RRR Lungs: good air movement, c oarse breath sounds due to upper airway congestion General Appearance: NAD
--- OUTSIDE RECORDS SUMMARY | 2024-12-05 10:15 | XMS_ITS ---
[facility] Address [address] [facility] [address] [place] [id number] Care Team Providers Care Nursing Support Worker Name Role Phone Anabell Mae Primary Care Provider Regan Britton Unavailable [phone] Allergies Allergen (clinical drug ingredient) Drug/Non Drug [...] Interpretation:Negative Performing Lab: Notes/Report: Test performed by [employer], [employer] [address] [place] [address] , [address], [place] [address] Derek King MD, Line Driver CLIA: [id number] Influenza A, PCR Not Detected Not Detected [...] FDA-approved multiplexed qualitative test that utilizes reverse network technician (RT) and polymerase chain reaction (PCR) for [...] clinical laboratory testing. Performed by [facility], [facility]a [facility], [address] [place] [address] , [facility], [place] [address], Indra Vega DO, Line Driver, CLIA# [id number] REASON FOR VISIT virus Medications Medication SIG [...] unspecified type (D72.829) Active confirmed Vital Signs Weight 175 lbs 12/05/2024 Blood pressure systolic 112 mm Hg 12/06/19 25 Blood pressure diastolic 70 mm Hg 025 Heart Rate 112 /min 12/05/2024 Height 60 in 12/05/2024 BMI 34.17 kg/m2 12/05/2024 Encounters Encounter Location Date Provider Diagnosis [facility] 1210 [facility] [address] [place], [place] [phone] 12/05/2024 Regan Britton Acute bronchitis, unspecified organism J20.9 ; Persistent cough R05.3 ; SOB (shortness of breath) R06.02 and Leukocytosis, unspecified type D72.829 Assessments Encounter Date Diagnosis (ICD Code) Assessment Notes Treatment Notes Treatment Clinical Notes Section Notes 12/05/2024 Acute bronchitis, unspecified organism (ICD-10 - J20.9) Patient has failed to improve dispite several courses of steroids and antibiotics. [facility] upper repiratory PCR panel today as WBC [...] dispite several courses of steroids and antibiotics. [facility] upper repiratory PCR panel today as WBC count is still elevated Next Appt Details Follow Up: via phone to repo rt test results, Reason: Progress Notes * KAREL VELASCOOB:[birth year] (74 yo F)Acc No.[id number]:12/05/2024 Progress Notes Patient: HANY ESPINO Provider: Quiana Britton M.D. :1950 A ge:74 Y S ex:Female Date:12/05/2024 Address:[address] [place] [address] , [facility], [place], [id number] Pcp:Anabell Mae Subjective: * Chief Complaints: * [...] 03/2006, Bilateral Cataract 12/2010, Colonoscopy 12/11/2011, Cholecystectomy- [facility] 03/30/2012, Morgagni Hernia , Heart Cath 2018, Transvaginal surgery. Dr. Gonzalez. October 2023, BCC of nose with excision and reconstruction, Dr. Montenegro [facility] 2023, Colonoscopy, Dr. Colunga. One polyp 2023. [...] G 2211 Complex e/[place], [address] CAPILLARY BLOOD DRAW, 18656 CBC WITH AUTO DIFF * Follow Up: v ia phone to report test results * Images: Billing Information: * Visit Code: 54539 Office Visit, Est Pt., Level 3. * Procedure Codes: G2211 Complex e/[place]. [address] CAPILLARY BLOOD DRAW. 84161 CBC WITH AUTO DIFF. * Electronic signature of Shirley Britton MD on 01/13/2025 at 08:48 AM EDT Sign off status: Pending * Provider: Quiana Britton M.D. Date: 0 12/05/2024 Generated for Nicole jordan/Marybel/eTransmitting on: 0 01/13/2025 08:48 AM EDT History and Physical Notes * [...]
--- OUTSIDE RECORDS SUMMARY | 2024-12-13 07:46 | XMS_ITS ---
Author Organization [facility] Address [facility] [facility] [address] [place] [id number] Care Team Providers Care Liquified Natural Gas Specialist Name Role Phone Anabell Mae Primary Care Provider REASON FOR VISIT due dexa Encounters Encounter Location Date Provider Diagnosis [facility] [address] [place] [id number] 12/13/2024 Anabell Mae Screening for osteoporosis Z13.820 Assessments Encounter Date Diagnosis (ICD Code) Assessment Notes Treatment Notes Treatment Clinical Notes Section Notes 12/13/2024 Screening for osteoporosis (ICD-10 - Z13.820) Plan Of Treatment Pending Test Test Name Order Date Bone density 12/13/2024 Progress Notes * KRISTAKARELOB:[birth year] (74 yo F)Acc No.[id number]:12/13/2024 Patient: HANY ESPINO :1950 A ge:74 Y S ex:Female Address: [address] , [place] [address] Subjective: * Chief Complaints: * D ue dexa * Medical History: * Surgical History: * Hospitalization/Major Diagno stic Procedure: * Medications: Objective: * Vitals: * Physical Examination: Assessment: * Assessment: 1. S creening for osteoporosis - Z13.820 (Primary) Plan: * Treatment: * Procedure Codes: * true * Date: Generated for Printi ng/Faxing/eTransmitting on: 0 01/13/2025 08:47 AM EDT
--- NOTE | 2025-01-13 08:48 | XR_ITS ---
FINAL REPORT TECHNIQUE: Bone densitometry calculations of the lumbar spine and bilateral hips were obtained. CLINICAL HISTORY: SCREENING COMPARISON: None FINDINGS: Using L1-4, the bone mineral density of the spine is 1.063 g/cm2, corresponding to T-score of 0.1. Using the left hip, the bone mineral density of the femoral neck is 0.691 g/cm2, corresponding to a T-score of -1.4. Using the right hip, the bone mineral density of the femoral neck is 0.173 g/cm?, corresponding to a T-score of -1.2. NOTE: T-score: Standard deviation compared with peak bone mass of young adult mean. *Following the recommendations of the International Society of Bone densitometry, classification of hip BMD is based on the lower of two T-scores; total hip or femoral neck. IMPRESSION: Diminished bone mineral density of the bilateral hips consistent with osteopenia. Normal bone mineral density of the lumbar spine. Reviewed, Interpreted and Dictated by Navid Mar MD Transcribed by Fabi Callahan Authenticated and [facility]
--- OUTSIDE RECORDS SUMMARY | 2025-01-13 08:49 | XMS_ITS | Patient Health Record ---
Author Organization [facility] [address] [facility] [address] [place] [id number] Care Team Providers Care Internetworking Technician Name Role Phone Anabell Mae Primary Care Provider Chela Cavanaugh Unavailable [phone] Regan Britton Unavailable [phone] Georgette [place] Unavailable [phone] Allergies Allergen (clinical drug ingredient) Drug/Non Drug [...] 100 - 400 Urinalysis - Inhouse Reviewed date:09/13/2024 04:25:53 PM Interpretation: Performing Lab: Notes/Report: Color/Clarity yellow/clear Leuk Trace Nitrite Neg Urobili 3.2 Protein Neg pH 6.5 Blood Neg Sp. Gr. 1.015 Ketone Neg Bili Neg Gluc Neg P-Culture, Urine Reviewed date:09/12/2024 03:07:38 PM Interpretation:No Growth Performing Lab: Notes/Report: Test performed by [facility] [address] [place] [address] , [place] [address] Derek King MD, Multimedia Assistant CLIA: [id number] Specimen Source Urine - Void Culture, Urine See Below Final Report : No growth X ray : Hip, left Reviewed date:09/22/2024 12:41:21 PM Interpretation:degenerative changes, if symptoms persist, consider CT Performing Lab: Notes/Report: degenerative changes, if symptoms persist, consider CT Urinalysis - Inhouse Reviewed date:07/26/2024 12:08:06 PM Interpretation: Performing Lab: Notes/Report: Color/Clarity yellow Leuk 1+ Nitrite neg Urobili 3.2 Protein neg pH 6.0 Blood neg Sp. Gr. 1.015 Ketone neg Bili neg Gluc neg P-Culture, Urine Reviewed date:08/02/2024 08:19:21 AM Interpretation:sensitive Performing Lab: Notes/Report: Test performed by [facility] [address] [place] [address] , [address], [place] [address] Derek King MD, Multimedia Assistant CLIA: [id number] Specimen Source Urine - Void Culture, Urine See Below See Microbiol ogy Report Klebsiella variicola 50,000-100,000 CFU/ml Klebsiella variicola Sensitivity Panel See Below [...] Interpretation:Normal Performing Lab: Notes/Report: Test performed by [facility] [address] [place] [address] , [address], [place] [address] Derek King MD, Multimedia Assistant CLIA: [id number] Sodium 138 135-145 mmol/L Potassium 3.8 3.5-5.3 [...] 0.4 <0.2-1.2 mg/dL A/G Ratio 1.6 1.1-2.5 CBC Fingerstick (in house) Reviewed date:12/05/2024 02:30:27 [...] Interpretation:Negative Performing Lab: Notes/Report: Test performed by [facility], [address] , [address], [place] [address] Derek King MD, Multimedia Assistant CLIA: [id number] Influenza A, PCR Not Detected Not Detected Influenza A (subtype H1) Not Detected Not Detected Influenza A (subtype H3) Not Detected Not Detected Influenza A (subtype H1-2009) Not Detected Not Detected Influenza B, PCR Not Detected Not Detected [...] FDA-approved multiplexed qualitative test that utilizes reverse monotype operator (RT) and polymerase chain reaction (PCR) for [...] high complexity clinical laboratory testing. Performed by [facility], [facility] d/b/a [address] , [address] , [place] [address], Indra Vega DO, Multimedia Assistant, CLIA# [id number] colonoscopy Reviewed date:02/29/2024 07:58:53 AM Interpretation:DR COLUNGA [...] Interpretation:Normal Performing Lab: Notes/Report: Test performed by [facility] [address] [place] [address] , [address], [place] [address] Derek King MD, Multimedia Assistant CLIA: [id number] Antinuclear Antibodies (KELL) Screen Negative Negative This test is perform ed by Multiplex Bead Immunoassay methodology. P-Comprehensive Metabolic Pa venecia (CMP) Reviewed date:06/10/2024 01:35:27 PM Interpretation:Normal Performing Lab: Notes/Report: Test performed by [facility] [address] , [address], [place] [address] Derek King MD, Multimedia Assistant CLIA: [id number] Sodium 142 135-145 mmol/L Potassium 4.2 3.5-5.3 [...] Interpretation:Normal Performing Lab: Notes/Report: Test performed by [facility] [address] , [address], [place] [address] Derek King MD, Multimedia Assistant CLIA: [id number] Erythrocyte Sedimentation Rate (ESR), Automated 18 <31 mm/hr P-Rheumatoid Factor Reviewed date:06/10/2024 01:35:27 PM Interpretation:Normal Performing Lab: Notes/Report: Test performed by [facility] [address] [place] [address] , [place] [address] Derek King MD, Multimedia Assistant CLIA: [id number] Rheumatoid Factor 10.0 <14.1 IU/mL P-TSH Reviewed date:06/10/2024 01:35:27 PM Interpretation:Normal Performing Lab: Notes/Report: Test performed by [facility] [address] [place] [address] , [place] [address] Derek King MD, Multimedia Assistant CLIA: [id number] TSH 1.10 0.43-5.25 mU/L P-KELL Reviewed date:06/10/2024 12:56:59 PM Interpretation: Performing Lab: Notes/Report: Urinalysis - Inhouse Reviewed date:07/04/2024 01:18:37 PM Interpretation: Performing Lab: Notes/Report: Color/Clarity yellow clear Leuk trace Nitrite pos Urobili 3.2 Protein neg pH 6.5 Blood neg Sp. Gr. 1.010 Ketone neg Bili neg Gluc neg P-Culture, Urine Reviewed date:07/13/2024 12:45:35 PM Interpretation: Performing Lab: Notes/Report: Test performed by [facility] [address] [place] [address] , [place] [address] Derek King MD, Multimedia Assistant CLIA: [id number] Specimen Source Urine - Void Culture, Urine [...] S=SUSCEPTIBLE I=INTERMEDIATE R=RESISTANT Urinalysis - Inhouse Reviewed date:10/18/2024 12:34:24 PM Interpretation: Performing Lab: Notes/Report: Color/Clarity yellow Leuk trace Nitrite neg Urobili 3.2 Protein neg pH 5.5 Blood neg Sp. Gr. 1.015 Ketone neg Bili neg Gluc neg P-Culture, Urine Reviewed date:10/19/2024 01:19:08 PM Interpretation:suggest contamination, needs recollected Performing Lab: Notes/Report: Test performed by [facility] [address] [place] [address] , [address], [place] [address] Derek King MD, Multimedia Assistant CLIA: [id number] Specimen Source Urine - Void Culture, Urine [...] neg Gluc neg Urinalysis - Inhouse Reviewed date:11/10/2024 11:15:53 AM [...] Interpretation:sensitive Performing Lab: Notes/Report: Test performed by [facility], [address] , [address], [place] [address] Derek King MD, Multimedia Assistant CLIA: [id number] Specimen Source Urine - Void Culture, Urine [...] Annually Performing Lab: Notes/Report: Negative, F/U Annually Medications Medication SIG (Take, Route, Frequency, Duration) Notes Start Date End Date Status Aspirin Adult Low Dose 81 MG 1 tab(s) or ally once a day; Duration: 30 day(s) Active diazePAM 5 MG 1 tablet as needed Orally Once a day prn 12/01/2024 Active Sertraline HCl 50 MG 1/2 tab(s) orally once a day; Duration: 90 days Active Levothyroxine Sodium 75 MCG 1 tab(s) Ora lly Once a day; Duration: 90 days Active Benzonatate [...] tab at night; Duration: 90 days Active Doxepin HCl 10 MG 1 capsule at bedtime Orally Once a day; Duration: 90 days Active Pravastatin Sodium 20 MG Take 1 tablet b y mouth once daily Orally 3 times a week (MWF) Active Albuterol Sulfate HFA 108 (9 0 Base) MCG/ACT 2 puff(s) inhaled qid prn; Duration: 30 day(s) 03/29/2021 Active hydroCHLOROthiazide 12.5 MG 1 tablet in [...] Status W/U Status Risk Notes Problem Hyperlipidemia (23102168) Hyperlipidemia (272.4) Active confirmed Problem Hypothyroidism (52849174) Hypothyroidism (acquired) (E03.9) Active confirmed Problem Vitamin B12 deficiency (620245410) Vitamin B12 deficiency (E53.8) Active confirmed Problem Gout (81179241) Gout (M10.9) Active confirmed Problem Essential hypertension (53623028) Essential hypertension (I10) Active confirmed Problem Anxiety (20005609) Anxiety (F41.9) Active confi rmed Problem Hyperuricemia (58676666) Hyperuricemia (E79.0) Active confirmed Problem Mixed anxiety and depressive disorder (837780245) Depression with anxiety (F41.8) Active confirmed Problem Restless legs (43367510) Restless legs (G25.81) Active confirmed Problem Mixed hyperlipidemia (697858021) Mixed hyperlipidemia (E78.2) Active confirmed Problem Urge incontinence of urine (42452221) Urge incontinence (N39.41) Active confirmed Problem Obese class II (037836484233776) BMI 35.0-35.9,adult (Z68.35) Active confirmed Problem Sciatica (55225050) Sciatica of right side (M54.31) Active confirmed Problem Uncomplicated moderate persistent asthma (995667775) Moderate persistent asthma without complication (J45.40) Active confirmed Problem Gastroesophageal reflux disease without esophagitis (982112752) Gastroesophageal reflux disease without esophagitis (K21.9) Active confirmed Problem Acquired hypothyroidism (022648419) Acquired hypothyroidism (E03.9) Active confirmed Problem Mammography abnormal (861357411) Abnormal mammogram of left breast (R92.8) Active confirmed Problem Leukocytosis (727977534) Leukocytosis, unspecified type (D72.829) Active confirmed Problem Syncope and collapse (963903474) Syncope, unspecified syncope type (R55) Active confirmed Problem Sciatica (22376032) Right sided sciatica (M54.31) Active confirmed Problem Reactive depression (situational) (71450483) Reactive depression (situational) (F32.9) Active confirmed Problem Osteoarthritis of knee (084333994) 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) Active confirmed Problem Localized, primary osteoarthritis of the hand (075557540) 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) Active confirmed Problem Uncomplicated moderate persistent asthma (353185362) Moderate persistent asthmatic bronchitis without complication (J45.40) Active confirmed Problem Exacerbation of moderate persistent asthma (disorder) (175539900) Moderate persistent asthma with exacerbation (J45.41) Active confirmed Problem Seasonal allergic rhinitis (567271076) Seasonal allergic rhinitis, unspecified trigger (J30.2) Active confirmed Problem Basal cell carcinoma of ala nasi (disorder) (803312920) Basal cell carcinoma (BCC) of ala nasi (C44.311) Active confirmed Problem Benign neoplasm of skin of right forearm (D23.61) Active confirmed Vital Signs Heart Rate 112 /min 12/05/2024 Blood pressure diastolic 70 mm Hg 12/05/2024 Height 60 in 12/05/2024 Blood pressure systolic 112 mm Hg 12/05/2024 Weight 175 lbs 12/05/2024 BMI 34.17 kg/m2 12/05/2024 Encounters Encounter Location Date Provider Diagnosis [facility] [address] [place], [place] [id number] 06/09/2024 Anabell Mae Essential hypertensi on I10 ; Hypothyroidism (acquired) E03.9 ; Depression with anxiety F41.8 ; Basal cell carcinoma (BCC) of ala nasi C44.311 ; Moderate persistent asthmatic bronchitis without complication J45.40 and Arthropathy of hand M19.049 [facility] [address] [place], [place] [id number] 07/04/2024 Georgette [place] UTI (lower urinary tract infection) N39.0 [facility] [address] [place], [place] [id number] 07/26/2024 R Geoff Cavanaugh UTI (lower urinary tract infection) N39.0 [facility] [address] [place], [place] [id number] 09/08/2024 Regan Ocala Left hip pain M25.55 2 ; Pyuria R82.81 and Acute left-sided low back pain without sciatica M54.50 [facility] [address] [place], [place] [id number] 10/06/2024 Anabell Mae Essential hypertensi on I10 ; Acquired hypothyroidism E03.9 ; Moderate persistent asthma without complication J45.40 ; Restless legs G25.81 ; Mixed hyperlipidemia E78.2 and BMI 35.0-35.9,adult Z68.35 [facility] [address] [place], [place] [id number] 10/17/2024 Regan Ocala Pyuria R82.81 and Ac capitan grande band left-sided low back pain without sciatica M54.50 [facility] [address] [place], [place] [id number] 10/21/2024 Regan Ocala Pyuria R82.81 [facility] [address] [place], [place] [id number] 11/09/2024 Regan Ocala Acute UTI N39.0 ; Dysuria R30.0 ; Acute URI J06.9 and Breast cancer screening by mammogram Z12.31 [facility] [address] [place], [place] [id number] 11/28/2024 Regan Ocala Viral bronchitis J20 .8 [facility] [address] [place], [place] [id number] 12/05/2024 Regan Ocala Acute bronchitis, unspecified organism J20.9 ; Persistent cough R05.3 ; SOB (shortness of breath) R06.02 and Leukocytosis, unspecified type D72.829 [facility] [address] [place], [place] [id number] 03/29/2024 Regan Ocala Right sided sciatica M54.31 [facility] [address] [place] [id number] 06/14/2024 Anabell Mae [facility] [address] [place] [id number] 09/12/2024 Regan Ocala [facility] [address] [place], [place] [id number] 09/13/2024 Regan Ocala [facility] [address] [place] [id number] 09/22/2024 Regan Ocala [facility] [address] [place], [place] [id number] 10/25/2024 Regan Ocala [facility] [address] [place], [place] [id number] 11/02/2024 Anabell Mae [facility] [address] [place], [place] [id number] 11/07/2024 Anabell Mae [facility] [address] [place], [place] [id number] 11/21/2024 Anabell Mae [facility] [address] [place] [id number] 11/22/2024 Regandimple LopesOcala [facility] [address] [place] [id number] 12/01/2024 Regan Ocala [facility] [address] [place], [place] [id number] 12/13/2024 Anabell Mae Screening for osteoporosis Z13.820 [...] R30.0) 11/09/2024 Acute UTI (ICD-10 - N39.0) 11/28/2024 Viral bronchitis (ICD-10 - J20.8) 12/05/2024 Acute bronchitis, unspecified organism (ICD-10 - J20.9) Patient has failed to improve dispite several courses of steroids and antibiotics. [facility] upper repiratory PCR panel today as WBC count is still elevated 12/05/2024 Persistent cough (ICD-10 - R05.3) 12/13/2024 Screening for osteoporosis (ICD-10 - Z13.820) 12/05/2024 SOB (shortness of breath) (ICD-10 - R06.02) 11/09/2024 Acute URI (ICD-10 - J06.9) 10/06/2024 [...] cancer screening by mammogram (ICD-10 - Z12.31) 12/05/2024 Leukocytosis, unspecified type (ICD-10 - D72.829) 10/06/2024 Mixed hyperlipidemia (ICD-10 - E78.2) 06/09/2024 Moderate persistent asthmatic bronchitis without complication (ICD-10 - J45.40) 06/09/2024 Arthropathy of hand (ICD-10 - M19.049) 10/06/2024 BMI 35.0-35.9,adult (ICD-10 - Z68.35) Plan Of Treatment Pending Test Test Name Order Date Bone density 12/13/2024 Insurance Providers Payer Name Payer Address Payer Phone Subscriber Number Group Number Insured Name Patient Relationship to Insured Coverage Start Date Coverage End Date [employer] (MEDICAR E) [address] [address] [place] [id number] HANY VELASCO Self - patient is the [...] Code Hypertension Hyperthyroidism Hyperlipidemia Neg cardiolyte GXT 2008 Gout Vitamin B 12 deficiency COVID 19 Vaccine, Moderna, 11/2020 Sciatica Flu vaccine 05/2024 RSV Vaccine 05/2024 Surgical History Surgery Date(Month/Year) Arthroscopic knee surgery 2003 Hysterectomy abdominal Partical Knee Replacement 2004 LT Total Knee Replacement 03/2006 Bilateral Cataract 12/2010 Colonoscopy 12/11/2011 Cholecystectomy- [facility] 03/30/2012 Morgagni Hernia Heart Cath [address] Gonzalez. 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 Montenegro [facility] 2023 Colonoscopy, Dr. Colunga. One polyp 2023 Hospitalization History Reason Date(Month/Year) Labyrinthitis Bilateral Ears- [facility] ER 11/2019
--- OUTSIDE RECORDS SUMMARY | 2025-01-13 08:49 | XMS_ITS | Clinical Summary ---
Author Organization [facility] Address [address] [place] [address] Care Team Providers Care Malt House Supervisor Name Role Phone Sina Mae MD Primary Care Provider [phone] Allergies Active Allergy Reactions Criticality Noted [...] Screening 1950 [facility]-Medicare Annual Wellness (AWV) 1950 [facility]-Infant/Child/Adol SDOH Screenings 1949 [facility]- SDOH Screenings 1967 [facility]-Adult SDOH Screenings 1967 [facility]-Zoster Vaccines (1 of 2) 1968 CT Colonography 1994 Colonoscopy 1994 FIT-DNA 1994 FIT 1994 FOBT 1994 Sigmoidoscopy 1994 [facility]-Colorectal Cancer Screening 1994 [id number] Vaccine ( season) 2024 06/19/2021, 11/30/2020, 10/30/2020 [facility]-RSV Vaccine: 60+ Years or (1 - 1-dose 75+ series) 2024 [facility]-Influenza Vaccine (#1) 2025 06/05/2021, [facility]-DTaP,Tdap,and Td Vaccines (2 - Td or [...] Documents on File Type Date Recorded Patient Dispatcher Street Department Expl anation Advance Directives and Living Will 01/13/2024 Care Teams Malt House Supervisor Relationship Specialty Start Date End Date Sina Mae MD [address] [place] [address] PCP - General 02/09/24
--- OUTSIDE RECORDS SUMMARY | 2025-01-13 08:49 | XMS_ITS | Encounter Summary ---
Author Organization Healthcare Address [address] [place] [address] Care Team Providers Care Draw Bench Operator Helper Name Role Phone Sina Mae MD Primary Care Provider [phone] Encounter Details Date Type Department Care Team (Late st Contact Info) Description 09/16/2022 Community [facility] [address] [place] [address] Jose Tovar MD [address] [place] [id number] Social History Tobacco Use Types Packs/Day [...] on filedocumented in this encounter Care Teams Draw Bench Operator Helper Relationship Specialty Start Date End Date Sina Mae MD [address] [place] [address] PCP - General 02/09/24 documented as of this encounter
== END 2025-01-13 23:59 | disposition home or self-care (01) ==
LOC: RAD 08:46
PROVIDERS: PCP Family Medicine; Visit Provider Family Medicine
DX: M85.852 Other specified disorders of bone density and structure, left thigh (principal); M85.851 Other specified disorders of bone density and structure, right thigh; Z13.820 Encounter for screening for osteoporosis
CPT/HCPCS: 77080

== ENCOUNTER 2025-01-24 08:51 | Outpatient (CLI) | payer MEDICARE, SELFPAY ==
--- OUTSIDE RECORDS SUMMARY | 2024-12-05 10:15 | XMS_ITS ---
Author Organization [facility] Address [address] [facility] [address] [place] [id number] Care Team Providers Care Dairy Chemist Name Role Phone Anabell Mae Primary Care Provider [phone] Regan Britton Unavailable [phone] Allergies Allergen (clinical drug ingredient) Drug/Non Drug Allergy documented on EMR Reaction Allergy Type Onset Date Status acetaminophen / hydrocodone HYDROcodone-Acetam inophen itching Drug Allergy Active Substance with sulfonamide structure and antibacterial mechanism of action (substance) Sulfa Antibiotics swell up& itch Drug Allergy Active Results Component Value Reference Range Notes CBC Fingerstick (in house) Reviewed date:12/05/2024 02:30:27 PM Interpretation: Performing Lab: Notes/Report: wbc 13.5 3.5 - 10 lym 28.5% 15 - 50 mid 7.7% 2 - 15 gran 63.8% 35 - 80 rbc 4.58 3.5 - 5.5 hgb 14.1 11.5 - 16.5 hct 42.8 35 - 55 mcv 93.5 75 - 100 mch 30.9 25 - 35 mchc 33.0 31 - 38 plat 251 100 - 400 P-Respiratory Virus Expanded Panel, by PCR Reviewed date:12/07/2024 12:12:03 PM Interpretation:Negative Performing Lab: Notes/Report: Test performed by [email or web address], [employer] [address] [place] [address] , [address], [place] [address] Derek King MD, Mailroom Manager CLIA: [id number] Influenza A, PCR Not Detected Not Detected Influenza A (subtype H1) Not Detected Not Detected Influenza A (subtype H3) Not Detected Not Detected Influenza A (subtype H1-2009) Not Detected Not Detecte d Influenza B, PCR Not Detected Not Detected Adenovirus Not Detected Not Detected Human Metapneumovirus Not Detected Not Detected Parainfluenza 1 Not Detected Not Detected Parainfluenza 2 Not Detected Not Detected Parainfluenza 3 Not Detected Not Detected Parainfluenza 4 Not Detected Not Detected Rhinovirus/Enterovirus Not Detected Not Detected RSV Not Detected Not Detected SARS-CoV-2 Not Detected Not Detected Human Coronavirus 229E Not Detected Not Detected Human Coronavirus HKU1 Not Detected Not Detected Human Coronavirus NL63 Not Detected Not Detected Human Coronavirus OC43 Not Detected Not Detected Chlamydia pneumoniae Not Detected Not Detected Mycoplasma pneumoniae Not Detected Not Detected Testing performed by a FDA-approved multiplexed qualitative test that utilizes reverse block feeder (RT) and polymerase chain reaction (PCR) for the simultaneous detection and identification of multiple viral and bacterial nucleic acids. This test is highly sensitive and specific, but rare false positive and false negative results may occur. Results of this test should be interpreted in conjunction with clinical and laboratory findings. This laboratory is certified under the Clinical Laboratory Improvement Amendments of 1988 (CLIA) as qualified to perform high complexity clinical laboratory testing. Performed by [facility], [facility] d/b/a [facility], [address] [place] [address] , [facility], [place] [address], Indra Vega DO, Mailroom Manager, CLIA# [id number] REASON FOR VISIT virus Medications Medication SIG (Take, Route, Frequency, Duration) Notes Start Date End Date Status Albuterol Sulfate HFA 108 (9 0 Base) MCG/ACT 2 puff(s) inhaled qid prn; Duration: 30 day(s) 03/29/2021 Active diazePAM 5 MG 1 tablet as needed Orally Once a day prn 12/01/2024 Active Levothyroxine Sodium 75 MCG 1 tab(s) Ora lly Once a day; Duration: 90 days Active Doxepin HCl 10 MG 1 capsule at bedtime Orally Once a day; Duration: 90 days Active Pravastatin Sodium 20 MG Take 1 tablet b y mouth once daily Orally 3 times a week (MWF) Active Sertraline HCl 50 MG 1/2 tab(s) orally once a day; Duration: 90 days Active Benzonatate 200 MG 1 capsule Orally 3 times a day As needed 12/05/2024 Active Cefdinir 300 MG 1 cap Orally twice a day; Duration: 7 days 12/05/2024 Active Montelukast Sodium 10 MG 1 tablet Orally Once a day; Duration: 90 days Active Losartan Potassium 25 MG Take 1 tablet b y mouth twice daily 1 tab in the morning, 1/2 tab at night; Duration: 90 days Active Allopurinol 300 MG 1 tab(s) orally once a day; Duration: 90 days Active Aspirin Adult Low Dose 81 MG 1 tab(s) or ally once a day; Duration: 30 day(s) Active hydroCHLOROthiazide 12.5 MG 1 tablet in the morning Orally Once a day; Duration: 90 days Active Problems Problem Type SNOMED Code ICD Code Onset Dates Problem Status W/U Status Risk Notes Problem Leukocytosis, unspecified type (D72.829) Active confirmed Vital Signs Blood pressure systolic 112 mm Hg 12/06/19 25 Blood pressure diastolic 70 mm Hg 025 Heart Rate 112 /min 12/05/2024 Height 60 in 12/05/2024 Weight 175 lbs 12/05/2024 BMI 34.17 kg/m2 12/05/2024 Encounters Encounter Location Date Provider Diagnosis [facility] [address] [place], [place] [id number] 12/05/2024 Regan Britton Acute bronchitis, unspecified organism J20.9 ; Persistent cough R05.3 ; SOB (shortness of breath) R06.02 and Leukocytosis, unspecified type D72.829 Assessments Encounter Date Diagnosis (ICD Code) Assessment Notes Treatment Notes Treatment Clinical Notes Section Notes 12/05/2024 Acute bronchitis, unspecified organism (ICD-10 - J20.9) Patient has failed to improve dispite several courses of steroids and antibiotics. [facility] upper repiratory PCR panel today as WBC count is still elevated 12/05/2024 Persistent cough (ICD-10 - R05.3) 12/05/2024 SOB (shortness of breath) (ICD-10 - R06.02) 12/05/2024 Leukocytosis, unspecified type (ICD-10 - D72.829) Plan Of Treatment Medication Medication Name Sig Start Date Stop Date Notes Benzonatate 200 MG 1 capsule Orally 3 times a day 12/06/19 25 Cefdinir 300 MG 1 cap Orally twice a day; Duration: 7 days 12/05/2024 Treatment Notes Assessment Notes Acute bronchitis, unspecified organism P atient has failed to improve dispite several courses of steroids and antibiotics. [facility] upper repiratory PCR panel today as WBC count is still elevated Next Appt Details Follow Up: via phone to repo rt test results, Reason: Provider Name:Regan Morales ry, 01/24/2025 08:22:00 AM, [address], [address], [place], [place], [id number], Progress Notes * KAREL VELASCOOB:[birth year] (74 yo F)Acc No.[id number]:12/05/2024 Progress Notes Patient: HANY ESPINO Provider: Quiana Britton M.D. :1950 A ge:74 Y S ex:Female Date:12/05/2024 Address:[address] [place] [address] , [facility] Pcp:Anabell Mae Subjective: * Chief Complaints: * 1 . Virus. * HPI: E NT/respiratory: 74 year old female presents with c/o cough P t complains of worsening greenish yellow sputum production cough for almost 1 month. Associated with fatigue, headache, shortness of breath and chest congestion. Pt has finished Dexamethasone and Z-Pack but symptoms have not improved. Pt has also been doing neb treatements without any relief . * ROS: D ERMATOLOGY: no R renate. [...] 03/2006, Bilateral Cataract 12/2010, Colonoscopy 12/11/2011, Cholecystectomy- [facility] 03/30/2012, Morgagni Hernia , Heart Cath 2018, Transvaginal surgery. Dr. Gonzalez. October 2023, BCC of nose with excision and reconstruction, Dr. Montenegro [facility] 2023, Colonoscopy, Dr. Colunga. One polyp 2023. * Hospitalization/Major Diagno stic Procedure: L abyrinthitis Bilateral Ears- [facility] ER 08/06/2019. * Family History: F ather: 72 yrs, pancreatitis, asthma. M other: 86 yrs, stroke, cancer(Kidney), CHF. P aternal Grand Father: . P aternal Grand Mother: . M aternal Grand Father: . M aternal Grand Mother: . C dick: leukemia, son, . 1 brother(s) , 3 [...] US: yes, some. * Medications: T aking Aspirin Adult Low Dose 81 MG Tablet Delayed Release 1 tab(s) orally once a day , Taking hydroCHLOROthiazide 12.5 MG [...] tab(s) Orally Once a day , Taking diazePAM 5 MG Tablet 1 tablet as needed Orally Once a day prn , Taking Albuterol Sulfate HFA 108 (90 Base) MCG/ACT Aerosol Solution 2 puff(s) inhaled qid prn , Discontinued Zithromax Z-Alfie 250 MG Tablet as directed Orally daily , Discontinued dexAMETHasone 4 MG Tablet 1 tablet Orally twice a day , Medication List reviewed and reconciled with the patient * Allergies: S ulfa Antibiotics: swell up& itch, HYDROcodone-Acetaminophen: itching. Objective: * Vitals: W t: 175, Temp: 98.0, BP: 112/70, HR: 112, O2 Sat: 96% on RA, Nurse: michelle, Ht: 60, BMI:34.17. * Examination: E NT/Respiratory: General Appearance: N AD. O ral cavity : e rythema without exudate on pharynx. H eart : R RR. L ungs: g ood air movement, coarse breath sounds due to upper airway congestion. Assessment: * Assessment: 1. A cute bronchitis, unspecified organism - J20.9 (Primary) 2 . P ersistent cough - R05.3 3 . S OB (shortness of breath) - R06.02 4 . L eukocytosis, unspecified type - D72.829 Plan: * Treatment: Value Reference Range A denovirus Not Detected Not Detected - * I nfluenza A (subtype H1) Not Detected Not Detected - * I nfluenza A (subtype H3) Not Detected Not Detected - * I nfluenza A, PCR Not Detected Not Detected - * I nfluenza B, PCR Not Detected Not Detected - * H uman Metapneumovirus Not Detected Not Detected - * P arainfluenza 1 Not Detected Not Detected - * P arainfluenza 2 Not Detected Not Detected - * P arainfluenza 3 Not Detected Not Detected - * P arainfluenza 4 Not Detected Not Detected - * I nfluenza A (subtype H1-2008) Not Detected Not Detecte d - * R hinovirus/Enterovirus Not Detected Not Detected - * R SV Not Detected Not Detected - * S ARS-CoV-2 Not Detected Not Detected - * C oronavirus 229E Not Detected Not Detected - * C oronavirus HKU1 Not Detected Not Detected - * C oronavirus NL63 Not Detected Not Detected - * C oronavirus OC43 Not Detected Not Detected - * C hlamydia pneumoniae Not Detected Not Detected - * M ycoplasma pneumoniae Not Detected Not Detected - * Marisa Ding 12/07/2024 12:11:3 8 PM EDT > Pt informed ?LAB: CBC Fingerstick (in house) (Collection Date & Time - 12/05/2024)* Value Reference Range w bc 13.5 3.5 - 10 * l ym 28.5% 15 - 50 * m id 7.7% 2 - 15 * g ran 63.8% 35 - 80 * r bc 4.58 3.5 - 5.5 * h gb 14.1 11.5 - 16.5 * h ct 42.8 35 - 55 * m cv 93.5 75 - 100 * m ch 30.9 25 - 35 * m chc 33.0 31 - 38 * p lat 251 100 - 400 * Marisa Ding 12/05/2024 02:30:2 6 PM EDT > Provider reviewed results while patient in office. Notes: Patient has failed to improve dispite several courses of steroids and antibiotics. [facility] repiratory PCR panel today as WBC count is still elevated??2.?Persistent cough?LAB: P-Respiratory Virus Expanded Panel, by PCR (Collection Date & Time - 12/05/2024 02:23 PM)?Negative* Value Reference Range A denovirus Not Detected Not Detected - * I nfluenza A (subtype H1) Not Detected Not Detected - * I nfluenza A (subtype H3) Not Detected Not Detected - * I nfluenza A, PCR Not Detected Not Detected - * I nfluenza B, PCR Not Detected Not Detected - * H uman Metapneumovirus Not Detected Not Detected - * P arainfluenza 1 Not Detected Not Detected - * P arainfluenza 2 Not Detected Not Detected - * P arainfluenza 3 Not Detected Not Detected - * P arainfluenza 4 Not Detected Not Detected - * I nfluenza A (subtype H1-2009) Not Detected Not Detecte d - * R hinovirus/Enterovirus Not Detected Not Detected - * R SV Not Detected Not Detected - * S ARS-CoV-2 Not Detected Not Detected - * C oronavirus 229E Not Detected Not Detected - * C oronavirus HKU1 Not Detected Not Detected - * C oronavirus NL63 Not Detected Not Detected - * C oronavirus OC43 Not Detected Not Detected - * C hlamydia pneumoniae Not Detected Not Detected - * M ycoplasma pneumoniae Not Detected Not Detected - * Marisa Ding 12/07/2024 12:11:3 8 PM EDT > Pt informed 3.?SOB (shortness of breath)?LAB: P-Respiratory Virus Expanded Panel, by PCR (Collection Date & Time - 12/05/2024 02:23 PM)?Negative* Value Reference Range A denovirus Not Detected Not Detected - * I nfluenza A (subtype H1) Not Detected Not Detected - * I nfluenza A (subtype H3) Not Detected Not Detected - * I nfluenza A, PCR Not Detected Not Detected - * I nfluenza B, PCR Not Detected Not Detected - * H uman Metapneumovirus Not Detected Not Detected - * P arainfluenza 1 Not Detected Not Detected - * P arainfluenza 2 Not Detected Not Detected - * P arainfluenza 3 Not Detected Not Detected - * P arainfluenza 4 Not Detected Not Detected - * I nfluenza A (subtype H1-2008) Not Detected Not Detecte d - * R hinovirus/Enterovirus Not Detected Not Detected - * R SV Not Detected Not Detected - * S ARS-CoV-2 Not Detected Not Detected - * C oronavirus 229E Not Detected Not Detected - * C oronavirus HKU1 Not Detected Not Detected - * C oronavirus NL63 Not Detected Not Detected - * C oronavirus OC43 Not Detected Not Detected - * C hlamydia pneumoniae Not Detected Not Detected - * M ycoplasma pneumoniae Not Detected Not Detected - * Marisa Ding 12/07/2024 12:11:3 8 PM EDT > Pt informed 4.?Leukocytosis, unspecified type?LAB: P-Respiratory Virus Expanded Panel, by PCR (Collection Date & Time - 12/05/2024 02:23 PM)?Negative* Value Reference Range A denovirus Not Detected Not Detected - * I nfluenza A (subtype H1) Not Detected Not Detected - * I nfluenza A (subtype H3) Not Detected Not Detected - * I nfluenza A, PCR Not Detected Not Detected - * I nfluenza B, PCR Not Detected Not Detected - * H uman Metapneumovirus Not Detected Not Detected - * P arainfluenza 1 Not Detected Not Detected - * P arainfluenza 2 Not Detected Not Detected - * P arainfluenza 3 Not Detected Not Detected - * P arainfluenza 4 Not Detected Not Detected - * I nfluenza A (subtype H1-2008) Not Detected Not Detecte d - * R hinovirus/Enterovirus Not Detected Not Detected - * R SV Not Detected Not Detected - * S ARS-CoV-2 Not Detected Not Detected - * C oronavirus 229E Not Detected Not Detected - * C oronavirus HKU1 Not Detected Not Detected - * C oronavirus NL63 Not Detected Not Detected - * C oronavirus OC43 Not Detected Not Detected - * C hlamydia pneumoniae Not Detected Not Detected - * M ycoplasma pneumoniae Not Detected Not Detected - * Marisa Ding 12/07/2024 12:11:3 8 PM EDT > Pt informed * Procedure Codes: G 2211 Complex e/[place], [address] CAPILLARY BLOOD DRAW, 94604 CBC WITH AUTO DIFF * Follow Up: v ia phone to report test results * Images: Billing Information: * Visit Code: 89890 Office Visit, Est Pt., Level 3. * Procedure Codes: G2211 Complex e/[place]. [address] CAPILLARY BLOOD DRAW. 90973 CBC WITH AUTO DIFF. * Electronic signature of Shirley Britton MD on 01/24/2025 at 08:56 AM EDT Sign off status: Pending * Provider: Quiana Britton M.D. Date: 12/05/2024 Generated for Nicole jordan/Marybel/eTransmitting on: 01/24/2025 08:56 AM EDT History and Physical Notes * HPI (History of Present Illness) Category Sub-Category Detail Notes Category Not es ENT/respiratory cough Pt complains of worsening greenish yellow sputum production cough for almost 1 month. Associated with fatigue, headache, shortness of breath and chest congestion. Pt has finished Dexamethasone and Z-Pack but symptoms have not improved. Pt has also been doing neb treatements without any relief Examination Category Sub-Category Detail Notes Category Not es ENT/Respiratory Oral cavity : erythema without exudate on pharynx Heart : RRR Lungs: good air movement, c oarse breath sounds due to upper airway congestion General Appearance: NAD
--- OUTSIDE RECORDS SUMMARY | 2024-12-13 07:46 | XMS_ITS ---
Author Organization [facility] Address 1210 [facility] 36 [facility] [address] [place] [id number] Care Team Providers Care Hub Associate Name Role Phone Anabell Mae Primary Care Provider Results Component Value Reference Range Notes Bone density Reviewed date:01/16/2025 09:18:51 AM Interpretation:osteopenia bilateral hips Performing Lab: Notes/Report: osteopenia bilateral hips Bone density osteopenia bilateral hips REASON FOR VISIT due dexa Encounters Encounter Location Date Provider Diagnosis [facility] [address] [facility] [address] [place] [id number] 12/13/2024 Anabell Mae Screening for osteoporosis Z13.820 Assessments Encounter Date Diagnosis (ICD Code) Assessment Notes Treatment Notes Treatment Clinical Notes Section Notes 12/13/2024 Screening for osteoporosis (ICD-10 - Z13.820) Plan Of Treatment Next Appt Details Provider Name:Regan Carmel Carmen , 01/24/2025 08:22:00 AM, [address] [facility] 36 [facility], [address], [place], [phone], Progress Notes * JOSE VELASCODIMACASSYOB:[birth year] (74 yo F)Acc No.[id number]:12/13/2024 Patient: HANY ESPINO :1950 A ge:74 Y S ex:Female Address:[address] [place] [address] Subjective: * Chief Complaints: * D ue dexa * Medical History: * Surgical History: * Hospitalization/Major Diagno stic Procedure: * Medications: Objective: * Vitals: * Physical Examination: Assessment: * Assessment: 1. S creening for osteoporosis - Z13.820 (Primary) Plan: * Treatment: * Procedure Codes: * true * Date: Generated for Nicole jordan/Marybel/Jagdeep on: 0 01/24/2025 08:55 AM EDT
--- OUTSIDE RECORDS SUMMARY | 2025-01-23 06:45 | XMS_ITS ---
[facility] Address [address] [facility] [address] [place], [place] [id number] Care Team Providers Care Wiper Blender Name Role Phone Anabell Mae Primary Care Provider Regan Britton Unavailable [phone] Allergies Allergen (clinical drug ingredient) Drug/Non Drug Allergy documented on EMR Reaction Allergy Type Onset Date Status acetaminophen / hydrocodone HYDROcodone-Acetam inophen itching Drug Allergy Active Substance with sulfonamide structure and antibacterial mechanism of action (substance) Sulfa Antibiotics swell up& itch Drug Allergy Active Results Component Value Reference Range Notes CBC Venipuncture (in house) Reviewed date:01/24/2025 08:23:46 AM Interpretation:Normal Performing Lab: Notes/Report: Normal wbc 6.4 3.5 - 10 lymph 34.5% 15 - 50 mid 7.2% 2 - 15 gran 58.3% 35 - 80 rbc 4.29 3.5 - 5.5 hgb 13.3 11.5 - 16.5 hct 38.9 35 - 55 mcv 90.6 75 - 100 mch 31.0 25 - 35 mchc 34.2 31 - 38 platlet 273 100 - 400 P-Comprehensive Metabolic Pa venecia (CMP) Reviewed date:01/24/2025 08:23:46 AM Interpretation:Cr 1.01, gfr 58 Performing Lab: Notes/Report: Test performed by [facility] [address] [place] [address] , [address], [place] [address] Derek King MD, Environmental Manager CLIA: [id number] Sodium 141 135-145 mmol/L Potassium 3.6 3.5-5.3 mmol/L Chloride 103 97-108 mmol/L CO2 26 20-32 mmol/L Glucose 86 65-99 mg/dL BUN 23 8-23 mg/dL Creatinine 1.01 0.50-1.00 mg/dL Calcium 9.9 8.6-10.4 mg/dL eGFR by Creatinine 58 >59 mL/min/1.73m2 Protein 6.8 6.0-8.3 g/dL Albumin 4.2 3.5-5.3 g/dL Alkaline Phosphatase 75 35-121 IU/L ALT (SGPT) 14 <5-47 IU/L AST (SGOT) 17 <5-40 IU/L Bilirubin, Total 0.3 <0.2-1.2 mg/dL A/G Ratio 1.6 1.1-2.5 P-T4 Free (thyroxine) Reviewed date:01/24/2025 08:23:46 AM Interpretation:Normal Performing Lab: Notes/Report: Test performed by [facility] [address] [place] [address] , [address], [place] [address] Derek King MD, Environmental Manager CLIA: [id number] Thyroxine Free (free T4) 1.27 0.86-1.76 ng/dL P-Lipid Panel Reviewed date:01/24/2025 08:23:46 AM Interpretation:trigs 269, hdl 36, chol/hdl 4.86, non-hdl 139 Performing Lab: Notes/Report: Test performed by [facility] [address] [place] [address] , [address], [place] [address] Derek King MD, Environmental Manager CLIA: [id number] Cholesterol 175 <200 mg/dL Triglycerides 269 <150 mg/dL HDL Cholesterol 36 >39 mg/dL Cholesterol / HDL Ratio 4.86 0.00-4.44 Ratio Non-HDL Cholesterol 139 <130 mg/dL LDL Cholesterol (Calculation) 85 <130 mg/dL LDL Cholesterol Levels* Less than 100 mg/dL Optimal 100 to 129 mg/dL Near Optimal/ Above Optimal 130 to 159 mg/dL Borderline High 160 to 189 mg/dL High 190 mg/dL and above Very High * Categories as recommended by the 2004 ATPIII guidelines LDL/HDL Ratio 2.4 <3.3 Ratio LDL Cholesterol Patient History Test Date: 06/15/2023 LDL Results: 119 Units: mg/dL % Change: - Test Date: 01/23/2025 LDL Results: 85 Units: mg/dL % Change: -28% P-TSH Reviewed date:01/24/2025 08:23:46 AM Interpretation:Normal Performing Lab: Notes/Report: Test performed by [facility] [address] [place] [address] , [place] [address] Derek King MD, Environmental Manager CLIA: [id number] TSH 1.04 0.43-5.25 mU/L P-Microalbumin/Creatinine, R andom Urine Sample Reviewed date:01/24/2025 08:23:46 AM Interpretation:Normal Performing Lab: Notes/Report: Test performed by [facility] [address] [place] [address] , [place] [address] Derek King MD, Environmental Manager CLIA: [id number] Albumin/Creatinine Ratio, Urine <6.06 0-30 ug/m g Microalbumin, Urine, Random <0.3 Creatinine, Urine 49.5 P-Uric Acid Reviewed date:01/24/2025 08:23:46 AM Interpretation:Normal Performing Lab: Notes/Report: Test performed by [facility], [facility] [address] [place] [address] , [address], [place] [address] Derek King MD, Environmental Manager CLIA: [id number] Uric Acid 4.6 2.4-7.0 mg/dL REASON FOR VISIT check up Medications Medication SIG (Take, Route, Frequency, Duration) Notes Start Date End Date Status Calcium + Vitamin D3 600-10 MG-MCG 1 tablet with a meal Orally Once a day Active Aspirin Adult Low Dose 81 MG 1 tab(s) or ally once a day; Duration: 30 day(s) Active Wixela Inhub 100-50 MCG/ACT 1 puff Inhal ation Twice a day 01/23/2025 Active Montelukast Sodium 10 MG 1 tablet Orally Once a day; Duration: 90 days Active hydroCHLOROthiazide 12.5 MG 1 tablet in the morning Orally Once a day; Duration: 90 days Active Allopurinol 300 MG 1 tab(s) orally once a day; Duration: 90 days Active Albuterol Sulfate HFA 108 (9 0 Base) MCG/ACT 2 puff(s) inhaled qid prn; Duration: 30 day(s) 03/29/2021 Active Benzonatate 200 MG 1 capsule Orally 3 times a day As needed 12/05/2024 Active diazePAM 5 MG 1 tablet as [...] tab at night; Duration: 90 days Active Vital Signs Blood pressure systolic 118 mm Hg 01/24/20 25 Blood pressure diastolic 72 mm Hg 025 Heart Rate 61 /min 01/23/2025 Height 60 in 01/23/2025 Weight 178.2 lbs 01/23/2025 BMI 34.8 kg/m2 01/23/2025 Encounters Encounter Location Date Provider Diagnosis [facility] [address] [facility] [address] [facility] [address] [place] [id number] 01/23/2025 Regan Britton Essential hypertensi on I10 ; Hypothyroidism (acquired) E03.9 ; Gout M10.9 ; Gastroesophageal reflux disease without esophagitis K21.9 ; Polyarthralgia M25.50 and Moderate persistent asthma without complication J45.40 Assessments Encounter Date Diagnosis (ICD Code) Assessment Notes Treatment Notes Treatment Clinical Notes Section Notes 01/23/2025 Essential hypertension (ICD-10 - I10) 01/23/2025 Hypothyroidism (acquired) (ICD-10 - E03.9) 01/23/2025 Gout (ICD-10 - M10.9) 01/23/2025 Gastroesophageal reflux disease without esophagitis (ICD-10 - K21.9) 01/23/2025 Polyarthralgia (ICD-10 - M25.50) 01/23/2025 Moderate persistent asthma without complication (ICD-10 - J45.40) Plan Of Treatment Medication Medication Name Sig Start Date Stop Date Notes Wixela Inhub 100-50 MCG/ACT 1 puff Inhalation Twice a day 01/23/2025 Pending Test Test Name Order Date X ray : Hands, bilateral 01/23/2025 Next Appt Details Follow Up: via phone to repo rt progress, Reason: Provider Name:Regan Morales , 01/24/2025 08:22:00 AM, [address] [facility] [address] [facility], [address], [place], [id number], Progress Notes * SAM VELASCOTEDOB:[birth year] (74 yo F)Acc No.[id number]:01/23/2025 Progress Notes Patient: HANY ESPINO Provider: Quiana Britton M.D. :1950 A ge:74 Y S ex:Female Date:01/23/2025 Address:[address] [place] [address] , [address] [id number] Pcp:Anabell Mae Subjective: * Chief Complaints: * 1 . Check up. * HPI: C ardiology: 74 year old female presents with c/o Blood Pressure Elevated?Pt. here for checkup on Hypertension. . c/o Hyperlipidemia P t is fasting today.? E ndocrinology: c/o Hypothyroidism P t. here for checkup. . H PI: c/o Patient is here today for P t requesting change in Allopurinol dose due to ongoing issue with Gout. * ROS: D ERMATOLOGY: no R renate. [...] 03/2006, Bilateral Cataract 12/2010, Colonoscopy 12/11/2011, Cholecystectomy- [facility] 03/30/2012, Morgagni Hernia , Heart Cath 2018, Transvaginal surgery. Dr. Gonzalez. October 2023, BCC of nose with excision and reconstruction, Dr. Montenegro [facility] 2023, Colonoscopy, Dr. Colunga. One polyp 2023. * Hospitalization/Major Diagno stic Procedure: L abyrinthitis Bilateral Ears- [facility] ER 08/06/2019. * Family History: F ather: 72 yrs, pancreatitis, asthma. M other: 86 yrs, stroke, cancer(Kidney), CHF. P aternal Grand Father: . P aternal Grand Mother: . M aternal Grand Father: . M aternal Grand Mother: . C hilpatricia: leukemia, son, . 1 brother(s) , 3 [...] US: yes, some. * Medications: T aking Calcium + Vitamin D3 600-10 MG-MCG Tablet 1 tablet with a meal Orally Once a day , Taking Aspirin [...] 2 puff(s) inhaled qid prn , Taking Benzonatate 200 MG Capsule 1 capsule Orally 3 times a day As needed, Taking Allopurinol 300 MG Tablet 1 tab(s) orally once a day , Taking hydroCHLOROthiazide 12.5 MG Tablet 1 tablet in the morning Orally Once a day , Discontinued Cefdinir 300 MG Capsule 1 cap Orally twice a day , Medication List reviewed and reconciled with the patient * Allergies: S ulfa Antibiotics: swell up& itch, HYDROcodone-Acetaminophen: itching. Objective: * Vitals: W t: 178.2, Temp: 98.6, BP: 118/72, HR: 61, Nurse: SF, Ht: 60, BMI:34.8. * Examination: G eneral Examination: General Appearance: N AD. H EENT: u nremarkable.? Repair of the nose and scar from the nasolabial area looks good.. O ral cavity: n o lesions, mucosa moist and WNL, no erythema. N mundo: s upple, no lymphadenopathy. H eart: RSR. L ungs: c lear to auscultation. P eripheral pulses: n ormal . E xtremities: s ome swelling of the IP joints of both hands. Assessment: * Assessment: 1. E ssential hypertension - I10 (Primary) 2 . H ypothyroidism (acquired) - E03.9 3 . G out - M10.9 4 . G astroesophageal reflux disease without esophagitis - K21.9 5 . P olyarthralgia - M25.50 6 . Moderate persistent asthma without complication - J45.40 Plan: * Treatment: Value Reference Range A /G Ratio 1.6 1.1-2.5 - * A lbumin 4.2 3.5-5.3 - g/dL * A lkaline Phosphatase 75 35-121 - IU/L * A LT (SGPT) 14 <5-47 - IU/L * A ST (SGOT) 17 <5-40 - IU/L * B ilirubin, Total 0.3 <0.2-1.2 - mg/dL * B UN 23 8-23 - mg/dL * C alcium 9.9 8.6-10.4 - mg/dL * C hloride 103 97-108 - mmol/L * C O2 26 20-32 - mmol/L * C reatinine 1.01 H 0.50-1.00 - mg/dL * G lucose 86 65-99 - mg/dL * P otassium 3.6 3.5-5.3 - mmol/L * S odium 141 135-145 - mmol/L * P rotein 6.8 6.0-8.3 - g/dL * e GFR by Creatinine 58 L >59 - mL/min/1.73m2 * Maegan Wang 01/24/2025 08:2 3:41 AM EDT > See phone encounter ?LAB: P-Lipid Panel (Collection Date & Time - 01/23/2025 10:30 AM)?trigs 269, hdl 36, chol/hdl 4.86, non-hdl 139* Value Reference Range C holesterol / HDL Ratio 4.86 H 0.00-4.44 - Ratio * C holesterol 175 <200 - mg/dL * H DL Cholesterol 36 L >39 - mg/dL * L DL Cholesterol (Calculation) 85 <130 - mg/d L * L DL/HDL Ratio 2.4 <3.3 - Ratio * N on-HDL Cholesterol 139 H <130 - mg/dL * T riglycerides 269 H <150 - mg/dL * Maegan Wang 01/24/2025 08:2 3:41 AM EDT > See phone encounter ?LAB: P-Microalbumin/Creatinine, Random Urine Sample (Collection Date & Time - 01/23/2025 10:30 AM)?Normal* Value Reference Range A lbumin/Creatinine Ratio, Urine <6.06 0-30 - ug /mg * C reatinine, Urine 49.5 - mg/dL * M icroalbumin, Urine, Random <0.3 - mg/dL * Maegan Wang 01/24/2025 08:2 3:41 AM EDT > See phone encounter 2.?Hypothyroidism (acquired)?LAB: P-T4 Free (thyroxine) (Collection Date & Time - 01/23/2025 10:30 AM)? Normal* Value Reference Range T hyroxine Free (free T4) 1.27 0.86-1.76 - ng/d L * Maegan Wang 01/24/2025 08:2 3:41 AM EDT > See phone encounter ?LAB: P-TSH (Collection Date & Time - 01/23/2025 10:30 AM)?Normal* Value Reference Range T SH 1.04 0.43-5.25 - mU/L * Maegan Wang 01/24/2025 08:2 3:41 AM EDT > See phone encounter 3.?Gout?LAB: P-Comprehensive Metabolic Panel (CMP) (Collection Date & Time - 01/23/2025 10:30 AM)?Cr 1.01, gfr 58* Value Reference Range A /G Ratio 1.6 1.1-2.5 - * A lbumin 4.2 3.5-5.3 - g/dL * A lkaline Phosphatase 75 35-121 - IU/L * A LT (SGPT) 14 <5-47 - IU/L * A ST (SGOT) 17 <5-40 - IU/L * B ilirubin, Total 0.3 <0.2-1.2 - mg/dL * B UN 23 8-23 - mg/dL * C alcium 9.9 8.6-10.4 - mg/dL * C hloride 103 97-108 - mmol/L * C O2 26 20-32 - mmol/L * C reatinine 1.01 H 0.50-1.00 - mg/dL * G lucose 86 65-99 - mg/dL * P otassium 3.6 3.5-5.3 - mmol/L * S odium 141 135-145 - mmol/L * P rotein 6.8 6.0-8.3 - g/dL * e GFR by Creatinine 58 L >59 - mL/min/1.73m2 * Maegan Wang 01/24/2025 08:2 3:41 AM EDT > See phone encounter ?LAB: P-Uric Acid (Collection Date & Time - 01/23/2025 10:30 AM)?Normal* Value Reference Range U kindra Acid 4.6 2.4-7.0 - mg/dL * Maegan Wang 01/24/2025 08:2 3:41 AM EDT > See phone encounter 4.?Polyarthralgia?LAB: CBC Venipuncture (in house) (Collection Date & Time - 01/23/2025)? Normal* Value Reference Range w bc 6.4 3.5 - 10 * l ymph 34.5% 15 - 50 * m id 7.2% 2 - 15 * g ran 58.3% 35 - 80 * r bc 4.29 3.5 - 5.5 * h gb 13.3 11.5 - 16.5 * h ct 38.9 35 - 55 * m cv 90.6 75 - 100 * m ch 31.0 25 - 35 * m chc 34.2 31 - 38 * p latlet 273 100 - 400 * Marisa Ding 01/23/2025 12:19: 30 PM EDT > Maegan Wang 01/24/2025 08:23:41 AM EDT > See phone encounter ?Imaging: X ray : Hands, bilateral5.?Moderate persistent asthma without complication? Start Wixela Inhub Aerosol Powder Breath Activated, 100-50 MCG/ACT, 1 puff, Inhalation, Twice a day, 60, Refills 2.?? * Procedure Codes: G 2211 Complex e/[place], [address] CBC WITH AUTO DIFF * Follow Up: v ia phone to report progress * Images: Billing Information: * Visit Code: 35361 Office Visit, Est Pt., Level 4. * Procedure Codes: G2211 Complex e/[place]. [address] CBC WITH AUTO DIFF. * Electronic signature of Shirley Britton MD on 01/24/2025 at 08:55 AM EDT Sign off status: Pending * Provider: Quiana Britton M.D. Date: 0 01/23/2025 Generated for Nicole jodran/Marybel/Jagdeep on: 01/24/2025 08:55 AM EDT History and Physical Notes * HPI (History of Present Illness) Category Sub-Category Detail Notes Category Not es Endocrinology Hypothyroidism Pt. here for checkup. Cardiology Blood Pressure Elevated Pt. here for checkup on Hypertension. Hyperlipidemia Pt is fasting today HPI Patient is here today for Pt req uesting change in Allopurinol dose due to ongoing issue with Gout Examination Category Sub-Category Detail Notes Category Not es General Examination HEENT: unremarkable . Repair of the nose and scar from the nasolabial area looks good. Heart: RSR Lungs: clear to auscultatio n Extremities: some swelling of the IP joints of both hands General Appearance: NAD Neck: supple, no lymphaden opathy Oral cavity: no lesions, mucosa m oist and WNL, no erythema Peripheral pulses: normal
--- NOTE | 2025-01-24 08:54 | XR_ITS ---
FINAL REPORT CLINICAL HISTORY: pain FINDINGS: RIGHT HAND Three views demonstrate no acute fracture or dislocation. There is multijoint degenerative disease. Findings are most pronounced at the first carpometacarpal and DIP joints. There is fusion of the fifth DIP joint. Normal mineralization is seen. Soft tissues are without acute abnormality. IMPRESSION: Degenerative changes without acute bony abnormality. Reviewed, Interpreted and Dictated by Lanie Bolden MD Transcribed by Angeles Minaya Authenticated and [facility]
--- NOTE | 2025-01-24 08:54 | XR_ITS ---
FINAL REPORT CLINICAL HISTORY: POLYARTHRALGIA FINDINGS: LEFT HAND Three views demonstrate no acute fracture or dislocation. There is multijoint degenerative disease. Findings are most pronounced at the first carpometacarpal and DIP joints. Normal mineralization is seen. Soft tissues are without acute abnormality. IMPRESSION: Degenerative changes without acute bony abnormality. Reviewed, Interpreted and Dictated by Lanie Bolden MD Transcribed by Angeles Minaya Authenticated and . [facility]
--- OUTSIDE RECORDS SUMMARY | 2025-01-24 08:56 | XMS_ITS | Encounter Summary ---
Author Organization Healthcare Address [address] [place] [address] Care Team Providers Care Division Operations Specialist Name Role Phone Sina Mae MD Primary Care Provider [phone] Encounter Details Date Type Department Care Team (Late st Contact Info) Description 09/16/2022 [facility] [address] [place] [address] Jose Tovar MD [address] [place] [id number] Social History Tobacco Use Types Packs/Day [...] on filedocumented in this encounter Care Teams Division Operations Specialist Relationship Specialty Start Date End Date Sina Mae MD [address] [place] [address] PCP - General 02/09/24 documented as of this encounter
--- OUTSIDE RECORDS SUMMARY | 2025-01-24 08:56 | XMS_ITS | Patient Health Record ---
[facility] Address [address] [facility] [address] [place] [id number] Care Team Providers Care Filter Filler Name Role Phone Anabell Mae Primary Care Provider Chela Cavanaugh Unavailable [phone] Regan Britton Unavailable [phone] Georgette Austin Unavailable [phone] Allergies Allergen (clinical drug ingredient) Drug/Non Drug Allergy documented on EMR Reaction Allergy Type Onset Date Status acetaminophen / hydrocodone HYDROcodone-Acetam inophen itching Drug Allergy Active Substance with sulfonamide structure and antibacterial mechanism of action (substance) Sulfa Antibiotics swell up& itch Drug Allergy Active Results Component Value Reference Range Notes P-Respiratory Virus Expanded Panel, by PCR Reviewed date:12/07/2024 12:12:03 PM Interpretation:Negative Performing Lab: Notes/Report: Test performed by [facility] [address] [place] [address] , [address], [place] [address] Derek King MD, Vice President Network Development CLIA: [id number] Influenza A, PCR Not Detected Not Detected [...] FDA-approved multiplexed qualitative test that utilizes reverse form worker (RT) and polymerase chain reaction (PCR) for [...] laboratory testing. Performed by [facility], [facility] d/b/a [facility] , [address] , [place] [address], Indra Vega DO, Vice President Network Development, CLIA# [id number] CBC Venipuncture (in house) Reviewed date:01/24/2025 08:23:46 [...] 58 Performing Lab: Notes/Report: Test performed by [facility] [employer] [address] [place] [address] , [address] , [place] [address] Derek King MD, Vice President [employer] CLIA: [id number] Sodium 141 135-145 mmol/L Potassium 3.6 3.5-5.3 [...] Interpretation:Normal Performing Lab: Notes/Report: Test performed by [facility] [address] [place] [address] , [place] [address] Derek King MD, Vice President [employer] CLIA: [id number] Thyroxine Free (free T4) 1.27 0.86-1.76 ng/dL P-Lipid Panel Reviewed date:01/24/2025 08:23:46 AM Interpretation:trigs 269, hdl 36, chol/hdl 4.86, non-hdl 139 Performing Lab: Notes/Report: Test performed by [facility] [address] [place] [address] , [address], [place] [address] Derek iKng MD, Vice President [employer] CLIA: [id number] Cholesterol 175 <200 mg/dL Triglycerides 269 <150 [...] ATPIII guidelines LDL/HDL Ratio 2.4 <3.3 Ratio ____ LDL Cholesterol Patient History ____ Test Date: 06/15/2023 LDL Results: 119 Units: mg/dL % Change: - ---- Test Date: 01/23/2025 LDL Results: 85 Units: mg/dL % Change: -28% ____ P-TSH Reviewed date:01/24/2025 08:23:46 AM Interpretation:Normal Performing Lab: Notes/Report: Test performed by [facility] [address] [place] [address] , [address], [place] [address] Derek King MD, Vice President [employer] CLIA: [id number] TSH 1.04 0.43-5.25 mU/L P-Microalbumin/Creatinine, R andom Urine Sample Reviewed date:01/24/2025 08:23:46 AM Interpretation:Normal Performing Lab: Notes/Report: Test performed by [facility] [address] [place] [address] , [address], [place] [address] Derek King MD, Vice President [employer] CLIA: [id number] Albumin/Creatinine Ratio, Urine <6.06 0-30 ug/mg Microalbumin, Urine, Random <0.3 Creatinine, Urine 49.5 P-Uric Acid Reviewed date:01/24/2025 08:23:46 AM Interpretation:Normal Performing Lab: Notes/Report: Test performed by [facility] [address] [place] [address] , [address], [place] [address] Derek King MD, Vice President [employer] CLIA: [id number] Uric Acid 4.6 2.4-7.0 mg/dL Bone density Reviewed date:01/16/2025 09:18:51 AM Interpretation:osteopenia bilateral hips Performing Lab: Notes/Report: osteopenia bilateral hips Bone density osteopenia bilateral hips CBC Fingerstick (in house) Reviewed date:12/05/2024 02:30:27 [...] - 38 plat 251 100 - 400 Urinalysis - Inhouse Reviewed date:09/13/2024 04:25:53 PM Interpretation: Performing Lab: Notes/Report: Color/Clarity yellow/clear Leuk Trace Nitrite Neg Urobili 3.2 Protein Neg pH 6.5 Blood Neg Sp. Gr. 1.015 Ketone Neg Bili Neg Gluc Neg P-Culture, Urine Reviewed date:09/12/2024 03:07:38 PM Interpretation:No Growth Performing Lab: Notes/Report: Test performed by [facility] [address] [place] [address] , [address], [place] [address] Derek King MD, Vice President [employer] CLIA: [id number] Specimen Source Urine - Void Culture, Urine See Below Final Report : No growth X ray : Hip, left Reviewed date:09/22/2024 12:41:21 PM Interpretation:degenerative changes, if symptoms persist, consider CT Performing Lab: Notes/Report: degenerative changes, if symptoms persist, consider CT Urinalysis - Inhouse Reviewed date:10/18/2024 12:34:24 PM Interpretation: Performing Lab: Notes/Report: Color/Clarity yellow Leuk trace Nitrite neg Urobili 3.2 Protein neg pH 5.5 Blood neg Sp. Gr. 1.015 Ketone neg Bili neg Gluc neg P-Culture, Urine Reviewed date:10/19/2024 01:19:08 PM Interpretation:suggest contamination, needs recollected Performing Lab: Notes/Report: Test performed by [facility] [address] [place] [address] , [address], [place] [address] Derek King MD, Vice President [employer] CLIA: [id number] Specimen Source Urine - Void Culture, Urine [...] 1.015 Ketone neg Bili neg Gluc neg colonoscopy Reviewed date:02/29/2024 07:58:53 AM Interpretation:DR COLUNGA [...] Interpretation:Normal Performing Lab: Notes/Report: Test performed by [facility] [address] [place] [address] , [address], [place] [address] Derek King MD, Vice President [employer] CLIA: [id number] Antinuclear Antibodies (KELL) Screen Negative Negative This test is perform ed by Multiplex Bead Immunoassay methodology. P-Comprehensive Metabolic Pa venecia (CMP) Reviewed date:06/10/2024 01:35:27 PM Interpretation:Normal Performing Lab: Notes/Report: Test performed by [facility] [address] [place] [address] , [address], [place] [address] Derek King MD, Vice President [employer] CLIA: [id number] Sodium 142 135-145 mmol/L Potassium 4.2 3.5-5.3 [...] Interpretation:Normal Performing Lab: Notes/Report: Test performed by [facility] [address] [place] [address] , [address], [place] [id number] Derek King MD, Vice President [employer] CLIA: [id number] Erythrocyte Sedimentation Rate (ESR), Automated 18 <31 mm/hr P-Rheumatoid Factor Reviewed date:06/10/2024 01:35:27 PM Interpretation:Normal Performing Lab: Notes/Report: Test performed by [facility] [address] [place] [address] , [address], [place] [address] Derek King MD, Vice President [employer] CLIA: [id number] Rheumatoid Factor 10.0 <14.1 IU/mL P-TSH Reviewed date:06/10/2024 01:35:27 PM Interpretation:Normal Performing Lab: Notes/Report: Test performed by [facility] [address] [place] [address] , [address], [place] [address] Derek King MD, Vice President [employer] CLIA: [id number] TSH 1.10 0.43-5.25 mU/L P-KELL Reviewed date:06/10/2024 12:56:59 PM Interpretation: Performing Lab: Notes/Report: Urinalysis - Inhouse Reviewed date:07/04/2024 01:18:37 PM Interpretation: Performing Lab: Notes/Report: Color/Clarity yellow clear Leuk trace Nitrite pos Urobili 3.2 Protein neg pH 6.5 Blood neg Sp. Gr. 1.010 Ketone neg Bili neg Gluc neg P-Culture, Urine Reviewed date:07/13/2024 12:45:35 PM Interpretation: Performing Lab: Notes/Report: Test performed by [facility] [address] [facility] , [address], [place] [address] Derek King MD, Vice President Network Development [facility]: [id number] Specimen Source Urine - Void Culture, Urine [...] Interpretation:Normal Performing Lab: Notes/Report: Test performed by [facility] [address] [place] [address] , [address], [place] [address] Derek King MD, Vice President [employer] CLIA: [id number] Sodium 138 135-145 mmol/L Potassium 3.8 3.5-5.3 [...] Ratio 1.6 1.1-2.5 Urinalysis - Inhouse Reviewed date:11/10/2024 11:15:53 AM [...] Interpretation:sensitive Performing Lab: Notes/Report: Test performed by [facility] [address] [place] [address] , [address], [place] [address] Derek King MD, Vice President [employer] CLIA: [id number] Specimen Source Urine - Void Culture, Urine [...] Annually Performing Lab: Notes/Report: Negative, F/U Annually Urinalysis - Inhouse Reviewed date:07/26/2024 12:08:06 PM Interpretation: Performing Lab: Notes/Report: Color/Clarity yellow Leuk 1+ Nitrite neg Urobili 3.2 Protein neg pH 6.0 Blood neg Sp. Gr. 1.015 Ketone neg Bili neg Gluc neg P-Culture, Urine Reviewed date:08/02/2024 08:19:21 AM Interpretation:sensitive Performing Lab: Notes/Report: Test performed by [facility], [place] [id number] [facility] , [address], [place] [address] Derek King MD, Vice President [employer] Development MARI: [id number] Specimen Source Urine - Void Culture, Urine [...] S Trimeth/Sulfa S ___ S=SUSCEPTIBLE I=INTERMEDIATE R=RESISTANT CBC Fingerstick (in house) Reviewed date:11/28/2024 05:12:33 [...] - 38 plat 167 100 - 400 Medications Medication SIG (Take, Route, Frequency, Duration) Notes Start Date End Date Status Advair Diskus 100-50 MCG/ACT 1 puff Inha lation Twice a day; Duration: 30 days 01/24/2025 Active Calcium + Vitamin D3 600-10 MG-MCG 1 tablet with a meal Orally Once a day Active Aspirin Adult Low Dose 81 MG 1 tab(s) or ally once a day; Duration: 30 day(s) Active Allopurinol 300 MG 1 tab(s) orally [...] Orally 3 times a week (MWF) Active Montelukast Sodium 10 MG 1 tablet Orally Once a day; Duration: 90 days Active hydroCHLOROthiazide 12.5 MG 1 tablet in the morning Orally Once a day; Duration: 90 days Active Losartan Potassium 25 MG Take 1 tablet b y mouth twice daily 1 tab in the morning, 1/2 tab at night; Duration: 90 days Active Immunizations Vaccine Route [...] Status W/U Status Risk Notes Problem Hyperlipidemia (89954469) Hyperlipidemia (272.4) Active confirmed Problem Hypothyroidism (74097210) Hypothyroidism (acquired) (E03.9) Active confirmed Problem Vitamin B12 deficiency (434795462) Vitamin B12 deficiency (E53.8) Active confirmed Problem Gout (26989277) Gout (M10.9) Active confirmed Problem Essential hypertension (04441736) Essential hypertension (I10) Active confirmed Problem Anxiety (28476206) Anxiety (F41.9) Active confi rmed Problem Hyperuricemia (27462281) Hyperuricemia (E79.0) Active confirmed Problem Mixed anxiety and depressive disorder (297279084) Depression with anxiety (F41.8) Active confirmed Problem Restless legs (91846418) Restless legs (G25.81) Active confirmed Problem Mixed hyperlipidemia (561333713) Mixed hyperlipidemia (E78.2) Active confirmed Problem Urge incontinence of urine (63483745) Urge incontinence (N39.41) Active confirmed Problem Obese class II (220547272271923) BMI 35.0-35.9,adult (Z68.35) Active confirmed Problem Sciatica (29423349) Sciatica of right side (M54.31) Active confirmed Problem Uncomplicated moderate persistent asthma (142116819) Moderate persistent asthma without complication (J45.40) Active confirmed Problem Gastroesophageal reflux disease without esophagitis (308168243) Gastroesophageal reflux disease without esophagitis (K21.9) Active confirmed Problem Acquired hypothyroidism (086102779) Acquired hypothyroidism (E03.9) Active confirmed Problem Mammography abnormal (413562526) Abnormal mammogram of left breast (R92.8) Active confirmed Problem Leukocytosis (813072519) Leukocytosis, unspecified type (D72.829) Active confirmed Problem Syncope and collapse (115177987) Syncope, unspecified syncope type (R55) Active confirmed Problem Sciatica (95408362) Right sided sciatica (M54.31) Active confirmed Problem Reactive depression (situational) (39884902) Reactive depression (situational) (F32.9) Active confirmed Problem Osteoarthritis of knee (083081980) 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) Active confirmed Problem Localized, primary osteoarthritis of the hand (575174878) 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) Active confirmed Problem Uncomplicated moderate persistent asthma (697042567) Moderate persistent asthmatic bronchitis without complication (J45.40) Active confirmed Problem Exacerbation of moderate persistent asthma (disorder) (007851921) Moderate persistent asthma with exacerbation (J45.41) Active confirmed Problem Seasonal allergic rhinitis (693732260) Seasonal allergic rhinitis, unspecified trigger (J30.2) Active confirmed Problem Basal cell carcinoma of ala nasi (disorder) (100532808) Basal cell carcinoma (BCC) of ala nasi (C44.311) Active confirmed Problem Benign neoplasm of skin of right forearm (D23.61) Active confirmed Vital Signs Heart Rate 61 /min 01/23/2025 Blood pressure diastolic 72 mm Hg 01/23/2025 Height 60 in 01/23/2025 Blood pressure systolic 118 mm Hg 01/23/2025 Weight 178.2 lbs 01/23/2025 BMI 34.8 kg/m2 01/23/2025 Encounters Encounter Location Date Provider Diagnosis [facility] [address] [place], [place] [id number] 06/09/2024 Anabell Mae Essential hypertensi on I10 ; Hypothyroidism (acquired) E03.9 ; Depression with anxiety F41.8 ; Basal cell carcinoma (BCC) of ala nasi C44.311 ; Moderate persistent asthmatic bronchitis without complication J45.40 and Arthropathy of hand M19.049 [facility] [address] [place], [place] [id number] 07/04/2024 Georgette Austin UTI (lower urinary t ract infection) N39.0 [facility] [address] [place], [place] [id number] 07/26/2024 R Geoff Limeet UTI (lower urinary t ract infection) N39.0 [facility] [address] [place], [place] [id number] 09/08/2024 Regan [place] Left hip pain M25.55 2 ; Pyuria R82.81 and Acute left-sided low back pain without sciatica M54.50 [facility] [address] [place], [place] [id number] 10/06/2024 Anabell Mae Essential hypertensi on I10 ; Acquired hypothyroidism E03.9 ; Moderate persistent asthma without complication J45.40 ; Restless legs G25.81 ; Mixed hyperlipidemia E78.2 and BMI 35.0-35.9,adult Z68.35 [facility] [address] [facility] [address] [place] [id number] 10/17/2024 Regan [place] Pyuria R82.81 and Ac katty left-sided low back pain without sciatica M54.50 [facility] [address] [place], [place] [id number] 10/21/2024 Regan [place] Pyuria R82.81 [facility] [address] [place], [place] [id number] 11/09/2024 Regan [place] Acute UTI N39.0 ; Dysuria R30.0 ; Acute URI J06.9 and Breast cancer screening by mammogram Z12.31 [facility] [address] [place], [place] [id number] 11/28/2024 Regan [place] Viral bronchitis J20 .8 [facility] [address] [place] [id number] 12/05/2024 Regan [place] Acute bronchitis, unspecified organism J20.9 ; Persistent cough R05.3 ; SOB (shortness of breath) R06.02 and Leukocytosis, unspecified type D72.829 [facility] [address] [place], [place] [id number] 01/23/2025 Regan [place] Essential hypertensi on I10 ; Hypothyroidism (acquired) E03.9 ; Gout M10.9 ; Gastroesophageal reflux disease without esophagitis K21.9 ; Polyarthralgia M25.50 and Moderate persistent asthma without complication J45.40 [facility] [address] [place] [id number] 01/23/2025 Anabell Mae Moderate persistent asthma without complication J45.40 [facility] [address] [place] [id number] 01/24/2025 Regan [place] [facility] [address] [place] [id number] 03/29/2024 Regan [place] Right sided sciatica M54.31 [facility] [address] [place] [id number] 06/14/2024 Anabell Mae [facility] [address] [place] [id number] 09/12/2024 Regan [place] [facility] [address] [place] [id number] 09/13/2024 Regan [place] [facility] [address] [place] [id number] 09/22/2024 Regan [place] [facility] [address] [place] [id number] 10/25/2024 Regan [place] [facility] [address] [place] [id number] 11/02/2024 Anabell Mae [facility] [address] [place] [id number] 11/07/2024 Anabell Mae [facility] [address] [place] [id number] 11/21/2024 Anabell Mae [facility] [address] [place] [id number] 11/22/2024 Regan [place] [facility] [address] [place] [id number] 12/01/2024 Regan [place] [facility] [address] [place] [id number] 12/13/2024 Anabell Mae Screening for osteoporosis Z13.820 [facility] [address] [place], [place] [id number] 01/16/2025 Regan [place] Assessments Encounter Date Diagnosis (ICD Code) Assessment [...] 11/28/2024 Viral bronchitis (ICD-10 - J20.8) 12/05/2024 Persistent cough (ICD-10 - R05.3) 12/13/2024 Screening for osteoporosis (ICD-10 - Z13.820) 01/23/2025 Hypothyroidism (acquired) (ICD-10 - E03.9) 12/05/2024 Acute bronchitis, unspecified organism (ICD-10 - J20.9) Patient has failed to improve dispite several courses of steroids and antibiotics. [facility] upper repiratory PCR panel today as WBC count is still elevated 01/23/2025 Essential hypertension (ICD-10 - I10) 01/23/2025 Moderate persistent asthma without complication (ICD-10 - J45.40) 01/23/2025 Gout (ICD-10 - M10.9) 12/05/2024 SOB (shortness of breath) (ICD-10 - [...] 12/05/2024 Leukocytosis, unspecified type (ICD-10 - D72.829) 01/23/2025 Gastroesophageal reflux disease without esophagitis (ICD-10 - K21.9) 01/23/2025 Polyarthralgia (ICD-10 - M25.50) 10/06/2024 Mixed hyperlipidemia (ICD-10 - E78.2) 06/09/2024 Moderate persistent asthmatic bronchitis without complication (ICD-10 - J45.40) 06/09/2024 Arthropathy of hand (ICD-10 - M19.049) 10/06/2024 BMI 35.0-35.9,adult (ICD-10 - Z68.35) 01/23/2025 Moderate persistent asthma without complication (ICD-10 - J45.40) Plan Of Treatment Pending Test Test Name Order Date X ray : Hands, bilateral 01/23/2025 Next Appt Details Provider Name:Regan Morales ry, 01/24/2025 08:22:00 AM, [address] [facility], [address], [place], [place], [id number], Insurance Providers Payer Name Payer Address Payer Phone Subscriber Number Group Number Insured Name Patient Relationship to Insured Coverage Start Date Coverage End Date [employer] (MEDICAR E) [address] [address] [place] [phone] [id number] HANY VELASCO Self - patient is the [...] 03/2006 Bilateral Cataract 12/2010 Colonoscopy 12/11/2011 Cholecystectomy- [facility] 03/30/2012 [facility] Hernia Heart Cath [address] Gonzalez. 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 Montenegro [facility] 2023 Colonoscopy, Dr. Colunga. One polyp 2023 Hospitalization History Reason Date(Month/Year) Labyrinthitis Bilateral Ears- [facility] ER 11/2019
--- OUTSIDE RECORDS SUMMARY | 2025-01-24 08:56 | XMS_ITS | Clinical Summary ---
Author Organization [facility] Address [address] 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
== END 2025-01-24 23:59 | disposition home or self-care (01) ==
LOC: RAD 08:52
PROVIDERS: PCP Family Medicine; Visit Provider Family Medicine
DX: M19.042 Primary osteoarthritis, left hand (principal); M19.041 Primary osteoarthritis, right hand
CPT/HCPCS: 73130